=== PATIENT | male | born 1965 | race American Indian/Alaskan Native ===

== ENCOUNTER 2021-06-04 04:22 | Inpatient (IN) | payer SELFPAY ==
[~2021-06-04 04:22] MED LIST: ETOMIDATE 20 MG/10 ML INJ IV ONE; MIDAZOLAM 5 MG/5 ML INJ MDV IV ONE; ROCURONIUM 50 MG/5 ML INJ IV ONE
[2021-06-04] MEDS ORDERED: methylPREDNISolone Sod Succinate 125 MG/2 ML INJ IV ONE (04:47)
[2021-06-04] MEDS ORDERED: FAMOTIDINE 20 MG/2 ML INJ IV ONE (04:47)
[2021-06-04] MEDS ORDERED: EPINEPHrine/PF 1 MG/1 ML INJ SUB-Q ONE (04:47)
[2021-06-04] MEDS ORDERED: diphenhydrAMINE 50 MG/ML VIAL IV ONE (04:47)
--- NOTE | 2021-06-04 04:50 | Emergency Department Report ---
ED General Adult HPI - General Chief complaint: Dental/Oral Stated complaint: SWOLLEN TONGUE Time Seen by Provider: 06/04/21 04:46 Source: patient, EMS Mode of arrival: Ambulatory Limitations: No Limitations - History of Present Illness Initial comments: Patient is 55-year-old male brought to the emergency room via EMS from home for evaluation of swollen tongue. Patient stated that he woke up with swollen tongue. Patient denied any difficulty breathing but he has difficulty talking and swallowing. Patient stated that he is not taking losartan. - Related Data Allergies Allergy/AdvReac Type Severity Reaction Status Date / Time No Known Allergies Allergy Verified 06/04/21 04:24 ED Review of Systems ROS: Stated complaint: SWOLLEN TONGUE Other details as noted in HPI Comment: All other systems reviewed and negative Constitutional: denies: chills, fever Respiratory: denies: cough, SOB at rest Gastrointestinal: denies: abdominal pain, nausea Musculoskeletal: denies: back pain Neurological: denies: headache ED Past Medical Hx - Past Medical History Previous Medical History?: Yes Hx Hypertension: Yes Hx CVA: Yes ED Physical Exam - General Limitations: No Limitations General appearance: alert, in no apparent distress - ENT ENT exam: Present: other (Significantly swollen tongue especially the posterior part of the tongue.) - Respiratory Respiratory exam: Present: normal lung sounds bilaterally - Cardiovascular Cardiovascular Exam: Present: regular rate, normal rhythm, normal heart sounds - GI/Abdominal GI/Abdominal exam: Present: soft, normal bowel sounds. Absent: distended, tenderness, guarding, rebound, rigid, organomegaly, mass, bruit, pulsatile mass, hernia - Extremities Exam Extremities exam: Present: normal inspection, full ROM, normal capillary refill - Back Exam Back exam: Present: normal inspection, full ROM. Absent: CVA tenderness (R), CVA tenderness (L) - Neurological Exam Neurological exam: Present: alert, oriented X3, CN II-XII intact - Psychiatric Psychiatric exam: Present: normal mood - Skin Skin exam: Present: warm, intact, normal color ED Course Vital Signs 06/04/21 06/04/21 06/04/21 04:31 05:09 05:16 Temperature 97.4 F L Pulse Rate 98 H 97 H 86 Respiratory 18 14 14 Rate Blood Pressure Blood Pressure 203/112 [Left] O2 Sat by Pulse 100 100 100 Oximetry 06/04/21 06/04/21 06/04/21 05:30 05:41 05:45 Temperature Pulse Rate 103 H 97 H 112 H Respiratory 14 20 18 Rate Blood Pressure 213/114 Blood Pressure 213/114 200/106 207/109 [Left] O2 Sat by Pulse 100 100 100 Oximetry 06/04/21 06/04/21 06/04/21 05:46 06:00 06:07 Temperature Pulse Rate 147 H 152 H 141 H Respiratory 15 24 Rate Blood Pressure 207/109 214/115 187/110 Blood Pressure 214/115 [Left] O2 Sat by Pulse 100 99 100 Oximetry 06/04/21 06/04/21 06/04/21 06:15 06:16 06:30 Temperature Pulse Rate 143 H 144 H 125 H Respiratory 24 24 24 Rate Blood Pressure 187/110 152/90 Blood Pressure 187/110 [Left] O2 Sat by Pulse 100 100 98 Oximetry 06/04/21 06/04/21 06/04/21 06:46 07:00 07:16 Temperature Pulse Rate 119 H 113 H 119 H Respiratory 24 24 24 Rate Blood Pressure 139/93 211/119 178/95 Blood Pressure [Left] O2 Sat by Pulse 99 99 98 Oximetry 06/04/21 06/04/21 06/04/21 07:30 07:46 08:00 Temperature Pulse Rate 111 H 109 H 103 H Respiratory 24 21 24 Rate Blood Pressure 139/89 164/100 128/86 Blood Pressure [Left] O2 Sat by Pulse 98 99 99 Oximetry 06/04/21 06/04/21 06/04/21 08:16 08:26 08:30 Temperature 99.1 F Pulse Rate 98 H 95 H 96 H Respiratory 24 14 24 Rate Blood Pressure 136/89 130/89 130/89 Blood Pressure [Left] O2 Sat by Pulse 99 99 99 Oximetry 06/04/21 06/04/21 06/04/21 08:41 08:46 09:00 Temperature Pulse Rate 86 86 82 Respiratory 23 24 25 H Rate Blood Pressure 135/90 135/90 157/93 Blood Pressure [Left] O2 Sat by Pulse 100 100 100 Oximetry 06/04/21 06/04/21 06/04/21 09:16 09:30 09:46 Temperature Pulse Rate 79 82 79 Respiratory 18 14 24 Rate Blood Pressure 160/97 154/98 159/98 Blood Pressure [Left] O2 Sat by Pulse 100 100 100 Oximetry 1206/04/21 06/04/21 10:00 10:16 10:30 Temperature Pulse Rate 81 79 83 Respiratory 23 24 20 Rate Blood Pressure 164/98 162/101 167/99 Blood Pressure [Left] O2 Sat by Pulse 100 100 100 Oximetry 06/04/21 06/04/21 06/04/21 10:46 11:00 11:16 Temperature Pulse Rate 79 78 80 Respiratory 24 24 24 Rate Blood Pressure 165/100 170/104 165/99 Blood Pressure [Left] O2 Sat by Pulse 100 100 100 Oximetry 06/04/21 06/04/21 06/04/21 11:30 11:46 12:00 Temperature Pulse Rate 83 87 87 Respiratory 16 16 17 Rate Blood Pressure 176/104 164/100 165/107 Blood Pressure [Left] O2 Sat by Pulse 100 100 100 Oximetry 06/04/21 06/04/21 06/04/21 12:16 12:30 12:40 Temperature Pulse Rate 89 87 86 Respiratory 16 16 Rate Blood Pressure 162/104 170/102 164/100 Blood Pressure [Left] O2 Sat by Pulse 100 100 100 Oximetry 06/04/21 06/04/21 06/04/21 12:46 13:00 13:16 Temperature Pulse Rate 94 H 89 85 Respiratory 15 16 16 Rate Blood Pressure 176/112 179/101 182/104 Blood Pressure [Left] O2 Sat by Pulse 94 Oximetry 06/04/21 06/04/21 06/04/21 13:30 13:46 14:00 Temperature Pulse Rate 83 90 80 Respiratory 16 16 16 Rate Blood Pressure 172/98 181/109 147/87 Blood Pressure [Left] O2 Sat by Pulse Oximetry 06/04/21 06/04/21 06/04/21 14:16 14:30 14:46 Temperature Pulse Rate 75 77 79 Respiratory 16 13 14 Rate Blood Pressure 145/91 167/144 165/99 Blood Pressure [Left] O2 Sat by Pulse Oximetry 06/04/21 06/04/21 06/04/21 15:00 15:16 15:30 Temperature Pulse Rate 69 77 68 Respiratory 16 17 16 Rate Blood Pressure 151/101 166/100 157/110 Blood Pressure [Left] O2 Sat by Pulse 100 98 Oximetry 06/04/21 06/04/21 06/04/21 15:45 16:00 16:15 Temperature Pulse Rate 61 59 L 55 L Respiratory 16 16 16 Rate Blood Pressure 151/112 150/106 152/83 Blood Pressure [Left] O2 Sat by Pulse 98 98 99 Oximetry 06/04/21 06/04/21 06/04/21 16:24 16:30 16:46 Temperature Pulse Rate 52 L 51 L 81 Respiratory 16 17 Rate Blood Pressure 152/83 159/89 195/124 Blood Pressure [Left] O2 Sat by Pulse 99 99 100 Oximetry 06/04/21 06/04/21 06/04/21 17:00 17:15 17:30 Temperature Pulse Rate 95 H 77 70 Respiratory 15 15 18 Rate Blood Pressure 206/102 138/117 172/109 Blood Pressure [Left] O2 Sat by Pulse 100 100 100 Oximetry 06/04/21 06/04/21 06/04/21 17:46 18:00 18:15 Temperature Pulse Rate 69 60 53 L Respiratory 17 16 16 Rate Blood Pressure 167/93 167/97 160/86 Blood Pressure [Left] O2 Sat by Pulse 100 100 100 Oximetry 06/04/21 06/04/21 06/04/21 18:30 18:45 19:00 Temperature Pulse Rate 51 L 50 L 49 L Respiratory 16 16 16 Rate Blood Pressure 157/86 160/87 158/86 Blood Pressure [Left] O2 Sat by Pulse 100 100 100 Oximetry 06/04/21 06/04/21 06/04/21 19:15 19:16 19:30 Temperature 97.6 F Pulse Rate 49 L 47 L 48 L Respiratory 16 16 16 Rate Blood Pressure 169/106 163/122 Blood Pressure 169/106 [Left] O2 Sat by Pulse 100 100 100 Oximetry 06/04/21 06/04/21 06/04/21 19:45 19:58 20:00 Temperature Pulse Rate 47 L 47 L 64 Respiratory 16 15 Rate Blood Pressure 163/118 169/110 Blood Pressure [Left] O2 Sat by Pulse 100 100 99 Oximetry 06/04/21 06/04/21 06/04/21 20:15 20:30 20:45 Temperature Pulse Rate 49 L 47 L 47 L Respiratory 16 16 16 Rate Blood Pressure 164/93 164/89 163/90 Blood Pressure [Left] O2 Sat by Pulse 99 99 99 Oximetry 06/04/21 06/04/21 06/04/21 21:00 21:15 21:30 Temperature Pulse Rate 46 L 45 L 45 L Respiratory 16 16 16 Rate Blood Pressure 161/91 161/91 163/93 Blood Pressure [Left] O2 Sat by Pulse 99 99 99 Oximetry ED Medical Decision Making - Lab Data Result diagrams: 06/04/21 04:53 06/04/21 04:53 - Medical Decision Making Patient is 55-year-old male brought to the emergency room via EMS from home for evaluation of swollen tongue. Patient stated that he woke up with swollen tongue. Patient denied any difficulty breathing but he has difficulty talking and swallowing. Patient stated that he is not taking losartan. Patient immediately received epinephrine, Benadryl, Solu-Medrol and Pepcid with no improvement. I immediately decided to intubate the patient to protect his airway. With the help of anesthesiologist patient intubated using a glide scope. I discussed the patient with Dr. Hart, he agreed to admit the patient to medical service for further management. Critical Care Time: Yes Critical care time in (mins) excluding proc time.: 45 Critical care attestation.: If time is entered above; I have spent that time in minutes in the direct care of this critically ill patient, excluding procedure time. ED Disposition Clinical Impression: Angioedema, Compromised airway Disposition: ADMITTED INPATIENT Is pt being admited?: Yes Condition: Stable
[2021-06-04] MEDS ORDERED: SODIUM CHLORIDE 0.9% 500 ML 500 ML IV ONE (05:11)
[2021-06-04 05:12] LABS: Basophils % (Auto) 0.4 % (0.0-1.8); Eosinophils % (Auto) 0.1 % (0.0-4.3); Hemoglobin 12.4 gm/dl (11.8-15.2); Lymphocytes # (Auto) 1.1 K/mm3 (1.2-5.4); Lymphocytes % (Auto) 15.3 % (13.4-35.0); Mean Corpuscular HGB Conc 32 % (32-34); Mean Corpuscular Volume 82 fl (84-94); Monocytes # (Auto) 0.5 K/mm3 (0.0-0.8); Monocytes % (Auto) 7.6 % (0.0-7.3); Platelet Count 140 K/mm3 (140-440); Red Blood Count 4.78 M/mm3 (3.65-5.03); Red Cell Distribution Width 13.5 % (13.2-15.2)
[2021-06-04] MEDS ORDERED: TRANEXAMIC ACID 1,000 MG in SODIUM CHLORIDE 0.9% 50 ML IV NR (05:15)
[2021-06-04] MEDS ORDERED: SODIUM CHLORIDE 0.9% 50 ML ONE (05:20)
[2021-06-04 05:27] LABS: Blood Urea Nitrogen 6 mg/dL (9-20); Calcium 8.7 mg/dL (8.4-10.2); Hemolysis Index 5
[2021-06-04] MEDS ORDERED: LIDOCAINE PF 100 MG/5 ML (CARDIAC SYRINGE) IV ONE (05:30)
[2021-06-04] MEDS ORDERED: MIDAZOLAM 5 MG/5 ML INJ MDV IV NR (05:30)
[2021-06-04] MEDS ORDERED: ETOMIDATE 20 MG/10 ML INJ IV ONE (05:30)
[2021-06-04] MEDS ORDERED: KETAMINE 500 MG/5 ML VIAL MDV ONE (05:30)
[2021-06-04] MEDS ORDERED: ROCURONIUM 50 MG/5 ML INJ IV ONE (05:30)
[2021-06-04 05:35] LABS: BUN/Creatinine Ratio 12
[2021-06-04] MEDS ORDERED: SUGAMMADEX SODIUM 200 MG/2 ML VIAL IV ONE (05:43)
[2021-06-04 05:49] LABS: INR 1.03 (0.87-1.13)
[2021-06-04 05:50] LABS: Partial Thromboplastin Time 28.1 Sec. (24.2-36.6)
[2021-06-04] MEDS ORDERED: KETAMINE 500 MG/5 ML VIAL MDV IV ONE (05:50)
[2021-06-04] MEDS ORDERED: LIP THERAPY VASELINE TP PRN (05:57)
[2021-06-04] MEDS ORDERED: MINERAL OIL/PETROLATUM, WHITE OPHTH OINT 3.5 GM OU PRN (05:57)
--- NOTE | 2021-06-04 06:40 | XRay Report ---
CHEST 1 VIEW 06/04/2021 6:01 AM INDICATION / CLINICAL INFORMATION: ETT placement. COMPARISON: One view of the chest from 08/23/2011. FINDINGS: SUPPORT DEVICES: An ET tube terminates 7 cm above the yvonne. An NG tube terminates laterally along t he gastric fundus. HEART / MEDIASTINUM: No significant abnormality. LUNGS / PLEURA: No significant pulmonary abnormality. No significant pleural effusion. No pneumothora x. ADDITIONAL FINDINGS: No significant additional findings. IMPRESSION: 1. No acute abnormality of the chest. Signer Name: Dawit Ba MD Signed: 06/04/2021 6:35 AM Workstation Name: [id number]
--- NOTE | 2021-06-04 07:41 | History and Physical Report ---
History of Present Illness Date of examination: 06/04/21 Date of admission: 06/04/21 06:03 Chief complaint: Tongue swelling History of present illness: 55-year-old male with history of hypertension who presented to the emergency department with complaints of tongue swelling. He was emergently intubated to prevent airway compromise. Patient was intubated at time of exam. Unable to provide significant or detailed history. Past History Past Medical History: hypertension Past Surgical History: Other (Unable to obtain) Social history: other (Unable to obtain) Family history: other (Unable to obtain) Medications and Allergies Allergies Allergy/AdvReac Type Severity Reaction Status Date / Time No Known Allergies Allergy Verified 06/04/21 04:24 Active Meds: Active Medications Hydrophilic Ointment (Lip Therapy Vaseline) 1 applic TP Q2HR PRN PRN Reason: Dry Lips Propofol (Diprivan 10 Mg/Ml) 1,000 mg in 100 mls @ 2.477 mls/hr IV TITR AIDAN; Protocol Last Titration: 06/04/21 06:50 Dose: 20 mcg/kg/min, 9.906 mls/hr Documented by: Multi-Ingred Cream/Lotion/Oil/Oint (Mineral Oil/Petrolatum, White Ophth Oint 3.5 Gm) 1 applic OU Q4HR PRN PRN Reason: Dry Eye(s) Senna/Docusate Sodium (Sennosides/Docusate Sodium 8.6/50 Mg Tab) 1 tab FEEDTUBE BID AIDAN Review of Systems ROS unobtainable: due to endotracheal tube Exam - Physical Exam Narrative exam: GENERAL: Well-developed well-nourished. Lying in bed in no acute distress. HEENT: ET tube in place. NECK: Supple. CHEST/LUNGS: CTAB on MV HEART/CARDIOVASCULAR: RRR. No murmur, rubs or gallops appreciated. ABDOMEN: +BS. NT/ND. NEURO: No focal motor deficit appreciated. Follows all commands. EXTREMITIES: No cyanosis, clubbing or edema. PSYCH: Cooperative. - Constitutional Vitals: Temp Pulse Resp BP Pulse Ox 97.4 F L 144 H 24 187/110 100 06/04/21 04:31 06/04/21 06:16 06/04/21 06:16 06/04/21 06:16 06/04/21 06:16 Results - Labs CBC & Chem 7: 06/09/21 04:22 06/09/21 04:22 Labs: Laboratory Last Values WBC 7.0 K/mm3 (4.5-11.0) 06/04/21 04:53 RBC 4.78 M/mm3 (3.65-5.03) 06/04/21 04:53 Hgb 12.4 gm/dl (11.8-15.2) 06/04/21 04:53 Hct 39.0 % (35.5-45.6) 06/04/21 04:53 MCV 82 fl (84-94) L 06/04/21 04:53 MCH 26 pg (28-32) L 06/04/21 04:53 MCHC 32 % (32-34) 06/04/21 04:53 RDW 13.5 % (13.2-15.2) 06/04/21 04:53 Plt Count 140 K/mm3 (140-440) 06/04/21 04:53 Lymph % (Auto) 15.3 % (13.4-35.0) 06/04/21 04:53 Coffee % (Auto) 7.6 % (0.0-7.3) H 06/04/21 04:53 Eos % (Auto) 0.1 % (0.0-4.3) 06/04/21 04:53 Baso % (Auto) 0.4 % (0.0-1.8) 06/04/21 04:53 Lymph # (Auto) 1.1 K/mm3 (1.2-5.4) L 06/04/21 04:53 Coffee # (Auto) 0.5 K/mm3 (0.0-0.8) 06/04/21 04:53 Eos # (Auto) 0.0 K/mm3 (0.0-0.4) 06/04/21 04:53 Baso # (Auto) 0.0 K/mm3 (0.0-0.1) 06/04/21 04:53 Seg Neutrophils % 76.6 % (40.0-70.0) H 06/04/21 04:53 Seg Neutrophils # 5.4 K/mm3 (1.8-7.7) 06/04/21 04:53 PT 14.6 Sec. (12.2-14.9) 06/04/21 05:16 INR 1.03 (0.87-1.13) 06/04/21 05:16 APTT 28.1 Sec. (24.2-36.6) 06/04/21 05:16 Sodium 140 mmol/L (137-145) 06/04/21 04:53 Potassium 3.5 mmol/L (3.6-5.0) L 06/04/21 04:53 Chloride 100.3 mmol/L (98-107) 06/04/21 04:53 Carbon Dioxide 24 mmol/L (22-30) 06/04/21 04:53 Anion Gap 19 mmol/L 06/04/21 04:53 BUN 6 mg/dL (9-20) L 06/04/21 04:53 Creatinine 0.5 mg/dL (0.8-1.3) L 06/04/21 04:53 Estimated GFR > 60 ml/min 06/04/21 04:53 BUN/Creatinine Ratio 12 % 06/04/21 04:53 Glucose 124 mg/dL (75-100) H 06/04/21 04:53 Calcium 8.7 mg/dL (8.4-10.2) 06/04/21 04:53 Blood Type O POSITIVE 06/04/21 05:16 Antibody Screen Negative 06/04/21 05:16 Assessment and Plan Assessment and plan: #Angioedema -Patient intubated for airway protection -Patient has history of hypertension treated with losartan, uncertain of use -s/p FFP, Solu-Medrol, famotidine and epinephrine -will continue with steroids every 8 hours, wean as tolerated -CTA of neck ordered -Critical care consulted, assistance appreciated #Hypertensive urgency #History of hypertension -Likely secondary to above vs medication non-compliance -will start PRN hydralazine & nifedipine 30mg qday -will adjust once med rec done #Hypokalemia -will replete and monitor as needed Advance Directives: No VTE prophylaxis?: Chemical Plan of care discussed with patient/family: Yes
[2021-06-04 07:42] LABS: ABG Base Excess -2.9 mmol/L (-2.0-3.0); ABG HCO3 21.3 mmol/L (20.0-26.0); ABG Methemoglobin 0.6 % (0.0-1.5); ABG Oxygen Saturation 98.3 % (95.0-99.0); ABG PCO2 35.1 mm Hg; ABG PH 7.401 pH Units (7.350-7.450); ABG PO2 118.3 mm Hg (80.0-90.0)
[2021-06-04] MEDS ORDERED: ONDANSETRON 4 MG/2 ML INJ IV PRN (08:00)
[2021-06-04] MEDS ORDERED: ACETAMINOPHEN 325 MG/10.15 ML ORAL LIQD UNIT DOSE FEEDTUBE PRN (08:00)
[2021-06-04] MEDS ORDERED: NALOXONE 0.4 MG/1 ML INJ IV PRN (08:00)
--- NOTE | 2021-06-04 08:59 | Event Note ---
Date: 06/04/21 [id number] Called to ER for STAT intubation of patient d/t angioedema. Advised ER MD to give 2 units FFP. I administered 1g TXA on arrival. Pt appeared hypertensive and tachycardic on arrival. Preoxygenated with NRB, and pt given incremental doses of versed/ketamine to total 3mg/100mg in an attempt to take a look with the glidescope while the patient was awake but sedated. The patient became uncooperative instead, so etomidate 20mg given. Using a S4 and 7.5 ETT the patient was intubated via the glidescope with moderate difficulty, then paralyzed with 50mg of rocuronium. Sats dropped to mid 80s and returned to normal after placement. Otherwise pt vital signs were stable, BBS, +ETCO2, atraumatic placement. Patient left in care of the RN, RT, and MD.
[2021-06-04] MEDS ORDERED: DOCUSATE SODIUM 100 MG CAP FEEDTUBE SCH (10:00)
--- NOTE | 2021-06-04 10:41 | Consultation ---
History of Present Illness Consult date: 06/04/21 Requesting physician: ABRAHAM SWENSON Reason for consult: other (AHRF on MVS; Angioedema) History of present illness: PCCM CONSULT NOTE (Full dictation # [id number]) Please see dictated notes for full details Medications and Allergies Allergies Allergy/AdvReac Type Severity Reaction Status Date / Time No Known Allergies Allergy Verified 06/04/21 04:24 Active Meds: Active Medications Acetaminophen (Acetaminophen 325 Mg/10.15 Ml Oral Liqd Unit Dose) 650 mg FEEDTUBE Q6H PRN PRN Reason: Pain MILD(1-3)/Fever >100.5/MEDRANO Bisacodyl (Bisacodyl 10 Mg Rect Supp) 10 mg RI QDAY PRN PRN Reason: constipation Docusate Sodium (Docusate Sodium 100 Mg Cap) 100 mg FEEDTUBE BID AIDAN Famotidine (Famotidine 20 Mg/2 Ml Inj) 20 mg IV BID AIDAN Heparin Sodium (Porcine) (Heparin 5,000 Unit/1 Ml Vial) 5,000 unit SUB-Q Q12HR AIDAN Hydrophilic Ointment (Lip Therapy Vaseline) 1 applic TP Q2HR PRN PRN Reason: Dry Lips Propofol (Diprivan 10 Mg/Ml) 1,000 mg in 100 mls @ 2.477 mls/hr IV TITR AIDAN; Protocol Last Titration: 06/04/21 07:35 Dose: 30 mcg/kg/min, 14.86 mls/hr Documented by: Methylprednisolone Sodium Succinate (Methylprednisolone Sod Succinate 125 Mg/2 Ml Inj) 60 mg IV Q8HR AIDAN Morphine Sulfate (Morphine 2 Mg/1 Ml Inj) 2 mg IV Q4H PRN PRN Reason: Pain, Moderate (4-6) Morphine Sulfate (Morphine 4 Mg/1 Ml Inj) 4 mg IV Q4H PRN PRN Reason: Pain , Severe (7-10) Multi-Ingred Cream/Lotion/Oil/Oint (Mineral Oil/Petrolatum, White Ophth Oint 3.5 Gm) 1 applic OU Q4HR PRN PRN Reason: Dry Eye(s) Naloxone HCl (Naloxone 0.4 Mg/1 Ml Inj) 0.1 mg IV Q2MIN PRN PRN Reason: Res Rate </= 8 or 02 SAT < 92% Ondansetron HCl (Ondansetron 4 Mg/2 Ml Inj) 4 mg IV Q8H PRN PRN Reason: Nausea And Vomiting Senna/Docusate Sodium (Sennosides/Docusate Sodium 8.6/50 Mg Tab) 1 tab FEEDTUBE BID AIDAN Sodium Chloride (Sodium Chloride 0.9% 10 Ml Flush Syringe) 10 ml IV BID AIDAN Sodium Chloride (Sodium Chloride 0.9% 10 Ml Flush Syringe) 10 ml IV PRN PRN PRN Reason: LINE FLUSH Physical Examination Vital signs: Vital Signs Temp Pulse Resp BP Pulse Ox 97.4 F L 100 H 16 204/110 98 06/04/21 04:31 06/04/21 04:31 06/04/21 04:31 06/04/21 04:31 06/04/21 04:31 Results - Laboratory Findings CBC and BMP: 06/04/21 04:53 06/04/21 04:53 ABG ABG pH 7.401 pH Units (7.350-7.450) 06/04/21 06:30 ABG pCO2 35.1 mm Hg 06/04/21 06:30 ABG pO2 118.3 mm Hg (80.0-90.0) H 06/04/21 06:30 ABG O2 Saturation 98.3 % (95.0-99.0) 06/04/21 06:30 PT/INR, D-dimer PT 14.6 Sec. (12.2-14.9) 06/04/21 05:16 INR 1.03 (0.87-1.13) 06/04/21 05:16 Abnormal lab findings: Abnormal Labs 06/04/21 06/04/21 06/04/21 04:53 04:53 06:30 MCV 82 L MCH 26 L [place] % (Auto) 7.6 H Lymph # (Auto) 1.1 L Seg Neutrophils % 76.6 H ABG pO2 118.3 H ABG Base Excess -2.9 L ABG Hemoglobin 12.7 L Potassium 3.5 L BUN 6 L Creatinine 0.5 L Glucose 124 H
[2021-06-04] MEDS: SENNOSIDES/DOCUSATE SODIUM 8.6/50 MG TAB FEEDTUBE SCH ×2 (11:32→23:04)
[2021-06-04] MEDS ORDERED: fentaNYL 100 MCG/2 ML INJ IV PRN (11:40)
[2021-06-04] MEDS: HEPARIN 5,000 UNIT/1 ML VIAL SUB-Q SCH ×2 (12:24→23:04)
[2021-06-04] MEDS: FAMOTIDINE 20 MG/2 ML INJ IV SCH ×2 (12:24→23:04)
[2021-06-04] MEDS: diphenhydrAMINE 50 MG/ML VIAL IV SCH ×2 (12:36→23:04)
[2021-06-04] MEDS: fentaNYL DRIP Premix 2,000 MCG/100 ML BAG IV SCH (14:45)
[2021-06-04] MEDS: methylPREDNISolone Sod Succinate 125 MG/2 ML INJ IV SCH ×2 (15:57→23:04)
[2021-06-04] MEDS: NIFEdipine XL 30 MG TAB PO SCH (20:08)
--- NOTE | 2021-06-04 22:34 | Consultation ---
DATE OF CONSULTATION: 06/04/2021 PULMONARY CRITICAL CARE CONSULT NOTE CONSULTING PHYSICIAN: Dr. Cintron. REASON FOR CONSULTATION: Acute respiratory failure secondary to angioedema. CHIEF COMPLAINT AND HISTORY OF PRESENT ILLNESS: The patient is a now 55-year-old male, past medical history really is unknown and unobtainable secondary to the patient's condition. He presented to the Emergency [facility] by [facility] after he woke up at home with a swollen tongue. He denies being on any medications. Denied being on any medications at home, has no idea what caused the swelling. He has never had the angioedema before. He was having some dysphonia at presentation and also has some difficulty breathing. He reportedly has a prescription for losartan, but denied being on the medication to the Emergency Room physician. He was evaluated in the Emergency Room after a couple of hours or so to 3 hours in the Emergency Room, the patient decompensated; he was found hypotensive and tachycardic. Anesthesia was consulted emergently, the patient ultimately required intubation, rapid sequence intubation at bedside. It was accomplished with a GlideScope and thankfully there was no major desaturation. Post-intubation, we are asked to assist with management. When I stopped by to see him, he was resting in bed, on a propofol drip running at 45 mcg per kilogram per minute, but he was a very easily arousable and appropriate. He denied chest pain. He denied any prior sore throat. He denied any trauma. Now, with regards to the patient's tobacco use/abuse history, he admits to about a half a pack a day tobacco smoking history. There is really is not as much of the history of presentation as I have. PAST MEDICAL HISTORY: The patient admits to history of hypertension and a history of a prior cerebrovascular accident. PAST SURGICAL HISTORY: Denies. MEDICATIONS: The medications he was on at the time I stopped by to see him, according to the medication administration record included the following: Tylenol 650 mg p.o. q. 6 hours p.r.n. mild pain or fevers, Dulcolax 10 mg per rectum daily p.r.n. constipation, docusate sodium 100 mg p.o. b.i.d., all p.o. meds via the feeding tube, Pepcid 20 mg IV b.i.d., heparin 5000 units subcutaneous q. 12 hours, Solu-Medrol 60 mg IV q. 8 hours, morphine sulfate 2 mg IV q. 4 hours p.r.n. moderate pain and 4 mg IV q. 4 hours p.r.n. severe pain, Zofran 4 mg IV q. 8 hours p.r.n. nausea and vomiting. Propofol drip was going at 45 mcg per kilogram per minute, senna docusate 1 tablet p.o. b.i.d. scheduled. ALLERGIES: No known drug allergies. DIET: Thin gentleman. Denies acute weight loss or gain in the preceding few weeks to months. SOCIAL HISTORY: Lives in the community, has about a [id number] tobacco smoking history. Denies alcohol or illicit drug use or abuse. FAMILY HISTORY: Otherwise unobtainable. REVIEW OF SYSTEMS: Difficult to obtain secondary to the patient's medical and mental condition. Since he has been here, no gross hematochezia or melena, no gross hematuria, no hematemesis, no hemoptysis, no bloody tracheal secretions, no witnessed seizures. He denies polydipsia or polyuria. He denies heat or cold intolerance. Complete 13-system review of system was obtained. Pertinent positives and/or negatives as in body of history above, otherwise noncontributory. PHYSICAL EXAMINATION: VITAL SIGNS: At presentation, he was afebrile, temperature 97.4 degrees Fahrenheit, pulse of 100, respiratory rate of 16, blood pressure 204/110, O2 sats were 98%, inspired oxygen concentration at that time was not recorded. When I stopped by to see him, O2 sats were 98% that was on the mechanical ventilator, assist control mode, tidal volumes 500, rate of 24 and PEEP of 5 and 30% FiO2. GENERAL: He is a middle-aged male. Normocephalic, atraumatic. Resting in bed without significant patient-ventilator dyssynchrony. HEAD, EYES, EARS, NOSE AND THROAT: Anicteric. No conjunctival erythema. Endotracheal tube was taped at the lips around 24 cm. NECK: No gross jugular venous distention, no thyromegaly, but he does have some swelling to the neck without significant tenderness. RESPIRATORY: Grossly, there were no palpable lymph nodes in the supraclavicular or submandibular lymph node chains. LUNGS: Auscultation of both lung tovar are unremarkable. He had good bilateral air movement. No wheezing. HEART: Sounds 1 and 2 are heard at the time of my evaluation, regular rate and rhythm without overt rubs or murmurs. ABDOMEN: Soft, flat, bowel sounds are positive, nontender, no palpable hepatosplenomegaly. EXTREMITIES: Without overt digital clubbing or cyanosis, no pedal edema. Pedal pulses are 2+ bilaterally. NEUROLOGIC: Pupils are equal, round, about 4 mm, reactive to light. Extraocular muscle movements are intact. He moves all 4 extremities spontaneously. SKIN: Normal turgor in the areas examined without overt cellulitis or rash. Please see the wound care nurses' notes for full description of his skin. PSYCHIATRIC: Mood was normal. Affect was appropriate. He seemed to have intact judgment and insight. LABORATORY DATA: From my review are as follows: Admission white cell count 7000 with a hemoglobin of 12.4, hematocrit of 39.0 and platelet count of 140. INR 1.03. Arterial blood gas showed a pH of 7.40, pCO2 of 35, pO2 of 118 on 40% FiO2. Serum sodium 140, potassium 3.5, chloride 100, bicarbonate 24, BUN 6, creatinine 0.5, glucose was 124. CRP was within normal limits. No microbiology studies. Chest x-ray, considering some hyperinflation noted on the x-ray he is a thin, tall gentleman, I would say, with borderline cardiomegaly; however, no acute process otherwise. No gross pneumothorax, no gross bony fracture. I am unable to see the left costophrenic angle well though. ASSESSMENT: 1. Acute respiratory failure secondary to angioedema, etiology unknown. 2. Hypertension, poorly controlled. 3. History of a cerebrovascular accident. 4. Mild hypokalemia. PLAN: I will reduce continue mechanical ventilator. I have reduced the set rate to 16. We will continue Pepcid, and I will add Benadryl. I will also add fentanyl to the sedation regimen and try and see if we can wean off propofol. Oxygen will be weaned to keep sats greater than or equal to about 90%. Aspiration precautions, ventilator-associated pneumonia bundle has been introduced. No acute indication for empiric antibiotic therapy. I will go ahead and order a CT scan of his neck to better evaluate the swelling below of his neck. Otherwise, he is appropriately on GI and DVT prophylaxis. I will be stopping the Colace and continue with the senna docusate for now to prevent acute diarrhea. Flu and pneumonia vaccination will be addressed per protocol. Thank you very much for the consult. We will follow along and make further recommendations as picture progresses/becomes clearer. He is critically ill on life-sustaining interventions including mechanical ventilatory support at very high risk of from pulmonary system decompensation. At this time, I spent about 35-40 minutes of critical care time without overlap excluding any procedural time that may be necessary. I should mention oral antihypertensives will be introduced. TID: [id number] RECEIPT: [id number] THOR/MORIAH
--- NOTE | 2021-06-04 23:22 | Cat Scan Report ---
CT neck w con INDICATION / CLINICAL INFORMATION: 55 years Male; Angioedema; neck swelling. TECHNIQUE: Contiguous thin cut axial images obtained through the neck following IV contrast. Sagittal and chirinos l reconstructions performed by the technologist. All CT scans at this location are performed using CT dose reduction for ALARA by means of automated exposure control. COMPARISON: None available. FINDINGS: There are edematous changes involving superficial soft tissues of the left neck with mild t hickening of the underlying platysma muscle which is nonspecific though may reflect cellulitis; corre lation be needed given the history of "neck swelling". No focal fluid collections are identified to i ndicate abscess at. MUCOSAL SPACE: The motion degrades the image quality in this intubated patient. There is also presenc e of nasogastric tube. There is hyperostosis along the lingual cortex of the mandible, greater on the right which is seen is an incidental finding. LYMPH NODES: There are a few scattered cervical lymph nodes which appear to measure less than 1 cm an d are likely reactive. SALIVARY GLANDS: The visualized parotid glands demonstrate fairly symmetric attenuation without calci fication. There appear to be mild inflammatory changes surrounding the left submandibular gland at. T here is apparent mild dilatation of the ducts within the submandibular glands bilaterally. However, n o calcification is seen within the glands. THYROID GLAND: The thyroid gland appears to demonstrate appropriate size and contour. PARANASAL SINUSES: Mild mucosal thickening is noted along the inferior maxillary sinuses bilaterally. SPINE: There is mild reversal the cervical lordosis with multilevel degenerative changes. VASCULAR STRUCTURES: There appear to be mild edematous changes surrounding the left carotid sheath st ructures. There is no significant narrowing of the visualized carotid vessels. 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 IMPRESSION: 1. The motion and beam hardening significantly degrades the image quality in this patient with presen ce of endotracheal and nasogastric tubes. However, there are edematous changes particularly involving the left neck including the subcutaneous soft tissues and correlation be needed in this patient with history of "neck swelling". No well-defined fluid collection is identified to indicate abscess. Signer Name: Spike Zee MD Signed: 06/04/2021 11:18 PM Workstation Name: [id number]
--- NOTE | 2021-06-05 02:44 | XRay Report ---
CHEST 1 VIEW 06/05/2021 1:31 AM INDICATION / CLINICAL INFORMATION: follow up respiratory failure. COMPARISON: One view of the chest from 06/04/2021. FINDINGS: SUPPORT DEVICES: Unchanged. HEART / MEDIASTINUM: No significant abnormality. LUNGS / PLEURA: No significant pulmonary abnormality. No significant pleural effusion. No pneumothora x. ADDITIONAL FINDINGS: No significant additional findings. IMPRESSION: 1. No acute abnormality of the chest. Signer Name: Dawit Ba MD Signed: 06/05/2021 2:40 AM Workstation Name: [id number]
[2021-06-05 05:14] LABS: Basophils % (Auto) 0.2 % (0.0-1.8); Hematocrit 38.7 % (35.5-45.6); Lymphocytes # (Auto) 0.4 K/mm3 (1.2-5.4); Lymphocytes % (Auto) 8.5 % (13.4-35.0); Mean Corpuscular HGB Conc 31 % (32-34); Mean Corpuscular Volume 81 fl (84-94); Monocytes # (Auto) 0.2 K/mm3 (0.0-0.8); Monocytes % (Auto) 4.3 % (0.0-7.3); Platelet Count 126 K/mm3 (140-440)
[2021-06-05] MEDS: methylPREDNISolone Sod Succinate 125 MG/2 ML INJ IV SCH ×3 (05:14→22:04)
[2021-06-05 05:46] LABS: Blood Urea Nitrogen 12 mg/dL (9-20); Calcium 8.2 mg/dL (8.4-10.2); Hemolysis Index 4
[2021-06-05 05:48] LABS: BUN/Creatinine Ratio 24
[2021-06-05 09:08] LABS: ABG Base Excess 3.6 mmol/L (-2.0-3.0); ABG HCO3 28.2 mmol/L (20.0-26.0); ABG Methemoglobin 0.5 % (0.0-1.5); ABG Oxygen Saturation 97.9 % (95.0-99.0); ABG PCO2 42.6 mm Hg; ABG PH 7.438 pH Units (7.350-7.450); ABG PO2 106.3 mm Hg (80.0-90.0)
[2021-06-05] MEDS: diphenhydrAMINE 50 MG/ML VIAL IV SCH (11:14)
[2021-06-05] MEDS: FAMOTIDINE 20 MG/2 ML INJ IV SCH ×2 (11:14→22:04)
[2021-06-05] MEDS: HEPARIN 5,000 UNIT/1 ML VIAL SUB-Q SCH ×2 (11:14→22:04)
[2021-06-05] MEDS: SENNOSIDES/DOCUSATE SODIUM 8.6/50 MG TAB FEEDTUBE SCH ×2 (11:15→22:04)
[2021-06-05] MEDS: NIFEdipine XL 30 MG TAB PO SCH (11:17)
--- NOTE | 2021-06-05 11:19 | Progress Note ---
Assessment and Plan Acute respiratory failure Angioedema Hypertension Cerebrovascular accident Hypokalemia - continue antihistamine therapy - continue Systemic Steroids - daily SAT and SBT assessment as tolerated (tentative extubation in am) - continue to wean supplemental oxygen for target O2 sat's > 90% acutely - VAP bundle addressed - continue lung protective strategies - continue bronchodilators with pulmonary hygiene per RT - wean per pulmonary driven protocols otherwise - continue to avoid benzodiazepine's, reduce the possibility of delirium - AB's per ID rec's - continue accuchecks resumed with glycemic control per SSI (While critically ill target blood glucose of 140-180 mg/dL; avoid hypoglycemia) - sedation prn for target RASS 0 to -1 - prn analgesia per CPOT score - Maintenance of sleep-wake cycle, avoid delirium - continue enteral nutritional support at goal rate as tolerated - G.I. & VTE prophylaxis - PT/OT/ROM exercises - continue mobility protocols for pressure ulcer prophylaxis - Monitor hemodynamics closely - continue other care per attending / other consultants - discharge planning ongoing concurrently .... Re-evaluate in am & prn CONDITION: CRITICAL PROGNOSIS: GUARDED CODE STATUS: FULL CODE The high probability of a clinically significant, sudden or life-threatening deterioration of the [respiratory] system(s) required my full and direct attention, intervention and personal management. The aggregate critical care time was [33] minutes without overlap. Time includes spent on; [x] Data Review and interpretation [x] Patient assessment and monitoring of vital signs [x] Documentation [x] Medication orders and management Subjective Date of service: 06/05/21 Principal diagnosis: Acute respiratory failure ; HTN; Angioedema; H/O CVA; Hypokalemia Interval history: Patient is seen today for: Acute respiratory failure ; HTN; Angioedema; H/O CVA; Hypokalemia Seen and examined at bedside; 24hour events reviewed; nursing and respiratory care staff consulted; no adverse overnight events reported to me; resting in bed; CT neck without abscess / fluid collection; cuff leak improved; he denies acute chest pains or SOB; no emesis or overt aspiration Objective Vital Signs - 12hr 06/04/21 06/04/21 06/04/21 23:20 23:29 23:30 Temperature Pulse Rate 60 59 L Pulse Rate [ 59 L From Monitor] Respiratory 16 16 16 Rate Blood Pressure 194/106 194/106 O2 Sat by Pulse 99 100 99 Oximetry 06/04/21 06/04/21 06/04/21 23:38 23:40 23:50 Temperature Pulse Rate 59 L 58 L 58 L Pulse Rate [ From Monitor] Respiratory 16 16 Rate Blood Pressure 194/106 194/106 194/106 O2 Sat by Pulse 100 99 99 Oximetry 06/05/21 06/05/21 06/05/21 00:00 00:06 00:10 Temperature 97.4 F L Pulse Rate 58 L 58 L 58 L Pulse Rate [ From Monitor] Respiratory 16 16 16 Rate Blood Pressure 111/80 111/80 111/80 O2 Sat by Pulse 99 99 99 Oximetry 06/05/21 06/05/21 06/05/21 00:20 00:30 00:40 Temperature Pulse Rate 58 L 56 L 56 L Pulse Rate [ From Monitor] Respiratory 16 16 16 Rate Blood Pressure 111/80 111/80 111/80 O2 Sat by Pulse 99 99 99 Oximetry 06/05/21 06/05/21 06/05/21 00:50 01:00 01:10 Temperature Pulse Rate 56 L 55 L 57 L Pulse Rate [ From Monitor] Respiratory 16 16 16 Rate Blood Pressure 111/80 116/80 116/80 O2 Sat by Pulse 99 99 99 Oximetry 06/05/21 06/05/21 06/05/21 01:20 01:30 01:40 Temperature Pulse Rate 56 L 56 L 57 L Pulse Rate [ From Monitor] Respiratory 16 16 16 Rate Blood Pressure 116/80 116/80 116/80 O2 Sat by Pulse 99 99 99 Oximetry 06/05/21 06/05/21 06/05/21 01:50 02:00 02:10 Temperature Pulse Rate 58 L 57 L 61 Pulse Rate [ From Monitor] Respiratory 16 16 16 Rate Blood Pressure 116/80 118/81 118/81 O2 Sat by Pulse 99 99 99 Oximetry 06/05/21 06/05/21 06/05/21 02:20 02:30 02:40 Temperature Pulse Rate 61 62 64 Pulse Rate [ From Monitor] Respiratory 16 16 16 Rate Blood Pressure 118/81 118/81 118/81 O2 Sat by Pulse 99 99 99 Oximetry 06/05/21 06/05/21 06/05/21 02:50 03:00 03:16 Temperature Pulse Rate 66 65 70 Pulse Rate [ From Monitor] Respiratory 16 16 16 Rate Blood Pressure 118/81 155/96 155/96 O2 Sat by Pulse 99 100 100 Oximetry 06/05/21 06/05/21 06/05/21 03:30 03:46 04:00 Temperature 97.9 F Pulse Rate 70 82 70 Pulse Rate [ 59 L From Monitor] Respiratory 16 16 16 Rate Blood Pressure 155/96 155/96 113/79 O2 Sat by Pulse 99 99 98 Oximetry 06/05/21 06/05/21 06/05/21 04:04 04:16 04:30 Temperature Pulse Rate 69 68 71 Pulse Rate [ From Monitor] Respiratory 16 16 Rate Blood Pressure 113/79 113/79 113/79 O2 Sat by Pulse 98 98 98 Oximetry 06/05/21 06/05/21 06/05/21 04:46 05:00 05:16 Temperature Pulse Rate 69 69 72 Pulse Rate [ From Monitor] Respiratory 16 16 16 Rate Blood Pressure 113/79 122/86 122/86 O2 Sat by Pulse 99 99 99 Oximetry 06/05/21 06/05/21 06/05/21 05:30 05:46 06:00 Temperature Pulse Rate 72 73 73 Pulse Rate [ From Monitor] Respiratory 16 16 16 Rate Blood Pressure 122/86 122/86 147/98 O2 Sat by Pulse 99 99 99 Oximetry 06/05/21 06/05/21 07:15 08:39 Temperature 97.8 F Pulse Rate 69 Pulse Rate [ From Monitor] Respiratory Rate Blood Pressure 131/86 O2 Sat by Pulse 99 Oximetry Constitutional: no acute distress Eyes: non-icteric ENT: oropharynx moist, other (ETT 24 cm DELMER) Neck: supple, no lymphadenopathy, no JVD Effort: normal Ascultation: Bilateral: clear Percussion: Bilateral: not dull Cardiovascular: regular rate and rhythm Gastrointestinal: normoactive bowel sounds, soft, non-tender, non-distended Integumentary: normal Extremities: no cyanosis, no edema, pulses normal, no ischemia or petechiae Neurologic: non-focal exam (grossly), pupils equal and round, CN II-XII normal, motor strength normal and Psychiatric: mood appropriate, affect normal CBC and BMP: 06/06/21 07:16 06/06/21 07:16 ABG, PT/INR, D-dimer: ABG ABG pH 7.438 pH Units (7.350-7.450) 06/05/21 08:45 ABG pCO2 42.6 mm Hg 06/05/21 08:45 ABG pO2 106.3 mm Hg (80.0-90.0) H 06/05/21 08:45 ABG O2 Saturation 97.9 % (95.0-99.0) 06/05/21 08:45 PT/INR, D-dimer PT 14.6 Sec. (12.2-14.9) 06/04/21 05:16 INR 1.03 (0.87-1.13) 06/04/21 05:16 Abnormal lab findings: Abnormal Labs 06/04/21 06/04/21 06/04/21 04:53 04:53 06:30 MCV 82 L MCH 26 L MCHC RDW Plt Count Lymph % (Auto) [place] % (Auto) 7.6 H Lymph # (Auto) 1.1 L Seg Neutrophils % 76.6 H ABG pO2 118.3 H ABG HCO3 ABG Base Excess -2.9 L ABG Hemoglobin 12.7 L Potassium 3.5 L BUN 6 L Creatinine 0.5 L Glucose 124 H POC Glucose Calcium 06/04/21 06/05/21 06/05/21 23:31 04:14 04:14 MCV 81 L MCH 25 L MCHC 31 L RDW 13.0 L Plt Count 126 L Lymph % (Auto) 8.5 L [place] % (Auto) Lymph # (Auto) 0.4 L Seg Neutrophils % 87.0 H ABG pO2 ABG HCO3 ABG Base Excess ABG Hemoglobin Potassium BUN Creatinine 0.5 L Glucose 152 H POC Glucose 157 H Calcium 8.2 L 06/05/21 08:45 MCV MCH MCHC RDW Plt Count Lymph % (Auto) [place] % (Auto) Lymph # (Auto) Seg Neutrophils % ABG pO2 106.3 H ABG HCO3 28.2 H ABG Base Excess 3.6 H ABG Hemoglobin 13.3 L Potassium BUN Creatinine Glucose POC Glucose Calcium Chest x-ray: image reviewed (no acute process) Allied health notes reviewed: nursing
--- NOTE | 2021-06-05 11:53 | Progress Note ---
Assessment and Plan Assessment and plan: This is a 55-year-old male with past medical history of HTN who was intubated in the ED due to angioedema. Hospital Course to Date 06/05: Patient remains intubated and sedated. Sedation vacation this am, patient was appropriate following commands. CT Neck noted and revealed edematous and swelling. Plan for SAT and SBT today for potential extubation per [facility]. Per nursing staff family voiced concern for possible alcohol withdrawal, patient is a daily heavy drinker. Consider CIWA protocol once awake and off sedation. Assessment and Plan #Neuro:Sedated #ETOH Abuse - Patient is intubated and sedated on propofol and Fentanyl RASS -3 - Sedation vacation this am, patient was appropriate, following commands - Concern for possible ETOH withdrawal, per family heavy daily drinker - Consider CIWA protocol once awake and off sedation - Plan for SAT and SBT today per [facility] - Avoid benzodiazepine to reduce the possibility of delirium - PRN analgesia for CPOT greater than 3 - Maintenance of sleep-wake cycle #Hypertensive urgency #History of hypertension - Patient presented with elevated BP - Probably due to above vs. medication non-compliance - Patient BP is bordeline this am, probably related to sedation - Continue PRN hydralazine & nifedipine 30mg qday - Will resume home meds once list is available - Continue blood pressure monitor per protocol - Maintain MAP above 65 and or SBP less than 160 #Acute respiratory failure #Angioedema - Patient intubated for airway protection in the ED on 06/04 - Patient has history of hypertension treated with losartan, uncertain of use - s/p FFP, Solu-Medrol, famotidine and epinephrine - Vent Setting: A/C- 30%,6,16,500 - AM ABG noted - CTA Neck noted and revealed edematous and swelling - [facility] consulted, appreciate recommendations - Continue IV Steroids and IV benadryl - VAP bundle addressed - Aspiration precaution HOB above 30 - Daily SBT and SAT trials as tolerated - Daily ABG and CXR - Continue SPO2 monitoring for SPO2 goal above 92% #GI:TF - Enteral nutrition initiated - Nutrition consult - Continue PPI- pepcid - Continue BR #Hypokalemia- improved - presented with low K, repleted - Monitor and replace electrolytes as needed - Trend BMP #Endo:Glycemic Control - BG check and low dose SSI Q6hrs while on TF - Avoid hypoglycemia #DVT Prophylaxis - Continue AC- Hep SubQ - SCDs to bilateral lower extremities while in bed The high probability of a clinically significant, sudden or life threatening deterioration of the [Neuro, Respiratory] system(s) required my full and direct attention, intervention and personal management. The aggregate critical care time was [60] minutes. This time is in addition to time spent performing reported procedures but includes the following: [x] Data Review and interpretation [x] Patient assessment and monitoring of vital signs [x] Documentation [x] Medication orders and management Disposition Plan: ICU Total Time Spent with Patient (Minutes): 60 History Interval history: Patient seen and examined at the bedside. Intubated and sedated, on propofol and fentanyl, RASS -3. Per RN patient tolerated sedation vacation this am, woke up, was appropriate, and following commands. Angioedema improved overnight Hospitalist Physical - Constitutional Vitals: Temp Pulse Resp BP Pulse Ox 98.6 F 69 16 131/86 99 06/05/21 11:34 06/05/21 08:39 06/05/21 06:00 06/05/21 08:39 06/05/21 08:39 Results - Labs CBC & Chem 7: 06/05/21 04:14 06/05/21 04:14 Labs: Laboratory Last Values WBC 5.1 K/mm3 (4.5-11.0) 06/05/21 04:14 RBC 4.80 M/mm3 (3.65-5.03) 06/05/21 04:14 Hgb 12.0 gm/dl (11.8-15.2) 06/05/21 04:14 Hct 38.7 % (35.5-45.6) 06/05/21 04:14 MCV 81 fl (84-94) L 06/05/21 04:14 MCH 25 pg (28-32) L 06/05/21 04:14 MCHC 31 % (32-34) L 06/05/21 04:14 RDW 13.0 % (13.2-15.2) L 06/05/21 04:14 Plt Count 126 K/mm3 (140-440) L 06/05/21 04:14 Lymph % (Auto) 8.5 % (13.4-35.0) L 06/05/21 04:14 [place] % (Auto) 4.3 % (0.0-7.3) 06/05/21 04:14 Eos % (Auto) 0.0 % (0.0-4.3) 06/05/21 04:14 Baso % (Auto) 0.2 % (0.0-1.8) 06/05/21 04:14 Lymph # (Auto) 0.4 K/mm3 (1.2-5.4) L 06/05/21 04:14 [place] # (Auto) 0.2 K/mm3 (0.0-0.8) 06/05/21 04:14 Eos # (Auto) 0.0 K/mm3 (0.0-0.4) 06/05/21 04:14 Baso # (Auto) 0.0 K/mm3 (0.0-0.1) 06/05/21 04:14 Seg Neutrophils % 87.0 % (40.0-70.0) H 06/05/21 04:14 Seg Neutrophils # 4.4 K/mm3 (1.8-7.7) 06/05/21 04:14 ESR 29 mm/Hr (0-20) 06/04/21 04:53 PT 14.6 Sec. (12.2-14.9) 06/04/21 05:16 INR 1.03 (0.87-1.13) 06/04/21 05:16 APTT 28.1 Sec. (24.2-36.6) 06/04/21 05:16 ABG pH 7.438 pH Units (7.350-7.450) 06/05/21 08:45 ABG pCO2 42.6 mm Hg 06/05/21 08:45 ABG pO2 106.3 mm Hg (80.0-90.0) H 06/05/21 08:45 ABG HCO3 28.2 mmol/L (20.0-26.0) H 06/05/21 08:45 ABG O2 Saturation 97.9 % (95.0-99.0) 06/05/21 08:45 ABG O2 Content 18.1 (0.0-44) 06/05/21 08:45 ABG Base Excess 3.6 mmol/L (-2.0-3.0) H 06/05/21 08:45 ABG Hemoglobin 13.3 gm/dl (14.0-18.0) L 06/05/21 08:45 ABG Carboxyhemoglobin 1.2 % (0.0-5.0) 06/05/21 08:45 ABG Methemoglobin 0.5 % (0.0-1.5) 06/05/21 08:45 Oxyhemoglobin 96.2 % (95.0-99.0) 06/05/21 08:45 FiO2 30 % 06/05/21 08:45 Sodium 138 mmol/L (137-145) 06/05/21 04:14 Potassium 3.8 mmol/L (3.6-5.0) 06/05/21 04:14 Chloride 99.4 mmol/L (98-107) 06/05/21 04:14 Carbon Dioxide 24 mmol/L (22-30) 06/05/21 04:14 Anion Gap 18 mmol/L 06/05/21 04:14 BUN 12 mg/dL (9-20) 06/05/21 04:14 Creatinine 0.5 mg/dL (0.8-1.3) L 06/05/21 04:14 Estimated GFR > 60 ml/min 06/05/21 04:14 BUN/Creatinine Ratio 24 % 06/05/21 04:14 Glucose 152 mg/dL (75-100) H 06/05/21 04:14 POC Glucose 133 mg/dL (70-105) H 06/05/21 11:23 Calcium 8.2 mg/dL (8.4-10.2) L 06/05/21 04:14 C-Reactive Protein 0.60 mg/dL (0.00-1.30) 06/04/21 04:53 Coronavirus (PCR) Negative (Negative) 06/04/21 07:00 Blood Type O POSITIVE 06/04/21 05:16 Antibody Screen Negative 06/04/21 05:16 Active Medications - Current Medications Current Medications: Generic Name Dose Route Start Last Admin Trade Name Freq PRN Reason Stop Dose Admin Acetaminophen 650 mg 06/04/21 08:00 Acetaminophen 325 Mg/10.15 Ml Oral Liqd Unit Dose FEEDTUBE Q6H PRN Pain MILD(1-3)/Fever >100.5/MEDRANO Bisacodyl 10 mg 06/04/21 08:00 Bisacodyl 10 Mg Rect Supp CO QDAY PRN constipation Diphenhydramine HCl 25 mg 06/04/21 12:00 06/05/21 11:14 Diphenhydramine 50 Mg/Ml Vial IV 25 mg BID AIDAN Administration Famotidine 20 mg 06/04/21 10:00 06/05/21 11:14 Famotidine 20 Mg/2 Ml Inj IV 20 mg BID AIDAN Administration Fentanyl 50 mcg 06/04/21 11:40 06/04/21 14:34 Fentanyl 100 Mcg/2 Ml Inj IV 50 mcg Q10MIN PRN Administration ANALGESIA Heparin Sodium (Porcine) 5,000 unit 06/04/21 10:00 06/05/21 11:14 Heparin 5,000 Unit/1 Ml Vial SUB-Q 5,000 unit Q12HR AIDAN Administration Hydralazine HCl 10 mg 06/04/21 18:00 Hydralazine 20 Mg/1 Ml Inj IV Q4HR PRN Hypertension Hydrophilic Ointment 1 applic 06/04/21 05:57 Lip Therapy Vaseline TP Q2HR PRN Dry Lips Propofol 1,000 mg in 100 mls @ 2.477 mls/hr 06/04/21 06:00 06/05/21 06:05 Diprivan 10 Mg/Ml IV 45 mcg/kg/min TITR AIDAN 22.29 mls/hr Administration Protocol 5 MCG/KG/MIN Fentanyl Citrate 2,000 mcg in 100 mls @ 4.128 mls/hr 06/04/21 12:00 06/04/21 23:05 Fentanyl Drip Premix IV Infused TITR AIDAN Titration Protocol 1 MCG/KG/HR Methylprednisolone Sodium Succinate 60 mg 06/04/21 14:00 06/05/21 05:14 Methylprednisolone Sod Succinate 125 Mg/2 Ml Inj IV 60 mg Q8HR AIDAN Administration Morphine Sulfate 2 mg 06/04/21 08:00 Morphine 2 Mg/1 Ml Inj IV Q4H PRN Pain, Moderate (4-6) Morphine Sulfate 4 mg 06/04/21 08:00 Morphine 4 Mg/1 Ml Inj IV Q4H PRN Pain , Severe (7-10) Multi-Ingred Cream/Lotion/Oil/Oint 1 applic 06/04/21 05:57 Mineral Oil/Petrolatum, White Ophth Oint 3.5 Gm OU Q4HR PRN Dry Eye(s) Naloxone HCl 0.1 mg 06/04/21 08:00 Naloxone 0.4 Mg/1 Ml Inj IV Q2MIN PRN Res Rate </= 8 or 02 SAT < 92% Nifedipine 30 mg 06/04/21 18:00 06/05/21 11:17 Nifedipine Xl 30 Mg Tab PO Not Given QDAY AIDAN Ondansetron HCl 4 mg 06/04/21 08:00 Ondansetron 4 Mg/2 Ml Inj IV Q8H PRN Nausea And Vomiting Senna/Docusate Sodium 1 tab 06/04/21 10:00 06/05/21 11:15 Sennosides/Docusate Sodium 8.6/50 Mg Tab FEEDTUBE 1 tab BID AIDAN Administration Sodium Chloride 10 ml 06/04/21 10:00 06/05/21 11:15 Sodium Chloride 0.9% 10 Ml Flush Syringe IV 10 ml BID AIDAN Administration Sodium Chloride 10 ml 06/04/21 08:00 Sodium Chloride 0.9% 10 Ml Flush Syringe IV PRN PRN LINE FLUSH Nutrition/Malnutrition Assess - Dietary Evaluation Nutrition/Malnutrition Findings: Nutrition Notes Start: 06/05/21 10:40 Freq: Status: Active Protocol: Document 06/05/21 10:56 ON LICENSE OF [facility] (Rec: 06/05/21 11:03 ON LICENSE OF [facility] [id number]) Nutrition Notes Need for Assessment generated from: MD Order Initial or Follow up Assessment Current Diagnosis Hypertension Other Pertinent Diagnosis Angioedema, Tongue swelling Current Diet NPO Labs/Tests Reviewed Pertinent Medications Solumedrol, Propofol at 22. 29ml/hr (provides 588 kcal), Senokot Height 6 ft 2 in Weight 82.554 kg [place] Body Weight (kg) 86.36 BMI 23.3 Weight Status Appropriate Subjective/Other Information RD consulted to evaluate nutritional intake. Pt on vent support. No TF consult received yet. Burn Absent Trauma Absent Minimum of two criteria No #1 Nutrition Diagnosis Inadequate oral intake Etiology mech ventilation, tongue swelling As Evidenced by Signs and Symptoms pt NPO Is patient on ventilator? Yes Is Patient Ambulatory and/or Out of Bed No REE-([facility]-confined to bed) 3167.018 Calculation Used for Recommendations [facility] Additional Notes Pro needs 1.2-2g/k-165g/ day Fluid needs 1ml/kcal Nutrition Intervention Change Diet Order: Diet advancement when medically feasible Nutrition Support: Initiate EN support if unable to advance diet. Recommend Osmolite 1.5 at 55ml/hr. Goal #1 Either advance diet or start EN support to meet nutrient needs Anticipated Discharge Needs: Unable to identify at this time Follow-Up By: 06/09/21 Additional Comments F/U: Diet advancement vs TF consult, vent status, Propofol
[2021-06-05] MEDS ORDERED: SIMPLE SYRUP 15 ML FEEDTUBE PRN ×2 (13:22)
[2021-06-05] MEDS ORDERED: LIPASE 10,500/PROTEASE 25,000/AMYLASE 43,750 (UNITS) DR CAP FEEDTUBE PRN (13:22)
[2021-06-05] MEDS ORDERED: SODIUM BICARBONATE 325 MG TAB FEEDTUBE PRN (13:22)
[2021-06-05] MEDS: LORazepam 2 MG/ML VIAL IV PRN (14:11)
--- NOTE | 2021-06-05 15:16 | XRay Report ---
XR abdomen 1V ap INDICATION: OGT placement. COMPARISON: None available. FINDINGS: The tip of the esophagogastric tube projects over the body of the stomach. Signer Name: Mateo Crowe MD Signed: 06/05/2021 3:11 PM Workstation Name: [id number]
[2021-06-05] MEDS: fentaNYL DRIP Premix 2,000 MCG/100 ML BAG IV SCH ×2 (17:29→23:28)
[2021-06-05] MEDS ORDERED: DEXTROSE 50% IN WATER (25GM) 50 ML SYRINGE IV PRN (20:28)
[2021-06-06] MEDS: INSULIN LISPRO 100 UNIT/ML SUB-Q SCH ×4 (01:08→18:07)
[2021-06-06] MEDS: diphenhydrAMINE 50 MG/ML VIAL IV SCH ×3 (01:09→21:59)
[2021-06-06] MEDS: LORazepam 2 MG/ML VIAL IV PRN ×5 (01:20→20:58)
--- NOTE | 2021-06-06 04:23 | XRay Report ---
CHEST 1 VIEW 06/06/2021 3:11 AM INDICATION / CLINICAL INFORMATION: follow up respiratory failure. COMPARISON: One view of the chest from 06/05/2021 FINDINGS: SUPPORT DEVICES: Unchanged. HEART / MEDIASTINUM: No significant abnormality. LUNGS / PLEURA: Probable mild left basilar atelectasis has developed in the interval. The lungs are o therwise clear. No significant pleural effusion. No pneumothorax. ADDITIONAL FINDINGS: No significant additional findings. IMPRESSION: Interval development of probable left basilar atelectasis without other significant interval changes. Signer Name: Dawit Ba MD Signed: 06/06/2021 4:18 AM Workstation Name: [id number]
[2021-06-06 08:21] LABS: Hematocrit 38.2 % (35.5-45.6); Hemoglobin 11.9 gm/dl (11.8-15.2); Mean Corpuscular HGB Conc 31 % (32-34); Mean Corpuscular Volume 81 fl (84-94); Platelet Count 157 K/mm3 (140-440); Red Blood Count 4.73 M/mm3 (3.65-5.03); Red Cell Distribution Width 13.4 % (13.2-15.2)
[2021-06-06 08:39] LABS: BUN/Creatinine Ratio 30; Blood Urea Nitrogen 24 mg/dL (9-20); Calcium 8.2 mg/dL (8.4-10.2); Hemolysis Index 5
[2021-06-06] MEDS: HEPARIN 5,000 UNIT/1 ML VIAL SUB-Q SCH ×2 (09:34→21:57)
[2021-06-06] MEDS: FAMOTIDINE 20 MG/2 ML INJ IV SCH ×2 (09:34→21:57)
[2021-06-06] MEDS: SENNOSIDES/DOCUSATE SODIUM 8.6/50 MG TAB FEEDTUBE SCH ×2 (09:34→21:59)
[2021-06-06 09:40] LABS: ABG Base Excess 1.7 mmol/L (-2.0-3.0); ABG HCO3 27.5 mmol/L (20.0-26.0); ABG Methemoglobin 0.6 % (0.0-1.5); ABG Oxygen Saturation 96.9 % (95.0-99.0); ABG PH 7.376 pH Units (7.350-7.450); ABG PO2 91.3 mm Hg (80.0-90.0)
[2021-06-06] MEDS: hydrALAZINE 20 MG/1 ML INJ IV PRN (10:07)
[2021-06-06] MEDS: fentaNYL DRIP Premix 2,000 MCG/100 ML BAG IV SCH (10:12)
--- NOTE | 2021-06-06 11:34 | Progress Note ---
Assessment and Plan Acute respiratory failure Angioedema EtOH withdrawal Hypertension Cerebrovascular accident Hypokalemia - add Seroquel 200 mg p.o. bid - get Mg & PO4 levels and address - follow QT interval - continue care as below otherwise; - continue antihistamine therapy - continue Systemic Steroids - daily SAT and SBT assessment as tolerated (tentative extubation in am) - continue to wean supplemental oxygen for target O2 sat's > 90% acutely - VAP bundle addressed - continue lung protective strategies - continue bronchodilators with pulmonary hygiene per RT - wean per pulmonary driven protocols otherwise - continue to avoid benzodiazepine's, reduce the possibility of delirium - AB's per ID rec's - continue accuchecks resumed with glycemic control per SSI (While critically ill target blood glucose of 140-180 mg/dL; avoid hypoglycemia) - sedation prn for target RASS 0 to -1 - prn analgesia per CPOT score - Maintenance of sleep-wake cycle, avoid delirium - continue enteral nutritional support at goal rate as tolerated - G.I. & VTE prophylaxis - PT/OT/ROM exercises - continue mobility protocols for pressure ulcer prophylaxis - Monitor hemodynamics closely - continue other care per attending / other consultants - discharge planning ongoing concurrently .... Re-evaluate in am & prn CONDITION: CRITICAL PROGNOSIS: GUARDED CODE STATUS: FULL CODE The high probability of a clinically significant, sudden or life-threatening deterioration of the [respiratory] system(s) required my full and direct attention, intervention and personal management. The aggregate critical care time was [35] minutes without overlap. Time includes spent on; [x] Data Review and interpretation [x] Patient assessment and monitoring of vital signs [x] Documentation [x] Medication orders and management Subjective Date of service: 06/06/21 Principal diagnosis: Acute respiratory failure ; HTN; Angioedema; H/O CVA; Hypokalemia Interval history: Patient is seen today for: Acute respiratory failure ; HTN; Angioedema; H/O CVA; Hypokalemia Seen and examined at bedside; 24hour events reviewed; nursing and respiratory care staff consulted; no adverse overnight events reported to me; resting in bed now but very agitated during SAT and now on CIWA protocol; no emesis or overt aspiration; + h/o EtOH abuse Objective Vital Signs - 12hr 06/05/21 06/05/21 06/06/21 23:45 23:46 00:00 Temperature 99.4 F Pulse Rate 61 60 Pulse Rate [ 54 L From Monitor] Respiratory 12 10 L Rate Blood Pressure 110/82 107/77 O2 Sat by Pulse 99 98 Oximetry 06/06/21 06/06/21 06/06/21 00:04 00:16 00:30 Temperature Pulse Rate 61 58 L 54 L Pulse Rate [ From Monitor] Respiratory 12 12 Rate Blood Pressure 107/77 107/77 116/81 O2 Sat by Pulse 99 99 100 Oximetry 06/06/21 06/06/21 06/06/21 00:46 01:00 01:16 Temperature Pulse Rate 57 L 53 L 65 Pulse Rate [ From Monitor] Respiratory 12 12 12 Rate Blood Pressure 116/81 104/73 104/73 O2 Sat by Pulse 99 100 Oximetry 06/06/21 06/06/21 06/06/21 01:30 01:46 02:00 Temperature Pulse Rate 80 67 73 Pulse Rate [ From Monitor] Respiratory 10 L 12 12 Rate Blood Pressure 107/78 107/78 117/81 O2 Sat by Pulse 98 99 98 Oximetry 06/06/21 06/06/21 06/06/21 02:16 02:30 02:46 Temperature Pulse Rate 65 61 59 L Pulse Rate [ From Monitor] Respiratory 12 12 12 Rate Blood Pressure 117/81 107/73 107/73 O2 Sat by Pulse 99 99 99 Oximetry 06/06/21 06/06/21 06/06/21 03:00 03:16 03:22 Temperature 98.9 F Pulse Rate 57 L 56 L Pulse Rate [ From Monitor] Respiratory 12 14 Rate Blood Pressure 101/71 101/71 O2 Sat by Pulse 99 98 Oximetry 06/06/21 06/06/21 06/06/21 03:30 03:46 04:00 Temperature Pulse Rate 55 L 53 L 59 L Pulse Rate [ 59 L From Monitor] Respiratory 12 12 12 Rate Blood Pressure 105/72 105/72 97/71 O2 Sat by Pulse 99 98 99 Oximetry 06/06/21 06/06/21 06/06/21 04:16 04:26 04:30 Temperature Pulse Rate 57 L 58 L 59 L Pulse Rate [ From Monitor] Respiratory 12 12 Rate Blood Pressure 97/71 97/71 103/74 O2 Sat by Pulse 99 99 99 Oximetry 06/06/21 06/06/21 06/06/21 04:46 05:00 05:16 Temperature Pulse Rate 57 L 66 57 L Pulse Rate [ From Monitor] Respiratory 12 11 L 12 Rate Blood Pressure 103/74 115/67 115/67 O2 Sat by Pulse 99 99 100 Oximetry 06/06/21 06/06/21 06/06/21 05:30 05:46 06:00 Temperature Pulse Rate 57 L 53 L 58 L Pulse Rate [ From Monitor] Respiratory 12 12 12 Rate Blood Pressure 124/83 124/83 121/83 O2 Sat by Pulse 100 100 100 Oximetry 06/06/21 06/06/21 06/06/21 06:16 06:30 06:46 Temperature Pulse Rate 61 56 L 57 L Pulse Rate [ From Monitor] Respiratory 12 12 12 Rate Blood Pressure 121/83 126/83 126/83 O2 Sat by Pulse 99 99 100 Oximetry 06/06/21 06/06/21 06/06/21 07:00 07:14 07:16 Temperature 99.1 F Pulse Rate 56 L 58 L Pulse Rate [ From Monitor] Respiratory 15 12 Rate Blood Pressure 125/82 125/82 O2 Sat by Pulse 99 100 Oximetry 06/06/21 06/06/21 06/06/21 07:30 07:46 08:00 Temperature Pulse Rate 57 L 78 78 Pulse Rate [ 94 H From Monitor] Respiratory 13 13 16 Rate Blood Pressure 140/81 140/81 140/81 O2 Sat by Pulse 100 100 98 Oximetry 06/06/21 06/06/21 06/06/21 08:10 08:16 08:25 Temperature Pulse Rate 72 78 96 H Pulse Rate [ From Monitor] Respiratory 13 Rate Blood Pressure 198/93 198/93 O2 Sat by Pulse 100 99 Oximetry 06/06/21 06/06/21 06/06/21 08:30 08:46 09:00 Temperature Pulse Rate 90 90 89 Pulse Rate [ From Monitor] Respiratory 11 L 15 12 Rate Blood Pressure 198/93 165/95 171/93 O2 Sat by Pulse 98 98 97 Oximetry 06/06/21 06/06/21 06/06/21 09:16 09:30 09:46 Temperature Pulse Rate 77 76 83 Pulse Rate [ From Monitor] Respiratory 12 13 12 Rate Blood Pressure 171/93 123/89 123/89 O2 Sat by Pulse 96 97 99 Oximetry 06/06/21 06/06/21 06/06/21 10:00 10:07 10:16 Temperature Pulse Rate 115 H 84 148 H Pulse Rate [ From Monitor] Respiratory 13 20 Rate Blood Pressure 201/131 201/131 201/131 O2 Sat by Pulse 100 98 Oximetry 06/06/21 06/06/21 06/06/21 10:30 10:46 11:00 Temperature Pulse Rate 139 H 125 H 123 H Pulse Rate [ From Monitor] Respiratory 11 L 14 15 Rate Blood Pressure 201/131 128/79 127/87 O2 Sat by Pulse 97 96 96 Oximetry Constitutional: no acute distress, other (middle aged thin male with mildly increased respiratory effort at rest) Eyes: non-icteric ENT: oropharynx moist, other (ETT 24 cm DELMER) Neck: supple, no lymphadenopathy, no JVD Effort: normal Ascultation: Bilateral: clear Percussion: Bilateral: not dull Cardiovascular: regular rate and rhythm Gastrointestinal: normoactive bowel sounds, soft, non-tender, non-distended Integumentary: normal Extremities: no cyanosis, no edema, pulses normal, no ischemia or petechiae Neurologic: non-focal exam (grossly), pupils equal and round, CN II-XII normal, motor strength normal and, other (sedated) Psychiatric: mood appropriate, affect normal CBC and BMP: 06/06/21 07:16 06/06/21 07:16 ABG, PT/INR, D-dimer: ABG ABG pH 7.376 pH Units (7.350-7.450) 06/06/21 09:08 ABG pCO2 48.0 mm Hg 06/06/21 09:08 ABG pO2 91.3 mm Hg (80.0-90.0) H 06/06/21 09:08 ABG O2 Saturation 96.9 % (95.0-99.0) 06/06/21 09:08 PT/INR, D-dimer PT 14.6 Sec. (12.2-14.9) 06/04/21 05:16 INR 1.03 (0.87-1.13) 06/04/21 05:16 Abnormal lab findings: Abnormal Labs 06/04/21 06/04/21 06/04/21 04:53 04:53 06:30 MCV 82 L MCH 26 L MCHC RDW Plt Count Lymph % (Auto) [place] % (Auto) 7.6 H Lymph # (Auto) 1.1 L Seg Neutrophils % 76.6 H ABG pO2 118.3 H ABG HCO3 ABG Base Excess -2.9 L ABG Hemoglobin 12.7 L Potassium 3.5 L BUN 6 L Creatinine 0.5 L Glucose 124 H POC Glucose Calcium 06/04/21 06/05/21 06/05/21 23:31 04:14 04:14 MCV 81 L MCH 25 L MCHC 31 L RDW 13.0 L Plt Count 126 L Lymph % (Auto) 8.5 L [place] % (Auto) Lymph # (Auto) 0.4 L Seg Neutrophils % 87.0 H ABG pO2 ABG HCO3 ABG Base Excess ABG Hemoglobin Potassium BUN Creatinine 0.5 L Glucose 152 H POC Glucose 157 H Calcium 8.2 L 06/05/21 06/05/21 06/05/21 08:45 11:23 16:17 MCV MCH MCHC RDW Plt Count Lymph % (Auto) [place] % (Auto) Lymph # (Auto) Seg Neutrophils % ABG pO2 106.3 H ABG HCO3 28.2 H ABG Base Excess 3.6 H ABG Hemoglobin 13.3 L Potassium BUN Creatinine Glucose POC Glucose 133 H 135 H Calcium 06/05/21 06/06/21 06/06/21 23:31 05:14 07:16 MCV 81 L MCH 25 L MCHC 31 L RDW Plt Count Lymph % (Auto) [place] % (Auto) Lymph # (Auto) Seg Neutrophils % ABG pO2 ABG HCO3 ABG Base Excess ABG Hemoglobin Potassium BUN Creatinine Glucose POC Glucose 126 H 141 H Calcium 06/06/21 06/06/21 06/06/21 07:16 09:08 11:15 MCV MCH MCHC RDW Plt Count Lymph % (Auto) [place] % (Auto) Lymph # (Auto) Seg Neutrophils % ABG pO2 91.3 H ABG HCO3 27.5 H ABG Base Excess ABG Hemoglobin 13.6 L Potassium BUN 24 H Creatinine Glucose 130 H POC Glucose 148 H Calcium 8.2 L Chest x-ray: image reviewed (no new infiltrate) Allied health notes reviewed: nursing
--- NOTE | 2021-06-06 11:39 | Progress Note ---
Assessment and Plan Assessment and plan: This is a 55-year-old male with past medical history of HTN who was intubated in the ED due to angioedema. Hospital Course to Date 06/05: Patient remains intubated and sedated. Sedation vacation this am, patient was appropriate following commands. CT Neck noted and revealed edematous and swelling. Plan for SAT and SBT today for potential extubation per CCM. Per nursing staff family voiced concern for possible alcohol withdrawal, patient is a daily heavy drinker. Consider CIWA protocol once awake and off sedation. 06/06: Patient remains on the vent and sedated. Patient now with s/s of alcohol withdrawal on CIWA protocol, unable to wean off sedation. SAT and SBT trial a ttempted, patient is too agitated for safe extubation. Plan to wean off propofol gtt, continue CIWA protocol and Seroquel added BID. Assessment and Plan #Neuro:Sedated #ETOH Abuse - Patient is intubated and sedated on propofol and Fentanyl RASS 0 to -2 - Concern for possible ETOH withdrawal, per family heavy daily drinker - Patient with s/s of alcohol withdrawal, CIWA protocol added overnight - Plan to wean off propofol gtt - Continue CIWA propofol with PRN IV Ativan - Seroquel added BID - Close monitoring of QTc - Daily SAT and SBT today per CCM - Avoid benzodiazepine to reduce the possibility of delirium - PRN analgesia for CPOT greater than 3 - Maintenance of sleep-wake cycle #Hypertensive urgency #History of hypertension - Patient presented with elevated BP - Probably due to above vs. medication non-compliance - Patient BP is bordeline this am, probably related to sedation - Continue PRN hydralazine - Will resume home meds once list is available - Continue blood pressure monitor per protocol - Maintain MAP above 65 and or SBP less than 160 #Acute respiratory failure #Angioedema - Patient intubated for airway protection in the ED on 06/04 - Patient has history of hypertension treated with losartan, uncertain of use - s/p FFP, Solu-Medrol, famotidine and epinephrine - Vent Setting: A/C- 30%,6,16,500 - AM ABG noted - CTA Neck noted and revealed edematous and swelling - CCM consulted, appreciate recommendations - Continue IV Steroids and IV benadryl - VAP bundle addressed - Aspiration precaution HOB above 30 - Daily SBT and SAT trials as tolerated - Daily ABG and CXR - Continue SPO2 monitoring for SPO2 goal above 92% #GI:TF - Enteral nutrition initiated - Nutrition consult - Continue PPI- pepcid - Continue BR #Hypokalemia- improved - presented with low K, repleted - Monitor and replace electrolytes as needed - Trend BMP #Endo:Glycemic Control - BG check and low dose SSI Q6hrs while on TF - Avoid hypoglycemia #DVT Prophylaxis - Continue AC- Hep SubQ - SCDs to bilateral lower extremities while in bed The high probability of a clinically significant, sudden or life threatening deterioration of the [Neuro, Respiratory] system(s) required my full and direct attention, intervention and personal management. The aggregate critical care time was [60] minutes. This time is in addition to time spent performing reported procedures but includes the following: [x] Data Review and interpretation [x] Patient assessment and monitoring of vital signs [x] Documentation [x] Medication orders and management Disposition Plan: ICU Total Time Spent with Patient (Minutes): 60 History Interval history: Patient seen and examined at the bedside. Intubated and sedated, on propofol and fentanyl, RASS 0 t o-2. Patient with s/s of alcohol withdrawal overnight CIWA protocol was initiated Hospitalist Physical - Constitutional Vitals: Temp Pulse Resp BP Pulse Ox 99.1 F 123 H 15 127/87 96 06/06/21 07:14 06/06/21 11:00 06/06/21 11:00 06/06/21 11:00 06/06/21 11:00 General appearance: Present: no acute distress, other (Intubated and Sedated) - EENT Eyes: Present: PERRL ENT: hearing intact - Neck Neck: Present: normal ROM - Respiratory Respiratory effort: normal Respiratory: bilateral: diminished - Cardiovascular Rhythm: regular Heart Sounds: Present: S1 & S2 - Extremities Extremities: no ischemia, pulses intact, pulses symmetrical Peripheral Pulses: within normal limits - Abdominal General gastrointestinal: soft, non-tender, normal bowel sounds - Integumentary Integumentary: Present: warm, dry - Psychiatric Psychiatric: cooperative, other (Intubated and Sedated RASS 0 to -2, follow simple commands) - Neurologic Neurologic: moves all extremities, other (Intubated and Sedated RASS 0 to -2, follow simple commands) - Allied Health Allied health notes reviewed: nursing Results - Labs CBC & Chem 7: 06/06/21 07:16 06/06/21 07:16 Labs: Laboratory Last Values WBC 6.9 K/mm3 (4.5-11.0) 06/06/21 07:16 RBC 4.73 M/mm3 (3.65-5.03) 06/06/21 07:16 Hgb 11.9 gm/dl (11.8-15.2) 06/06/21 07:16 Hct 38.2 % (35.5-45.6) 06/06/21 07:16 MCV 81 fl (84-94) L 06/06/21 07:16 MCH 25 pg (28-32) L 06/06/21 07:16 MCHC 31 % (32-34) L 06/06/21 07:16 RDW 13.4 % (13.2-15.2) 06/06/21 07:16 Plt Count 157 K/mm3 (140-440) 06/06/21 07:16 Lymph % (Auto) 8.5 % (13.4-35.0) L 06/05/21 04:14 [place] % (Auto) 4.3 % (0.0-7.3) 06/05/21 04:14 Eos % (Auto) 0.0 % (0.0-4.3) 06/05/21 04:14 Baso % (Auto) 0.2 % (0.0-1.8) 06/05/21 04:14 Lymph # (Auto) 0.4 K/mm3 (1.2-5.4) L 06/05/21 04:14 [place] # (Auto) 0.2 K/mm3 (0.0-0.8) 06/05/21 04:14 Eos # (Auto) 0.0 K/mm3 (0.0-0.4) 06/05/21 04:14 Baso # (Auto) 0.0 K/mm3 (0.0-0.1) 06/05/21 04:14 Seg Neutrophils % 87.0 % (40.0-70.0) H 06/05/21 04:14 Seg Neutrophils # 4.4 K/mm3 (1.8-7.7) 06/05/21 04:14 ESR 29 mm/Hr (0-20) 06/04/21 04:53 PT 14.6 Sec. (12.2-14.9) 06/04/21 05:16 INR 1.03 (0.87-1.13) 06/04/21 05:16 APTT 28.1 Sec. (24.2-36.6) 06/04/21 05:16 ABG pH 7.376 pH Units (7.350-7.450) 06/06/21 09:08 ABG pCO2 48.0 mm Hg 06/06/21 09:08 ABG pO2 91.3 mm Hg (80.0-90.0) H 06/06/21 09:08 ABG HCO3 27.5 mmol/L (20.0-26.0) H 06/06/21 09:08 ABG O2 Saturation 96.9 % (95.0-99.0) 06/06/21 09:08 ABG O2 Content 18.2 (0.0-44) 06/06/21 09:08 ABG Base Excess 1.7 mmol/L (-2.0-3.0) 06/06/21 09:08 ABG Hemoglobin 13.6 gm/dl (14.0-18.0) L 06/06/21 09:08 ABG Carboxyhemoglobin 1.2 % (0.0-5.0) 06/06/21 09:08 ABG Methemoglobin 0.6 % (0.0-1.5) 06/06/21 09:08 Oxyhemoglobin 95.2 % (95.0-99.0) 06/06/21 09:08 FiO2 30 % 06/06/21 09:08 Sodium 141 mmol/L (137-145) 06/06/21 07:16 Potassium 4.2 mmol/L (3.6-5.0) 06/06/21 07:16 Chloride 100.2 mmol/L (98-107) 06/06/21 07:16 Carbon Dioxide 27 mmol/L (22-30) 06/06/21 07:16 Anion Gap 18 mmol/L 06/06/21 07:16 BUN 24 mg/dL (9-20) H 06/06/21 07:16 Creatinine 0.8 mg/dL (0.8-1.3) D 06/06/21 07:16 Estimated GFR > 60 ml/min 06/06/21 07:16 BUN/Creatinine Ratio 30 % 06/06/21 07:16 Glucose 130 mg/dL (75-100) H 06/06/21 07:16 POC Glucose 148 mg/dL (70-105) H 06/06/21 11:15 Calcium 8.2 mg/dL (8.4-10.2) L 06/06/21 07:16 C-Reactive Protein 0.60 mg/dL (0.00-1.30) 06/04/21 04:53 Triglycerides 88 mg/dL (2-149) 06/06/21 07:16 Coronavirus (PCR) Negative (Negative) 06/04/21 07:00 Blood Type O POSITIVE 06/04/21 05:16 Antibody Screen Negative 06/04/21 05:16 Microbiology: Microbiology 06/04/21 06:25 Tracheal Aspirate Sputum Culture - Preliminary Active Medications - Current Medications Current Medications: Generic Name Dose Route Start Last Admin Trade Name Freq PRN Reason Stop Dose Admin Acetaminophen 650 mg 06/04/21 08:00 Acetaminophen 325 Mg/10.15 Ml Oral Liqd Unit Dose FEEDTUBE Q6H PRN Pain MILD(1-3)/Fever >100.5/MEDRANO Lipase/Protease/Amylase 1 each 06/05/21 13:22 Lipase 10,500/Protease 25,000/Amylase 43,750 (Units) Dr Moul[place] FEEDTUBE PRN PRN For Clogged Feeding Tube Bisacodyl 10 mg 06/04/21 08:00 Bisacodyl 10 Mg Rect Supp OH QDAY PRN constipation Dextrose 0 ml 06/05/21 20:28 Dextrose 50% In Water (25gm) 50 Ml Syringe IV Q30MIN PRN Hypoglycemia Protocol Diphenhydramine HCl 25 mg 06/04/21 12:00 06/06/21 09:35 Diphenhydramine 50 Mg/Ml Vial IV 25 mg BID AIDAN Administration Famotidine 20 mg 06/04/21 10:00 06/06/21 09:34 Famotidine 20 Mg/2 Ml Inj IV 20 mg BID AIDAN Administration Fentanyl 50 mcg 06/04/21 11:40 06/04/21 14:34 Fentanyl 100 Mcg/2 Ml Inj IV 50 mcg Q10MIN PRN Administration ANALGESIA Heparin Sodium (Porcine) 5,000 unit 06/04/21 10:00 06/06/21 09:34 Heparin 5,000 Unit/1 Ml Vial SUB-Q 5,000 unit Q12HR AIDAN Administration Hydralazine HCl 10 mg 06/04/21 18:00 06/06/21 10:07 Hydralazine 20 Mg/1 Ml Inj IV 10 mg Q4HR PRN Administration Hypertension Hydrophilic Ointment 1 applic 06/04/21 05:57 Lip Therapy Vaseline TP Q2HR PRN Dry Lips Propofol 1,000 mg in 100 mls @ 2.477 mls/hr 06/04/21 06:00 06/06/21 10:15 Diprivan 10 Mg/Ml IV 10 mcg/kg/min TITR AIDAN 4.953 mls/hr Titration Protocol 5 MCG/KG/MIN Fentanyl Citrate 2,000 mcg in 100 mls @ 4.128 mls/hr 06/04/21 12:00 06/06/21 10:12 Fentanyl Drip Premix IV 2 mcg/kg/hr TITR AIDAN 8.255 mls/hr Administration Protocol 1 MCG/KG/HR Insulin Human Lispro 0 unit 06/06/21 00:00 06/06/21 06:37 Insulin Lispro 100 Unit/Ml SUB-Q Not Given Q6HR [facility] Protocol Lorazepam 2 mg 06/05/21 13:23 06/06/21 10:26 Lorazepam 2 Mg/Ml Vial IV 2 mg Q1H PRN Administration LORY-Jacky 8-15 Methylprednisolone Sodium Succinate 60 mg 06/04/21 14:00 06/05/21 22:04 Methylprednisolone Sod Succinate 125 Mg/2 Ml Inj IV 60 mg Q8HR AIDAN Administration Morphine Sulfate 2 mg 06/04/21 08:00 Morphine 2 Mg/1 Ml Inj IV Q4H PRN Pain, Moderate (4-6) Morphine Sulfate 4 mg 06/04/21 08:00 Morphine 4 Mg/1 Ml Inj IV Q4H PRN Pain , Severe (7-10) Multi-Ingred Cream/Lotion/Oil/Oint 1 applic 06/04/21 05:57 Mineral Oil/Petrolatum, White Ophth Oint 3.5 Gm OU Q4HR PRN Dry Eye(s) Naloxone HCl 0.1 mg 06/04/21 08:00 Naloxone 0.4 Mg/1 Ml Inj IV Q2MIN PRN Res Rate </= 8 or 02 SAT < 92% Nifedipine 30 mg 06/04/21 18:00 06/05/21 11:17 Nifedipine Xl 30 Mg Tab PO Not Given QDAY AIDAN Ondansetron HCl 4 mg 06/04/21 08:00 Ondansetron 4 Mg/2 Ml Inj IV Q8H PRN Nausea And Vomiting Senna/Docusate Sodium 1 tab 06/04/21 10:00 06/06/21 09:34 Sennosides/Docusate Sodium 8.6/50 Mg Tab FEEDTUBE 1 tab BID AIDAN Administration Simple Syrup 15 ml 06/05/21 13:22 Simple Syrup 15 Ml FEEDTUBE PRN PRN Hypoglycemia Simple Syrup 30 ml 06/05/21 13:22 Simple Syrup 15 Ml FEEDTUBE PRN PRN Hypoglycemia Sodium Bicarbonate 325 mg 06/05/21 13:22 Sodium Bicarbonate 325 Mg Tab FEEDTUBE PRN PRN For Clogged Feeding Tube Sodium Chloride 10 ml 06/04/21 10:00 06/06/21 10:08 Sodium Chloride 0.9% 10 Ml Flush Syringe IV 10 ml BID AIDAN Administration Sodium Chloride 10 ml 06/04/21 08:00 Sodium Chloride 0.9% 10 Ml Flush Syringe IV PRN PRN LINE FLUSH Nutrition/Malnutrition Assess - Dietary Evaluation Nutrition/Malnutrition Findings: Nutrition Notes Start: 06/05/21 10:40 Freq: Status: Active Protocol: Document 06/05/21 10:56 YOVANNY (Rec: 06/05/21 11:03 YOVANNY [id number]) Nutrition Notes Need for Assessment generated from: MD Order Initial or Follow up Assessment Current Diagnosis Hypertension Other Pertinent Diagnosis Angioedema, Tongue swelling Current Diet NPO Labs/Tests Reviewed Pertinent Medications Solumedrol, Propofol at 22. 29ml/hr (provides 588 kcal), Senokot Height 6 ft 2 in Weight 82.554 kg [place] Body Weight (kg) 86.36 BMI 23.3 Weight Status Appropriate Subjective/Other Information RD consulted to evaluate nutritional intake. Pt on vent support. No TF consult received yet. Burn Absent Trauma Absent Minimum of two criteria No #1 Nutrition Diagnosis Inadequate oral intake Etiology mech ventilation, tongue swelling As Evidenced by Signs and Symptoms pt NPO Is patient on ventilator? Yes Is Patient Ambulatory and/or Out of Bed No REE-([facility]-confined to bed) 7724.041 Calculation Used for Recommendations [facility] Additional Notes Pro needs 1.2-2g/k-165g/ day Fluid needs 1ml/kcal Nutrition Intervention Change Diet Order: Diet advancement when medically feasible Nutrition Support: Initiate EN support if unable to advance diet. Recommend Osmolite 1.5 at 55ml/hr. Goal #1 Either advance diet or start EN support to meet nutrient needs Anticipated Discharge Needs: Unable to identify at this time Follow-Up By: 06/09/21 Additional Comments F/U: Diet advancement vs TF consult, vent status, Propofol
[2021-06-06] MEDS: QUEtiapine 200 MG TAB PO SCH ×2 (12:45→21:59)
[2021-06-06] MEDS ORDERED: SODIUM CHLORIDE 0.9% 500 ML 500 ML IV NR (14:00)
[2021-06-06] MEDS: methylPREDNISolone Sod Succinate 125 MG/2 ML INJ IV SCH ×3 (14:08→21:58)
[2021-06-06] MEDS ORDERED: SODIUM CHLORIDE 0.9% 500 ML 500 ML IV ONE (14:32)
[2021-06-06 14:52] LABS: ABG HCO3 27.9 mmol/L (20.0-26.0); ABG Methemoglobin 0.6 % (0.0-1.5); ABG Oxygen Saturation 97.2 % (95.0-99.0); ABG PCO2 43.9 mm Hg; ABG PH 7.421 pH Units (7.350-7.450); ABG PO2 91.6 mm Hg (80.0-90.0)
[2021-06-06] MEDS ORDERED: SIMPLE SYRUP 15 ML FEEDTUBE PRN ×2 (17:56)
[2021-06-06] MEDS ORDERED: SODIUM BICARBONATE 325 MG TAB FEEDTUBE PRN (17:56)
[2021-06-06] MEDS ORDERED: LIPASE 10,500/PROTEASE 25,000/AMYLASE 43,750 (UNITS) DR CAP FEEDTUBE PRN (17:56)
[2021-06-07] MEDS: hydrALAZINE 20 MG/1 ML INJ IV PRN ×3 (00:19→17:42)
[2021-06-07] MEDS: LORazepam 2 MG/ML VIAL IV PRN ×8 (00:19→23:53)
[2021-06-07] MEDS: INSULIN LISPRO 100 UNIT/ML SUB-Q SCH ×3 (01:56→12:40)
[2021-06-07] MEDS: fentaNYL DRIP Premix 2,000 MCG/100 ML BAG IV SCH ×2 (02:02→15:29)
[2021-06-07 04:55] LABS: Hematocrit 37.9 % (35.5-45.6); Hemoglobin 11.9 gm/dl (11.8-15.2); Mean Corpuscular HGB Conc 32 % (32-34); Mean Corpuscular Volume 80 fl (84-94); Red Blood Count 4.74 M/mm3 (3.65-5.03); Red Cell Distribution Width 13.3 % (13.2-15.2)
[2021-06-07 05:04] LABS: Platelet Count 99 K/mm3 (140-440)
[2021-06-07] MEDS: methylPREDNISolone Sod Succinate 125 MG/2 ML INJ IV SCH ×3 (05:17→22:03)
[2021-06-07 08:16] LABS: Blood Urea Nitrogen 21 mg/dL (9-20); Calcium 8.2 mg/dL (8.4-10.2); Hemolysis Index 17
[2021-06-07 08:25] LABS: BUN/Creatinine Ratio 35
[2021-06-07] MEDS: QUEtiapine 200 MG TAB PO SCH ×2 (10:19→22:04)
[2021-06-07] MEDS: FAMOTIDINE 20 MG/2 ML INJ IV SCH ×2 (10:19→22:04)
[2021-06-07] MEDS: diphenhydrAMINE 50 MG/ML VIAL IV SCH ×2 (10:19→22:04)
[2021-06-07] MEDS: HEPARIN 5,000 UNIT/1 ML VIAL SUB-Q SCH ×2 (10:19→22:03)
[2021-06-07] MEDS: SENNOSIDES/DOCUSATE SODIUM 8.6/50 MG TAB FEEDTUBE SCH ×2 (10:20→22:04)
--- NOTE | 2021-06-07 11:04 | Progress Note ---
Assessment and Plan Assessment and plan: This is a 55-year-old male with past medical history of HTN who was intubated in the ED due to angioedema. Hospital Course to Date 06/05: Patient remains intubated and sedated. Sedation vacation this am, patient was appropriate following commands. CT Neck noted and revealed edematous and swelling. Plan for SAT and SBT today for potential extubation per CCM. Per nursing staff family voiced concern for possible alcohol withdrawal, patient is a daily heavy drinker. Consider CIWA protocol once awake and off sedation. 06/06: Patient remains on the vent and sedated. Patient now with s/s of alcohol withdrawal on CIWA protocol, unable to wean off sedation. SAT and SBT trial a ttempted, patient is too agitated for safe extubation. Plan to wean off propofol gtt, continue CIWA protocol and Seroquel added BID. 06/07: Patient remains on the vent and on low dose Fentanyl gtt. Tachycardia with low BP yesterday, resolved s/p 1L NS bolus. Patient remains on CIWA protocol for alcohol withdrawal. Thrombocytopenia noted from this am lab, not more than 50% from admit level, will continue to monitor for now. Plan for SAT and SBt again today. Assessment and Plan #Neuro:Sedated #ETOH Abuse - Patient is intubated and sedated on Fentanyl RASS 0 to -1 - Propofol gtt now off - Concern for possible ETOH withdrawal, per family heavy daily drinker - Patient with s/s of alcohol withdrawal, CIWA protocol added overnight - Continue CIWA propofol with PRN IV Ativan - Seroquel added BID - Close monitoring of QTc - Daily SAT and SBT today per CCM - Avoid benzodiazepine to reduce the possibility of delirium - PRN analgesia for CPOT greater than 3 - Maintenance of sleep-wake cycle #Hypertensive urgency #History of hypertension - Patient presented with elevated BP - Probably due to above vs. medication non-compliance - Patient BP is bordeline this am, probably related to sedation - Continue PRN hydralazine - Will resume home meds once list is available - Continue blood pressure monitor per protocol - Maintain MAP above 65 and or SBP less than 160 #Acute respiratory failure #Angioedema - Patient intubated for airway protection in the ED on 06/04 - Patient has history of hypertension treated with losartan, uncertain of use - s/p FFP, Solu-Medrol, famotidine and epinephrine - Vent Setting: A/C- 30%,6,16,500 - AM ABG noted - CTA Neck noted and revealed edematous and swelling - CCM consulted, appreciate recommendations - Continue IV Steroids and IV benadryl - VAP bundle addressed - Aspiration precaution HOB above 30 - Daily SBT and SAT trials as tolerated - Daily ABG and CXR - Continue SPO2 monitoring for SPO2 goal above 92% #GI:TF - Enteral nutrition initiated - Nutrition consult - Continue PPI- pepcid - Continue BR #Hypokalemia- improved - presented with low K, repleted - Monitor and replace electrolytes as needed - Trend BMP #Thrombocytopenia - Patient is on heparin subQ for VTE proph - Consider HIT panel if continue to drop - H&H stable - Will continue to monitor for now - Trend CBC #Endo:Glycemic Control - BG check and low dose SSI Q6hrs while on TF - Avoid hypoglycemia #DVT Prophylaxis - Continue AC- Hep SubQ - SCDs to bilateral lower extremities while in bed The high probability of a clinically significant, sudden or life threatening deterioration of the [Neuro, Respiratory] system(s) required my full and direct attention, intervention and personal management. The aggregate critical care time was [60] minutes. This time is in addition to time spent performing reported procedures but includes the following: [x] Data Review and interpretation [x] Patient assessment and monitoring of vital signs [x] Documentation [x] Medication orders and management Disposition Plan: ICU Total Time Spent with Patient (Minutes): 60 History Interval history: Patient seen and examined at the bedside. Intubated and sedated, on fentanyl, RASS 0 to -1. Received IV ativan once this am as per CIWA protocol. Patient was very tachycardic with bordeline BP, resolved s/p 1L NS Bolus. Hospitalist Physical - Constitutional Vitals: Temp Pulse Resp BP Pulse Ox 98 F 99 H 13 175/108 100 06/07/21 08:00 06/07/21 10:45 06/07/21 10:45 06/07/21 10:45 06/07/21 10:45 General appearance: Present: no acute distress, other (Intubated and sedated) - EENT Eyes: Present: PERRL ENT: hearing intact, clear oral mucosa - Neck Neck: Present: normal ROM - Respiratory Respiratory effort: normal Respiratory: bilateral: diminished - Cardiovascular Rhythm: regular Heart Sounds: Present: S1 & S2 - Extremities Extremities: no ischemia, pulses intact, pulses symmetrical Peripheral Pulses: within normal limits - Abdominal General gastrointestinal: soft, non-tender, normal bowel sounds - Integumentary Integumentary: Present: warm, dry - Psychiatric Psychiatric: cooperative, other (Intubated and sedated, awake and following simple commands) - Neurologic Neurologic: moves all extremities, other (Intubated and sedated, awake and following simple commands) - Allied Health Allied health notes reviewed: nursing Results - Labs CBC & Chem 7: 06/08/21 04:25 06/08/21 04:25 Labs: Laboratory Last Values WBC 8.2 K/mm3 (4.5-11.0) 06/07/21 04:14 RBC 4.74 M/mm3 (3.65-5.03) 06/07/21 04:14 Hgb 11.9 gm/dl (11.8-15.2) 06/07/21 04:14 Hct 37.9 % (35.5-45.6) 06/07/21 04:14 MCV 80 fl (84-94) L 06/07/21 04:14 MCH 25 pg (28-32) L 06/07/21 04:14 MCHC 32 % (32-34) 06/07/21 04:14 RDW 13.3 % (13.2-15.2) 06/07/21 04:14 Plt Count 99 K/mm3 (140-440) L 06/07/21 04:14 Lymph % (Auto) 8.5 % (13.4-35.0) L 06/05/21 04:14 [place] % (Auto) 4.3 % (0.0-7.3) 06/05/21 04:14 Eos % (Auto) 0.0 % (0.0-4.3) 06/05/21 04:14 Baso % (Auto) 0.2 % (0.0-1.8) 06/05/21 04:14 Lymph # (Auto) 0.4 K/mm3 (1.2-5.4) L 06/05/21 04:14 [place] # (Auto) 0.2 K/mm3 (0.0-0.8) 06/05/21 04:14 Eos # (Auto) 0.0 K/mm3 (0.0-0.4) 06/05/21 04:14 Baso # (Auto) 0.0 K/mm3 (0.0-0.1) 06/05/21 04:14 Seg Neutrophils % 87.0 % (40.0-70.0) H 06/05/21 04:14 Seg Neutrophils # 4.4 K/mm3 (1.8-7.7) 06/05/21 04:14 ESR 29 mm/Hr (0-20) 06/04/21 04:53 PT 14.6 Sec. (12.2-14.9) 06/04/21 05:16 INR 1.03 (0.87-1.13) 06/04/21 05:16 APTT 28.1 Sec. (24.2-36.6) 06/04/21 05:16 ABG pH 7.421 pH Units (7.350-7.450) 06/06/21 14:15 ABG pCO2 43.9 mm Hg 06/06/21 14:15 ABG pO2 91.6 mm Hg (80.0-90.0) H 06/06/21 14:15 ABG HCO3 27.9 mmol/L (20.0-26.0) H 06/06/21 14:15 ABG O2 Saturation 97.2 % (95.0-99.0) 06/06/21 14:15 ABG O2 Content 17.1 (0.0-44) 06/06/21 14:15 ABG Base Excess 3.0 mmol/L (-2.0-3.0) 06/06/21 14:15 ABG Hemoglobin 12.7 gm/dl (14.0-18.0) L 06/06/21 14:15 ABG Carboxyhemoglobin 1.2 % (0.0-5.0) 06/06/21 14:15 ABG Methemoglobin 0.6 % (0.0-1.5) 06/06/21 14:15 Oxyhemoglobin 95.4 % (95.0-99.0) 06/06/21 14:15 FiO2 30 % 06/06/21 14:15 Sodium 138 mmol/L (137-145) 06/07/21 07:15 Potassium 4.4 mmol/L (3.6-5.0) 06/07/21 07:15 Chloride 101.4 mmol/L (98-107) 06/07/21 07:15 Carbon Dioxide 24 mmol/L (22-30) 06/07/21 07:15 Anion Gap 17 mmol/L 06/07/21 07:15 BUN 21 mg/dL (9-20) H 06/07/21 07:15 Creatinine 0.6 mg/dL (0.8-1.3) L 06/07/21 07:15 Estimated GFR > 60 ml/min 06/07/21 07:15 BUN/Creatinine Ratio 35 % 06/07/21 07:15 Glucose 162 mg/dL (75-100) H 06/07/21 07:15 POC Glucose 135 mg/dL (70-105) H 06/07/21 05:03 Calcium 8.2 mg/dL (8.4-10.2) L 06/07/21 07:15 Phosphorus 3.50 mg/dL (2.5-4.5) 06/07/21 07:15 Magnesium 1.70 mg/dL (1.7-2.3) 06/07/21 07:15 C-Reactive Protein 0.60 mg/dL (0.00-1.30) 06/04/21 04:53 Triglycerides 88 mg/dL (2-149) 06/06/21 07:16 Coronavirus (PCR) Negative (Negative) 06/04/21 07:00 Blood Type O POSITIVE 06/04/21 05:16 Antibody Screen Negative 06/04/21 05:16 Microbiology: Microbiology 06/04/21 06:25 Tracheal Aspirate Sputum Culture - Final Griffith/IV: Voiding Method Condom Catheter Active Medications - Current Medications Current Medications: Generic Name Dose Route Start Last Admin Trade Name Freq PRN Reason Stop Dose Admin Acetaminophen 650 mg 06/04/21 08:00 Acetaminophen 325 Mg/10.15 Ml Oral Liqd Unit Dose FEEDTUBE Q6H PRN Pain MILD(1-3)/Fever >100.5/MEDRANO Lipase/Protease/Amylase 1 each 06/06/21 17:56 Lipase 10,500/Protease 25,000/Amylase 43,750 (Units) Dr Cap FEEDTUBE PRN PRN For Clogged Feeding Tube Bisacodyl 10 mg 06/04/21 08:00 Bisacodyl 10 Mg Rect Supp NV QDAY PRN constipation Dextrose 0 ml 06/05/21 20:28 Dextrose 50% In Water (25gm) 50 Ml Syringe IV Q30MIN PRN Hypoglycemia Protocol Diphenhydramine HCl 25 mg 06/04/21 12:00 06/07/21 10:19 Diphenhydramine 50 Mg/Ml Vial IV 25 mg BID AIDAN Administration Famotidine 20 mg 06/04/21 10:00 06/07/21 10:19 Famotidine 20 Mg/2 Ml Inj IV 20 mg BID AIDAN Administration Fentanyl 50 mcg 06/04/21 11:40 06/04/21 14:34 Fentanyl 100 Mcg/2 Ml Inj IV 50 mcg Q10MIN PRN Administration ANALGESIA Heparin Sodium (Porcine) 5,000 unit 06/04/21 10:00 06/07/21 10:19 Heparin 5,000 Unit/1 Ml Vial SUB-Q 5,000 unit Q12HR AIDAN Administration Hydralazine HCl 10 mg 06/04/21 18:00 06/07/21 00:19 Hydralazine 20 Mg/1 Ml Inj IV 10 mg Q4HR PRN Administration Hypertension Hydrophilic Ointment 1 applic 06/04/21 05:57 Lip Therapy Vaseline TP Q2HR PRN Dry Lips Propofol 1,000 mg in 100 mls @ 2.477 mls/hr 06/04/21 06:00 06/07/21 00:05 Diprivan 10 Mg/Ml IV Infused TITR AIDAN Titration Protocol 5 MCG/KG/MIN Fentanyl Citrate 2,000 mcg in 100 mls @ 4.128 mls/hr 06/04/21 12:00 06/07/21 09:32 Fentanyl Drip Premix IV 1 mcg/kg/hr TITR AIDAN 4.128 mls/hr Titration Protocol 1 MCG/KG/HR Insulin Human Lispro 0 unit 06/06/21 00:00 06/07/21 05:18 Insulin Lispro 100 Unit/Ml SUB-Q Not Given Q6HR AIDAN Protocol Lorazepam 2 mg 06/05/21 13:23 06/07/21 06:48 Lorazepam 2 Mg/Ml Vial IV 2 mg Q1H PRN Administration CIMASON-Ar 8-15 Methylprednisolone Sodium Succinate 60 mg 06/04/21 14:00 06/07/21 05:17 Methylprednisolone Sod Succinate 125 Mg/2 Ml Inj IV 60 mg Q8HR AIDAN Administration Morphine Sulfate 2 mg 06/04/21 08:00 Morphine 2 Mg/1 Ml Inj IV Q4H PRN Pain, Moderate (4-6) Morphine Sulfate 4 mg 06/04/21 08:00 Morphine 4 Mg/1 Ml Inj IV Q4H PRN Pain , Severe (7-10) Multi-Ingred Cream/Lotion/Oil/Oint 1 applic 06/04/21 05:57 Mineral Oil/Petrolatum, White Ophth Oint 3.5 Gm OU Q4HR PRN Dry Eye(s) Naloxone HCl 0.1 mg 06/04/21 08:00 Naloxone 0.4 Mg/1 Ml Inj IV Q2MIN PRN Res Rate </= 8 or 02 SAT < 92% Ondansetron HCl 4 mg 06/04/21 08:00 Ondansetron 4 Mg/2 Ml Inj IV Q8H PRN Nausea And Vomiting Quetiapine Fumarate 200 mg 06/06/21 13:00 06/07/21 10:19 Quetiapine 200 Mg Tab PO 200 mg BID AIDAN Administration Senna/Docusate Sodium 1 tab 06/04/21 10:00 06/07/21 10:20 Sennosides/Docusate Sodium 8.6/50 Mg Tab FEEDTUBE 1 tab BID AIDAN Administration Simple Syrup 15 ml 06/06/21 17:56 Simple Syrup 15 Ml FEEDTUBE PRN PRN Hypoglycemia Simple Syrup 30 ml 06/06/21 17:56 Simple Syrup 15 Ml FEEDTUBE PRN PRN Hypoglycemia Sodium Bicarbonate 325 mg 06/06/21 17:56 Sodium Bicarbonate 325 Mg Tab FEEDTUBE PRN PRN For Clogged Feeding Tube Sodium Chloride 10 ml 06/04/21 10:00 06/07/21 10:20 Sodium Chloride 0.9% 10 Ml Flush Syringe IV 10 ml BID AIDAN Administration Sodium Chloride 10 ml 06/04/21 08:00 Sodium Chloride 0.9% 10 Ml Flush Syringe IV PRN PRN LINE FLUSH Nutrition/Malnutrition Assess - Dietary Evaluation Nutrition/Malnutrition Findings: Nutrition Notes Start: 06/05/21 10:40 Freq: Status: Active Protocol: Document 06/06/21 17:40 JOAO (Rec: 06/06/21 17:59 JOAO [id number]) Nutrition Notes Initial or Follow up Brief Note Current Diet TF-Osmolite 1.5 Faisal @ 58 ml/hr (since B 06/07). Height 6 ft 2 in Weight 82.554 kg [place] Body Weight (kg) 86.36 BMI 23.3 Weight change and time frame no body weight change reported . Weight Status Appropriate Subjective/Other Information RD consult to write/manage TF. TF order placed. F/U to check for tolerance. Percent of energy/protein needs met: Prescribed Osmolite 1.5 Faisal @ 58 ml/hr provides for energy/ protein needs (2,075 Kcal/87 g ) during LOS. Nutrition Intervention Nutrition Support: Start Osmolite 1.5 Faisal @ 58 ml /hr. Flush: 170 ml water Q 4 hr. Kcal 2,075 Protein (gm) 87 Carbohydrates (gm) 282 Fat (gm) 68 Fluid (mL) 1,054 Fiber (gm) 0 % RDI: 100% Kcal; 88% AA. Goal #1 Provide at least 75% of energy /protein needs through Enteral Feeding during LOS. Goal #2 Maintain body weight within +/ -3% of admission body weight during LOS. Goal #3 Reach and maintain acceptable chemistry lab values during LOS. Follow-Up By: 06/09/21 Additional Comments Continue monitoring TF tolerance, Hydration, and BM.
[2021-06-07] MEDS ORDERED: MAGNESIUM SULFATE 4 GM/100 ML BAG IV ONE (13:30)
[2021-06-07] MEDS ORDERED: METOPROLOL TARTRATE 5 MG/5 ML INJ IV PRN (13:30)
[2021-06-07 15:14] LABS: ABG Base Excess 3.6 mmol/L (-2.0-3.0); ABG HCO3 28.4 mmol/L (20.0-26.0); ABG Methemoglobin 0.6 % (0.0-1.5); ABG Oxygen Saturation 98.1 % (95.0-99.0); ABG PCO2 43.6 mm Hg; ABG PH 7.432 pH Units (7.350-7.450); ABG PO2 112.8 mm Hg (80.0-90.0)
--- NOTE | 2021-06-07 16:11 | Progress Note ---
Assessment and Plan Acute respiratory failure Angioedema EtOH withdrawal Hypertension Cerebrovascular accident Hypokalemia - watch platelets re: thrombocytopenia - replace Mg level aggressively (4 gms IV X 1) - get ABG after 2 hour SBT - tentative ext[facility] - continue Seroquel 200 mg p.o. bid - continue care as below otherwise; - continue antihistamine therapy - continue Systemic Steroids - daily SAT and SBT assessment as tolerated (tentative extubation in am) - continue to wean supplemental oxygen for target O2 sat's > 90% acutely - VAP bundle addressed - continue lung protective strategies - continue bronchodilators with pulmonary hygiene per RT - wean per pulmonary driven protocols otherwise - continue to avoid benzodiazepine's, reduce the possibility of delirium - AB's per ID rec's - continue accuchecks resumed with glycemic control per SSI (While critically ill target blood glucose of 140-180 mg/dL; avoid hypoglycemia) - sedation prn for target RASS 0 to -1 - prn analgesia per CPOT score - Maintenance of sleep-wake cycle, avoid delirium - continue enteral nutritional support at goal rate as tolerated - G.I. & VTE prophylaxis - PT/OT/ROM exercises - continue mobility protocols for pressure ulcer prophylaxis - Monitor hemodynamics closely - continue other care per attending / other consultants - discharge planning ongoing concurrently .... Re-evaluate in am & prn CONDITION: CRITICAL PROGNOSIS: GUARDED CODE STATUS: FULL CODE The high probability of a clinically significant, sudden or life-threatening deterioration of the [respiratory] system(s) required my full and direct attention, intervention and personal management. The aggregate critical care time was [36] minutes without overlap. Time includes spent on; [x] Data Review and interpretation [x] Patient assessment and monitoring of vital signs [x] Documentation [x] Medication orders and management Subjective Date of service: 06/07/21 Principal diagnosis: Acute respiratory failure ; HTN; Angioedema; H/O CVA; Hypokalemia Interval history: Patient is seen today for: Acute respiratory failure ; HTN; Angioedema; H/O CVA; Hypokalemia Seen and examined at bedside; 24hour events reviewed; nursing and respiratory care staff consulted; no adverse overnight events reported to me; resting in bed now; placed on SBT and tolerating well with p-supp at 5 cm H2O; remains delirious and with intermittent run's of SVT up to 180's Objective Vital Signs - 12hr 06/07/21 06/07/21 06/07/21 04:14 04:15 04:30 Temperature Pulse Rate 49 L 59 L 58 L Pulse Rate [ From Monitor] Respiratory 13 12 Rate Blood Pressure 132/82 132/82 137/85 O2 Sat by Pulse 100 100 100 Oximetry 06/07/21 06/07/21 06/07/21 04:45 05:00 05:15 Temperature Pulse Rate 61 61 60 Pulse Rate [ From Monitor] Respiratory 14 14 17 Rate Blood Pressure 137/85 140/77 140/77 O2 Sat by Pulse 100 100 100 Oximetry 06/07/21 06/07/21 06/07/21 05:30 05:45 06:00 Temperature Pulse Rate 61 59 L 52 L Pulse Rate [ From Monitor] Respiratory 10 L 12 12 Rate Blood Pressure 129/78 129/78 138/83 O2 Sat by Pulse 100 100 100 Oximetry 06/07/21 06/07/21 06/07/21 06:15 06:30 06:45 Temperature Pulse Rate 55 L 60 124 H Pulse Rate [ From Monitor] Respiratory 12 12 13 Rate Blood Pressure 138/83 121/73 121/73 O2 Sat by Pulse 100 100 87 Oximetry 06/07/21 06/07/21 06/07/21 07:01 07:15 07:30 Temperature Pulse Rate 113 H 102 H 94 H Pulse Rate [ From Monitor] Respiratory 10 L 14 15 Rate Blood Pressure 150/98 150/98 154/91 O2 Sat by Pulse 97 99 100 Oximetry 06/07/21 06/07/21 06/07/21 07:45 08:00 08:07 Temperature 98 F Pulse Rate 88 89 76 Pulse Rate [ 89 From Monitor] Respiratory 11 L 14 Rate Blood Pressure 154/91 139/90 139/90 O2 Sat by Pulse 100 99 100 Oximetry 06/07/21 06/07/21 06/07/21 08:15 08:30 08:45 Temperature Pulse Rate 93 H 84 81 Pulse Rate [ From Monitor] Respiratory 11 L 12 12 Rate Blood Pressure 139/90 138/91 138/91 O2 Sat by Pulse 100 100 99 Oximetry 06/07/21 06/07/21 06/07/21 09:00 09:15 09:31 Temperature Pulse Rate 84 76 66 Pulse Rate [ From Monitor] Respiratory 12 10 L 12 Rate Blood Pressure 140/83 140/83 184/101 O2 Sat by Pulse 100 99 99 Oximetry 06/07/21 06/07/21 06/07/21 09:45 10:00 10:15 Temperature Pulse Rate 73 73 70 Pulse Rate [ From Monitor] Respiratory 13 14 13 Rate Blood Pressure 184/101 140/93 140/93 O2 Sat by Pulse 100 99 99 Oximetry 06/07/21 06/07/21 06/07/21 10:30 10:45 11:00 Temperature Pulse Rate 98 H 99 H 121 H Pulse Rate [ From Monitor] Respiratory 11 L 13 12 Rate Blood Pressure 185/117 175/108 165/105 O2 Sat by Pulse 100 100 100 Oximetry 06/07/21 06/07/21 06/07/21 11:15 11:30 11:41 Temperature Pulse Rate 110 H 118 H 124 H Pulse Rate [ From Monitor] Respiratory 11 L 12 Rate Blood Pressure 165/105 180/99 181/119 O2 Sat by Pulse 100 100 Oximetry 06/07/21 06/07/21 06/07/21 11:45 12:00 12:47 Temperature 98.4 F Pulse Rate 134 H 142 H 111 H Pulse Rate [ 142 H From Monitor] Respiratory 11 L 13 Rate Blood Pressure 181/119 179/97 158/102 O2 Sat by Pulse 100 100 100 Oximetry 06/07/21 13:16 Temperature Pulse Rate 105 H Pulse Rate [ From Monitor] Respiratory Rate Blood Pressure 168/105 O2 Sat by Pulse 100 Oximetry Constitutional: no acute distress, other (middle aged thin male with mildly increased respiratory effort at rest) Eyes: non-icteric ENT: oropharynx moist, other (ETT 24 cm DELMER) Neck: supple, no lymphadenopathy, no JVD Effort: normal Ascultation: Bilateral: clear Percussion: Bilateral: not dull Cardiovascular: regular rate and rhythm Gastrointestinal: normoactive bowel sounds, soft, non-tender, non-distended Integumentary: normal Extremities: no cyanosis, no edema, pulses normal, no ischemia or petechiae Neurologic: non-focal exam (grossly), pupils equal and round, CN II-XII normal, motor strength normal and, other (sedated) Psychiatric: mood appropriate, affect normal CBC and BMP: 06/07/21 04:14 06/07/21 07:15 ABG, PT/INR, D-dimer: ABG ABG pH 7.432 pH Units (7.350-7.450) 06/07/21 15:00 ABG pCO2 43.6 mm Hg 06/07/21 15:00 ABG pO2 112.8 mm Hg (80.0-90.0) H 06/07/21 15:00 ABG O2 Saturation 98.1 % (95.0-99.0) 06/07/21 15:00 PT/INR, D-dimer PT 14.6 Sec. (12.2-14.9) 06/04/21 05:16 INR 1.03 (0.87-1.13) 06/04/21 05:16 Abnormal lab findings: Abnormal Labs 06/04/21 06/04/21 06/04/21 04:53 04:53 06:30 MCV 82 L MCH 26 L MCHC RDW Plt Count Lymph % (Auto) [place] % (Auto) 7.6 H Lymph # (Auto) 1.1 L Seg Neutrophils % 76.6 H ABG pO2 118.3 H ABG HCO3 ABG Base Excess -2.9 L ABG Hemoglobin 12.7 L Potassium 3.5 L BUN 6 L Creatinine 0.5 L Glucose 124 H POC Glucose Calcium 06/04/21 06/05/21 06/05/21 23:31 04:14 04:14 MCV 81 L MCH 25 L MCHC 31 L RDW 13.0 L Plt Count 126 L Lymph % (Auto) 8.5 L [place] % (Auto) Lymph # (Auto) 0.4 L Seg Neutrophils % 87.0 H ABG pO2 ABG HCO3 ABG Base Excess ABG Hemoglobin Potassium BUN Creatinine 0.5 L Glucose 152 H POC Glucose 157 H Calcium 8.2 L 06/05/21 06/05/21 06/05/21 08:45 11:23 16:17 MCV MCH MCHC RDW Plt Count Lymph % (Auto) [place] % (Auto) Lymph # (Auto) Seg Neutrophils % ABG pO2 106.3 H ABG HCO3 28.2 H ABG Base Excess 3.6 H ABG Hemoglobin 13.3 L Potassium BUN Creatinine Glucose POC Glucose 133 H 135 H Calcium 06/05/21 06/06/21 06/06/21 23:31 05:14 07:16 MCV 81 L MCH 25 L MCHC 31 L RDW Plt Count Lymph % (Auto) [place] % (Auto) Lymph # (Auto) Seg Neutrophils % ABG pO2 ABG HCO3 ABG Base Excess ABG Hemoglobin Potassium BUN Creatinine Glucose POC Glucose 126 H 141 H Calcium 06/06/21 06/06/21 06/06/21 07:16 09:08 11:15 MCV MCH MCHC RDW Plt Count Lymph % (Auto) [place] % (Auto) Lymph # (Auto) Seg Neutrophils % ABG pO2 91.3 H ABG HCO3 27.5 H ABG Base Excess ABG Hemoglobin 13.6 L Potassium BUN 24 H Creatinine Glucose 130 H POC Glucose 148 H Calcium 8.2 L 06/06/21 06/06/21 06/07/21 14:15 16:33 00:01 MCV MCH MCHC RDW Plt Count Lymph % (Auto) [place] % (Auto) Lymph # (Auto) Seg Neutrophils % ABG pO2 91.6 H ABG HCO3 27.9 H ABG Base Excess ABG Hemoglobin 12.7 L Potassium BUN Creatinine Glucose POC Glucose 158 H 148 H Calcium 06/07/21 06/07/21 06/07/21 04:14 05:03 07:15 MCV 80 L MCH 25 L MCHC RDW Plt Count 99 L Lymph % (Auto) [place] % (Auto) Lymph # (Auto) Seg Neutrophils % ABG pO2 ABG HCO3 ABG Base Excess ABG Hemoglobin Potassium BUN 21 H Creatinine 0.6 L Glucose 162 H POC Glucose 135 H Calcium 8.2 L 06/07/21 06/07/21 12:12 15:00 MCV MCH MCHC RDW Plt Count Lymph % (Auto) [place] % (Auto) Lymph # (Auto) Seg Neutrophils % ABG pO2 112.8 H ABG HCO3 28.4 H ABG Base Excess 3.6 H ABG Hemoglobin 13.1 L Potassium BUN Creatinine Glucose POC Glucose 162 H Calcium Allied health notes reviewed: nursing
[2021-06-07] MEDS: MORPHINE 4 MG/1 ML INJ IV PRN (17:22)
[2021-06-08] MEDS: MORPHINE 4 MG/1 ML INJ IV PRN (00:21)
[2021-06-08] MEDS: hydrALAZINE 20 MG/1 ML INJ IV PRN ×4 (02:06→22:07)
[2021-06-08] MEDS: LORazepam 2 MG/ML VIAL IV PRN ×2 (02:06→10:15)
[2021-06-08] MEDS: INSULIN LISPRO 100 UNIT/ML SUB-Q SCH ×5 (02:07→17:53)
[2021-06-08 05:23] LABS: Mean Corpuscular HGB Conc 31 % (32-34); Mean Corpuscular Volume 82 fl (84-94); Red Blood Count 5.08 M/mm3 (3.65-5.03); Red Cell Distribution Width 13.2 % (13.2-15.2)
[2021-06-08 05:25] LABS: Hematocrit 41.8 % (35.5-45.6); Hemoglobin 12.8 gm/dl (11.8-15.2); Platelet Count 91 K/mm3 (140-440)
[2021-06-08 05:41] LABS: Blood Urea Nitrogen 18 mg/dL (9-20); Calcium 8.7 mg/dL (8.4-10.2); Hemolysis Index 104
[2021-06-08 05:59] LABS: BUN/Creatinine Ratio 30
[2021-06-08] MEDS: methylPREDNISolone Sod Succinate 125 MG/2 ML INJ IV SCH (06:21)
[2021-06-08] MEDS: QUEtiapine 200 MG TAB PO SCH ×2 (09:19→22:00)
[2021-06-08] MEDS: SENNOSIDES/DOCUSATE SODIUM 8.6/50 MG TAB FEEDTUBE SCH ×2 (09:19→22:00)
[2021-06-08] MEDS: HEPARIN 5,000 UNIT/1 ML VIAL SUB-Q SCH ×2 (09:20→22:01)
[2021-06-08] MEDS: diphenhydrAMINE 50 MG/ML VIAL IV SCH ×2 (09:20→22:01)
[2021-06-08] MEDS: FAMOTIDINE 20 MG TAB FEEDTUBE SCH ×2 (09:20→22:00)
--- NOTE | 2021-06-08 12:30 | Progress Note ---
Assessment and Plan Assessment and plan: This is a 55-year-old male with past medical history of HTN who was intubated in the ED due to angioedema. Hospital Course to Date 06/05: Patient remains intubated and sedated. Sedation vacation this am, patient was appropriate following commands. CT Neck noted and revealed edematous and swelling. Plan for SAT and SBT today for potential extubation per [facility]. Per nursing staff family voiced concern for possible alcohol withdrawal, patient is a daily heavy drinker. Consider CIWA protocol once awake and off sedation. 06/06: Patient remains on the vent and sedated. Patient now with s/s of alcohol withdrawal on CIWA protocol, unable to wean off sedation. SAT and SBT trial a ttempted, patient is too agitated for safe extubation. Plan to wean off propofol gtt, continue CIWA protocol and Seroquel added BID. 06/07: Patient remains on the vent and on low dose Fentanyl gtt. Tachycardia with low BP yesterday, resolved s/p 1L NS bolus. Patient remains on CIWA protocol for alcohol withdrawal. Thrombocytopenia noted from this am lab, not more than 50% from admit level, will continue to monitor for now. Plan for SAT and SBt again today. 06/08: Patient is s/p extubation, fully AAO, now on 2L NC SPO2 at 100%. Patient failed bedside swallow eval, order placed for speech swallow eval. D5w ordered for now. Continue CIWA protocol for alcohol withdrawal Assessment and Plan #Neuro:Anxiety/Agitation #ETOH Abuse - S/p extubation fully AAO - Concern for possible ETOH withdrawal, per family heavy daily drinker - Continue CIWA propofol with PRN IV Ativan - Seroquel added BID - Close monitoring of QTc - PRN analgesia for pain management - Maintenance of sleep-wake cycle, to reduce the possibility of delirium #Hypertension #Hypertensive urgency-improved #History of hypertension - Patient presented with elevated BP - Probably due to above vs. medication non-compliance - Continue PRN hydralazine - Will resume home meds once list is available - Continue blood pressure monitor per protocol - Maintain MAP above 65 and/or SBP less than 160 #Acute respiratory failure 2/2 #Angioedema - Patient intubated for airway protection in the ED on 06/04 - Patient has history of hypertension treated with losartan, uncertain of use - s/p FFP, Solu-Medrol, famotidine and epinephrine in the ED - 06/08 S/p extubation, now on 2L NC SPO2 at 100% - [facility] consulted, appreciate recommendations - Continue IV Steroids and IV benadryl per [facility] - VAP bundle addressed - Aspiration precaution HOB above 30 - Daily ABG and CXR per [facility] - Continue SPO2 monitoring for SPO2 goal above 95% #GI:Dysphagia - Patient failed bedside swallow screen - Speech swallow eval pending - Enteral nutrition on hold for now - Might need NGT placement if patient fails speech eval - Nutrition on consult - Continue PPI- pepcid - Continue BR #Hypokalemia- improved - presented with low K, repleted - Monitor and replace electrolytes as needed - Trend BMP #Thrombocytopenia - Patient is on heparin subQ for VTE proph - Consider HIT panel if continue to drop - H&H stable - Will continue to monitor for now - Trend CBC #Endo:Glycemic Control - Continue BG check and SSI Q6hrs - Avoid hypoglycemia #DVT Prophylaxis - Continue AC- Hep SubQ - SCDs to bilateral lower extremities while in bed The high probability of a clinically significant, sudden or life threatening deterioration of the [Neuro, Respiratory] system(s) required my full and direct attention, intervention and personal management. The aggregate critical care time was [60] minutes. This time is in addition to time spent performing reported procedures but includes the following: [x] Data Review and interpretation [x] Patient assessment and monitoring of vital signs [x] Documentation [x] Medication orders and management Disposition Plan: ICU Total Time Spent with Patient (Minutes): 60 History Interval history: Patient seen and examined at the bedside. Fully AAO, S/p Extubation now on 2L NC SPO2 at 100%. Still required periodic IV Ativan per the CIWA protocol overnight Hospitalist Physical - Constitutional Vitals: Temp Pulse Resp BP Pulse Ox 98.3 F 149 H 20 152/104 96 06/08/21 08:00 06/08/21 10:15 06/08/21 10:15 06/08/21 10:15 06/08/21 10:15 General appearance: Present: no acute distress - EENT Eyes: Present: PERRL, EOM intact ENT: hearing intact, clear oral mucosa - Neck Neck: Present: normal ROM - Respiratory Respiratory effort: normal Respiratory: bilateral: rhonchi - Cardiovascular Rhythm: regular Heart Sounds: Present: S1 & S2 - Extremities Extremities: no ischemia, pulses symmetrical Peripheral Pulses: within normal limits - Abdominal General gastrointestinal: soft, non-tender, normal bowel sounds - Integumentary Integumentary: Present: clear, warm, dry - Psychiatric Psychiatric: appropriate mood/affect, cooperative - Neurologic Neurologic: CNII-XII intact, moves all extremities - Allied Health Allied health notes reviewed: nursing Results - Labs CBC & Chem 7: 06/08/21 04:25 06/08/21 04:25 Labs: Laboratory Last Values WBC 7.6 K/mm3 (4.5-11.0) 06/08/21 04:25 RBC 5.08 M/mm3 (3.65-5.03) H 06/08/21 04:25 Hgb 12.8 gm/dl (11.8-15.2) 06/08/21 04:25 Hct 41.8 % (35.5-45.6) 06/08/21 04:25 MCV 82 fl (84-94) L 06/08/21 04:25 MCH 25 pg (28-32) L 06/08/21 04:25 MCHC 31 % (32-34) L 06/08/21 04:25 RDW 13.2 % (13.2-15.2) 06/08/21 04:25 Plt Count 91 K/mm3 (140-440) L 06/08/21 04:25 Lymph % (Auto) 8.5 % (13.4-35.0) L 06/05/21 04:14 [place] % (Auto) 4.3 % (0.0-7.3) 06/05/21 04:14 Eos % (Auto) 0.0 % (0.0-4.3) 06/05/21 04:14 Baso % (Auto) 0.2 % (0.0-1.8) 06/05/21 04:14 Lymph # (Auto) 0.4 K/mm3 (1.2-5.4) L 06/05/21 04:14 [place] # (Auto) 0.2 K/mm3 (0.0-0.8) 06/05/21 04:14 Eos # (Auto) 0.0 K/mm3 (0.0-0.4) 06/05/21 04:14 Baso # (Auto) 0.0 K/mm3 (0.0-0.1) 06/05/21 04:14 Seg Neutrophils % 87.0 % (40.0-70.0) H 06/05/21 04:14 Seg Neutrophils # 4.4 K/mm3 (1.8-7.7) 06/05/21 04:14 ESR 29 mm/Hr (0-20) 06/04/21 04:53 PT 14.6 Sec. (12.2-14.9) 06/04/21 05:16 INR 1.03 (0.87-1.13) 06/04/21 05:16 APTT 28.1 Sec. (24.2-36.6) 06/04/21 05:16 ABG pH 7.432 pH Units (7.350-7.450) 06/07/21 15:00 ABG pCO2 43.6 mm Hg 06/07/21 15:00 ABG pO2 112.8 mm Hg (80.0-90.0) H 06/07/21 15:00 ABG HCO3 28.4 mmol/L (20.0-26.0) H 06/07/21 15:00 ABG O2 Saturation 98.1 % (95.0-99.0) 06/07/21 15:00 ABG O2 Content 17.9 (0.0-44) 06/07/21 15:00 ABG Base Excess 3.6 mmol/L (-2.0-3.0) H 06/07/21 15:00 ABG Hemoglobin 13.1 gm/dl (14.0-18.0) L 06/07/21 15:00 ABG Carboxyhemoglobin 1.1 % (0.0-5.0) 06/07/21 15:00 ABG Methemoglobin 0.6 % (0.0-1.5) 06/07/21 15:00 Oxyhemoglobin 96.5 % (95.0-99.0) 06/07/21 15:00 FiO2 30 % 06/07/21 15:00 Sodium 141 mmol/L (137-145) 06/08/21 04:25 Potassium 4.8 mmol/L (3.6-5.0) 06/08/21 04:25 Chloride 103.8 mmol/L (98-107) 06/08/21 04:25 Carbon Dioxide 27 mmol/L (22-30) 06/08/21 04:25 Anion Gap 15 mmol/L 06/08/21 04:25 BUN 18 mg/dL (9-20) 06/08/21 04:25 Creatinine 0.6 mg/dL (0.8-1.3) L 06/08/21 04:25 Estimated GFR > 60 ml/min 06/08/21 04:25 BUN/Creatinine Ratio 30 % 06/08/21 04:25 Glucose 166 mg/dL (75-100) H 06/08/21 04:25 POC Glucose 126 mg/dL (70-105) H 06/08/21 11:38 Calcium 8.7 mg/dL (8.4-10.2) 06/08/21 04:25 Phosphorus 2.50 mg/dL (2.5-4.5) D 06/08/21 04:25 Magnesium 2.00 mg/dL (1.7-2.3) 06/08/21 04:25 C-Reactive Protein 0.60 mg/dL (0.00-1.30) 06/04/21 04:53 Triglycerides 88 mg/dL (2-149) 06/06/21 07:16 Coronavirus (PCR) Negative (Negative) 06/04/21 07:00 Blood Type O POSITIVE 06/04/21 05:16 Antibody Screen Negative 06/04/21 05:16 Griffith/IV: Voiding Method Condom Catheter Active Medications - Current Medications Current Medications: Generic Name Dose Route Start Last Admin Trade Name Freq PRN Reason Stop Dose Admin Acetaminophen 650 mg 06/04/21 08:00 Acetaminophen 325 Mg/10.15 Ml Oral Liqd Unit Dose FEEDTUBE Q6H PRN Pain MILD(1-3)/Fever >100.5/MEDRANO Lipase/Protease/Amylase 1 each 06/06/21 17:56 Lipase 10,500/Protease 25,000/Amylase 43,750 (Units) Dr Moulton FEEDTUBE PRN PRN For Clogged Feeding Tube Bisacodyl 10 mg 06/04/21 08:00 Bisacodyl 10 Mg Rect Supp MN QDAY PRN constipation Dextrose 0 ml 06/05/21 20:28 Dextrose 50% In Water (25gm) 50 Ml Syringe IV Q30MIN PRN Hypoglycemia Protocol Diphenhydramine HCl 25 mg 06/04/21 12:00 06/08/21 09:20 Diphenhydramine 50 Mg/Ml Vial IV 25 mg BID AIDAN Administration Famotidine 20 mg 06/08/21 10:00 06/08/21 09:20 Famotidine 20 Mg Tab FEEDTUBE 20 mg BID AIDAN Administration Fentanyl 50 mcg 06/04/21 11:40 06/04/21 14:34 Fentanyl 100 Mcg/2 Ml Inj IV 50 mcg Q10MIN PRN Administration ANALGESIA Heparin Sodium (Porcine) 5,000 unit 06/04/21 10:00 06/08/21 09:20 Heparin 5,000 Unit/1 Ml Vial SUB-Q 5,000 unit Q12HR AIDAN Administration Hydralazine HCl 10 mg 06/04/21 18:00 06/08/21 09:20 Hydralazine 20 Mg/1 Ml Inj IV 10 mg Q4HR PRN Administration Hypertension Hydrophilic Ointment 1 applic 06/04/21 05:57 Lip Therapy Vaseline TP Q2HR PRN Dry Lips Propofol 1,000 mg in 100 mls @ 2.477 mls/hr 06/04/21 06:00 06/07/21 00:05 Diprivan 10 Mg/Ml IV Infused TITR AIDAN Titration Protocol 5 MCG/KG/MIN Fentanyl Citrate 2,000 mcg in 100 mls @ 4.128 mls/hr 06/04/21 12:00 06/08/21 06:00 Fentanyl Drip Premix IV 0 mcg/kg/hr TITR AIDAN 0 mls/hr Titration Protocol 1 MCG/KG/HR Insulin Human Lispro 0 unit 06/08/21 08:00 06/08/21 08:58 Insulin Lispro 100 Unit/Ml SUB-Q Not Given Q6HR [facility] Protocol Lorazepam 2 mg 06/05/21 13:23 06/08/21 10:15 Lorazepam 2 Mg/Ml Vial IV 2 mg Q1H PRN Administration CIWA-Ar 8-15 Methylprednisolone Sodium Succinate 60 mg 06/08/21 18:00 Methylprednisolone Sod Succinate 125 Mg/2 Ml Inj IV Q12H [facility] Metoprolol Tartrate 5 mg 06/07/21 13:30 Metoprolol Tartrate 5 Mg/5 Ml Inj IV Q6HR PRN Tachyarrhythmias Morphine Sulfate 2 mg 06/04/21 08:00 Morphine 2 Mg/1 Ml Inj IV Q4H PRN Pain, Moderate (4-6) Morphine Sulfate 4 mg 06/04/21 08:00 06/08/21 00:21 Morphine 4 Mg/1 Ml Inj IV 4 mg Q4H PRN Administration Pain , Severe (7-10) Multi-Ingred Cream/Lotion/Oil/Oint 1 applic 06/04/21 05:57 Mineral Oil/Petrolatum, White Ophth Oint 3.5 Gm OU Q4HR PRN Dry Eye(s) Naloxone HCl 0.1 mg 06/04/21 08:00 Naloxone 0.4 Mg/1 Ml Inj IV Q2MIN PRN Res Rate </= 8 or 02 SAT < 92% Ondansetron HCl 4 mg 06/04/21 08:00 Ondansetron 4 Mg/2 Ml Inj IV Q8H PRN Nausea And Vomiting Quetiapine Fumarate 200 mg 06/06/21 13:00 06/08/21 09:19 Quetiapine 200 Mg Tab PO 200 mg BID AIDAN Administration Senna/Docusate Sodium 1 tab 06/04/21 10:00 06/08/21 09:19 Sennosides/Docusate Sodium 8.6/50 Mg Tab FEEDTUBE 1 tab BID AIDAN Administration Simple Syrup 15 ml 06/06/21 17:56 Simple Syrup 15 Ml FEEDTUBE PRN PRN Hypoglycemia Simple Syrup 30 ml 06/06/21 17:56 Simple Syrup 15 Ml FEEDTUBE PRN PRN Hypoglycemia Sodium Bicarbonate 325 mg 06/06/21 17:56 Sodium Bicarbonate 325 Mg Tab FEEDTUBE PRN PRN For Clogged Feeding Tube Sodium Chloride 10 ml 06/04/21 10:00 06/08/21 09:21 Sodium Chloride 0.9% 10 Ml Flush Syringe IV 10 ml BID AIDAN Administration Sodium Chloride 10 ml 06/04/21 08:00 Sodium Chloride 0.9% 10 Ml Flush Syringe IV PRN PRN LINE FLUSH Nutrition/Malnutrition Assess - Dietary Evaluation Nutrition/Malnutrition Findings: Nutrition Notes Start: 06/05/21 10:40 Freq: Status: Active Protocol: Document 06/06/21 17:40 JOAO (Rec: 06/06/21 17:59 JOAO [id number]) Nutrition Notes Initial or Follow up Brief Note Current Diet TF-Osmolite 1.5 Faisal @ 58 ml/hr (since B 06/07). Height 6 ft 2 in Weight 82.554 kg [place] Body Weight (kg) 86.36 BMI 23.3 Weight change and time frame no body weight change reported . Weight Status Appropriate Subjective/Other Information RD consult to write/manage TF. TF order placed. F/U to check for tolerance. Percent of energy/protein needs met: Prescribed Osmolite 1.5 Faisal @ 58 ml/hr provides for energy/ protein needs (2,075 Kcal/87 g ) during LOS. Nutrition Intervention Nutrition Support: Start Osmolite 1.5 Faisal @ 58 ml /hr. Flush: 170 ml water Q 4 hr. Kcal 2,075 Protein (gm) 87 Carbohydrates (gm) 282 Fat (gm) 68 Fluid (mL) 1,054 Fiber (gm) 0 % RDI: 100% Kcal; 88% AA. Goal #1 Provide at least 75% of energy /protein needs through Enteral Feeding during LOS. Goal #2 Maintain body weight within +/ -3% of admission body weight during LOS. Goal #3 Reach and maintain acceptable chemistry lab values during LOS. Follow-Up By: 06/09/21 Additional Comments Continue monitoring TF tolerance, Hydration, and BM.
[2021-06-08 12:48] LABS: ABG Base Excess 5.6 mmol/L (-2.0-3.0); ABG HCO3 28.5 mmol/L (20.0-26.0); ABG Methemoglobin 0.6 % (0.0-1.5); ABG Oxygen Saturation 98.8 % (95.0-99.0); ABG PH 7.517 pH Units (7.350-7.450); ABG PO2 135.8 mm Hg (80.0-90.0)
--- NOTE | 2021-06-08 13:18 | Progress Note ---
Assessment and Plan Acute respiratory failure Angioedema EtOH withdrawal Hypertension Cerebrovascular accident Hypokalemia - get 2 hour ABG - extubate if acceptable - prm BIPAP post extubation - aspiration precautions (HOB > 40 degrees) post extubation - watch platelets re: thrombocytopenia - continue CIWA protocol - continue Seroquel 200 mg p.o. bid - taper solumedrol to 40 mg IV daily - continue care as below otherwise; - continue antihistamine therapy - daily SAT and SBT assessment as tolerated (tentative extubation in am) - continue to wean supplemental oxygen for target O2 sat's > 90% acutely - VAP bundle addressed - continue lung protective strategies - continue bronchodilators with pulmonary hygiene per RT - wean per pulmonary driven protocols otherwise - continue to avoid benzodiazepine's, reduce the possibility of delirium - AB's per ID rec's - continue accuchecks resumed with glycemic control per SSI (While critically ill target blood glucose of 140-180 mg/dL; avoid hypoglycemia) - sedation prn for target RASS 0 to -1 - prn analgesia per CPOT score - Maintenance of sleep-wake cycle, avoid delirium - continue enteral nutritional support at goal rate as tolerated - G.I. & VTE prophylaxis - PT/OT/ROM exercises - continue mobility protocols for pressure ulcer prophylaxis - Monitor hemodynamics closely - continue other care per attending / other consultants - discharge planning ongoing concurrently .... Re-evaluate in am & prn CONDITION: CRITICAL PROGNOSIS: GUARDED CODE STATUS: FULL CODE The high probability of a clinically significant, sudden or life-threatening deterioration of the [respiratory] system(s) required my full and direct attention, intervention and personal management. The aggregate critical care time was [32] minutes without overlap. Time includes spent on; [x] Data Review and interpretation [x] Patient assessment and monitoring of vital signs [x] Documentation [x] Medication orders and management Subjective Date of service: 06/08/21 Principal diagnosis: Acute respiratory failure ; HTN; Angioedema; H/O CVA; Hypokalemia Interval history: Patient is seen today for: Acute respiratory failure ; HTN; Angioedema; H/O CVA; Hypokalemia Seen and examined at bedside; 24hour events reviewed; nursing and respiratory care staff consulted; no adverse overnight events reported to me; resting in bed now; on PSV trial and tolerating well so far; denies N/V/F/C; less delirious Objective Vital Signs - 12hr 06/08/21 06/08/21 06/08/21 01:30 02:00 02:06 Temperature Pulse Rate 103 H 111 H 106 H Pulse Rate [ From Monitor] Respiratory 13 33 H Rate Blood Pressure 165/105 193/117 193/117 O2 Sat by Pulse 99 100 Oximetry 06/08/21 06/08/21 06/08/21 02:30 03:00 03:30 Temperature Pulse Rate 122 H 110 H 105 H Pulse Rate [ From Monitor] Respiratory 15 Rate Blood Pressure 164/95 149/89 150/94 O2 Sat by Pulse 100 99 99 Oximetry 06/08/21 06/08/21 06/08/21 04:00 04:21 04:31 Temperature 98.7 F Pulse Rate 104 H 104 H 126 H Pulse Rate [ 109 H From Monitor] Respiratory 16 Rate Blood Pressure 136/87 150/94 157/114 O2 Sat by Pulse 98 98 100 Oximetry 06/08/21 06/08/21 06/08/21 05:00 05:30 06:00 Temperature Pulse Rate 94 H 90 89 Pulse Rate [ From Monitor] Respiratory 11 L 11 L 12 Rate Blood Pressure 145/89 152/94 138/82 O2 Sat by Pulse 98 98 98 Oximetry 06/08/21 06/08/21 06/08/21 06:30 07:00 07:30 Temperature Pulse Rate 90 91 H 105 H Pulse Rate [ From Monitor] Respiratory 12 12 14 Rate Blood Pressure 139/89 146/92 159/109 O2 Sat by Pulse 98 99 100 Oximetry 06/08/21 06/08/21 06/08/21 08:00 08:15 08:30 Temperature 98.3 F Pulse Rate 102 H 153 H 117 H Pulse Rate [ 102 H From Monitor] Respiratory 13 13 Rate Blood Pressure 167/102 176/102 184/108 O2 Sat by Pulse 100 97 100 Oximetry 06/08/21 06/08/21 06/08/21 09:20 10:15 12:00 Temperature 100.4 F H Pulse Rate 112 H 149 H Pulse Rate [ From Monitor] Respiratory 20 Rate Blood Pressure 172/108 152/104 O2 Sat by Pulse 96 Oximetry Constitutional: no acute distress, other (middle aged thin male with mildly increased respiratory effort at rest) Eyes: non-icteric ENT: oropharynx moist, other (ETT 24 cm DELMER) Neck: supple, no lymphadenopathy, no JVD Effort: normal Ascultation: Bilateral: clear Percussion: Bilateral: not dull Cardiovascular: regular rate and rhythm Gastrointestinal: normoactive bowel sounds, soft, non-tender, non-distended Integumentary: normal Extremities: no cyanosis, no edema, pulses normal, no ischemia or petechiae Neurologic: non-focal exam (grossly), pupils equal and round, CN II-XII normal, motor strength normal and, other (sedated) Psychiatric: mood appropriate, affect normal CBC and BMP: 06/08/21 04:25 06/08/21 04:25 ABG, PT/INR, D-dimer: ABG ABG pH 7.517 pH Units (7.350-7.450) H 06/08/21 12:30 ABG pCO2 36.0 mm Hg 06/08/21 12:30 ABG pO2 135.8 mm Hg (80.0-90.0) H 06/08/21 12:30 ABG O2 Saturation 98.8 % (95.0-99.0) 06/08/21 12:30 PT/INR, D-dimer PT 14.6 Sec. (12.2-14.9) 06/04/21 05:16 INR 1.03 (0.87-1.13) 06/04/21 05:16 Abnormal lab findings: Abnormal Labs 06/04/21 06/04/21 06/04/21 04:53 04:53 06:30 RBC MCV 82 L MCH 26 L MCHC RDW Plt Count Lymph % (Auto) Esmeralda % (Auto) 7.6 H Lymph # (Auto) 1.1 L Seg Neutrophils % 76.6 H ABG pH ABG pO2 118.3 H ABG HCO3 ABG Base Excess -2.9 L ABG Hemoglobin 12.7 L Potassium 3.5 L BUN 6 L Creatinine 0.5 L Glucose 124 H POC Glucose Calcium 06/04/21 06/05/21 06/05/21 23:31 04:14 04:14 RBC MCV 81 L MCH 25 L MCHC 31 L RDW 13.0 L Plt Count 126 L Lymph % (Auto) 8.5 L Esmeralda % (Auto) Lymph # (Auto) 0.4 L Seg Neutrophils % 87.0 H ABG pH ABG pO2 ABG HCO3 ABG Base Excess ABG Hemoglobin Potassium BUN Creatinine 0.5 L Glucose 152 H POC Glucose 157 H Calcium 8.2 L 06/05/21 06/05/21 06/05/21 08:45 11:23 16:17 RBC MCV MCH MCHC RDW Plt Count Lymph % (Auto) Esmeralda % (Auto) Lymph # (Auto) Seg Neutrophils % ABG pH ABG pO2 106.3 H ABG HCO3 28.2 H ABG Base Excess 3.6 H ABG Hemoglobin 13.3 L Potassium BUN Creatinine Glucose POC Glucose 133 H 135 H Calcium 06/05/21 06/06/21 06/06/21 23:31 05:14 07:16 RBC MCV 81 L MCH 25 L MCHC 31 L RDW Plt Count Lymph % (Auto) Esmeralda % (Auto) Lymph # (Auto) Seg Neutrophils % ABG pH ABG pO2 ABG HCO3 ABG Base Excess ABG Hemoglobin Potassium BUN Creatinine Glucose POC Glucose 126 H 141 H Calcium 06/06/21 06/06/21 06/06/21 07:16 09:08 11:15 RBC MCV MCH MCHC RDW Plt Count Lymph % (Auto) Esmeralda % (Auto) Lymph # (Auto) Seg Neutrophils % ABG pH ABG pO2 91.3 H ABG HCO3 27.5 H ABG Base Excess ABG Hemoglobin 13.6 L Potassium BUN 24 H Creatinine Glucose 130 H POC Glucose 148 H Calcium 8.2 L 06/06/21 06/06/21 06/07/21 14:15 16:33 00:01 RBC MCV MCH MCHC RDW Plt Count Lymph % (Auto) Esmeralda % (Auto) Lymph # (Auto) Seg Neutrophils % ABG pH ABG pO2 91.6 H ABG HCO3 27.9 H ABG Base Excess ABG Hemoglobin 12.7 L Potassium BUN Creatinine Glucose POC Glucose 158 H 148 H Calcium 06/07/21 06/07/21 06/07/21 04:14 05:03 07:15 RBC MCV 80 L MCH 25 L MCHC RDW Plt Count 99 L Lymph % (Auto) Esmeralda % (Auto) Lymph # (Auto) Seg Neutrophils % ABG pH ABG pO2 ABG HCO3 ABG Base Excess ABG Hemoglobin Potassium BUN 21 H Creatinine 0.6 L Glucose 162 H POC Glucose 135 H Calcium 8.2 L 06/07/21 06/07/21 06/07/21 12:12 15:00 17:33 RBC MCV MCH MCHC RDW Plt Count Lymph % (Auto) Esmeralda % (Auto) Lymph # (Auto) Seg Neutrophils % ABG pH ABG pO2 112.8 H ABG HCO3 28.4 H ABG Base Excess 3.6 H ABG Hemoglobin 13.1 L Potassium BUN Creatinine Glucose POC Glucose 162 H 150 H Calcium 06/07/21 06/08/21 06/08/21 23:55 04:25 04:25 RBC 5.08 H MCV 82 L MCH 25 L MCHC 31 L RDW Plt Count 91 L Lymph % (Auto) Esmeralda % (Auto) Lymph # (Auto) Seg Neutrophils % ABG pH ABG pO2 ABG HCO3 ABG Base Excess ABG Hemoglobin Potassium BUN Creatinine 0.6 L Glucose 166 H POC Glucose 155 H Calcium 06/08/21 06/08/21 06/08/21 06:11 08:54 11:38 RBC MCV MCH MCHC RDW Plt Count Lymph % (Auto) Esmeralda % (Auto) Lymph # (Auto) Seg Neutrophils % ABG pH ABG pO2 ABG HCO3 ABG Base Excess ABG Hemoglobin Potassium BUN Creatinine Glucose POC Glucose 188 H 142 H 126 H Calcium 06/08/21 12:30 RBC MCV MCH MCHC RDW Plt Count Lymph % (Auto) Esmeralda % (Auto) Lymph # (Auto) Seg Neutrophils % ABG pH 7.517 H ABG pO2 135.8 H ABG HCO3 28.5 H ABG Base Excess 5.6 H ABG Hemoglobin 13.6 L Potassium BUN Creatinine Glucose POC Glucose Calcium Allied health notes reviewed: nursing
[2021-06-08] MEDS ORDERED: methylPREDNISolone Sod Succinate 125 MG/2 ML INJ IV SCH (18:00)
[2021-06-08] MEDS: DEXTROSE 5% IN WATER 1,000 ML IV SCH (19:10)
[2021-06-08] MEDS: MORPHINE 2 MG/1 ML INJ IV PRN (19:53)
[2021-06-09] MEDS: INSULIN LISPRO 100 UNIT/ML SUB-Q SCH ×4 (00:52→18:27)
[2021-06-09] MEDS: LORazepam 2 MG/ML VIAL IV PRN ×9 (00:58→22:55)
[2021-06-09 05:33] LABS: Mean Corpuscular HGB Conc 31 % (32-34); Mean Corpuscular Volume 83 fl (84-94); Red Blood Count 4.95 M/mm3 (3.65-5.03); Red Cell Distribution Width 13.4 % (13.2-15.2)
[2021-06-09 05:35] LABS: Hematocrit 40.8 % (35.5-45.6); Hemoglobin 12.5 gm/dl (11.8-15.2); Platelet Count 83 K/mm3 (140-440)
[2021-06-09 05:38] LABS: Blood Urea Nitrogen 14 mg/dL (9-20); Calcium 8.3 mg/dL (8.4-10.2); Hemolysis Index 4
[2021-06-09 05:39] LABS: BUN/Creatinine Ratio 23
[2021-06-09] MEDS ORDERED: methylPREDNISolone Sod Succinate 125 MG/2 ML INJ IV SCH (10:00)
[2021-06-09] MEDS: POTASSIUM CHLORIDE 10 MEQ 10 MEQ/100 ML BAG IV SCH ×4 (10:24→14:24)
[2021-06-09] MEDS: methylPREDNISolone Sod Succinate 40 MG/1 ML INJ IV SCH (10:25)
[2021-06-09] MEDS: HEPARIN 5,000 UNIT/1 ML VIAL SUB-Q SCH (10:25)
[2021-06-09] MEDS: DEXTROSE 5% IN WATER 1,000 ML IV SCH (10:25)
--- NOTE | 2021-06-09 10:40 | Electrocardiograph Report ---
[facility] Test Date: 2021-06-06 Test Time: 13:38:31 Pat Name: JEIMY LEBLANC Department: Room: A255 1 Gender: M Director Of Science: TAQUERIA : 1965 Requested By: BRET ANDINO Order Number: [id number] Reading MD: Sinan Stevens Measurements Intervals Cord Rate: 147 P: 95 [place]: 116 QRS: 88 QRSD: 90 T: 57 QT: 282 QTc: 441 Interpretive Statements Sinus tachycardia No previous ECG available for comparison Electronically Signed On 06-09-2021 10:39:55 EST by Sinan Stevens
[2021-06-09] MEDS: hydrALAZINE 20 MG/1 ML INJ IV PRN ×2 (11:12→16:45)
--- NOTE | 2021-06-09 11:28 | Progress Note ---
Assessment and Plan Acute respiratory failure Angioedema EtOH withdrawal Hypertension Cerebrovascular accident Hypokalemia - prn BIPAP - continue aspiration precautions (HOB > 40 degrees) post extubation - follow platelets re: thrombocytopenia - continue CIWA protocol - continue Seroquel 200 mg p.o. bid - taper off solumedrol - [employer] C[employer]IER evaluation - continue care as below otherwise; - taper antihistamine therapy - continue to wean supplemental oxygen for target O2 sat's > 90% acutely - bronchodilators with pulmonary hygiene per RT - AB's per ID rec's - continue accuchecks resumed with glycemic control for target blood glucose of <180 mg/dL; avoid hypoglycemia - prn analgesia per CPOT score - Maintenance of sleep-wake cycle, avoid delirium - G.I. & VTE prophylaxis - PT/OT/ROM exercises - continue mobility protocols for pressure ulcer prophylaxis - Monitor hemodynamics closely - continue other care per attending / other consultants - discharge planning ongoing concurrently .... Re-evaluate in am & prn Subjective Date of service: 06/09/21 Principal diagnosis: Acute respiratory failure ; HTN; Angioedema; H/O CVA; Hypokalemia Interval history: Patient is seen today for: Acute respiratory failure ; HTN; Angioedema; H/O CVA; Hypokalemia Seen and examined at bedside; 24hour events reviewed; nursing and respiratory care staff consulted; no adverse overnight events reported to me; resting in bed now; doing well post extubation so far; No N/V/F/C; still with delirium Objective Vital Signs - 12hr 06/08/21 06/09/21 06/09/21 23:30 00:00 00:31 Temperature 98.3 F Pulse Rate 104 H 102 H 97 H Pulse Rate [ 92 H From Monitor] Respiratory 19 16 13 Rate Blood Pressure 160/107 167/100 165/102 O2 Sat by Pulse 93 94 95 Oximetry 06/09/21 06/09/21 06/09/21 01:00 01:31 02:01 Temperature Pulse Rate 100 H 105 H 105 H Pulse Rate [ From Monitor] Respiratory 20 21 19 Rate Blood Pressure 164/111 145/90 157/127 O2 Sat by Pulse 97 96 97 Oximetry 06/09/21 06/09/21 06/09/21 02:15 02:30 03:00 Temperature Pulse Rate 96 H 94 H 87 Pulse Rate [ From Monitor] Respiratory 19 20 Rate Blood Pressure 172/110 154/99 152/102 O2 Sat by Pulse 95 96 Oximetry 06/09/21 06/09/21 06/09/21 03:31 04:00 04:01 Temperature 98.3 F Pulse Rate 88 96 H 96 H Pulse Rate [ 92 H From Monitor] Respiratory 18 16 16 Rate Blood Pressure 159/99 153/109 O2 Sat by Pulse 95 97 95 Oximetry 06/09/21 06/09/21 06/09/21 04:30 05:00 05:30 Temperature Pulse Rate 87 84 84 Pulse Rate [ From Monitor] Respiratory 17 23 19 Rate Blood Pressure 171/105 167/107 182/107 O2 Sat by Pulse 97 97 Oximetry 06/09/21 06/09/21 06/09/21 06:05 06:30 07:00 Temperature Pulse Rate 83 85 87 Pulse Rate [ From Monitor] Respiratory 18 19 Rate Blood Pressure 182/107 158/101 146/90 O2 Sat by Pulse 98 97 Oximetry 06/09/21 06/09/21 06/09/21 07:30 08:00 08:30 Temperature 98.8 F Pulse Rate 85 85 88 Pulse Rate [ 85 From Monitor] Respiratory 15 14 23 Rate Blood Pressure 150/93 169/98 159/89 O2 Sat by Pulse 98 97 96 Oximetry 06/09/21 06/09/21 06/09/21 09:00 09:30 10:00 Temperature Pulse Rate 86 90 90 Pulse Rate [ From Monitor] Respiratory 23 16 19 Rate Blood Pressure 154/91 155/91 165/99 O2 Sat by Pulse 97 96 96 Oximetry 06/09/21 06/09/21 06/09/21 10:30 11:00 11:12 Temperature Pulse Rate 93 H 86 85 Pulse Rate [ From Monitor] Respiratory 21 19 Rate Blood Pressure 168/102 170/97 170/97 O2 Sat by Pulse 96 94 Oximetry Constitutional: no acute distress, other (middle aged thin male with mildly increased respiratory effort at rest) Eyes: non-icteric ENT: oropharynx moist, other (extubated) Neck: supple, no lymphadenopathy, no JVD Effort: normal Ascultation: Bilateral: clear Percussion: Bilateral: not dull Cardiovascular: regular rate and rhythm Gastrointestinal: normoactive bowel sounds, soft, non-tender, non-distended Integumentary: normal Extremities: no cyanosis, no edema, pulses normal, no ischemia or petechiae Neurologic: non-focal exam (grossly), pupils equal and round, CN II-XII normal, motor strength normal and, other (delirious) Psychiatric: mood appropriate, affect normal CBC and BMP: 06/11/21 04:02 06/11/21 04:02 ABG, PT/INR, D-dimer: ABG ABG pH 7.517 pH Units (7.350-7.450) H 06/08/21 12:30 ABG pCO2 36.0 mm Hg 06/08/21 12:30 ABG pO2 135.8 mm Hg (80.0-90.0) H 06/08/21 12:30 ABG O2 Saturation 98.8 % (95.0-99.0) 06/08/21 12:30 PT/INR, D-dimer PT 14.6 Sec. (12.2-14.9) 06/04/21 05:16 INR 1.03 (0.87-1.13) 06/04/21 05:16 Abnormal lab findings: Abnormal Labs 06/04/21 06/04/21 06/04/21 04:53 04:53 06:30 RBC MCV 82 L MCH 26 L MCHC RDW Plt Count Lymph % (Auto) Lynn % (Auto) 7.6 H Lymph # (Auto) 1.1 L Seg Neutrophils % 76.6 H ABG pH ABG pO2 118.3 H ABG HCO3 ABG Base Excess -2.9 L ABG Hemoglobin 12.7 L Potassium 3.5 L BUN 6 L Creatinine 0.5 L Glucose 124 H POC Glucose Calcium 06/04/21 06/05/21 06/05/21 23:31 04:14 04:14 RBC MCV 81 L MCH 25 L MCHC 31 L RDW 13.0 L Plt Count 126 L Lymph % (Auto) 8.5 L Lynn % (Auto) Lymph # (Auto) 0.4 L Seg Neutrophils % 87.0 H ABG pH ABG pO2 ABG HCO3 ABG Base Excess ABG Hemoglobin Potassium BUN Creatinine 0.5 L Glucose 152 H POC Glucose 157 H Calcium 8.2 L 06/05/21 06/05/21 06/05/21 08:45 11:23 16:17 RBC MCV MCH MCHC RDW Plt Count Lymph % (Auto) Lynn % (Auto) Lymph # (Auto) Seg Neutrophils % ABG pH ABG pO2 106.3 H ABG HCO3 28.2 H ABG Base Excess 3.6 H ABG Hemoglobin 13.3 L Potassium BUN Creatinine Glucose POC Glucose 133 H 135 H Calcium 06/05/21 06/06/21 06/06/21 23:31 05:14 07:16 RBC MCV 81 L MCH 25 L MCHC 31 L RDW Plt Count Lymph % (Auto) Lynn % (Auto) Lymph # (Auto) Seg Neutrophils % ABG pH ABG pO2 ABG HCO3 ABG Base Excess ABG Hemoglobin Potassium BUN Creatinine Glucose POC Glucose 126 H 141 H Calcium 06/06/21 06/06/21 06/06/21 07:16 09:08 11:15 RBC MCV MCH MCHC RDW Plt Count Lymph % (Auto) Lynn % (Auto) Lymph # (Auto) Seg Neutrophils % ABG pH ABG pO2 91.3 H ABG HCO3 27.5 H ABG Base Excess ABG Hemoglobin 13.6 L Potassium BUN 24 H Creatinine Glucose 130 H POC Glucose 148 H Calcium 8.2 L 06/06/21 06/06/21 06/07/21 14:15 16:33 00:01 RBC MCV MCH MCHC RDW Plt Count Lymph % (Auto) Lynn % (Auto) Lymph # (Auto) Seg Neutrophils % ABG pH ABG pO2 91.6 H ABG HCO3 27.9 H ABG Base Excess ABG Hemoglobin 12.7 L Potassium BUN Creatinine Glucose POC Glucose 158 H 148 H Calcium 06/07/21 06/07/21 06/07/21 04:14 05:03 07:15 RBC MCV 80 L MCH 25 L MCHC RDW Plt Count 99 L Lymph % (Auto) Lynn % (Auto) Lymph # (Auto) Seg Neutrophils % ABG pH ABG pO2 ABG HCO3 ABG Base Excess ABG Hemoglobin Potassium BUN 21 H Creatinine 0.6 L Glucose 162 H POC Glucose 135 H Calcium 8.2 L 06/07/21 06/07/21 06/07/21 12:12 15:00 17:33 RBC MCV MCH MCHC RDW Plt Count Lymph % (Auto) Lynn % (Auto) Lymph # (Auto) Seg Neutrophils % ABG pH ABG pO2 112.8 H ABG HCO3 28.4 H ABG Base Excess 3.6 H ABG Hemoglobin 13.1 L Potassium BUN Creatinine Glucose POC Glucose 162 H 150 H Calcium 06/07/21 06/08/21 06/08/21 23:55 04:25 04:25 RBC 5.08 H MCV 82 L MCH 25 L MCHC 31 L RDW Plt Count 91 L Lymph % (Auto) Lynn % (Auto) Lymph # (Auto) Seg Neutrophils % ABG pH ABG pO2 ABG HCO3 ABG Base Excess ABG Hemoglobin Potassium BUN Creatinine 0.6 L Glucose 166 H POC Glucose 155 H Calcium 06/08/21 06/08/21 06/08/21 06:11 08:54 11:38 RBC MCV MCH MCHC RDW Plt Count Lymph % (Auto) Lynn % (Auto) Lymph # (Auto) Seg Neutrophils % ABG pH ABG pO2 ABG HCO3 ABG Base Excess ABG Hemoglobin Potassium BUN Creatinine Glucose POC Glucose 188 H 142 H 126 H Calcium 06/08/21 06/08/21 06/09/21 12:30 16:41 00:44 RBC MCV MCH MCHC RDW Plt Count Lymph % (Auto) Lynn % (Auto) Lymph # (Auto) Seg Neutrophils % ABG pH 7.517 H ABG pO2 135.8 H ABG HCO3 28.5 H ABG Base Excess 5.6 H ABG Hemoglobin 13.6 L Potassium BUN Creatinine Glucose POC Glucose 119 H 135 H Calcium 06/09/21 06/09/21 06/09/21 04:22 04:22 05:06 RBC MCV 83 L MCH 25 L MCHC 31 L RDW Plt Count 83 L Lymph % (Auto) Lynn % (Auto) Lymph # (Auto) Seg Neutrophils % ABG pH ABG pO2 ABG HCO3 ABG Base Excess ABG Hemoglobin Potassium 3.3 L D BUN Creatinine 0.6 L Glucose 113 H POC Glucose 120 H Calcium 8.3 L Allied health notes reviewed: nursing
[2021-06-09] MEDS: cloNIDine TTS 0.1 MG/24 HR PATCH TD SCH (14:23)
--- NOTE | 2021-06-09 14:35 | XRay Report ---
ABDOMEN 1 VIEW, 06/09/2021 at 2:13 PM INDICATION / CLINICAL INFORMATION: Dobbhoff tube placement COMPARISON: Abdominal radiograph, 06/05/2021 at 1:40 PM FINDINGS: TUBES / LINES: There has been removal of nasogastric tube and placement of a weighted feeding tube wi th distal tip overlying the proximal stomach. BOWEL GAS PATTERN: Visualized bowel gas pattern appears nonobstructive. ADDITIONAL FINDINGS: No significant additional findings. IMPRESSION: 1. Placement of weighted feeding tube with distal tip overlying the expected position of the proximal stomach. Signer Name: Naty Rushing MD Signed: 06/09/2021 2:31 PM Workstation Name: [facility]
[2021-06-09] MEDS ORDERED: amLODIPine 5 MG TAB PO SCH (15:00)
[2021-06-09] MEDS: SENNOSIDES/DOCUSATE SODIUM 8.6/50 MG TAB FEEDTUBE SCH ×2 (15:28→21:43)
[2021-06-09] MEDS: FAMOTIDINE 20 MG TAB FEEDTUBE SCH ×2 (15:29→21:33)
--- NOTE | 2021-06-09 17:18 | Progress Note ---
Assessment and Plan Assessment and plan: This is a 55-year-old male with HTN and EtOH abuse admitted with angioedema and hypertensive urgency Neuro: Anxiety/agitation, h/o EtOH abuse -CIWA protocol -Seroquel twice daily -Weaning per [facility] -As needed analgesia -Maintenance of sleep-wake cycle -Avoid delirium -Reorientation as needed CV: Hypertensive urgency, h/o HTN -Presented with BP 203/112 -As needed hydralazine and labetalol -Started clonidine patch -CCB -Blood pressure monitoring per protocol Respiratory: Angioedema, s/p intubation for airway compromise -CCM consulted, appreciate recommendations -S/p FFP, Solu-Medrol, Pepcid, epinephrine in the ED -Intubated on 06/04 with 7.50 ETT at 24 at the lips and extubated 06/08 -Pulmonary hygiene -Supplemental oxygen as needed -SPO2 monitoring -CT neck shows edematous changes particularly involving the left neck including subcutaneous soft tissue with no well-defined fluid collection GI: Dysphagia -Failed bedside swallow evaluation -ST eval completed -Recommend n.p.o. status for now -We will reevaluate within 24 hours -NG tube replaced -KUB completed -Nutrition consult for tube feeding -Resume tube feeding -PPI Pepcid -BR: Senokot -24-hour -598 mL : Hypokalemia -Replete potassium -Trend BMP -06/08 magnesium 2 -Condom catheter in place Heme: Thrombocytopenia -Stopped anticoagulation today -Trend CBC -Transfuse to hemoglobin less than 7 -Likely due to EtOH abuse -Arixtra daily -SCD to bilateral actions while in bed Endo: NAD -Accucheck q 6 hr -SSI -Avoid hypoglycemia ID: NAD -Monitor WBC and fever curve -f/u tracheal aspirate The high probability of a clinically significant, sudden or life threatening deterioration of the [CV] system(s) required my full and direct attention, intervention and personal management. The aggregate critical care time was [60] minutes. This time is in addition to time spent performing reported procedures but includes the following: [x] Data Review and interpretation [x] Patient assessment and monitoring of vital signs [x] Documentation [x] Medication orders and management Disposition Plan: transfer to floor Total Time Spent with Patient (Minutes): 60 History Interval history: This is a 55-year-old male with HTN, EtOH abuse who presented to the emergency department on 06/04 via EMS with complaints of swollen tongue and was intubated in the emergency department to prevent airway compromise. In the emergency department she was given epinephrine, Benadryl, Solu-Medrol, FFP and Pepcid with no improvement. Work-up in the emergency department revealed hypertensive urgency with systolic blood pressure of 203/112. Patient was admitted to the hospitalist service with angioedema and hypertensive urgency with consults to [facility]. 06/06: Patient remains on the vent and sedated. Patient now with s/s of alcohol withdrawal on CIWA protocol, unable to wean off sedation. SAT and SBT trial attempted, patient is too agitated for safe extubation. Plan to wean off propofol gtt, continue CIWA protocol and Seroquel added BID. 06/07: Patient remains on the vent and on low dose Fentanyl gtt. Tachycardia with low BP yesterday, resolved s/p 1L NS bolus. Patient remains on CIWA protocol for alcohol withdrawal. Thrombocytopenia noted from this am lab, not more than 50% from admit level, will continue to monitor for now. Plan for SAT and SBt again today. 06/08: Patient is s/p extubation, fully AAO, now on 2L NC SPO2 at 100%. Patient failed bedside swallow eval, order placed for speech swallow eval. D5w ordered for now. Continue CIWA protocol for alcohol withdrawal 06/09: NG tube was replaced today, patient failed bedside swallow eval. ST will reevaluate in 24 hours. Patient will be transferred to the floor with remote telemetry. Hospitalist Physical - Constitutional Vitals: Temp Pulse Resp BP Pulse Ox 98.8 F 95 H 20 188/101 94 06/09/21 08:00 06/09/21 16:45 06/09/21 14:00 06/09/21 16:45 06/09/21 14:00 General appearance: Present: no acute distress - EENT Eyes: Present: PERRL, EOM intact ENT: hearing intact, clear oral mucosa, dentition normal - Neck Neck: Present: normal ROM - Respiratory Respiratory effort: normal - Cardiovascular Rhythm: regular Heart Sounds: Present: S1 & S2. Absent: systolic murmur, diastolic murmur - Extremities Extremities: no ischemia, pulses intact, pulses symmetrical, No edema, normal temperature, normal color, Full ROM Peripheral Pulses: within normal limits - Abdominal General gastrointestinal: soft, non-tender, non-distended, normal bowel sounds - Integumentary Integumentary: Present: warm, dry - Psychiatric Psychiatric: cooperative, agitated - Neurologic Neurologic: CNII-XII intact, no focal deficits, moves all extremities - Allied Health Allied health notes reviewed: nursing, ST, RT, social work Results - Labs CBC & Chem 7: 06/09/21 04:22 06/09/21 04:22 Labs: Laboratory Last Values WBC 5.7 K/mm3 (4.5-11.0) 06/09/21 04:22 RBC 4.95 M/mm3 (3.65-5.03) 06/09/21 04:22 Hgb 12.5 gm/dl (11.8-15.2) 06/09/21 04:22 Hct 40.8 % (35.5-45.6) 06/09/21 04:22 MCV 83 fl (84-94) L 06/09/21 04:22 MCH 25 pg (28-32) L 06/09/21 04:22 MCHC 31 % (32-34) L 06/09/21 04:22 RDW 13.4 % (13.2-15.2) 06/09/21 04:22 Plt Count 83 K/mm3 (140-440) L 06/09/21 04:22 Lymph % (Auto) 8.5 % (13.4-35.0) L 06/05/21 04:14 Jewell % (Auto) 4.3 % (0.0-7.3) 06/05/21 04:14 Eos % (Auto) 0.0 % (0.0-4.3) 06/05/21 04:14 Baso % (Auto) 0.2 % (0.0-1.8) 06/05/21 04:14 Lymph # (Auto) 0.4 K/mm3 (1.2-5.4) L 06/05/21 04:14 Jewell # (Auto) 0.2 K/mm3 (0.0-0.8) 06/05/21 04:14 Eos # (Auto) 0.0 K/mm3 (0.0-0.4) 06/05/21 04:14 Baso # (Auto) 0.0 K/mm3 (0.0-0.1) 06/05/21 04:14 Seg Neutrophils % 87.0 % (40.0-70.0) H 06/05/21 04:14 Seg Neutrophils # 4.4 K/mm3 (1.8-7.7) 06/05/21 04:14 ESR 29 mm/Hr (0-20) 06/04/21 04:53 PT 14.6 Sec. (12.2-14.9) 06/04/21 05:16 INR 1.03 (0.87-1.13) 06/04/21 05:16 APTT 28.1 Sec. (24.2-36.6) 06/04/21 05:16 ABG pH 7.517 pH Units (7.350-7.450) H 06/08/21 12:30 ABG pCO2 36.0 mm Hg 06/08/21 12:30 ABG pO2 135.8 mm Hg (80.0-90.0) H 06/08/21 12:30 ABG HCO3 28.5 mmol/L (20.0-26.0) H 06/08/21 12:30 ABG O2 Saturation 98.8 % (95.0-99.0) 06/08/21 12:30 ABG O2 Content 18.8 (0.0-44) 06/08/21 12:30 ABG Base Excess 5.6 mmol/L (-2.0-3.0) H 06/08/21 12:30 ABG Hemoglobin 13.6 gm/dl (14.0-18.0) L 06/08/21 12:30 ABG Carboxyhemoglobin 1.3 % (0.0-5.0) 06/08/21 12:30 ABG Methemoglobin 0.6 % (0.0-1.5) 06/08/21 12:30 Oxyhemoglobin 97.0 % (95.0-99.0) 06/08/21 12:30 FiO2 25 % 06/08/21 12:30 Sodium 139 mmol/L (137-145) 06/09/21 04:22 Potassium 3.3 mmol/L (3.6-5.0) L D 06/09/21 04:22 Chloride 99.1 mmol/L (98-107) 06/09/21 04:22 Carbon Dioxide 26 mmol/L (22-30) 06/09/21 04:22 Anion Gap 17 mmol/L 06/09/21 04:22 BUN 14 mg/dL (9-20) 06/09/21 04:22 Creatinine 0.6 mg/dL (0.8-1.3) L 06/09/21 04:22 Estimated GFR > 60 ml/min 06/09/21 04:22 BUN/Creatinine Ratio 23 % 06/09/21 04:22 Glucose 113 mg/dL (75-100) H 06/09/21 04:22 POC Glucose 141 mg/dL (70-105) H 06/09/21 12:44 Calcium 8.3 mg/dL (8.4-10.2) L 06/09/21 04:22 Phosphorus 2.50 mg/dL (2.5-4.5) D 06/08/21 04:25 Magnesium 2.00 mg/dL (1.7-2.3) 06/08/21 04:25 C-Reactive Protein 0.60 mg/dL (0.00-1.30) 06/04/21 04:53 Triglycerides 88 mg/dL (2-149) 06/06/21 07:16 Coronavirus (PCR) Negative (Negative) 06/04/21 07:00 Blood Type O POSITIVE 06/04/21 05:16 Antibody Screen Negative 06/04/21 05:16 Griffith/IV: Voiding Method Condom Catheter Active Medications - Current Medications Current Medications: Generic Name Dose Route Start Last Admin Trade Name Freq PRN Reason Stop Dose Admin Acetaminophen 650 mg 06/04/21 08:00 06/08/21 17:03 Acetaminophen 325 Mg/10.15 Ml Oral Liqd Unit Dose FEEDTUBE 650 mg Q6H PRN Administration Pain MILD(1-3)/Fever >100.5/MEDRANO Amlodipine Besylate 5 mg 06/09/21 15:00 06/09/21 15:28 Amlodipine 5 Mg Tab PO 5 mg QDAY AIDAN Administration Lipase/Protease/Amylase 1 each 06/06/21 17:56 Lipase 10,500/Protease 25,000/Amylase 43,750 (Units) Dr Moulton FEEDTUBE PRN PRN For Clogged Feeding Tube Bisacodyl 10 mg 06/04/21 08:00 Bisacodyl 10 Mg Rect Supp DE QDAY PRN constipation Clonidine HCl 0.1 mg 06/09/21 14:00 06/09/21 14:23 Clonidine Tts 0.1 Mg/24 Hr Patch TD 0.1 mg Mo AIDAN Administration Dextrose 0 ml 06/05/21 20:28 Dextrose 50% In Water (25gm) 50 Ml Syringe IV Q30MIN PRN Hypoglycemia Protocol Famotidine 20 mg 06/08/21 10:00 06/09/21 15:29 Famotidine 20 Mg Tab FEEDTUBE 20 mg BID AIDAN Administration Fondaparinux 2.5 mg 06/10/21 10:00 Fondaparinux 2.5 Mg/0.5 Ml Inj SUB-Q DAILY AIDAN Hydralazine HCl 10 mg 06/04/21 18:00 06/09/21 16:45 Hydralazine 20 Mg/1 Ml Inj IV 10 mg Q4HR PRN Administration Hypertension Hydrophilic Ointment 1 applic 06/04/21 05:57 Lip Therapy Vaseline TP Q2HR PRN Dry Lips Dextrose 1,000 mls @ 75 mls/hr 06/08/21 18:00 06/09/21 10:25 D5w IV 06/09/21 17:59 75 mls/hr DIRECT AIDAN Administration Insulin Human Lispro 0 unit 06/08/21 08:00 06/09/21 05:13 Insulin Lispro 100 Unit/Ml SUB-Q Not Given Q6HR [facility] Protocol Labetalol HCl 10 mg 06/08/21 15:00 06/09/21 15:27 Labetalol 20 Mg/4 Ml Inj IV 10 mg Q4HR PRN Administration Hypertension Lorazepam 2 mg 06/05/21 13:23 06/09/21 16:50 Lorazepam 2 Mg/Ml Vial IV 2 mg Q1H PRN Administration CIWA-Ar 8-15 Methylprednisolone Sodium Succinate 40 mg 06/09/21 10:00 06/09/21 10:25 Methylprednisolone Sod Succinate 40 Mg/1 Ml Inj IV 40 mg DAILY AIDAN Administration Metoprolol Tartrate 5 mg 06/07/21 13:30 Metoprolol Tartrate 5 Mg/5 Ml Inj IV Q6HR PRN Tachyarrhythmias Morphine Sulfate 2 mg 06/04/21 08:00 06/08/21 19:53 Morphine 2 Mg/1 Ml Inj IV 2 mg Q4H PRN Administration Pain, Moderate (4-6) Morphine Sulfate 4 mg 06/04/21 08:00 06/08/21 00:21 Morphine 4 Mg/1 Ml Inj IV 4 mg Q4H PRN Administration Pain , Severe (7-10) Multi-Ingred Cream/Lotion/Oil/Oint 1 applic 06/04/21 05:57 Mineral Oil/Petrolatum, White Ophth Oint 3.5 Gm OU Q4HR PRN Dry Eye(s) Naloxone HCl 0.1 mg 06/04/21 08:00 Naloxone 0.4 Mg/1 Ml Inj IV Q2MIN PRN Res Rate </= 8 or 02 SAT < 92% Ondansetron HCl 4 mg 06/04/21 08:00 Ondansetron 4 Mg/2 Ml Inj IV Q8H PRN Nausea And Vomiting Quetiapine Fumarate 100 mg 06/09/21 22:00 Quetiapine 100 Mg Tab PO 06/11/21 21:59 BID AIDAN Senna/Docusate Sodium 1 tab 06/04/21 10:00 06/09/21 15:28 Sennosides/Docusate Sodium 8.6/50 Mg Tab FEEDTUBE 1 tab BID AIDAN Administration Simple Syrup 15 ml 06/06/21 17:56 Simple Syrup 15 Ml FEEDTUBE PRN PRN Hypoglycemia Simple Syrup 30 ml 06/06/21 17:56 Simple Syrup 15 Ml FEEDTUBE PRN PRN Hypoglycemia Sodium Bicarbonate 325 mg 06/06/21 17:56 Sodium Bicarbonate 325 Mg Tab FEEDTUBE PRN PRN For Clogged Feeding Tube Sodium Chloride 10 ml 06/04/21 10:00 06/09/21 10:25 Sodium Chloride 0.9% 10 Ml Flush Syringe IV 10 ml BID AIDAN Administration Sodium Chloride 10 ml 06/04/21 08:00 Sodium Chloride 0.9% 10 Ml Flush Syringe IV PRN PRN LINE FLUSH Nutrition/Malnutrition Assess - Dietary Evaluation Nutrition/Malnutrition Findings: Nutrition Notes Start: 06/05/21 10:40 Freq: Status: Active Protocol: Document 06/09/21 15:15 YOVANNY (Rec: 06/09/21 15:22 NHALL [id number]) Nutrition Notes Initial or Follow up Reassessment Current Diagnosis Hypertension Other Pertinent Diagnosis Angioedema, Tongue swelling, Dysphagia, EtOH dependence Current Diet NPO Labs/Tests K 3.3 Pertinent Medications D5W at 75ml/hr (provides 306 kcal), Solumedrol Height 6 ft 2 in Weight 82.554 kg [place] Body Weight (kg) 86.36 BMI 23.3 Weight Status Appropriate Subjective/Other Information Pt extubated yesterday. Per ACCOUNTING SYSTEMS MANAGER evaluation today, pt to remain NPO and will re- evaluate in 24 hrs. No TF infusing at time of visit (14: 02). Burn Absent Trauma Absent #1 Nutrition Diagnosis Inadequate oral intake As Evidenced by Signs and Symptoms pt remains NPO Diagnosis Progress(for reassessment Continues documentation) Is patient on ventilator? No Is Patient Ambulatory and/or Out of Bed No REE-(Preston-St. Jeor-confined to bed) [phone] Calculation Used for Recommendations Preston-St Jeor Additional Notes Pro needs 1.2-2g/k-165g/ day Fluid needs 1ml/kcal Nutrition Intervention Nutrition Support: Resume Osmolite 1.5 at 55ml/hr if unable to advance diet. Provide 150ml water flush q4h Kcal 1,980 Protein (gm) 83 Carbohydrates (gm) 269 Fat (gm) 65 Fluid (mL) 1,006 Goal #1 Either advance diet or resume TF to meet nutrient needs Follow-Up By: 06/11/21 Additional Comments F/U: diet advancement vs restart TF
[2021-06-09] MEDS: QUEtiapine 100 MG TAB PO SCH (21:33)
[2021-06-09] MEDS: MORPHINE 2 MG/1 ML INJ IV PRN (21:33)
[2021-06-10] MEDS: LORazepam 2 MG/ML VIAL IV PRN ×2 (00:46→14:10)
[2021-06-10] MEDS: INSULIN LISPRO 100 UNIT/ML SUB-Q SCH ×5 (00:56→22:11)
[2021-06-10 05:12] LABS: Blood Urea Nitrogen 13 mg/dL (9-20); Calcium 7.9 mg/dL (8.4-10.2); Hemolysis Index 0
[2021-06-10 05:14] LABS: BUN/Creatinine Ratio 26
[2021-06-10] MEDS ORDERED: MAGNESIUM SULFATE 4 GM/100 ML BAG IV ONE (09:00)
[2021-06-10] MEDS: methylPREDNISolone Sod Succinate 40 MG/1 ML INJ IV SCH (09:32)
[2021-06-10] MEDS: POTASSIUM CHLORIDE 20 MEQ PACKET FEEDTUBE SCH ×2 (09:32→13:32)
[2021-06-10] MEDS: FAMOTIDINE 20 MG TAB FEEDTUBE SCH (09:32)
[2021-06-10] MEDS: QUEtiapine 100 MG TAB PO SCH ×2 (09:32→22:10)
[2021-06-10] MEDS: FONDAPARINUX 2.5 MG/0.5 ML INJ SUB-Q SCH (09:33)
[2021-06-10] MEDS: chlordiazePOXIDE 25 MG CAP PO SCH ×3 (09:45→23:43)
[2021-06-10] MEDS: amLODIPine 10 MG TAB PO SCH (09:45)
--- NOTE | 2021-06-10 12:34 | Progress Note ---
Assessment and Plan 55-year-old male with history of hypertension who presented to the emergency department with complaints of tongue swelling. He was emergently intubated to prevent airway compromise. Patient was intubated at time of exam. Unable to provide significant or detailed history. At this time the patient is extubated, on room air. He has been transferred to the medical floor. O2 saturation is 98% on room air. No complaint of chest pain, shortness of breath, or cough. Pulse 100, BP 114/64, respirations 18. Patient is afebrile, no leukocytosis. Chest xray done 06/05/21 reported probable mild left basilar atelectasis has developed in the interval. The lungs are otherwise clear. No significant pleural effusion. No pneumothorax. Patient is currently on Fondaparinux and famotidine. - Patient Problems (1) Angioedema Current Visit: Yes Status: Acute Plan to address problem: Improved. Patient extubated. Presently on room air. No complaint of shortness of breath at this time. (2) Compromised airway Current Visit: Yes Status: Acute Plan to address problem: Patient intubated and subsequently extubated. Presently on room air. Subjective Date of service: 06/10/21 Principal diagnosis: Acute respiratory failure ; HTN; Angioedema; H/O CVA; Hypokalemia Interval history: 55-year-old male with history of hypertension who presented to the emergency department with complaints of tongue swelling. He was emergently intubated to prevent airway compromise. Patient was intubated at time of exam. Unable to provide significant or detailed history. At this time the patient is extubated, on room air. He has been transferred to the medical floor. O2 saturation is 98% on room air. No complaint of chest pain, shortness of breath, or cough. Pulse 100, BP 114/64, respirations 18. Patient is afebrile, no leukocytosis. Chest xray done 06/05/21 reported probable mild left basilar atelectasis has developed in the interval. The lungs are otherwise clear. No significant pleural effusion. No pneumothorax. Patient is currently on Fondaparinux and famotidine. Objective Vital Signs - 12hr 06/10/21 06/10/21 06/10/21 01:00 01:30 02:00 Temperature Pulse Rate 95 H 91 H 89 Pulse Rate [ From Monitor] Respiratory 19 19 18 Rate Blood Pressure 108/70 105/70 117/69 Blood Pressure [Left] O2 Sat by Pulse 94 95 Oximetry 06/10/21 06/10/21 06/10/21 02:30 03:00 03:30 Temperature Pulse Rate 83 84 78 Pulse Rate [ From Monitor] Respiratory 18 18 17 Rate Blood Pressure 102/66 103/63 103/73 Blood Pressure [Left] O2 Sat by Pulse 96 Oximetry 06/10/21 06/10/21 06/10/21 04:00 04:30 05:00 Temperature 98.1 F Pulse Rate 77 78 75 Pulse Rate [ 77 From Monitor] Respiratory 16 17 15 Rate Blood Pressure 101/64 101/63 113/72 Blood Pressure [Left] O2 Sat by Pulse 99 Oximetry 06/10/21 06/10/21 06/10/21 05:10 05:30 06:00 Temperature 98.1 F Pulse Rate 75 76 Pulse Rate [ From Monitor] Respiratory 17 16 Rate Blood Pressure 122/81 100/66 Blood Pressure [Left] O2 Sat by Pulse 98 Oximetry 06/10/21 06/10/21 06/10/21 06:30 07:00 07:30 Temperature Pulse Rate 77 76 76 Pulse Rate [ From Monitor] Respiratory 15 18 15 Rate Blood Pressure 122/90 132/92 103/73 Blood Pressure [Left] O2 Sat by Pulse 99 97 Oximetry 06/10/21 06/10/21 06/10/21 08:00 08:31 09:00 Temperature 99.3 F Pulse Rate 78 76 79 Pulse Rate [ 81 From Monitor] Respiratory 16 13 19 Rate Blood Pressure 118/82 138/94 157/102 Blood Pressure [Left] O2 Sat by Pulse 100 99 98 Oximetry 06/10/21 06/10/21 06/10/21 09:30 09:45 11:41 Temperature 97.6 F Pulse Rate 81 80 86 Pulse Rate [ From Monitor] Respiratory 11 L 19 Rate Blood Pressure 151/94 151/94 Blood Pressure 138/81 [Left] O2 Sat by Pulse 97 99 Oximetry Constitutional: no acute distress, alert, other (middle aged thin male with mildly increased respiratory effort at rest) Eyes: non-icteric ENT: oropharynx moist, other (ETT 24 cm DELMER) Neck: supple, no lymphadenopathy, no JVD Effort: normal Ascultation: Bilateral: diminished breath sounds Percussion: Bilateral: not dull Cardiovascular: regular rate and rhythm Gastrointestinal: normoactive bowel sounds, soft, non-tender, non-distended Integumentary: normal Extremities: no cyanosis, no edema, pulses normal, no ischemia or petechiae Neurologic: non-focal exam (grossly), pupils equal and round, CN II-XII normal, motor strength normal and, other (sedated) Psychiatric: mood appropriate, affect normal CBC and BMP: 06/11/21 04:02 06/11/21 04:02 ABG, PT/INR, D-dimer: ABG ABG pH 7.517 pH Units (7.350-7.450) H 06/08/21 12:30 ABG pCO2 36.0 mm Hg 06/08/21 12:30 ABG pO2 135.8 mm Hg (80.0-90.0) H 06/08/21 12:30 ABG O2 Saturation 98.8 % (95.0-99.0) 06/08/21 12:30 PT/INR, D-dimer PT 14.6 Sec. (12.2-14.9) 06/04/21 05:16 INR 1.03 (0.87-1.13) 06/04/21 05:16 Abnormal lab findings: Abnormal Labs 06/04/21 06/04/21 06/04/21 04:53 04:53 06:30 RBC MCV 82 L MCH 26 L MCHC RDW Plt Count Lymph % (Auto) [place] % (Auto) 7.6 H Lymph # (Auto) 1.1 L Seg Neutrophils % 76.6 H ABG pH ABG pO2 118.3 H ABG HCO3 ABG Base Excess -2.9 L ABG Hemoglobin 12.7 L Sodium Potassium 3.5 L BUN 6 L Creatinine 0.5 L Glucose 124 H POC Glucose Calcium Magnesium 06/04/21 06/05/21 06/05/21 23:31 04:14 04:14 RBC MCV 81 L MCH 25 L MCHC 31 L RDW 13.0 L Plt Count 126 L Lymph % (Auto) 8.5 L [place] % (Auto) Lymph # (Auto) 0.4 L Seg Neutrophils % 87.0 H ABG pH ABG pO2 ABG HCO3 ABG Base Excess ABG Hemoglobin Sodium Potassium BUN Creatinine 0.5 L Glucose 152 H POC Glucose 157 H Calcium 8.2 L Magnesium 06/05/21 06/05/21 06/05/21 08:45 11:23 16:17 RBC MCV MCH MCHC RDW Plt Count Lymph % (Auto) [place] % (Auto) Lymph # (Auto) Seg Neutrophils % ABG pH ABG pO2 106.3 H ABG HCO3 28.2 H ABG Base Excess 3.6 H ABG Hemoglobin 13.3 L Sodium Potassium BUN Creatinine Glucose POC Glucose 133 H 135 H Calcium Magnesium 06/05/21 06/06/21 06/06/21 23:31 05:14 07:16 RBC MCV 81 L MCH 25 L MCHC 31 L RDW Plt Count Lymph % (Auto) [place] % (Auto) Lymph # (Auto) Seg Neutrophils % ABG pH ABG pO2 ABG HCO3 ABG Base Excess ABG Hemoglobin Sodium Potassium BUN Creatinine Glucose POC Glucose 126 H 141 H Calcium Magnesium 06/06/21 06/06/21 06/06/21 07:16 09:08 11:15 RBC MCV MCH MCHC RDW Plt Count Lymph % (Auto) [place] % (Auto) Lymph # (Auto) Seg Neutrophils % ABG pH ABG pO2 91.3 H ABG HCO3 27.5 H ABG Base Excess ABG Hemoglobin 13.6 L Sodium Potassium BUN 24 H Creatinine Glucose 130 H POC Glucose 148 H Calcium 8.2 L Magnesium 06/06/21 06/06/21 06/07/21 14:15 16:33 00:01 RBC MCV MCH MCHC RDW Plt Count Lymph % (Auto) [place] % (Auto) Lymph # (Auto) Seg Neutrophils % ABG pH ABG pO2 91.6 H ABG HCO3 27.9 H ABG Base Excess ABG Hemoglobin 12.7 L Sodium Potassium BUN Creatinine Glucose POC Glucose 158 H 148 H Calcium Magnesium 06/07/21 06/07/21 06/07/21 04:14 05:03 07:15 RBC MCV 80 L MCH 25 L MCHC RDW Plt Count 99 L Lymph % (Auto) [place] % (Auto) Lymph # (Auto) Seg Neutrophils % ABG pH ABG pO2 ABG HCO3 ABG Base Excess ABG Hemoglobin Sodium Potassium BUN 21 H Creatinine 0.6 L Glucose 162 H POC Glucose 135 H Calcium 8.2 L Magnesium 06/07/21 06/07/21 06/07/21 12:12 15:00 17:33 RBC MCV MCH MCHC RDW Plt Count Lymph % (Auto) [place] % (Auto) Lymph # (Auto) Seg Neutrophils % ABG pH ABG pO2 112.8 H ABG HCO3 28.4 H ABG Base Excess 3.6 H ABG Hemoglobin 13.1 L Sodium Potassium BUN Creatinine Glucose POC Glucose 162 H 150 H Calcium Magnesium 06/07/21 06/08/21 06/08/21 23:55 04:25 04:25 RBC 5.08 H MCV 82 L MCH 25 L MCHC 31 L RDW Plt Count 91 L Lymph % (Auto) [place] % (Auto) Lymph # (Auto) Seg Neutrophils % ABG pH ABG pO2 ABG HCO3 ABG Base Excess ABG Hemoglobin Sodium Potassium BUN Creatinine 0.6 L Glucose 166 H POC Glucose 155 H Calcium Magnesium 06/08/21 06/08/21 06/08/21 06:11 08:54 11:38 RBC MCV MCH MCHC RDW Plt Count Lymph % (Auto) [place] % (Auto) Lymph # (Auto) Seg Neutrophils % ABG pH ABG pO2 ABG HCO3 ABG Base Excess ABG Hemoglobin Sodium Potassium BUN Creatinine Glucose POC Glucose 188 H 142 H 126 H Calcium Magnesium 06/08/21 06/08/21 06/09/21 12:30 16:41 00:44 RBC MCV MCH MCHC RDW Plt Count Lymph % (Auto) [place] % (Auto) Lymph # (Auto) Seg Neutrophils % ABG pH 7.517 H ABG pO2 135.8 H ABG HCO3 28.5 H ABG Base Excess 5.6 H ABG Hemoglobin 13.6 L Sodium Potassium BUN Creatinine Glucose POC Glucose 119 H 135 H Calcium Magnesium 06/09/21 06/09/21 06/09/21 04:22 04:22 05:06 RBC MCV 83 L MCH 25 L MCHC 31 L RDW Plt Count 83 L Lymph % (Auto) [place] % (Auto) Lymph # (Auto) Seg Neutrophils % ABG pH ABG pO2 ABG HCO3 ABG Base Excess ABG Hemoglobin Sodium Potassium 3.3 L D BUN Creatinine 0.6 L Glucose 113 H POC Glucose 120 H Calcium 8.3 L Magnesium 06/09/21 06/09/21 06/10/21 12:44 17:42 00:54 RBC MCV MCH MCHC RDW Plt Count Lymph % (Auto) [place] % (Auto) Lymph # (Auto) Seg Neutrophils % ABG pH ABG pO2 ABG HCO3 ABG Base Excess ABG Hemoglobin Sodium Potassium BUN Creatinine Glucose POC Glucose 141 H 108 H 114 H Calcium Magnesium 06/10/21 06/10/21 04:04 04:24 RBC MCV MCH MCHC RDW Plt Count Lymph % (Auto) [place] % (Auto) Lymph # (Auto) Seg Neutrophils % ABG pH ABG pO2 ABG HCO3 ABG Base Excess ABG Hemoglobin Sodium 136 L Potassium 3.2 L BUN Creatinine 0.5 L Glucose 116 H POC Glucose 128 H Calcium 7.9 L Magnesium 1.20 L Chest x-ray: report reviewed, image reviewed Additional Studies: CHEST 1 VIEW 06/06/2021 3:11 AM INDICATION / CLINICAL INFORMATION: follow up respiratory failure. COMPARISON: One view of the chest from 06/05/2021 FINDINGS: SUPPORT DEVICES: Unchanged. HEART / MEDIASTINUM: No significant abnormality. LUNGS / PLEURA: Probable mild left basilar atelectasis has developed in the interval. The lungs are otherwise clear. No significant pleural effusion. No pneumothorax. ADDITIONAL FINDINGS: No significant additional findings. IMPRESSION: Interval development of probable left basilar atelectasis without other significant interval changes. Allied health notes reviewed: nursing
[2021-06-10] MEDS ORDERED: SODIUM BICARBONATE 325 MG TAB FEEDTUBE PRN (14:57)
[2021-06-10] MEDS ORDERED: LIPASE 10,500/PROTEASE 25,000/AMYLASE 43,750 (UNITS) DR CAP FEEDTUBE PRN (14:57)
[2021-06-10] MEDS ORDERED: SIMPLE SYRUP 15 ML FEEDTUBE PRN ×2 (14:57)
--- NOTE | 2021-06-10 16:16 | Progress Note ---
Assessment and Plan Assessment and plan: This is a 55-year-old male with HTN and EtOH abuse admitted with angioedema and hypertensive urgency Neuro: Anxiety/agitation, h/o EtOH abuse -Ativan prn -Seroquel twice daily -Weaning per [facility] -As needed analgesia -Maintenance of sleep-wake cycle -Avoid delirium -Reorientation as needed -Librium taper -ETOH cessation strongly encouraged -s/p precedex gtt CV: Hypertensive urgency, h/o HTN -Presented with BP 203/112 -As needed hydralazine and labetalol -Clonidine patch and CCB -Blood pressure monitoring per protocol Respiratory: Angioedema, s/p intubation for airway compromise -CCM consulted, appreciate recommendations -S/p FFP, Solu-Medrol, Pepcid, epinephrine in the ED -Intubated on 06/04 with 7.50 ETT at 24 at the lips and extubated 06/08 -Pulmonary hygiene -Supplemental oxygen as needed -SPO2 monitoring -CT neck showed edematous changes particularly involving the left neck including subcutaneous soft tissue with no well-defined fluid collection GI: Dysphagia -Failed bedside swallow evaluation -ST suero completed 06/09 -Recommend n.p.o. status for now and stated she will reevaluate within 24 hours -NG tube replaced -Nutrition consult for tube feeding -Resume tube feeding -PPI Pepcid -BR: Senokot -24-hour +221.67 mL : Hypomagnesemia, hypokalemia -Replete potassium and magnesium -Trend BMP -Replete electrolytes when needed -Condom catheter in place Heme: Thrombocytopenia -Likely due to EtOH abuse -Trend CBC -Transfuse to hemoglobin less than 7 -Arixtra daily -SCD to bilateral lower extremities while in bed Endo: NAD -Accucheck q 6 hr while with tube feeding -SSI -Avoid hypoglycemia ID: NAD -Monitor WBC and fever curve -Tracheal aspirate with no growth to date. The high probability of a clinically significant, sudden or life threatening deterioration of the [CV] system(s) required my full and direct attention, intervention and personal management. The aggregate critical care time was [60] minutes. This time is in addition to time spent performing reported procedures but includes the following: [x] Data Review and interpretation [x] Patient assessment and monitoring of vital signs [x] Documentation [x] Medication orders and management Disposition Plan: transfer to floor Total Time Spent with Patient (Minutes): 60 History Interval history: This is a 55-year-old male with HTN, EtOH abuse who presented to the emergency department on 06/04 via EMS with complaints of swollen tongue and was intubated in the emergency department to prevent airway compromise. In the emergency department she was given epinephrine, Benadryl, Solu-Medrol, FFP and Pepcid with no improvement. Work-up in the emergency department revealed hypertensive urgency with systolic blood pressure of 203/112. Patient was admitted to the hospitalist service with angioedema and hypertensive urgency with consults to [facility]. 06/06: Patient remains on the vent and sedated. Patient now with s/s of alcohol withdrawal on CIWA protocol, unable to wean off sedation. SAT and SBT trial attempted, patient is too agitated for safe extubation. Plan to wean off propofol gtt, continue CIWA protocol and Seroquel added BID. 06/07: Patient remains on the vent and on low dose Fentanyl gtt. Tachycardia with low BP yesterday, resolved s/p 1L NS bolus. Patient remains on CIWA protocol for alcohol withdrawal. Thrombocytopenia noted from this am lab, not more than 50% from admit level, will continue to monitor for now. Plan for SAT and SBt again today. 06/08: Patient is s/p extubation, fully AAO, now on 2L NC SPO2 at 100%. Patient failed bedside swallow eval, order placed for speech swallow eval. D5w ordered for now. Continue CIWA protocol for alcohol withdrawal 06/09: NG tube was replaced today, patient failed bedside swallow eval. ST will reevaluate in 24 hours. Patient will be transferred to the floor with remote telemetry. 06/10: Started on precedex gtt overnight for agitation. Precedex weaned off and started on librium taper. Ativan 2mg q4 prn. Transferred to floor Hospitalist Physical - Constitutional Vitals: Temp Pulse Resp BP Pulse Ox 97.5 F L 100 H 19 114/64 98 06/10/21 14:58 06/10/21 14:58 06/10/21 14:58 06/10/21 14:58 06/10/21 14:58 General appearance: Present: no acute distress - EENT Eyes: Present: PERRL, EOM intact ENT: hearing intact, clear oral mucosa, dentition normal - Neck Neck: Present: normal ROM - Respiratory Respiratory effort: normal Respiratory: bilateral: diminished - Cardiovascular Rhythm: regular Heart Sounds: Present: S1 & S2. Absent: systolic murmur, diastolic murmur - Extremities Extremities: no ischemia, pulses intact, pulses symmetrical, No edema, normal temperature, normal color, Full ROM Peripheral Pulses: within normal limits - Abdominal General gastrointestinal: soft, non-tender, non-distended, normal bowel sounds - Integumentary Integumentary: Present: warm, dry - Psychiatric Psychiatric: cooperative - Neurologic Neurologic: CNII-XII intact, no focal deficits, moves all extremities - Allied Health Allied health notes reviewed: nursing, RT, social work Results - Labs CBC & Chem 7: 06/09/21 04:22 06/10/21 04:24 Labs: Laboratory Last Values WBC 5.7 K/mm3 (4.5-11.0) 06/09/21 04:22 RBC 4.95 M/mm3 (3.65-5.03) 06/09/21 04:22 Hgb 12.5 gm/dl (11.8-15.2) 06/09/21 04:22 Hct 40.8 % (35.5-45.6) 06/09/21 04:22 MCV 83 fl (84-94) L 06/09/21 04:22 MCH 25 pg (28-32) L 06/09/21 04:22 MCHC 31 % (32-34) L 06/09/21 04:22 RDW 13.4 % (13.2-15.2) 06/09/21 04:22 Plt Count 83 K/mm3 (140-440) L 06/09/21 04:22 Lymph % (Auto) 8.5 % (13.4-35.0) L 06/05/21 04:14 [place] % (Auto) 4.3 % (0.0-7.3) 06/05/21 04:14 Eos % (Auto) 0.0 % (0.0-4.3) 06/05/21 04:14 Baso % (Auto) 0.2 % (0.0-1.8) 06/05/21 04:14 Lymph # (Auto) 0.4 K/mm3 (1.2-5.4) L 06/05/21 04:14 [place] # (Auto) 0.2 K/mm3 (0.0-0.8) 06/05/21 04:14 Eos # (Auto) 0.0 K/mm3 (0.0-0.4) 06/05/21 04:14 Baso # (Auto) 0.0 K/mm3 (0.0-0.1) 06/05/21 04:14 Seg Neutrophils % 87.0 % (40.0-70.0) H 06/05/21 04:14 Seg Neutrophils # 4.4 K/mm3 (1.8-7.7) 06/05/21 04:14 ESR 29 mm/Hr (0-20) 06/04/21 04:53 PT 14.6 Sec. (12.2-14.9) 06/04/21 05:16 INR 1.03 (0.87-1.13) 06/04/21 05:16 APTT 28.1 Sec. (24.2-36.6) 06/04/21 05:16 ABG pH 7.517 pH Units (7.350-7.450) H 06/08/21 12:30 ABG pCO2 36.0 mm Hg 06/08/21 12:30 ABG pO2 135.8 mm Hg (80.0-90.0) H 06/08/21 12:30 ABG HCO3 28.5 mmol/L (20.0-26.0) H 06/08/21 12:30 ABG O2 Saturation 98.8 % (95.0-99.0) 06/08/21 12:30 ABG O2 Content 18.8 (0.0-44) 06/08/21 12:30 ABG Base Excess 5.6 mmol/L (-2.0-3.0) H 06/08/21 12:30 ABG Hemoglobin 13.6 gm/dl (14.0-18.0) L 06/08/21 12:30 ABG Carboxyhemoglobin 1.3 % (0.0-5.0) 06/08/21 12:30 ABG Methemoglobin 0.6 % (0.0-1.5) 06/08/21 12:30 Oxyhemoglobin 97.0 % (95.0-99.0) 06/08/21 12:30 FiO2 25 % 06/08/21 12:30 Sodium 136 mmol/L (137-145) L 06/10/21 04:24 Potassium 3.2 mmol/L (3.6-5.0) L 06/10/21 04:24 Chloride 99.3 mmol/L (98-107) 06/10/21 04:24 Carbon Dioxide 23 mmol/L (22-30) 06/10/21 04:24 Anion Gap 17 mmol/L 06/10/21 04:24 BUN 13 mg/dL (9-20) 06/10/21 04:24 Creatinine 0.5 mg/dL (0.8-1.3) L 06/10/21 04:24 Estimated GFR > 60 ml/min 06/10/21 04:24 BUN/Creatinine Ratio 26 % 06/10/21 04:24 Glucose 116 mg/dL (75-100) H 06/10/21 04:24 POC Glucose 152 mg/dL (70-105) H 06/10/21 13:29 Calcium 7.9 mg/dL (8.4-10.2) L 06/10/21 04:24 Phosphorus 3.80 mg/dL (2.5-4.5) 06/10/21 04:24 Magnesium 1.20 mg/dL (1.7-2.3) L 06/10/21 04:24 C-Reactive Protein 0.60 mg/dL (0.00-1.30) 06/04/21 04:53 Triglycerides 88 mg/dL (2-149) 06/06/21 07:16 Coronavirus (PCR) Negative (Negative) 06/04/21 07:00 Blood Type O POSITIVE 06/04/21 05:16 Antibody Screen Negative 06/04/21 05:16 Griffith/IV: Voiding Method Condom Catheter Active Medications - Current Medications Current Medications: Generic Name Dose Route Start Last Admin Trade Name Freq PRN Reason Stop Dose Admin Acetaminophen 650 mg 06/04/21 08:00 06/08/21 17:03 Acetaminophen 325 Mg/10.15 Ml Oral Liqd Unit Dose FEEDTUBE 650 mg Q6H PRN Administration Pain MILD(1-3)/Fever >100.5/MEDRANO Amlodipine Besylate 10 mg 06/10/21 10:00 06/10/21 09:45 Amlodipine 10 Mg Tab PO 10 mg QDAY AIDAN Administration Lipase/Protease/Amylase 1 each 06/06/21 17:56 Lipase 10,500/Protease 25,000/Amylase 43,750 (Units) Dr Moulton FEEDTUBE PRN PRN For Clogged Feeding Tube Lipase/Protease/Amylase 1 each 06/10/21 14:57 Lipase 10,500/Protease 25,000/Amylase 43,750 (Units) Dr Moulton FEEDTUBE PRN PRN For Clogged Feeding Tube Bisacodyl 10 mg 06/04/21 08:00 Bisacodyl 10 Mg Rect Supp NE QDAY PRN constipation Chlordiazepoxide HCl 25 mg 06/10/21 10:00 06/10/21 09:45 Chlordiazepoxide 25 Mg Cap PO 06/11/21 06:01 25 mg Q6HR AIDAN Administration Chlordiazepoxide HCl 25 mg 06/11/21 14:00 Chlordiazepoxide 25 Mg Cap PO 06/12/21 06:01 Q8HR AIDAN Chlordiazepoxide HCl 25 mg 06/12/21 18:00 Chlordiazepoxide 25 Mg Cap PO 06/13/21 06:01 Q12H AIDAN Chlordiazepoxide HCl 25 mg 06/14/21 10:00 Chlordiazepoxide 25 Mg Cap PO 06/14/21 10:01 DAILY AIDAN Clonidine HCl 0.1 mg 06/09/21 14:00 06/09/21 14:23 Clonidine Tts 0.1 Mg/24 Hr Patch TD 0.1 mg Mo AIDAN Administration Dextrose 0 ml 06/05/21 20:28 Dextrose 50% In Water (25gm) 50 Ml Syringe IV Q30MIN PRN Hypoglycemia Protocol Famotidine 20 mg 06/08/21 10:00 06/10/21 09:32 Famotidine 20 Mg Tab FEEDTUBE 20 mg BID AIDAN Administration Fondaparinux 2.5 mg 06/10/21 10:00 06/10/21 09:33 Fondaparinux 2.5 Mg/0.5 Ml Inj SUB-Q 2.5 mg DAILY AIDAN Administration Hydralazine HCl 10 mg 06/04/21 18:00 06/09/21 16:45 Hydralazine 20 Mg/1 Ml Inj IV 10 mg Q4HR PRN Administration Hypertension Hydrophilic Ointment 1 applic 06/04/21 05:57 Lip Therapy Vaseline TP Q2HR PRN Dry Lips Insulin Human Lispro 0 unit 06/10/21 16:30 Insulin Lispro 100 Unit/Ml SUB-Q ACHS [facility] Protocol Labetalol HCl 10 mg 06/08/21 15:00 06/09/21 15:27 Labetalol 20 Mg/4 Ml Inj IV 10 mg Q4HR PRN Administration Hypertension Lorazepam 1 mg 06/10/21 11:05 06/10/21 14:10 Lorazepam 2 Mg/Ml Vial IV 1 mg Q4H PRN Administration Agitation Methylprednisolone Sodium Succinate 40 mg 06/09/21 10:00 06/10/21 09:32 Methylprednisolone Sod Succinate 40 Mg/1 Ml Inj IV 06/11/21 10:00 40 mg DAILY AIDAN Administration Metoprolol Tartrate 5 mg 06/07/21 13:30 Metoprolol Tartrate 5 Mg/5 Ml Inj IV Q6HR PRN Tachyarrhythmias Multi-Ingred Cream/Lotion/Oil/Oint 1 applic 06/04/21 05:57 Mineral Oil/Petrolatum, White Ophth Oint 3.5 Gm OU Q4HR PRN Dry Eye(s) Naloxone HCl 0.1 mg 06/04/21 08:00 Naloxone 0.4 Mg/1 Ml Inj IV Q2MIN PRN Res Rate </= 8 or 02 SAT < 92% Ondansetron HCl 4 mg 06/04/21 08:00 Ondansetron 4 Mg/2 Ml Inj IV Q8H PRN Nausea And Vomiting Quetiapine Fumarate 100 mg 06/09/21 22:00 06/10/21 09:32 Quetiapine 100 Mg Tab PO 06/11/21 21:59 100 mg BID AIDAN Administration Senna/Docusate Sodium 1 tab 06/04/21 10:00 06/09/21 21:43 Sennosides/Docusate Sodium 8.6/50 Mg Tab FEEDTUBE Not Given BID AIDAN Simple Syrup 15 ml 06/06/21 17:56 Simple Syrup 15 Ml FEEDTUBE PRN PRN Hypoglycemia Simple Syrup 30 ml 06/06/21 17:56 Simple Syrup 15 Ml FEEDTUBE PRN PRN Hypoglycemia Simple Syrup 15 ml 06/10/21 14:57 Simple Syrup 15 Ml FEEDTUBE PRN PRN Hypoglycemia Simple Syrup 30 ml 06/10/21 14:57 Simple Syrup 15 Ml FEEDTUBE PRN PRN Hypoglycemia Sodium Bicarbonate 325 mg 06/06/21 17:56 Sodium Bicarbonate 325 Mg Tab FEEDTUBE PRN PRN For Clogged Feeding Tube Sodium Bicarbonate 325 mg 06/10/21 14:57 Sodium Bicarbonate 325 Mg Tab FEEDTUBE PRN PRN For Clogged Feeding Tube Sodium Chloride 10 ml 06/04/21 10:00 06/09/21 21:33 Sodium Chloride 0.9% 10 Ml Flush Syringe IV 10 ml BID AIDAN Administration Sodium Chloride 10 ml 06/04/21 08:00 Sodium Chloride 0.9% 10 Ml Flush Syringe IV PRN PRN LINE FLUSH Nutrition/Malnutrition Assess - Dietary Evaluation Nutrition/Malnutrition Findings: Nutrition Notes Start: 06/05/21 10:4 0 Freq: Status: Active Protocol: Document 06/10/21 14:34 JOAO (Rec: 06/10/21 15:03 JOAO [id number]) Nutrition Notes Initial or Follow up Brief Note Current Diagnosis Hypertension,Respiratory Failure Other Pertinent Diagnosis Angioedema, CVA, Hypokalemia, Dysphagia. Current Diet NPO Height 6 ft 2 in Weight 82.554 kg [place] Body Weight (kg) 86.36 BMI 23.3 Weight change and time frame No body weight change reported . Weight Status Appropriate Subjective/Other Information RD consult for MD request to write/manage TF. Will resume Osmolite as prescribed. Bedside swallow wvaluation failed. NGT replaced 06/09. Percent of energy/protein needs met: Pt currently on NPO. Nutrition Intervention Nutrition Support: Resume Osmolite 1.5 at 55 ml/ hr. Flush: 150 ml water Q 4 hr Kcal 1,980 Protein (gm) 83 Carbohydrates (gm) 269 Fat (gm) 65 Fluid (mL) 1,006 Fiber (gm) 0 % RDI: 95% Kcal; 84% AA. Goal #1 Provide at least 75% of energy /protein needs through Enteral Feeding during LOS. Follow-Up By: 06/12/21 Additional Comments Continue monitoring TF tolerance, Hydration, and BM.
[2021-06-10] MEDS: SENNOSIDES/DOCUSATE SODIUM 8.6/50 MG TAB FEEDTUBE SCH (22:10)
[2021-06-11] MEDS: LORazepam 2 MG/ML VIAL IV PRN ×5 (03:02→21:56)
[2021-06-11 05:00] LABS: Hemoglobin 12.8 gm/dl (11.8-15.2); Mean Corpuscular HGB Conc 31 % (32-34); Mean Corpuscular Volume 81 fl (84-94); Platelet Count 111 K/mm3 (140-440)
[2021-06-11 05:19] LABS: Blood Urea Nitrogen 17 mg/dL (9-20); Calcium 8.6 mg/dL (8.4-10.2); Hemolysis Index 3
[2021-06-11 05:20] LABS: BUN/Creatinine Ratio 28
[2021-06-11] MEDS: chlordiazePOXIDE 25 MG CAP PO SCH ×3 (05:33→21:53)
--- NOTE | 2021-06-11 08:49 | Progress Note ---
Assessment and Plan Assessment and plan: This is a 55-year-old male with HTN and EtOH abuse admitted with angioedema and hypertensive urgency Patient is encephalopathic, alcohol withdrawals, and sinus tachycardia Continue CIWA protocol, supportive care Neuro: Anxiety/agitation, h/o EtOH abuse -Ativan prn -Seroquel twice daily -Weaning per [facility] -As needed analgesia -Maintenance of sleep-wake cycle -Avoid delirium -Reorientation as needed -Librium taper -ETOH cessation strongly encouraged -s/p precedex gtt CV: Hypertensive urgency, h/o HTN -Presented with BP 203/112 -As needed hydralazine and labetalol -Clonidine patch and CCB -Blood pressure monitoring per protocol Respiratory: Angioedema, s/p intubation for airway compromise -[facility] consulted, appreciate recommendations -S/p FFP, Solu-Medrol, Pepcid, epinephrine in the ED -Intubated on 06/04 with 7.50 ETT at 24 at the lips and extubated 06/08 -Pulmonary hygiene -Supplemental oxygen as needed -SPO2 monitoring -CT neck showed edematous changes particularly involving the left neck including subcutaneous soft tissue with no well-defined fluid collection GI: Dysphagia -Failed bedside swallow evaluation -ST asaal completed 06/09 -Recommend n.p.o. status for now and stated she will reevaluate within 24 hours -NG tube replaced -Nutrition consult for tube feeding -Resume tube feeding -PPI Pepcid -BR: Senokot -24-hour +221.67 mL : Hypomagnesemia, hypokalemia -Replete potassium and magnesium -Trend BMP -Replete electrolytes when needed -Condom catheter in place Heme: Thrombocytopenia -Likely due to EtOH abuse -Trend CBC -Transfuse to hemoglobin less than 7 -Arixtra daily -SCD to bilateral lower extremities while in bed Endo: NAD -Accucheck q 6 hr while with tube feeding -SSI -Avoid hypoglycemia ID: [id number] -Monitor WBC and fever curve -Tracheal aspirate with no growth to date. History Interval history: This is a 55-year-old male with HTN, EtOH abuse who presented to the emergency department on 06/04 via EMS with complaints of swollen tongue and was intubated in the emergency department to prevent airway compromise. In the emergency department she was given epinephrine, Benadryl, Solu-Medrol, FFP and Pepcid with no improvement. Work-up in the emergency department revealed hypertensive urgency with systolic blood pressure of 203/112. Patient was admitted to the hospitalist service with angioedema and hypertensive urgency with consults to [facility]. 06/06: Patient remains on the vent and sedated. Patient now with s/s of alcohol withdrawal on CIWA protocol, unable to wean off sedation. SAT and SBT trial attempted, patient is too agitated for safe extubation. Plan to wean off propofol gtt, continue CIWA protocol and Seroquel added BID. 06/07: Patient remains on the vent and on low dose Fentanyl gtt. Tachycardia w ith low BP yesterday, resolved s/p 1L NS bolus. Patient remains on CIWA protocol for alcohol withdrawal. Thrombocytopenia noted from this am lab, not more than 50% from admit level, will continue to monitor for now. Plan for SAT and SBt again today. 06/08: Patient is s/p extubation, fully AAO, now on 2L NC SPO2 at 100%. Patient failed bedside swallow eval, order placed for speech swallow eval. D5w ordered for now. Continue CIWA protocol for alcohol withdrawal 06/09: NG tube was replaced today, patient failed bedside swallow eval. ST will reevaluate in 24 hours. Patient will be transferred to the floor with remote telemetry. 06/10: Started on precedex gtt overnight for agitation. Precedex weaned off and started on librium taper. Ativan 2mg q4 prn. Transferred to floor 06/11; patient is slightly agitated, on CIWA protocol, sinus tachycardia, continue current management History Interval history: I seen and examined the patient at the bedside Patient's chart and medications reviewed Patient is tremulous and confused on CIWA protocol Hospitalist Physical - Constitutional Vitals: Temp Pulse Resp BP Pulse Ox 97.8 F 90 18 160/101 98 06/10/21 21:18 06/11/21 06:02 06/11/21 06:02 06/11/21 06:02 06/11/21 06:02 General appearance: Present: no acute distress, well-nourished, other (Confused and tremulous) - EENT Eyes: Present: PERRL, EOM intact - Neck Neck: Present: supple, normal ROM - Respiratory Respiratory effort: normal Respiratory: bilateral: diminished, negative: rales, rhonchi, wheezing - Cardiovascular Rhythm: regular Heart Sounds: Present: S1 & S2 - Extremities Extremities: no ischemia, No edema - Abdominal General gastrointestinal: soft, non-tender, non-distended, normal bowel sounds - Integumentary Integumentary: Present: clear, warm - Psychiatric Psychiatric: agitated, other (Confused) - Neurologic Neurologic: moves all extremities Results - Labs CBC & Chem 7: 06/11/21 04:02 06/11/21 04:02 Labs: Laboratory Last Values WBC 6.0 K/mm3 (4.5-11.0) 06/11/21 04:02 RBC 5.20 M/mm3 (3.65-5.03) H 06/11/21 04:02 Hgb 12.8 gm/dl (11.8-15.2) 06/11/21 04:02 Hct 42.0 % (35.5-45.6) 06/11/21 04:02 MCV 81 fl (84-94) L 06/11/21 04:02 MCH 25 pg (28-32) L 06/11/21 04:02 MCHC 31 % (32-34) L 06/11/21 04:02 RDW 13.0 % (13.2-15.2) L 06/11/21 04:02 Plt Count 111 K/mm3 (140-440) L 06/11/21 04:02 Lymph % (Auto) 8.5 % (13.4-35.0) L 06/05/21 04:14 [place] % (Auto) 4.3 % (0.0-7.3) 06/05/21 04:14 Eos % (Auto) 0.0 % (0.0-4.3) 06/05/21 04:14 Baso % (Auto) 0.2 % (0.0-1.8) 06/05/21 04:14 Lymph # (Auto) 0.4 K/mm3 (1.2-5.4) L 06/05/21 04:14 [place] # (Auto) 0.2 K/mm3 (0.0-0.8) 06/05/21 04:14 Eos # (Auto) 0.0 K/mm3 (0.0-0.4) 06/05/21 04:14 Baso # (Auto) 0.0 K/mm3 (0.0-0.1) 06/05/21 04:14 Seg Neutrophils % 87.0 % (40.0-70.0) H 06/05/21 04:14 Seg Neutrophils # 4.4 K/mm3 (1.8-7.7) 06/05/21 04:14 ESR 29 mm/Hr (0-20) 06/04/21 04:53 PT 14.6 Sec. (12.2-14.9) 06/04/21 05:16 INR 1.03 (0.87-1.13) 06/04/21 05:16 APTT 28.1 Sec. (24.2-36.6) 06/04/21 05:16 ABG pH 7.517 pH Units (7.350-7.450) H 06/08/21 12:30 ABG pCO2 36.0 mm Hg 06/08/21 12:30 ABG pO2 135.8 mm Hg (80.0-90.0) H 06/08/21 12:30 ABG HCO3 28.5 mmol/L (20.0-26.0) H 06/08/21 12:30 ABG O2 Saturation 98.8 % (95.0-99.0) 06/08/21 12:30 ABG O2 Content 18.8 (0.0-44) 06/08/21 12:30 ABG Base Excess 5.6 mmol/L (-2.0-3.0) H 06/08/21 12:30 ABG Hemoglobin 13.6 gm/dl (14.0-18.0) L 06/08/21 12:30 ABG Carboxyhemoglobin 1.3 % (0.0-5.0) 06/08/21 12:30 ABG Methemoglobin 0.6 % (0.0-1.5) 06/08/21 12:30 Oxyhemoglobin 97.0 % (95.0-99.0) 06/08/21 12:30 FiO2 25 % 06/08/21 12:30 Sodium 136 mmol/L (137-145) L 06/11/21 04:02 Potassium 3.9 mmol/L (3.6-5.0) D 06/11/21 04:02 Chloride 99.2 mmol/L (98-107) 06/11/21 04:02 Carbon Dioxide 22 mmol/L (22-30) 06/11/21 04:02 Anion Gap 19 mmol/L 06/11/21 04:02 BUN 17 mg/dL (9-20) 06/11/21 04:02 Creatinine 0.6 mg/dL (0.8-1.3) L 06/11/21 04:02 Estimated GFR > 60 ml/min 06/11/21 04:02 BUN/Creatinine Ratio 28 % 06/11/21 04:02 Glucose 94 mg/dL (75-100) 06/11/21 04:02 POC Glucose 103 mg/dL (70-105) 06/11/21 07:24 Calcium 8.6 mg/dL (8.4-10.2) 06/11/21 04:02 Phosphorus 3.30 mg/dL (2.5-4.5) 06/11/21 04:02 Magnesium 1.50 mg/dL (1.7-2.3) L 06/11/21 04:02 C-Reactive Protein 0.60 mg/dL (0.00-1.30) 06/04/21 04:53 Triglycerides 88 mg/dL (2-149) 06/06/21 07:16 Coronavirus (PCR) Negative (Negative) 06/04/21 07:00 Blood Type O POSITIVE 06/04/21 05:16 Antibody Screen Negative 06/04/21 05:16 Griffith/IV: Voiding Method Condom Catheter Active Medications - Current Medications Current Medications: Generic Name Dose Route Start Last Admin Trade Name Freq PRN Reason Stop Dose Admin Acetaminophen 650 mg 06/04/21 08:00 06/08/21 17:03 Acetaminophen 325 Mg/10.15 Ml Oral Liqd Unit Dose FEEDTUBE 650 mg Q6H PRN Administration Pain MILD(1-3)/Fever >100.5/MEDRANO Amlodipine Besylate 10 mg 06/10/21 10:00 06/10/21 09:45 Amlodipine 10 Mg Tab PO 10 mg QDAY AIDAN Administration Bisacodyl 10 mg 06/04/21 08:00 Bisacodyl 10 Mg Rect Supp MI QDAY PRN constipation Chlordiazepoxide HCl 25 mg 06/11/21 14:00 Chlordiazepoxide 25 Mg Cap PO 06/12/21 06:01 Q8HR AIDAN Chlordiazepoxide HCl 25 mg 06/12/21 18:00 Chlordiazepoxide 25 Mg Cap PO 06/13/21 06:01 Q12H AIDAN Chlordiazepoxide HCl 25 mg 06/14/21 10:00 Chlordiazepoxide 25 Mg Cap PO 06/14/21 10:01 DAILY AIDAN Clonidine HCl 0.1 mg 06/09/21 14:00 06/09/21 14:23 Clonidine Tts 0.1 Mg/24 Hr Patch TD 0.1 mg Mo AIDAN Administration Dextrose 0 ml 06/05/21 20:28 Dextrose 50% In Water (25gm) 50 Ml Syringe IV Q30MIN PRN Hypoglycemia Protocol Famotidine 20 mg 06/11/21 10:00 Famotidine 20 Mg Tab PO QDAY AIDAN Fondaparinux 2.5 mg 06/10/21 10:00 06/10/21 09:33 Fondaparinux 2.5 Mg/0.5 Ml Inj SUB-Q 2.5 mg DAILY AIDAN Administration Hydralazine HCl 10 mg 06/04/21 18:00 06/09/21 16:45 Hydralazine 20 Mg/1 Ml Inj IV 10 mg Q4HR PRN Administration Hypertension Hydrophilic Ointment 1 applic 06/04/21 05:57 Lip Therapy Vaseline TP Q2HR PRN Dry Lips Magnesium Sulfate 2 gm in 50 mls @ 25 mls/hr 06/11/21 08:47 Magnesium Sulfate 2gm/50ml IV 06/11/21 10:46 ONCE ONE Insulin Human Lispro 0 unit 06/10/21 16:30 06/10/21 22:11 Insulin Lispro 100 Unit/Ml SUB-Q Not Given ACHS [facility] Protocol Labetalol HCl 10 mg 06/08/21 15:00 06/09/21 15:27 Labetalol 20 Mg/4 Ml Inj IV 10 mg Q4HR PRN Administration Hypertension Lorazepam 1 mg 06/10/21 11:05 06/11/21 03:02 Lorazepam 2 Mg/Ml Vial IV 1 mg Q4H PRN Administration Agitation Methylprednisolone Sodium Succinate 40 mg 06/09/21 10:00 06/10/21 09:32 Methylprednisolone Sod Succinate 40 Mg/1 Ml Inj IV 06/11/21 10:00 40 mg DAILY AIDAN Administration Metoprolol Tartrate 5 mg 06/07/21 13:30 Metoprolol Tartrate 5 Mg/5 Ml Inj IV Q6HR PRN Tachyarrhythmias Multi-Ingred Cream/Lotion/Oil/Oint 1 applic 06/04/21 05:57 Mineral Oil/Petrolatum, White Ophth Oint 3.5 Gm OU Q4HR PRN Dry Eye(s) Naloxone HCl 0.1 mg 06/04/21 08:00 Naloxone 0.4 Mg/1 Ml Inj IV Q2MIN PRN Res Rate </= 8 or 02 SAT < 92% Ondansetron HCl 4 mg 06/04/21 08:00 Ondansetron 4 Mg/2 Ml Inj IV Q8H PRN Nausea And Vomiting Quetiapine Fumarate 100 mg 06/09/21 22:00 06/10/21 22:10 Quetiapine 100 Mg Tab PO 06/11/21 21:59 100 mg BID AIDAN Administration Senna/Docusate Sodium 1 tab 06/04/21 10:00 06/10/21 22:10 Sennosides/Docusate Sodium 8.6/50 Mg Tab FEEDTUBE 1 tab BID AIDAN Administration Sodium Chloride 10 ml 06/04/21 10:00 06/10/21 22:10 Sodium Chloride 0.9% 10 Ml Flush Syringe IV 10 ml BID AIDAN Administration Sodium Chloride 10 ml 06/04/21 08:00 Sodium Chloride 0.9% 10 Ml Flush Syringe IV PRN PRN LINE FLUSH Nutrition/Malnutrition Assess - Dietary Evaluation Nutrition/Malnutrition Findings: Nutrition Notes Start: 06/05/21 10:40 Freq: Status: Active Protocol: Document 06/10/21 14:34 JOAO (Rec: 06/10/21 15:03 JOAO [email or web address]) Nutrition Notes Initial or Follow up Brief Note Current Diagnosis Hypertension,Respiratory Failure Other Pertinent Diagnosis Angioedema, CVA, Hypokalemia, Dysphagia. Current Diet NPO Height 6 ft 2 in Weight 82.554 kg [place] Body Weight (kg) 86.36 BMI 23.3 Weight change and time frame No body weight change reported . Weight Status Appropriate Subjective/Other Information RD consult for MD request to write/manage TF. Will resume Osmolite as prescribed. Bedside swallow wvaluation failed. NGT replaced 06/09. Percent of energy/protein needs met: Pt currently on NPO. Nutrition Intervention Nutrition Support: Resume Osmolite 1.5 at 55 ml/ hr. Flush: 150 ml water Q 4 hr Kcal 1,980 Protein (gm) 83 Carbohydrates (gm) 269 Fat (gm) 65 Fluid (mL) 1,006 Fiber (gm) 0 % RDI: 95% Kcal; 84% AA. Goal #1 Provide at least 75% of energy /protein needs through Enteral Feeding during LOS. Follow-Up By: 06/12/21 Additional Comments Continue monitoring TF tolerance, Hydration, and BM.
[2021-06-11] MEDS: amLODIPine 10 MG TAB PO SCH (09:42)
[2021-06-11] MEDS: methylPREDNISolone Sod Succinate 40 MG/1 ML INJ IV SCH (09:42)
[2021-06-11] MEDS: SENNOSIDES/DOCUSATE SODIUM 8.6/50 MG TAB FEEDTUBE SCH ×3 (09:42→22:02)
[2021-06-11] MEDS: FAMOTIDINE 20 MG TAB PO SCH (09:45)
[2021-06-11] MEDS: QUEtiapine 100 MG TAB PO SCH (09:47)
[2021-06-11] MEDS: FONDAPARINUX 2.5 MG/0.5 ML INJ SUB-Q SCH (09:52)
[2021-06-11] MEDS ORDERED: MAGNESIUM SULFATE 2 GM/50 ML BAG IV ONE (10:00)
[2021-06-11] MEDS: INSULIN LISPRO 100 UNIT/ML SUB-Q SCH ×4 (10:01→23:24)
--- NOTE | 2021-06-11 19:00 | Progress Note ---
Assessment and Plan 55-year-old male with history of hypertension who presented to the emergency department with complaints of tongue swelling. He was emergently intubated to prevent airway compromise. Patient was intubated at time of exam. Unable to provide significant or detailed history. Patient is extubated, on room air. He has been transferred to the medical floor. O2 saturation is 96% on room air. Patient sleeping. No acute respiratory distress. Pulse 100, BP 148/89, Pulse 89, respirations 20. Patient is running low grade temp at times., no leukocytosis. Chest xray done 06/05/21 reported probable mild left basilar atelectasis has developed in the interval. The lungs are otherwise clear. No significant pleural effusion. No pneumothorax. Chest xray done 06/06/21 reported interval development of probable atelectasis left lower lobe. Patient is currently on Fondaparinux and famotidine. Recommend albuteral aerosol treatments and incentive spirometry. - Patient Problems (1) Angioedema Current Visit: Yes Status: Acute Plan to address problem: Improved. Patient extubated. Presently on room air. No complaint of shortness of breath at this time. (2) Compromised airway Current Visit: Yes Status: Acute Plan to address problem: Patient intubated and subsequently extubated. Presently on room air. Subjective Date of service: 06/11/21 Principal diagnosis: Acute respiratory failure ; HTN; Angioedema; H/O CVA; Hypokalemia Interval history: 55-year-old male with history of hypertension who presented to the emergency department with complaints of tongue swelling. He was emergently intubated to prevent airway compromise. Patient was intubated at time of exam. Unable to provide significant or detailed history. Patient is extubated, on room air. He has been transferred to the medical floor. O2 saturation is 96% on room air. Patient sleeping. No acute respiratory distress. Pulse 100, BP 148/89, Pulse 89, respirations 20. Patient is running low grade temp at times., no leukocytosis. Chest xray done 06/05/21 reported probable mild left basilar atelectasis has developed in the interval. The lungs are otherwise clear. No significant pleural effusion. No pneumothorax. Chest xray done 06/06/21 reported interval development of probable atelectasis left lower lobe. Patient is currently on Fondaparinux and famotidine. Recommend albuteral aerosol treatments and incentive spirometry. Objective Vital Signs - 12hr 06/11/21 06/11/21 06/11/21 09:42 09:56 11:06 Temperature 97.2 F L Pulse Rate 95 H 113 H Respiratory 20 18 Rate Blood Pressure 143/87 143/87 137/88 O2 Sat by Pulse 98 94 Oximetry 06/11/21 06/11/21 13:33 16:43 Temperature 98.0 F Pulse Rate Respiratory 16 Rate Blood Pressure 158/94 O2 Sat by Pulse 94 Oximetry Constitutional: no acute distress, alert, other (middle aged thin male with mildly increased respiratory effort at rest) Eyes: non-icteric ENT: oropharynx moist, other (ETT 24 cm DELMER) Neck: supple, no lymphadenopathy, no JVD Effort: normal Ascultation: Bilateral: diminished breath sounds Percussion: Bilateral: not dull Cardiovascular: regular rate and rhythm Gastrointestinal: normoactive bowel sounds, soft, non-tender, non-distended Integumentary: normal Extremities: no cyanosis, no edema, pulses normal, no ischemia or petechiae Neurologic: non-focal exam (grossly), pupils equal and round, CN II-XII normal, motor strength normal and, other (sedated) Psychiatric: mood appropriate, affect normal CBC and BMP: 06/11/21 04:02 06/11/21 04:02 ABG, PT/INR, D-dimer: ABG ABG pH 7.517 pH Units (7.350-7.450) H 06/08/21 12:30 ABG pCO2 36.0 mm Hg 06/08/21 12:30 ABG pO2 135.8 mm Hg (80.0-90.0) H 06/08/21 12:30 ABG O2 Saturation 98.8 % (95.0-99.0) 06/08/21 12:30 PT/INR, D-dimer PT 14.6 Sec. (12.2-14.9) 06/04/21 05:16 INR 1.03 (0.87-1.13) 06/04/21 05:16 Abnormal lab findings: Abnormal Labs 06/04/21 06/04/21 06/04/21 04:53 04:53 06:30 RBC MCV 82 L MCH 26 L MCHC RDW Plt Count Lymph % (Auto) [place] % (Auto) 7.6 H Lymph # (Auto) 1.1 L Seg Neutrophils % 76.6 H ABG pH ABG pO2 118.3 H ABG HCO3 ABG Base Excess -2.9 L ABG Hemoglobin 12.7 L Sodium Potassium 3.5 L BUN 6 L Creatinine 0.5 L Glucose 124 H POC Glucose Calcium Magnesium 06/04/21 06/05/21 06/05/21 23:31 04:14 04:14 RBC MCV 81 L MCH 25 L MCHC 31 L RDW 13.0 L Plt Count 126 L Lymph % (Auto) 8.5 L [place] % (Auto) Lymph # (Auto) 0.4 L Seg Neutrophils % 87.0 H ABG pH ABG pO2 ABG HCO3 ABG Base Excess ABG Hemoglobin Sodium Potassium BUN Creatinine 0.5 L Glucose 152 H POC Glucose 157 H Calcium 8.2 L Magnesium 06/05/21 06/05/21 06/05/21 08:45 11:23 16:17 RBC MCV MCH MCHC RDW Plt Count Lymph % (Auto) [place] % (Auto) Lymph # (Auto) Seg Neutrophils % ABG pH ABG pO2 106.3 H ABG HCO3 28.2 H ABG Base Excess 3.6 H ABG Hemoglobin 13.3 L Sodium Potassium BUN Creatinine Glucose POC Glucose 133 H 135 H Calcium Magnesium 06/05/21 06/06/21 06/06/21 23:31 05:14 07:16 RBC MCV 81 L MCH 25 L MCHC 31 L RDW Plt Count Lymph % (Auto) [place] % (Auto) Lymph # (Auto) Seg Neutrophils % ABG pH ABG pO2 ABG HCO3 ABG Base Excess ABG Hemoglobin Sodium Potassium BUN Creatinine Glucose POC Glucose 126 H 141 H Calcium Magnesium 06/06/21 06/06/21 06/06/21 07:16 09:08 11:15 RBC MCV MCH MCHC RDW Plt Count Lymph % (Auto) [place] % (Auto) Lymph # (Auto) Seg Neutrophils % ABG pH ABG pO2 91.3 H ABG HCO3 27.5 H ABG Base Excess ABG Hemoglobin 13.6 L Sodium Potassium BUN 24 H Creatinine Glucose 130 H POC Glucose 148 H Calcium 8.2 L Magnesium 06/06/21 06/06/21 06/07/21 14:15 16:33 00:01 RBC MCV MCH MCHC RDW Plt Count Lymph % (Auto) [place] % (Auto) Lymph # (Auto) Seg Neutrophils % ABG pH ABG pO2 91.6 H ABG HCO3 27.9 H ABG Base Excess ABG Hemoglobin 12.7 L Sodium Potassium BUN Creatinine Glucose POC Glucose 158 H 148 H Calcium Magnesium 06/07/21 06/07/21 06/07/21 04:14 05:03 07:15 RBC MCV 80 L MCH 25 L MCHC RDW Plt Count 99 L Lymph % (Auto) [place] % (Auto) Lymph # (Auto) Seg Neutrophils % ABG pH ABG pO2 ABG HCO3 ABG Base Excess ABG Hemoglobin Sodium Potassium BUN 21 H Creatinine 0.6 L Glucose 162 H POC Glucose 135 H Calcium 8.2 L Magnesium 06/07/21 06/07/21 06/07/21 12:12 15:00 17:33 RBC MCV MCH MCHC RDW Plt Count Lymph % (Auto) [place] % (Auto) Lymph # (Auto) Seg Neutrophils % ABG pH ABG pO2 112.8 H ABG HCO3 28.4 H ABG Base Excess 3.6 H ABG Hemoglobin 13.1 L Sodium Potassium BUN Creatinine Glucose POC Glucose 162 H 150 H Calcium Magnesium 06/07/21 06/08/21 06/08/21 23:55 04:25 04:25 RBC 5.08 H MCV 82 L MCH 25 L MCHC 31 L RDW Plt Count 91 L Lymph % (Auto) [place] % (Auto) Lymph # (Auto) Seg Neutrophils % ABG pH ABG pO2 ABG HCO3 ABG Base Excess ABG Hemoglobin Sodium Potassium BUN Creatinine 0.6 L Glucose 166 H POC Glucose 155 H Calcium Magnesium 06/08/21 06/08/21 06/08/21 06:11 08:54 11:38 RBC MCV MCH MCHC RDW Plt Count Lymph % (Auto) [place] % (Auto) Lymph # (Auto) Seg Neutrophils % ABG pH ABG pO2 ABG HCO3 ABG Base Excess ABG Hemoglobin Sodium Potassium BUN Creatinine Glucose POC Glucose 188 H 142 H 126 H Calcium Magnesium 06/08/21 06/08/21 06/09/21 12:30 16:41 00:44 RBC MCV MCH MCHC RDW Plt Count Lymph % (Auto) [place] % (Auto) Lymph # (Auto) Seg Neutrophils % ABG pH 7.517 H ABG pO2 135.8 H ABG HCO3 28.5 H ABG Base Excess 5.6 H ABG Hemoglobin 13.6 L Sodium Potassium BUN Creatinine Glucose POC Glucose 119 H 135 H Calcium Magnesium 06/09/21 06/09/21 06/09/21 04:22 04:22 05:06 RBC MCV 83 L MCH 25 L MCHC 31 L RDW Plt Count 83 L Lymph % (Auto) [place] % (Auto) Lymph # (Auto) Seg Neutrophils % ABG pH ABG pO2 ABG HCO3 ABG Base Excess ABG Hemoglobin Sodium Potassium 3.3 L D BUN Creatinine 0.6 L Glucose 113 H POC Glucose 120 H Calcium 8.3 L Magnesium 06/09/21 06/09/21 06/10/21 12:44 17:42 00:54 RBC MCV MCH MCHC RDW Plt Count Lymph % (Auto) [place] % (Auto) Lymph # (Auto) Seg Neutrophils % ABG pH ABG pO2 ABG HCO3 ABG Base Excess ABG Hemoglobin Sodium Potassium BUN Creatinine Glucose POC Glucose 141 H 108 H 114 H Calcium Magnesium 06/10/21 06/10/21 06/10/21 04:04 04:24 13:29 RBC MCV MCH MCHC RDW Plt Count Lymph % (Auto) [place] % (Auto) Lymph # (Auto) Seg Neutrophils % ABG pH ABG pO2 ABG HCO3 ABG Base Excess ABG Hemoglobin Sodium 136 L Potassium 3.2 L BUN Creatinine 0.5 L Glucose 116 H POC Glucose 128 H 152 H Calcium 7.9 L Magnesium 1.20 L 06/11/21 06/11/21 06/11/21 04:02 04:02 10:37 RBC 5.20 H MCV 81 L MCH 25 L MCHC 31 L RDW 13.0 L Plt Count 111 L Lymph % (Auto) [place] % (Auto) Lymph # (Auto) Seg Neutrophils % ABG pH ABG pO2 ABG HCO3 ABG Base Excess ABG Hemoglobin Sodium 136 L Potassium BUN Creatinine 0.6 L Glucose POC Glucose 119 H Calcium Magnesium 1.50 L Allied health notes reviewed: nursing
[2021-06-12] MEDS: chlordiazePOXIDE 25 MG CAP PO SCH ×2 (05:33→17:16)
[2021-06-12] MEDS: FAMOTIDINE 20 MG TAB PO SCH ×2 (08:47→13:18)
[2021-06-12] MEDS: amLODIPine 10 MG TAB PO SCH ×2 (08:47→13:17)
[2021-06-12] MEDS: FONDAPARINUX 2.5 MG/0.5 ML INJ SUB-Q SCH ×2 (08:47→13:18)
[2021-06-12] MEDS: LORazepam 2 MG/ML VIAL IV PRN (08:48)
--- NOTE | 2021-06-12 10:56 | Progress Note ---
Assessment and Plan Acute respiratory failure Angioedema EtOH withdrawal Hypertension Cerebrovascular accident Hypokalemia - MBS recommended by ROTOPRINTER - continue aspiration precautions (HOB > 40 degrees) post extubation - continue CIWA protocol - continue care as below otherwise; - taper antihistamine therapy - continue to wean supplemental oxygen for target O2 sat's > 90% acutely - bronchodilators with pulmonary hygiene per RT - AB's per ID rec's - continue accuchecks resumed with glycemic control for target blood glucose of <180 mg/dL; avoid hypoglycemia - prn analgesia per CPOT score - Maintenance of sleep-wake cycle, avoid delirium - G.I. & VTE prophylaxis - PT/OT/ROM exercises - continue mobility protocols for pressure ulcer prophylaxis - Monitor hemodynamics closely - continue other care per attending / other consultants - discharge planning ongoing concurrently .... Re-evaluate in am & prn Subjective Date of service: 06/12/21 Principal diagnosis: Acute respiratory failure ; HTN; Angioedema; H/O CVA; Hypokalemia Interval history: Patient is seen today for: Acute respiratory failure ; HTN; Angioedema; H/O CVA; Hypokalemia Seen and examined at bedside; 24hour events reviewed; nursing and respiratory care staff consulted; no adverse overnight events reported to me; resting in bed now; Objective Vital Signs - 12hr 06/11/21 06/12/21 06/12/21 23:05 03:10 06:06 Temperature 99.1 F 98.8 F Pulse Rate 89 94 H Respiratory 20 20 Rate Blood Pressure 148/89 169/106 O2 Sat by Pulse 96 96 98 Oximetry 06/12/21 07:47 Temperature 98.6 F Pulse Rate 96 H Respiratory 19 Rate Blood Pressure 152/94 O2 Sat by Pulse 96 Oximetry Constitutional: no acute distress, other (middle aged thin male with mildly inc reased respiratory effort at rest) Eyes: non-icteric ENT: oropharynx moist, other (extubated) Neck: supple, no lymphadenopathy, no JVD Effort: normal Ascultation: Bilateral: clear, diminished breath sounds Percussion: Bilateral: not dull Cardiovascular: regular rate and rhythm Gastrointestinal: normoactive bowel sounds, soft, non-tender, non-distended Integumentary: normal Extremities: no cyanosis, no edema, pulses normal, no ischemia or petechiae Neurologic: non-focal exam (grossly), pupils equal and round, CN II-XII normal, motor strength normal and, other (delirious) Psychiatric: mood appropriate, affect normal CBC and BMP: 06/11/21 04:02 06/11/21 04:02 ABG, PT/INR, D-dimer: ABG ABG pH 7.517 pH Units (7.350-7.450) H 06/08/21 12:30 ABG pCO2 36.0 mm Hg 06/08/21 12:30 ABG pO2 135.8 mm Hg (80.0-90.0) H 06/08/21 12:30 ABG O2 Saturation 98.8 % (95.0-99.0) 06/08/21 12:30 PT/INR, D-dimer PT 14.6 Sec. (12.2-14.9) 06/04/21 05:16 INR 1.03 (0.87-1.13) 06/04/21 05:16 Abnormal lab findings: Abnormal Labs 06/04/21 06/04/21 06/04/21 04:53 04:53 06:30 RBC MCV 82 L MCH 26 L MCHC RDW Plt Count Lymph % (Auto) [place] % (Auto) 7.6 H Lymph # (Auto) 1.1 L Seg Neutrophils % 76.6 H ABG pH ABG pO2 118.3 H ABG HCO3 ABG Base Excess -2.9 L ABG Hemoglobin 12.7 L Sodium Potassium 3.5 L BUN 6 L Creatinine 0.5 L Glucose 124 H POC Glucose Calcium Magnesium 06/04/21 06/05/21 06/05/21 23:31 04:14 04:14 RBC MCV 81 L MCH 25 L MCHC 31 L RDW 13.0 L Plt Count 126 L Lymph % (Auto) 8.5 L [place] % (Auto) Lymph # (Auto) 0.4 L Seg Neutrophils % 87.0 H ABG pH ABG pO2 ABG HCO3 ABG Base Excess ABG Hemoglobin Sodium Potassium BUN Creatinine 0.5 L Glucose 152 H POC Glucose 157 H Calcium 8.2 L Magnesium 06/05/21 06/05/21 06/05/21 08:45 11:23 16:17 RBC MCV MCH MCHC RDW Plt Count Lymph % (Auto) [place] % (Auto) Lymph # (Auto) Seg Neutrophils % ABG pH ABG pO2 106.3 H ABG HCO3 28.2 H ABG Base Excess 3.6 H ABG Hemoglobin 13.3 L Sodium Potassium BUN Creatinine Glucose POC Glucose 133 H 135 H Calcium Magnesium 06/05/21 06/06/21 06/06/21 23:31 05:14 07:16 RBC MCV 81 L MCH 25 L MCHC 31 L RDW Plt Count Lymph % (Auto) [place] % (Auto) Lymph # (Auto) Seg Neutrophils % ABG pH ABG pO2 ABG HCO3 ABG Base Excess ABG Hemoglobin Sodium Potassium BUN Creatinine Glucose POC Glucose 126 H 141 H Calcium Magnesium 06/06/21 06/06/21 06/06/21 07:16 09:08 11:15 RBC MCV MCH MCHC RDW Plt Count Lymph % (Auto) [place] % (Auto) Lymph # (Auto) Seg Neutrophils % ABG pH ABG pO2 91.3 H ABG HCO3 27.5 H ABG Base Excess ABG Hemoglobin 13.6 L Sodium Potassium BUN 24 H Creatinine Glucose 130 H POC Glucose 148 H Calcium 8.2 L Magnesium 06/06/21 06/06/21 06/07/21 14:15 16:33 00:01 RBC MCV MCH MCHC RDW Plt Count Lymph % (Auto) [place] % (Auto) Lymph # (Auto) Seg Neutrophils % ABG pH ABG pO2 91.6 H ABG HCO3 27.9 H ABG Base Excess ABG Hemoglobin 12.7 L Sodium Potassium BUN Creatinine Glucose POC Glucose 158 H 148 H Calcium Magnesium 06/07/21 06/07/21 06/07/21 04:14 05:03 07:15 RBC MCV 80 L MCH 25 L MCHC RDW Plt Count 99 L Lymph % (Auto) [place] % (Auto) Lymph # (Auto) Seg Neutrophils % ABG pH ABG pO2 ABG HCO3 ABG Base Excess ABG Hemoglobin Sodium Potassium BUN 21 H Creatinine 0.6 L Glucose 162 H POC Glucose 135 H Calcium 8.2 L Magnesium 06/07/21 06/07/21 06/07/21 12:12 15:00 17:33 RBC MCV MCH MCHC RDW Plt Count Lymph % (Auto) [place] % (Auto) Lymph # (Auto) Seg Neutrophils % ABG pH ABG pO2 112.8 H ABG HCO3 28.4 H ABG Base Excess 3.6 H ABG Hemoglobin 13.1 L Sodium Potassium BUN Creatinine Glucose POC Glucose 162 H 150 H Calcium Magnesium 06/07/21 06/08/21 06/08/21 23:55 04:25 04:25 RBC 5.08 H MCV 82 L MCH 25 L MCHC 31 L RDW Plt Count 91 L Lymph % (Auto) [place] % (Auto) Lymph # (Auto) Seg Neutrophils % ABG pH ABG pO2 ABG HCO3 ABG Base Excess ABG Hemoglobin Sodium Potassium BUN Creatinine 0.6 L Glucose 166 H POC Glucose 155 H Calcium Magnesium 06/08/21 06/08/21 06/08/21 06:11 08:54 11:38 RBC MCV MCH MCHC RDW Plt Count Lymph % (Auto) [place] % (Auto) Lymph # (Auto) Seg Neutrophils % ABG pH ABG pO2 ABG HCO3 ABG Base Excess ABG Hemoglobin Sodium Potassium BUN Creatinine Glucose POC Glucose 188 H 142 H 126 H Calcium Magnesium 06/08/21 06/08/21 06/09/21 12:30 16:41 00:44 RBC MCV MCH MCHC RDW Plt Count Lymph % (Auto) [place] % (Auto) Lymph # (Auto) Seg Neutrophils % ABG pH 7.517 H ABG pO2 135.8 H ABG HCO3 28.5 H ABG Base Excess 5.6 H ABG Hemoglobin 13.6 L Sodium Potassium BUN Creatinine Glucose POC Glucose 119 H 135 H Calcium Magnesium 06/09/21 06/09/21 06/09/21 04:22 04:22 05:06 RBC MCV 83 L MCH 25 L MCHC 31 L RDW Plt Count 83 L Lymph % (Auto) [place] % (Auto) Lymph # (Auto) Seg Neutrophils % ABG pH ABG pO2 ABG HCO3 ABG Base Excess ABG Hemoglobin Sodium Potassium 3.3 L D BUN Creatinine 0.6 L Glucose 113 H POC Glucose 120 H Calcium 8.3 L Magnesium 06/09/21 06/09/21 06/10/21 12:44 17:42 00:54 RBC MCV MCH MCHC RDW Plt Count Lymph % (Auto) [place] % (Auto) Lymph # (Auto) Seg Neutrophils % ABG pH ABG pO2 ABG HCO3 ABG Base Excess ABG Hemoglobin Sodium Potassium BUN Creatinine Glucose POC Glucose 141 H 108 H 114 H Calcium Magnesium 06/10/21 06/10/21 06/10/21 04:04 04:24 13:29 RBC MCV MCH MCHC RDW Plt Count Lymph % (Auto) [place] % (Auto) Lymph # (Auto) Seg Neutrophils % ABG pH ABG pO2 ABG HCO3 ABG Base Excess ABG Hemoglobin Sodium 136 L Potassium 3.2 L BUN Creatinine 0.5 L Glucose 116 H POC Glucose 128 H 152 H Calcium 7.9 L Magnesium 1.20 L 06/11/21 06/11/21 06/11/21 04:02 04:02 10:37 RBC 5.20 H MCV 81 L MCH 25 L MCHC 31 L RDW 13.0 L Plt Count 111 L Lymph % (Auto) [place] % (Auto) Lymph # (Auto) Seg Neutrophils % ABG pH ABG pO2 ABG HCO3 ABG Base Excess ABG Hemoglobin Sodium 136 L Potassium BUN Creatinine 0.6 L Glucose POC Glucose 119 H Calcium Magnesium 1.50 L Allied health notes reviewed: nursing
[2021-06-12] MEDS ORDERED: FUROSEMIDE 40 MG/4 ML INJ IV NR (11:20)
[2021-06-12] MEDS: guaiFENesin 100 MG/5 ML ORAL LIQD PO PRN (12:52)
[2021-06-12] MEDS: INSULIN LISPRO 100 UNIT/ML SUB-Q SCH ×3 (13:17→22:18)
[2021-06-12] MEDS: SENNOSIDES/DOCUSATE SODIUM 8.6/50 MG TAB FEEDTUBE SCH ×2 (13:18→22:11)
--- NOTE | 2021-06-12 13:21 | Progress Note ---
Assessment and Plan Assessment and plan: This is a 55-year-old male with HTN and EtOH abuse admitted with angioedema and hypertensive urgency Patient is encephalopathic, alcohol withdrawals, and sinus tachycardia Continue CIVA protocol, supportive care Patient has chest some chest congestion, chest x-ray no acute abnormalities 40 mg IV Lasix 1 dose, closely monitor --Toxic metabolic encephalopathy Multifactorial , general anxiety, alcohol withdrawal Continue CIWA protocol Thiamine folic acid Physical therapy occupational therapy Supportive care Strongly advised to quit tobacco use --Alcohol withdrawal symptoms : Thiamine folic acid, IV fluids, multivitamin Continue CIWA protocol, restraints for safety Recommend alcohol rehabilitation upon discharge --Hypertensive urgency, well controlled -Presented with BP 203/112 Continue current antihypertensives, as needed hydralazine --Acute hypoxic respiratory failure /angioedema /requiring intubation Status post extubation 06/08, currently on nasal cannula oxygen Continue tapering dose of Solu-Medrol pulmonary following Home O2 evaluation, treat the underlying cause -CT neck showed edematous changes particularly involving the left neck including subcutaneous soft tissue with no well-defined fluid collection -- Dysphagia -Failed bedside swallow evaluation -Speech therapy eval completed 06/09 Reevaluated today, patient had modified barium swallow Follow speech therapy recommendations --Hypomagnesemia, hypokalemia -Replenish per protocol, monitor electrolytes -Thrombocytopenia -Likely due to EtOH abuse Closely monitor, on Arixtra --DVT prophylaxis Subcu Arixtra Monitor closely and adjust management as needed Brief history and daily hospital course Interval history: This is a 55-year-old male with HTN, EtOH abuse who presented to the emergency department on 06/04 via EMS with complaints of swollen tongue and was intubated in the emergency department to prevent airway compromise. In the emergency department she was given epinephrine, Benadryl, Solu-Medrol, FFP and Pepcid with no improvement. Work-up in the emergency department revealed hypertensive urgency with systolic blood pressure of 203/112. Patient was admitted to the hospitalist service with angioedema and hypertensive urgency with consults to [facility]. 06/06: Patient remains on the vent and sedated. Patient now with s/s of alcohol withdrawal on CIWA protocol, unable to wean off sedation. SAT and SBT trial attempted, patient is too agitated for safe extubation. Plan to wean off propofol gtt, continue CIWA protocol and Seroquel added BID. 06/07: Patient remains on the vent and on low dose Fentanyl gtt. Tachycardia with low BP yesterday, resolved s/p 1L NS bolus. Patient remains on CIWA protocol for alcohol withdrawal. Thrombocytopenia noted from this am lab, not more than 50% from admit level, will continue to monitor for now. Plan for SAT and SBt again today. 06/08: Patient is s/p extubation, fully AAO, now on 2L NC SPO2 at 100%. Patient failed bedside swallow eval, order placed for speech swallow eval. D5w ordered for now. Continue CIWA protocol for alcohol withdrawal 06/09: NG tube was replaced today, patient failed bedside swallow eval. ST will reevaluate in 24 hours. Patient will be transferred to the floor with remote telemetry. 06/10: Started on precedex gtt overnight for agitation. Precedex weaned off and started on librium taper. Ativan 2mg q4 prn. Transferred to floor 06/11; patient is slightly agitated, on CIWA protocol, sinus tachycardia, continue current management 06/12; patient has some chest congestion and shortness of breath, give 1 dose of IV Lasix , elevate the head end of the bed Speech therapy evaluation, chest x-ray to rule out any aspiration History Interval history: Seen and examined the patient at the bedside Patient's chart and medications reviewed Patient is lethargic on CIWA protocol Sedated, not in acute distress Agitated and pulling of things restraint for safety Hospitalist Physical - Constitutional Vitals: Temp Pulse Resp BP Pulse Ox 97.9 F 96 H 18 163/101 97 06/12/21 11:41 06/12/21 11:41 06/12/21 11:41 06/12/21 11:41 06/12/21 11:41 General appearance: Present: no acute distress, well-nourished, other (Confused and tremulous) - EENT Eyes: Present: PERRL, EOM intact - Neck Neck: Present: supple, normal ROM - Respiratory Respiratory effort: normal Respiratory: bilateral: diminished, negative: rales, rhonchi, wheezing - Cardiovascular Rhythm: regular Heart Sounds: Present: S1 & S2 - Extremities Extremities: no ischemia, No edema - Abdominal General gastrointestinal: soft, non-tender, non-distended, normal bowel sounds - Integumentary Integumentary: Present: clear, warm - Psychiatric Psychiatric: appropriate mood/affect, cooperative - Neurologic Neurologic: moves all extremities Results - Labs CBC & Chem 7: 06/11/21 04:02 06/11/21 04:02 Labs: Laboratory Last Values WBC 6.0 K/mm3 (4.5-11.0) 06/11/21 04:02 RBC 5.20 M/mm3 (3.65-5.03) H 06/11/21 04:02 Hgb 12.8 gm/dl (11.8-15.2) 06/11/21 04:02 Hct 42.0 % (35.5-45.6) 06/11/21 04:02 MCV 81 fl (84-94) L 06/11/21 04:02 MCH 25 pg (28-32) L 06/11/21 04:02 MCHC 31 % (32-34) L 06/11/21 04:02 RDW 13.0 % (13.2-15.2) L 06/11/21 04:02 Plt Count 111 K/mm3 (140-440) L 06/11/21 04:02 Lymph % (Auto) 8.5 % (13.4-35.0) L 06/05/21 04:14 [place] % (Auto) 4.3 % (0.0-7.3) 06/05/21 04:14 Eos % (Auto) 0.0 % (0.0-4.3) 06/05/21 04:14 Baso % (Auto) 0.2 % (0.0-1.8) 06/05/21 04:14 Lymph # (Auto) 0.4 K/mm3 (1.2-5.4) L 06/05/21 04:14 [place] # (Auto) 0.2 K/mm3 (0.0-0.8) 06/05/21 04:14 Eos # (Auto) 0.0 K/mm3 (0.0-0.4) 06/05/21 04:14 Baso # (Auto) 0.0 K/mm3 (0.0-0.1) 06/05/21 04:14 Seg Neutrophils % 87.0 % (40.0-70.0) H 06/05/21 04:14 Seg Neutrophils # 4.4 K/mm3 (1.8-7.7) 06/05/21 04:14 ESR 29 mm/Hr (0-20) 06/04/21 04:53 PT 14.6 Sec. (12.2-14.9) 06/04/21 05:16 INR 1.03 (0.87-1.13) 06/04/21 05:16 APTT 28.1 Sec. (24.2-36.6) 06/04/21 05:16 ABG pH 7.517 pH Units (7.350-7.450) H 06/08/21 12:30 ABG pCO2 36.0 mm Hg 06/08/21 12:30 ABG pO2 135.8 mm Hg (80.0-90.0) H 06/08/21 12:30 ABG HCO3 28.5 mmol/L (20.0-26.0) H 06/08/21 12:30 ABG O2 Saturation 98.8 % (95.0-99.0) 06/08/21 12:30 ABG O2 Content 18.8 (0.0-44) 06/08/21 12:30 ABG Base Excess 5.6 mmol/L (-2.0-3.0) H 06/08/21 12:30 ABG Hemoglobin 13.6 gm/dl (14.0-18.0) L 06/08/21 12:30 ABG Carboxyhemoglobin 1.3 % (0.0-5.0) 06/08/21 12:30 ABG Methemoglobin 0.6 % (0.0-1.5) 06/08/21 12:30 Oxyhemoglobin 97.0 % (95.0-99.0) 06/08/21 12:30 FiO2 25 % 06/08/21 12:30 Sodium 136 mmol/L (137-145) L 06/11/21 04:02 Potassium 3.9 mmol/L (3.6-5.0) D 06/11/21 04:02 Chloride 99.2 mmol/L (98-107) 06/11/21 04:02 Carbon Dioxide 22 mmol/L (22-30) 06/11/21 04:02 Anion Gap 19 mmol/L 06/11/21 04:02 BUN 17 mg/dL (9-20) 06/11/21 04:02 Creatinine 0.6 mg/dL (0.8-1.3) L 06/11/21 04:02 Estimated GFR > 60 ml/min 06/11/21 04:02 BUN/Creatinine Ratio 28 % 06/11/21 04:02 Glucose 94 mg/dL (75-100) 06/11/21 04:02 POC Glucose 94 mg/dL (70-105) 06/12/21 11:42 Calcium 8.6 mg/dL (8.4-10.2) 06/11/21 04:02 Phosphorus 3.30 mg/dL (2.5-4.5) 06/11/21 04:02 Magnesium 1.50 mg/dL (1.7-2.3) L 06/11/21 04:02 C-Reactive Protein 0.60 mg/dL (0.00-1.30) 06/04/21 04:53 Triglycerides 88 mg/dL (2-149) 06/06/21 07:16 Coronavirus (PCR) Negative (Negative) 06/04/21 07:00 Blood Type O POSITIVE 06/04/21 05:16 Antibody Screen Negative 06/04/21 05:16 Griffith/IV: Voiding Method Condom Catheter Active Medications - Current Medications Current Medications: Generic Name Dose Route Start Last Admin Trade Name Freq PRN Reason Stop Dose Admin Acetaminophen 650 mg 06/04/21 08:00 06/08/21 17:03 Acetaminophen 325 Mg/10.15 Ml Oral Liqd Unit Dose FEEDTUBE 650 mg Q6H PRN Administration Pain MILD(1-3)/Fever >100.5/MEDRANO Amlodipine Besylate 10 mg 06/10/21 10:00 06/12/21 13:17 Amlodipine 10 Mg Tab PO Not Given QDAY AIDAN Bisacodyl 10 mg 06/04/21 08:00 Bisacodyl 10 Mg Rect Supp [place] QDAY PRN constipation Chlordiazepoxide HCl 25 mg 06/12/21 18:00 Chlordiazepoxide 25 Mg Cap PO 06/13/21 06:01 Q12H AIDAN Chlordiazepoxide HCl 25 mg 06/14/21 10:00 Chlordiazepoxide 25 Mg Cap PO 06/14/21 10:01 DAILY AIDAN Clonidine HCl 0.1 mg 06/09/21 14:00 06/09/21 14:23 Clonidine Tts 0.1 Mg/24 Hr Patch TD 0.1 mg Mo AIDAN Administration Dextrose 0 ml 06/05/21 20:28 Dextrose 50% In Water (25gm) 50 Ml Syringe IV Q30MIN PRN Hypoglycemia Protocol Famotidine 20 mg 06/11/21 10:00 06/12/21 13:18 Famotidine 20 Mg Tab PO Not Given QDAY AIDAN Fondaparinux 2.5 mg 06/10/21 10:00 06/12/21 13:18 Fondaparinux 2.5 Mg/0.5 Ml Inj SUB-Q Not Given DAILY AIDAN Furosemide 40 mg 06/12/21 11:20 06/12/21 12:53 Furosemide 40 Mg/4 Ml Inj IV 06/12/21 14:00 40 mg ONCE NR Administration Guaifenesin 200 mg 06/12/21 14:00 06/12/21 12:52 Guaifenesin 100 Mg/5 Ml Oral Liqd PO 200 mg Q4HR PRN Administration Cough Hydralazine HCl 10 mg 06/04/21 18:00 06/09/21 16:45 Hydralazine 20 Mg/1 Ml Inj IV 10 mg Q4HR PRN Administration Hypertension Hydrophilic Ointment 1 applic 06/04/21 05:57 Lip Therapy Vaseline TP Q2HR PRN Dry Lips Insulin Human Lispro 0 unit 06/10/21 16:30 06/12/21 13:17 Insulin Lispro 100 Unit/Ml SUB-Q Not Given ACHS [facility] Protocol Labetalol HCl 10 mg 06/08/21 15:00 06/09/21 15:27 Labetalol 20 Mg/4 Ml Inj IV 10 mg Q4HR PRN Administration Hypertension Lorazepam 2 mg 06/11/21 12:25 06/12/21 08:48 Lorazepam 2 Mg/Ml Vial IV 2 mg Q4H PRN Administration Agitation Metoprolol Tartrate 5 mg 06/07/21 13:30 Metoprolol Tartrate 5 Mg/5 Ml Inj IV Q6HR PRN Tachyarrhythmias Multi-Ingred Cream/Lotion/Oil/Oint 1 applic 06/04/21 05:57 Mineral Oil/Petrolatum, White Ophth Oint 3.5 Gm OU Q4HR PRN Dry Eye(s) Naloxone HCl 0.1 mg 06/04/21 08:00 Naloxone 0.4 Mg/1 Ml Inj IV Q2MIN PRN Res Rate </= 8 or 02 SAT < 92% Ondansetron HCl 4 mg 06/04/21 08:00 Ondansetron 4 Mg/2 Ml Inj IV Q8H PRN Nausea And Vomiting Senna/Docusate Sodium 1 tab 06/04/21 10:00 06/12/21 13:18 Sennosides/Docusate Sodium 8.6/50 Mg Tab FEEDTUBE Not Given BID AIDAN Sodium Chloride 10 ml 06/04/21 10:00 06/11/21 22:02 Sodium Chloride 0.9% 10 Ml Flush Syringe IV 10 ml BID AIDAN Administration Sodium Chloride 10 ml 06/04/21 08:00 Sodium Chloride 0.9% 10 Ml Flush Syringe IV PRN PRN LINE FLUSH Nutrition/Malnutrition Assess - Dietary Evaluation Nutrition/Malnutrition Findings: Nutrition Notes Start: 06/05/21 10:40 Freq: Status: Active Protocol: Document 06/10/21 14:34 JOAO (Rec: 06/10/21 15:03 JOAO [id number]) Nutrition Notes Initial or Follow up Brief Note Current Diagnosis Hypertension,Respiratory Failure Other Pertinent Diagnosis Angioedema, CVA, Hypokalemia, Dysphagia. Current Diet NPO Height 6 ft 2 in Weight 82.554 kg [place] Body Weight (kg) 86.36 BMI 23.3 Weight change and time frame No body weight change reported . Weight Status Appropriate Subjective/Other Information RD consult for MD request to write/manage TF. Will resume Osmolite as prescribed. Bedside swallow wvaluation failed. NGT replaced 06/09. Percent of energy/protein needs met: Pt currently on NPO. Nutrition Intervention Nutrition Support: Resume Osmolite 1.5 at 55 ml/ hr. Flush: 150 ml water Q 4 hr Kcal 1,980 Protein (gm) 83 Carbohydrates (gm) 269 Fat (gm) 65 Fluid (mL) 1,006 Fiber (gm) 0 % RDI: 95% Kcal; 84% AA. Goal #1 Provide at least 75% of energy /protein needs through Enteral Feeding during LOS. Follow-Up By: 06/12/21 Additional Comments Continue monitoring TF tolerance, Hydration, and BM.
--- NOTE | 2021-06-12 15:29 | XRay Report ---
CHEST 1 VIEW INDICATION: Chest congestion/shortness of breath. COMPARISON: 05/17/2021 FINDINGS: Support devices: None. Heart: Within normal limits. Lungs/Pleura: No acute air space or interstitial disease. Additional findings: None. IMPRESSION: No acute findings. Signer Name: Saji Tejada Jr, MD Signed: 06/12/2021 3:25 PM Workstation Name: [id number]
--- NOTE | 2021-06-12 15:30 | Fluoroscopy Report ---
MODIFIED BARIUM SWALLOW INDICATION: Dysphagia TECHNIQUE: Swallowing was evaluated in the lateral position under direct fluoroscopy. FINDINGS: The patient was evaluated with thin liquids, puree and semisolid consistencies. Premature spillage was witnessed with thin liquids. No evidence for aspiration or penetration. Please correlate with the formal report by speech therapy. IMPRESSION: No aspiration or penetration was identified. Fluoroscopic time: 1.0 minutes Number of fluoroscopic images: 1 Signer Name: Saji Tejada Jr, MD Signed: 06/12/2021 3:25 PM Workstation Name: [id number]
--- NOTE | 2021-06-12 18:40 | Progress Note ---
Assessment and Plan Assessment and plan: This is a 55-year-old male with HTN and EtOH abuse admitted with angioedema and hypertensive urgency Patient is encephalopathic, alcohol withdrawals, and sinus tachycardia Continue CINJ protocol, supportive care Patient has chest some chest congestion, chest x-ray no acute abnormalities 40 mg IV Lasix 1 dose, closely monitor --Toxic metabolic encephalopathy Multifactorial , general anxiety, alcohol withdrawal Continue CIWA protocol Thiamine folic acid Physical therapy occupational therapy Supportive care Strongly advised to quit tobacco use --Alcohol withdrawal symptoms : Thiamine folic acid, IV fluids, multivitamin Continue CIWA protocol, restraints for safety Recommend alcohol rehabilitation upon discharge --Hypertensive urgency, well controlled -Presented with BP 203/112 Continue current antihypertensives, as needed hydralazine --Acute hypoxic respiratory failure /angioedema /requiring intubation Status post extubation 06/08, currently on nasal cannula oxygen Continue tapering dose of Solu-Medrol pulmonary following Home O2 evaluation, treat the underlying cause -CT neck showed edematous changes particularly involving the left neck including subcutaneous soft tissue with no well-defined fluid collection -- Dysphagia -Failed bedside swallow evaluation -Speech therapy eval completed 06/09 Reevaluated today, patient had modified barium swallow Follow speech therapy recommendations --Hypomagnesemia, hypokalemia -Replenish per protocol, monitor electrolytes -Thrombocytopenia -Likely due to EtOH abuse Closely monitor, on Arixtra --DVT prophylaxis Subcu Arixtra Monitor closely and adjust management as needed Brief history and daily hospital course Interval history: This is a 55-year-old male with HTN, EtOH abuse who presented to the emergency department on 06/04 via EMS with complaints of swollen tongue and was intubated in the emergency department to prevent airway compromise. In the emergency department she was given epinephrine, Benadryl, Solu-Medrol, FFP and Pepcid with no improvement. Work-up in the emergency department revealed hypertensive urgency with systolic blood pressure of 203/112. Patient was admitted to the hospitalist service with angioedema and hypertensive urgency with consults to [facility]. 06/06: Patient remains on the vent and sedated. Patient now with s/s of alcohol withdrawal on CIWA protocol, unable to wean off sedation. SAT and SBT trial attempted, patient is too agitated for safe extubation. Plan to wean off propofol gtt, continue CIWA protocol and Seroquel added BID. 06/07: Patient remains on the vent and on low dose Fentanyl gtt. Tachycardia with low BP yesterday, resolved s/p 1L NS bolus. Patient remains on CIWA protocol for alcohol withdrawal. Thrombocytopenia noted from this am lab, not more than 50% from admit level, will continue to monitor for now. Plan for SAT and SBt again today. 06/08: Patient is s/p extubation, fully AAO, now on 2L NC SPO2 at 100%. Patient failed bedside swallow eval, order placed for speech swallow eval. D5w ordered for now. Continue CIWA protocol for alcohol withdrawal 06/09: NG tube was replaced today, patient failed bedside swallow eval. ST will reevaluate in 24 hours. Patient will be transferred to the floor with remote telemetry. 06/10: Started on precedex gtt overnight for agitation. Precedex weaned off and started on librium taper. Ativan 2mg q4 prn. Transferred to floor 06/11; patient is slightly agitated, on CIWA protocol, sinus tachycardia, continue current management 06/12; patient has some chest congestion and shortness of breath, give 1 dose of IV Lasix , elevate the head end of the bed Speech therapy evaluation, chest x-ray to rule out any aspiration History Interval history: Have seen and examined the patient at the bedside Patient's chart and medications reviewed Patient is slightly tremulous Has some chest congestion on CIWA protocol Restraint for safety Hospitalist Physical - Constitutional Vitals: Temp Pulse Resp BP Pulse Ox 99.0 F 104 H 19 158/98 96 06/12/21 17:22 06/12/21 17:23 06/12/21 17:22 06/12/21 17:22 06/12/21 17:23 General appearance: Present: no acute distress, well-nourished, other (Confused and tremulous) - EENT Eyes: Present: PERRL, EOM intact - Neck Neck: Present: supple, normal ROM - Respiratory Respiratory effort: normal Respiratory: bilateral: diminished, rhonchi, negative: rales, wheezing - Cardiovascular Rhythm: regular Heart Sounds: Present: S1 & S2 - Extremities Extremities: no ischemia, No edema - Abdominal General gastrointestinal: soft, non-tender, non-distended, normal bowel sounds - Integumentary Integumentary: Present: clear, warm - Psychiatric Psychiatric: appropriate mood/affect, other (Confused lethargic on CIWA) - Neurologic Neurologic: moves all extremities Results - Labs CBC & Chem 7: 06/11/21 04:02 06/11/21 04:02 Labs: Laboratory Last Values WBC 6.0 K/mm3 (4.5-11.0) 06/11/21 04:02 RBC 5.20 M/mm3 (3.65-5.03) H 06/11/21 04:02 Hgb 12.8 gm/dl (11.8-15.2) 06/11/21 04:02 Hct 42.0 % (35.5-45.6) 06/11/21 04:02 MCV 81 fl (84-94) L 06/11/21 04:02 MCH 25 pg (28-32) L 06/11/21 04:02 MCHC 31 % (32-34) L 06/11/21 04:02 RDW 13.0 % (13.2-15.2) L 06/11/21 04:02 Plt Count 111 K/mm3 (140-440) L 06/11/21 04:02 Lymph % (Auto) 8.5 % (13.4-35.0) L 06/05/21 04:14 [place] % (Auto) 4.3 % (0.0-7.3) 06/05/21 04:14 Eos % (Auto) 0.0 % (0.0-4.3) 06/05/21 04:14 Baso % (Auto) 0.2 % (0.0-1.8) 06/05/21 04:14 Lymph # (Auto) 0.4 K/mm3 (1.2-5.4) L 06/05/21 04:14 [place] # (Auto) 0.2 K/mm3 (0.0-0.8) 06/05/21 04:14 Eos # (Auto) 0.0 K/mm3 (0.0-0.4) 06/05/21 04:14 Baso # (Auto) 0.0 K/mm3 (0.0-0.1) 06/05/21 04:14 Seg Neutrophils % 87.0 % (40.0-70.0) H 06/05/21 04:14 Seg Neutrophils # 4.4 K/mm3 (1.8-7.7) 06/05/21 04:14 ESR 29 mm/Hr (0-20) 06/04/21 04:53 PT 14.6 Sec. (12.2-14.9) 06/04/21 05:16 INR 1.03 (0.87-1.13) 06/04/21 05:16 APTT 28.1 Sec. (24.2-36.6) 06/04/21 05:16 ABG pH 7.517 pH Units (7.350-7.450) H 06/08/21 12:30 ABG pCO2 36.0 mm Hg 06/08/21 12:30 ABG pO2 135.8 mm Hg (80.0-90.0) H 06/08/21 12:30 ABG HCO3 28.5 mmol/L (20.0-26.0) H 06/08/21 12:30 ABG O2 Saturation 98.8 % (95.0-99.0) 06/08/21 12:30 ABG O2 Content 18.8 (0.0-44) 06/08/21 12:30 ABG Base Excess 5.6 mmol/L (-2.0-3.0) H 06/08/21 12:30 ABG Hemoglobin 13.6 gm/dl (14.0-18.0) L 06/08/21 12:30 ABG Carboxyhemoglobin 1.3 % (0.0-5.0) 06/08/21 12:30 ABG Methemoglobin 0.6 % (0.0-1.5) 06/08/21 12:30 Oxyhemoglobin 97.0 % (95.0-99.0) 06/08/21 12:30 FiO2 25 % 06/08/21 12:30 Sodium 136 mmol/L (137-145) L 06/11/21 04:02 Potassium 3.9 mmol/L (3.6-5.0) D 06/11/21 04:02 Chloride 99.2 mmol/L (98-107) 06/11/21 04:02 Carbon Dioxide 22 mmol/L (22-30) 06/11/21 04:02 Anion Gap 19 mmol/L 06/11/21 04:02 BUN 17 mg/dL (9-20) 06/11/21 04:02 Creatinine 0.6 mg/dL (0.8-1.3) L 06/11/21 04:02 Estimated GFR > 60 ml/min 06/11/21 04:02 BUN/Creatinine Ratio 28 % 06/11/21 04:02 Glucose 94 mg/dL (75-100) 06/11/21 04:02 POC Glucose 88 mg/dL (70-105) 06/12/21 16:37 Calcium 8.6 mg/dL (8.4-10.2) 06/11/21 04:02 Phosphorus 3.30 mg/dL (2.5-4.5) 06/11/21 04:02 Magnesium 1.50 mg/dL (1.7-2.3) L 06/11/21 04:02 C-Reactive Protein 0.60 mg/dL (0.00-1.30) 06/04/21 04:53 Triglycerides 88 mg/dL (2-149) 06/06/21 07:16 Coronavirus (PCR) Negative (Negative) 06/04/21 07:00 Blood Type O POSITIVE 06/04/21 05:16 Antibody Screen Negative 06/04/21 05:16 Griffith/IV: Voiding Method Condom Catheter Active Medications - Current Medications Current Medications: Generic Name Dose Route Start Last Admin Trade Name Freq PRN Reason Stop Dose Admin Acetaminophen 650 mg 06/04/21 08:00 06/08/21 17:03 Acetaminophen 325 Mg/10.15 Ml Oral Liqd Unit Dose FEEDTUBE 650 mg Q6H PRN Administration Pain MILD(1-3)/Fever >100.5/MEDRANO Amlodipine Besylate 10 mg 06/10/21 10:00 06/12/21 13:17 Amlodipine 10 Mg Tab PO Not Given QDAY AIDAN Bisacodyl 10 mg 06/04/21 08:00 Bisacodyl 10 Mg Rect Supp PA QDAY PRN constipation Chlordiazepoxide HCl 25 mg 06/12/21 18:00 06/12/21 17:16 Chlordiazepoxide 25 Mg Cap PO 06/13/21 06:01 25 mg Q12H AIDAN Administration Chlordiazepoxide HCl 25 mg 06/14/21 10:00 Chlordiazepoxide 25 Mg Cap PO 06/14/21 10:01 DAILY AIDAN Clonidine HCl 0.1 mg 06/09/21 14:00 06/09/21 14:23 Clonidine Tts 0.1 Mg/24 Hr Patch TD 0.1 mg Mo AIDAN Administration Dextrose 0 ml 06/05/21 20:28 Dextrose 50% In Water (25gm) 50 Ml Syringe IV Q30MIN PRN Hypoglycemia Protocol Famotidine 20 mg 06/11/21 10:00 06/12/21 13:18 Famotidine 20 Mg Tab PO Not Given QDAY AIDAN Fondaparinux 2.5 mg 06/10/21 10:00 06/12/21 13:18 Fondaparinux 2.5 Mg/0.5 Ml Inj SUB-Q Not Given DAILY AIDAN Guaifenesin 200 mg 06/12/21 14:00 06/12/21 12:52 Guaifenesin 100 Mg/5 Ml Oral Liqd PO 200 mg Q4HR PRN Administration Cough Hydralazine HCl 10 mg 06/04/21 18:00 06/09/21 16:45 Hydralazine 20 Mg/1 Ml Inj IV 10 mg Q4HR PRN Administration Hypertension Hydrophilic Ointment 1 applic 06/04/21 05:57 Lip Therapy Vaseline TP Q2HR PRN Dry Lips Insulin Human Lispro 0 unit 06/10/21 16:30 06/12/21 13:17 Insulin Lispro 100 Unit/Ml SUB-Q Not Given ACHS [facility] Protocol Labetalol HCl 10 mg 06/08/21 15:00 06/09/21 15:27 Labetalol 20 Mg/4 Ml Inj IV 10 mg Q4HR PRN Administration Hypertension Lorazepam 2 mg 06/11/21 12:25 06/12/21 08:48 Lorazepam 2 Mg/Ml Vial IV 2 mg Q4H PRN Administration Agitation Metoprolol Tartrate 5 mg 06/07/21 13:30 Metoprolol Tartrate 5 Mg/5 Ml Inj IV Q6HR PRN Tachyarrhythmias Multi-Ingred Cream/Lotion/Oil/Oint 1 applic 06/04/21 05:57 Mineral Oil/Petrolatum, White Ophth Oint 3.5 Gm OU Q4HR PRN Dry Eye(s) Naloxone HCl 0.1 mg 06/04/21 08:00 Naloxone 0.4 Mg/1 Ml Inj IV Q2MIN PRN Res Rate </= 8 or 02 SAT < 92% Ondansetron HCl 4 mg 06/04/21 08:00 Ondansetron 4 Mg/2 Ml Inj IV Q8H PRN Nausea And Vomiting Senna/Docusate Sodium 1 tab 06/04/21 10:00 06/12/21 13:18 Sennosides/Docusate Sodium 8.6/50 Mg Tab FEEDTUBE Not Given BID AIDAN Sodium Chloride 10 ml 06/04/21 10:00 06/12/21 10:00 Sodium Chloride 0.9% 10 Ml Flush Syringe IV 10 ml BID AIDAN Administration Sodium Chloride 10 ml 06/04/21 08:00 Sodium Chloride 0.9% 10 Ml Flush Syringe IV PRN PRN LINE FLUSH Nutrition/Malnutrition Assess - Dietary Evaluation Nutrition/Malnutrition Findings: Nutrition Notes Start: 06/05/21 10:40 Freq: Status: Active Protocol: Document 06/12/21 16:39 JOAO (Rec: 06/12/21 16:52 JOAO [id number]) Nutrition Notes Initial or Follow up Brief Note Current Diet Mechanical Soft Diet (sinceD 06/10). Height 6 ft 2 in Weight 82.554 kg [place] Body Weight (kg) 86.36 BMI 23.3 Weight change and time frame No body weight change reported . Subjective/Other Information RD consult for routine F/U on TF tolerance. TF dicontinued, instead PO Mechanical Soft diet ordered. No report available on %PO intake of meals at the time, and unable co contact RN by phone. Percent of energy/protein needs met: Prescribed Mechanical Soft Diet provides for energy/ protein needs (2,048 Kcal/97 g ) during LOS. Nutrition Intervention Change Diet Order: Continue Mechanical Soft Diet as per MD. Follow-Up By: 06/19/21 Additional Comments Continue monitoring food tolerance, %PO intake of meals , and BM.
[2021-06-12 20:20] LABS: Alanine Aminotransferase 24 units/L (7-56); Albumin 3.5 g/dL (3.9-5); Blood Urea Nitrogen 17 mg/dL (9-20); Calcium 8.8 mg/dL (8.4-10.2); Hemolysis Index 32
[2021-06-12 20:21] LABS: BUN/Creatinine Ratio 34
[2021-06-13] MEDS: chlordiazePOXIDE 25 MG CAP PO SCH (06:03)
[2021-06-13] MEDS: INSULIN LISPRO 100 UNIT/ML SUB-Q SCH ×4 (08:54→22:00)
[2021-06-13] MEDS: FONDAPARINUX 2.5 MG/0.5 ML INJ SUB-Q SCH (10:00)
[2021-06-13] MEDS: amLODIPine 10 MG TAB PO SCH (12:38)
[2021-06-13] MEDS: FAMOTIDINE 20 MG TAB PO SCH (12:38)
[2021-06-13] MEDS: SENNOSIDES/DOCUSATE SODIUM 8.6/50 MG TAB FEEDTUBE SCH ×2 (12:40→21:34)
--- NOTE | 2021-06-13 12:58 | Progress Note ---
Assessment and Plan Acute respiratory failure Angioedema EtOH withdrawal Hypertension Cerebrovascular accident Hypokalemia - advance diet per [employer] TECH[employer]IST - continue aspiration precautions (HOB > 40 degrees) - continue CIWA protocol - continue care as below otherwise; - taper antihistamine therapy - continue to wean supplemental oxygen for target O2 sat's > 90% acutely - bronchodilators with pulmonary hygiene per RT - AB's per ID rec's - continue accuchecks resumed with glycemic control for target blood glucose of <180 mg/dL; avoid hypoglycemia - prn analgesia per CPOT score - Maintenance of sleep-wake cycle, avoid delirium - G.I. & VTE prophylaxis - PT/OT/ROM exercises - continue mobility protocols for pressure ulcer prophylaxis - Monitor hemodynamics closely - continue other care per attending / other consultants - discharge planning ongoing concurrently .... Re-evaluate in am & prn Subjective Date of service: 06/13/21 Principal diagnosis: Acute respiratory failure ; HTN; Angioedema; H/O CVA; Hypokalemia Interval history: Patient is seen today for: Acute respiratory failure ; HTN; Angioedema; H/O CVA; Hypokalemia Seen and examined at bedside; 24hour events reviewed; nursing and respiratory care staff consulted; no adverse overnight events reported to me; resting in bed now; asleep; no N/V/F/C Objective Vital Signs - 12hr 06/13/21 06/13/21 05:31 11:31 Temperature 98.2 F 98.4 F Pulse Rate 93 H 106 H Respiratory 18 18 Rate Blood Pressure 153/90 123/79 O2 Sat by Pulse 93 97 Oximetry Constitutional: no acute distress, other (middle aged thin male without increased respiratory effort at rest) Eyes: non-icteric ENT: oropharynx moist, other (extubated) Neck: supple, no lymphadenopathy, no JVD Effort: normal Ascultation: Bilateral: clear, diminished breath sounds Percussion: Bilateral: not dull Cardiovascular: regular rate and rhythm Gastrointestinal: normoactive bowel sounds, soft, non-tender, non-distended Integumentary: normal Extremities: no cyanosis, no edema, pulses normal, no ischemia or petechiae Neurologic: non-focal exam (grossly), pupils equal and round, CN II-XII normal, motor strength normal and, other (delirious) Psychiatric: mood appropriate, affect normal CBC and BMP: 06/11/21 04:02 06/15/21 04:14 ABG, PT/INR, D-dimer: ABG ABG pH 7.517 pH Units (7.350-7.450) H 06/08/21 12:30 ABG pCO2 36.0 mm Hg 06/08/21 12:30 ABG pO2 135.8 mm Hg (80.0-90.0) H 06/08/21 12:30 ABG O2 Saturation 98.8 % (95.0-99.0) 06/08/21 12:30 PT/INR, D-dimer PT 14.6 Sec. (12.2-14.9) 06/04/21 05:16 INR 1.03 (0.87-1.13) 06/04/21 05:16 Abnormal lab findings: Abnormal Labs 06/04/21 06/04/21 06/04/21 04:53 04:53 06:30 RBC MCV 82 L MCH 26 L MCHC RDW Plt Count Lymph % (Auto) [place] % (Auto) 7.6 H Lymph # (Auto) 1.1 L Seg Neutrophils % 76.6 H ABG pH ABG pO2 118.3 H ABG HCO3 ABG Base Excess -2.9 L ABG Hemoglobin 12.7 L Sodium Potassium 3.5 L Chloride Carbon Dioxide BUN 6 L Creatinine 0.5 L Glucose 124 H POC Glucose Calcium Magnesium Alkaline Phosphatase Albumin 06/04/21 06/05/21 06/05/21 23:31 04:14 04:14 RBC MCV 81 L MCH 25 L MCHC 31 L RDW 13.0 L Plt Count 126 L Lymph % (Auto) 8.5 L [place] % (Auto) Lymph # (Auto) 0.4 L Seg Neutrophils % 87.0 H ABG pH ABG pO2 ABG HCO3 ABG Base Excess ABG Hemoglobin Sodium Potassium Chloride Carbon Dioxide BUN Creatinine 0.5 L Glucose 152 H POC Glucose 157 H Calcium 8.2 L Magnesium Alkaline Phosphatase Albumin 06/05/21 06/05/21 06/05/21 08:45 11:23 16:17 RBC MCV MCH MCHC RDW Plt Count Lymph % (Auto) [place] % (Auto) Lymph # (Auto) Seg Neutrophils % ABG pH ABG pO2 106.3 H ABG HCO3 28.2 H ABG Base Excess 3.6 H ABG Hemoglobin 13.3 L Sodium Potassium Chloride Carbon Dioxide BUN Creatinine Glucose POC Glucose 133 H 135 H Calcium Magnesium Alkaline Phosphatase Albumin 06/05/21 06/06/21 06/06/21 23:31 05:14 07:16 RBC MCV 81 L MCH 25 L MCHC 31 L RDW Plt Count Lymph % (Auto) [place] % (Auto) Lymph # (Auto) Seg Neutrophils % ABG pH ABG pO2 ABG HCO3 ABG Base Excess ABG Hemoglobin Sodium Potassium Chloride Carbon Dioxide BUN Creatinine Glucose POC Glucose 126 H 141 H Calcium Magnesium Alkaline Phosphatase Albumin 06/06/21 06/06/21 06/06/21 07:16 09:08 11:15 RBC MCV MCH MCHC RDW Plt Count Lymph % (Auto) [place] % (Auto) Lymph # (Auto) Seg Neutrophils % ABG pH ABG pO2 91.3 H ABG HCO3 27.5 H ABG Base Excess ABG Hemoglobin 13.6 L Sodium Potassium Chloride Carbon Dioxide BUN 24 H Creatinine Glucose 130 H POC Glucose 148 H Calcium 8.2 L Magnesium Alkaline Phosphatase Albumin 06/06/21 06/06/21 06/07/21 14:15 16:33 00:01 RBC MCV MCH MCHC RDW Plt Count Lymph % (Auto) [place] % (Auto) Lymph # (Auto) Seg Neutrophils % ABG pH ABG pO2 91.6 H ABG HCO3 27.9 H ABG Base Excess ABG Hemoglobin 12.7 L Sodium Potassium Chloride Carbon Dioxide BUN Creatinine Glucose POC Glucose 158 H 148 H Calcium Magnesium Alkaline Phosphatase Albumin 06/07/21 06/07/21 06/07/21 04:14 05:03 07:15 RBC MCV 80 L MCH 25 L MCHC RDW Plt Count 99 L Lymph % (Auto) [place] % (Auto) Lymph # (Auto) Seg Neutrophils % ABG pH ABG pO2 ABG HCO3 ABG Base Excess ABG Hemoglobin Sodium Potassium Chloride Carbon Dioxide BUN 21 H Creatinine 0.6 L Glucose 162 H POC Glucose 135 H Calcium 8.2 L Magnesium Alkaline Phosphatase Albumin 06/07/21 06/07/21 06/07/21 12:12 15:00 17:33 RBC MCV MCH MCHC RDW Plt Count Lymph % (Auto) [place] % (Auto) Lymph # (Auto) Seg Neutrophils % ABG pH ABG pO2 112.8 H ABG HCO3 28.4 H ABG Base Excess 3.6 H ABG Hemoglobin 13.1 L Sodium Potassium Chloride Carbon Dioxide BUN Creatinine Glucose POC Glucose 162 H 150 H Calcium Magnesium Alkaline Phosphatase Albumin 06/07/21 06/08/21 06/08/21 23:55 04:25 04:25 RBC 5.08 H MCV 82 L MCH 25 L MCHC 31 L RDW Plt Count 91 L Lymph % (Auto) [place] % (Auto) Lymph # (Auto) Seg Neutrophils % ABG pH ABG pO2 ABG HCO3 ABG Base Excess ABG Hemoglobin Sodium Potassium Chloride Carbon Dioxide BUN Creatinine 0.6 L Glucose 166 H POC Glucose 155 H Calcium Magnesium Alkaline Phosphatase Albumin 06/08/21 06/08/21 06/08/21 06:11 08:54 11:38 RBC MCV MCH MCHC RDW Plt Count Lymph % (Auto) [place] % (Auto) Lymph # (Auto) Seg Neutrophils % ABG pH ABG pO2 ABG HCO3 ABG Base Excess ABG Hemoglobin Sodium Potassium Chloride Carbon Dioxide BUN Creatinine Glucose POC Glucose 188 H 142 H 126 H Calcium Magnesium Alkaline Phosphatase Albumin 06/08/21 06/08/21 06/09/21 12:30 16:41 00:44 RBC MCV MCH MCHC RDW Plt Count Lymph % (Auto) [place] % (Auto) Lymph # (Auto) Seg Neutrophils % ABG pH 7.517 H ABG pO2 135.8 H ABG HCO3 28.5 H ABG Base Excess 5.6 H ABG Hemoglobin 13.6 L Sodium Potassium Chloride Carbon Dioxide BUN Creatinine Glucose POC Glucose 119 H 135 H Calcium Magnesium Alkaline Phosphatase Albumin 06/09/21 06/09/21 06/09/21 04:22 04:22 05:06 RBC MCV 83 L MCH 25 L MCHC 31 L RDW Plt Count 83 L Lymph % (Auto) [place] % (Auto) Lymph # (Auto) Seg Neutrophils % ABG pH ABG pO2 ABG HCO3 ABG Base Excess ABG Hemoglobin Sodium Potassium 3.3 L D Chloride Carbon Dioxide BUN Creatinine 0.6 L Glucose 113 H POC Glucose 120 H Calcium 8.3 L Magnesium Alkaline Phosphatase Albumin 06/09/21 06/09/21 06/10/21 12:44 17:42 00:54 RBC MCV MCH MCHC RDW Plt Count Lymph % (Auto) [place] % (Auto) Lymph # (Auto) Seg Neutrophils % ABG pH ABG pO2 ABG HCO3 ABG Base Excess ABG Hemoglobin Sodium Potassium Chloride Carbon Dioxide BUN Creatinine Glucose POC Glucose 141 H 108 H 114 H Calcium Magnesium Alkaline Phosphatase Albumin 06/10/21 06/10/21 06/10/21 04:04 04:24 13:29 RBC MCV MCH MCHC RDW Plt Count Lymph % (Auto) [place] % (Auto) Lymph # (Auto) Seg Neutrophils % ABG pH ABG pO2 ABG HCO3 ABG Base Excess ABG Hemoglobin Sodium 136 L Potassium 3.2 L Chloride Carbon Dioxide BUN Creatinine 0.5 L Glucose 116 H POC Glucose 128 H 152 H Calcium 7.9 L Magnesium 1.20 L Alkaline Phosphatase Albumin 06/11/21 06/11/21 06/11/21 04:02 04:02 10:37 RBC 5.20 H MCV 81 L MCH 25 L MCHC 31 L RDW 13.0 L Plt Count 111 L Lymph % (Auto) [place] % (Auto) Lymph # (Auto) Seg Neutrophils % ABG pH ABG pO2 ABG HCO3 ABG Base Excess ABG Hemoglobin Sodium 136 L Potassium Chloride Carbon Dioxide BUN Creatinine 0.6 L Glucose POC Glucose 119 H Calcium Magnesium 1.50 L Alkaline Phosphatase Albumin 06/12/21 19:37 RBC MCV MCH MCHC RDW Plt Count Lymph % (Auto) [place] % (Auto) Lymph # (Auto) Seg Neutrophils % ABG pH ABG pO2 ABG HCO3 ABG Base Excess ABG Hemoglobin Sodium 132 L Potassium Chloride 93.4 L Carbon Dioxide 18 L BUN Creatinine 0.5 L Glucose POC Glucose Calcium Magnesium 1.30 L Alkaline Phosphatase 33 L Albumin 3.5 L Allied health notes reviewed: nursing
[2021-06-13] MEDS: guaiFENesin 100 MG/5 ML ORAL LIQD PO PRN (16:33)
--- NOTE | 2021-06-13 17:37 | Progress Note ---
Assessment and Plan Assessment and plan: This is a 55-year-old male with HTN and EtOH abuse admitted with angioedema and hypertensive urgency Patient is encephalopathic, alcohol withdrawals, and sinus tachycardia Continue CIDC protocol, supportive care Patient has chest some chest congestion, chest x-ray no acute abnormalities 40 mg IV Lasix 1 dose, closely monitor --Toxic metabolic encephalopathy Multifactorial , general anxiety, alcohol withdrawal Continue CIWA protocol Thiamine folic acid Physical therapy occupational therapy Supportive care Strongly advised to quit tobacco use --Alcohol withdrawal symptoms : Thiamine folic acid, IV fluids, multivitamin Continue CIWA protocol, restraints for safety Recommend alcohol rehabilitation upon discharge --Hypertensive urgency, well controlled -Presented with BP 203/112 Continue current antihypertensives, as needed hydralazine --Acute hypoxic respiratory failure /angioedema /requiring intubation Status post extubation 06/08, currently on nasal cannula oxygen Continue tapering dose of Solu-Medrol pulmonary following Home O2 evaluation, treat the underlying cause -CT neck showed edematous changes particularly involving the left neck including subcutaneous soft tissue with no well-defined fluid collection -- Dysphagia -Failed bedside swallow evaluation -Speech therapy eval completed 06/09 Reevaluated today, patient had modified barium swallow Follow speech therapy recommendations --Hypomagnesemia, hypokalemia -Replenish per protocol, monitor electrolytes -Thrombocytopenia -Likely due to EtOH abuse Closely monitor, on Arixtra --DVT prophylaxis Subcu Arixtra Monitor closely and adjust management as needed Brief history and daily hospital course Interval history: This is a 55-year-old male with HTN, EtOH abuse who presented to the emergency department on 06/04 via EMS with complaints of swollen tongue and was intubated in the emergency department to prevent airway compromise. In the emergency department she was given epinephrine, Benadryl, Solu-Medrol, FFP and Pepcid with no improvement. Work-up in the emergency department revealed hypertensive urgency with systolic blood pressure of 203/112. Patient was admitted to the hospitalist service with angioedema and hypertensive urgency with consults to [facility]. 06/06: Patient remains on the vent and sedated. Patient now with s/s of alcohol withdrawal on CIWA protocol, unable to wean off sedation. SAT and SBT trial attempted, patient is too agitated for safe extubation. Plan to wean off propofol gtt, continue CIWA protocol and Seroquel added BID. 06/07: Patient remains on the vent and on low dose Fentanyl gtt. Tachycardia with low BP yesterday, resolved s/p 1L NS bolus. Patient remains on CIWA protocol for alcohol withdrawal. Thrombocytopenia noted from this am lab, not more than 50% from admit level, will continue to monitor for now. Plan for SAT and SBt again today. 06/08: Patient is s/p extubation, fully AAO, now on 2L NC SPO2 at 100%. Patient failed bedside swallow eval, order placed for speech swallow eval. D5w ordered for now. Continue CIWA protocol for alcohol withdrawal 06/09: NG tube was replaced today, patient failed bedside swallow eval. ST will reevaluate in 24 hours. Patient will be transferred to the floor with remote telemetry. 06/10: Started on precedex gtt overnight for agitation. Precedex weaned off and started on librium taper. Ativan 2mg q4 prn. Transferred to floor 06/11; patient is slightly agitated, on CIWA protocol, sinus tachycardia, continue current management 06/12; patient has some chest congestion and shortness of breath, give 1 dose of IV Lasix , elevate the head end of the bed Speech therapy evaluation, chest x-ray to rule out any aspiration 06/15/21; patient is alert and awake oriented, no tremulousness, did not need any Ativan Ambulate as tolerated possible discharge home tomorrow if stable, History Interval history: I seen and examined the patient at the bedside patient's chart and medications reviewed No new events reported by the nursing, patient is alert awake oriented No tremulousness or agitation Did not need any Ativan Hospitalist Physical - Constitutional Vitals: Temp Pulse Resp BP Pulse Ox 98.4 F 106 H 18 123/79 97 06/13/21 11:31 06/13/21 11:31 06/13/21 11:31 06/13/21 11:31 06/13/21 11:31 General appearance: Present: no acute distress, well-nourished - EENT Eyes: Present: PERRL, EOM intact - Neck Neck: Present: supple, normal ROM - Respiratory Respiratory effort: normal Respiratory: bilateral: diminished, negative: rales, rhonchi, wheezing - Cardiovascular Rhythm: regular Heart Sounds: Present: S1 & S2 - Extremities Extremities: no ischemia, No edema - Abdominal General gastrointestinal: soft, non-tender, non-distended, normal bowel sounds - Integumentary Integumentary: Present: clear, warm - Psychiatric Psychiatric: appropriate mood/affect - Neurologic Neurologic: moves all extremities Results - Labs CBC & Chem 7: 06/11/21 04:02 06/15/21 04:14 Labs: Laboratory Last Values WBC 6.0 K/mm3 (4.5-11.0) 06/11/21 04:02 RBC 5.20 M/mm3 (3.65-5.03) H 06/11/21 04:02 Hgb 12.8 gm/dl (11.8-15.2) 06/11/21 04:02 Hct 42.0 % (35.5-45.6) 06/11/21 04:02 MCV 81 fl (84-94) L 06/11/21 04:02 MCH 25 pg (28-32) L 06/11/21 04:02 MCHC 31 % (32-34) L 06/11/21 04:02 RDW 13.0 % (13.2-15.2) L 06/11/21 04:02 Plt Count 111 K/mm3 (140-440) L 06/11/21 04:02 Lymph % (Auto) 8.5 % (13.4-35.0) L 06/05/21 04:14 [place] % (Auto) 4.3 % (0.0-7.3) 06/05/21 04:14 Eos % (Auto) 0.0 % (0.0-4.3) 06/05/21 04:14 Baso % (Auto) 0.2 % (0.0-1.8) 06/05/21 04:14 Lymph # (Auto) 0.4 K/mm3 (1.2-5.4) L 06/05/21 04:14 [place] # (Auto) 0.2 K/mm3 (0.0-0.8) 06/05/21 04:14 Eos # (Auto) 0.0 K/mm3 (0.0-0.4) 06/05/21 04:14 Baso # (Auto) 0.0 K/mm3 (0.0-0.1) 06/05/21 04:14 Seg Neutrophils % 87.0 % (40.0-70.0) H 06/05/21 04:14 Seg Neutrophils # 4.4 K/mm3 (1.8-7.7) 06/05/21 04:14 ESR 29 mm/Hr (0-20) 06/04/21 04:53 PT 14.6 Sec. (12.2-14.9) 06/04/21 05:16 INR 1.03 (0.87-1.13) 06/04/21 05:16 APTT 28.1 Sec. (24.2-36.6) 06/04/21 05:16 ABG pH 7.517 pH Units (7.350-7.450) H 06/08/21 12:30 ABG pCO2 36.0 mm Hg 06/08/21 12:30 ABG pO2 135.8 mm Hg (80.0-90.0) H 06/08/21 12:30 ABG HCO3 28.5 mmol/L (20.0-26.0) H 06/08/21 12:30 ABG O2 Saturation 98.8 % (95.0-99.0) 06/08/21 12:30 ABG O2 Content 18.8 (0.0-44) 06/08/21 12:30 ABG Base Excess 5.6 mmol/L (-2.0-3.0) H 06/08/21 12:30 ABG Hemoglobin 13.6 gm/dl (14.0-18.0) L 06/08/21 12:30 ABG Carboxyhemoglobin 1.3 % (0.0-5.0) 06/08/21 12:30 ABG Methemoglobin 0.6 % (0.0-1.5) 06/08/21 12:30 Oxyhemoglobin 97.0 % (95.0-99.0) 06/08/21 12:30 FiO2 25 % 06/08/21 12:30 Sodium 132 mmol/L (137-145) L 06/12/21 19:37 Potassium 3.9 mmol/L (3.6-5.0) 06/12/21 19:37 Chloride 93.4 mmol/L (98-107) L 06/12/21 19:37 Carbon Dioxide 18 mmol/L (22-30) L 06/12/21 19:37 Anion Gap 25 mmol/L 06/12/21 19:37 BUN 17 mg/dL (9-20) 06/12/21 19:37 Creatinine 0.5 mg/dL (0.8-1.3) L 06/12/21 19:37 Estimated GFR > 60 ml/min 06/12/21 19:37 BUN/Creatinine Ratio 34 % 06/12/21 19:37 Glucose 100 mg/dL (75-100) 06/12/21 19:37 POC Glucose 145 mg/dL (70-105) H 06/13/21 16:10 Calcium 8.8 mg/dL (8.4-10.2) 06/12/21 19:37 Phosphorus 3.30 mg/dL (2.5-4.5) 06/11/21 04:02 Magnesium 1.30 mg/dL (1.7-2.3) L 06/12/21 19:37 Total Bilirubin 0.80 mg/dL (0.1-1.2) 06/12/21 19:37 AST 23 units/L (5-40) 06/12/21 19:37 ALT 24 units/L (7-56) 06/12/21 19:37 Alkaline Phosphatase 33 units/L (35-129) L 06/12/21 19:37 C-Reactive Protein 0.60 mg/dL (0.00-1.30) 06/04/21 04:53 Total Protein 7.8 g/dL (6.3-8.2) 06/12/21 19:37 Albumin 3.5 g/dL (3.9-5) L 06/12/21 19:37 Albumin/Globulin Ratio 0.8 % 06/12/21 19:37 Triglycerides 88 mg/dL (2-149) 06/06/21 07:16 Coronavirus (PCR) Negative (Negative) 06/04/21 07:00 Blood Type O POSITIVE 06/04/21 05:16 Antibody Screen Negative 06/04/21 05:16 Griffith/IV: Voiding Method Diaper Active Medications - Current Medications Current Medications: Generic Name Dose Route Start Last Admin Trade Name Freq PRN Reason Stop Dose Admin Acetaminophen 650 mg 06/04/21 08:00 06/08/21 17:03 Acetaminophen 325 Mg/10.15 Ml Oral Liqd Unit Dose FEEDTUBE 650 mg Q6H PRN Administration Pain MILD(1-3)/Fever >100.5/MEDRANO Amlodipine Besylate 10 mg 06/10/21 10:00 06/13/21 12:38 Amlodipine 10 Mg Tab PO 10 mg QDAY AIDAN Administration Bisacodyl 10 mg 06/04/21 08:00 Bisacodyl 10 Mg Rect Supp [place] QDAY PRN constipation Chlordiazepoxide HCl 25 mg 06/14/21 10:00 Chlordiazepoxide 25 Mg Cap PO 06/14/21 10:01 DAILY AIDAN Clonidine HCl 0.1 mg 06/09/21 14:00 06/09/21 14:23 Clonidine Tts 0.1 Mg/24 Hr Patch TD 0.1 mg Mo AIDAN Administration Dextrose 0 ml 06/05/21 20:28 Dextrose 50% In Water (25gm) 50 Ml Syringe IV Q30MIN PRN Hypoglycemia Protocol Famotidine 20 mg 06/11/21 10:00 06/13/21 12:38 Famotidine 20 Mg Tab PO 20 mg QDAY AIDAN Administration Fondaparinux 2.5 mg 06/10/21 10:00 06/12/21 13:18 Fondaparinux 2.5 Mg/0.5 Ml Inj SUB-Q Not Given DAILY AIDAN Guaifenesin 200 mg 06/12/21 14:00 06/13/21 16:33 Guaifenesin 100 Mg/5 Ml Oral Liqd PO 200 mg Q4HR PRN Administration Cough Hydralazine HCl 10 mg 06/04/21 18:00 06/09/21 16:45 Hydralazine 20 Mg/1 Ml Inj IV 10 mg Q4HR PRN Administration Hypertension Hydrophilic Ointment 1 applic 06/04/21 05:57 Lip Therapy Vaseline TP Q2HR PRN Dry Lips Insulin Human Lispro 0 unit 06/10/21 16:30 06/13/21 16:58 Insulin Lispro 100 Unit/Ml SUB-Q Not Given ACHS AIDAN Protocol Labetalol HCl 10 mg 06/08/21 15:00 06/09/21 15:27 Labetalol 20 Mg/4 Ml Inj IV 10 mg Q4HR PRN Administration Hypertension Lorazepam 2 mg 06/11/21 12:25 06/12/21 08:48 Lorazepam 2 Mg/Ml Vial IV 2 mg Q4H PRN Administration Agitation Metoprolol Tartrate 5 mg 06/07/21 13:30 Metoprolol Tartrate 5 Mg/5 Ml Inj IV Q6HR PRN Tachyarrhythmias Multi-Ingred Cream/Lotion/Oil/Oint 1 applic 06/04/21 05:57 Mineral Oil/Petrolatum, White Ophth Oint 3.5 Gm OU Q4HR PRN Dry Eye(s) Naloxone HCl 0.1 mg 06/04/21 08:00 Naloxone 0.4 Mg/1 Ml Inj IV Q2MIN PRN Res Rate </= 8 or 02 SAT < 92% Ondansetron HCl 4 mg 06/04/21 08:00 Ondansetron 4 Mg/2 Ml Inj IV Q8H PRN Nausea And Vomiting Senna/Docusate Sodium 1 tab 06/04/21 10:00 06/13/21 12:40 Sennosides/Docusate Sodium 8.6/50 Mg Tab FEEDTUBE 1 tab BID AIDAN Administration Sodium Chloride 10 ml 06/04/21 10:00 06/13/21 16:40 Sodium Chloride 0.9% 10 Ml Flush Syringe IV 10 ml BID AIDAN Administration Sodium Chloride 10 ml 06/04/21 08:00 Sodium Chloride 0.9% 10 Ml Flush Syringe IV PRN PRN LINE FLUSH Nutrition/Malnutrition Assess - Dietary Evaluation Nutrition/Malnutrition Findings: Nutrition Notes Start: 06/05/21 10:40 Freq: Status: Active Protocol: Document 06/12/21 16:39 JOAO (Rec: 06/12/21 16:52 JOAO [id number]) Nutrition Notes Initial or Follow up Brief Note Current Diet Mechanical Soft Diet (sinceD 06/10). Height 6 ft 2 in Weight 82.554 kg [place] Body Weight (kg) 86.36 BMI 23.3 Weight change and time frame No body weight change reported . Subjective/Other Information RD consult for routine F/U on TF tolerance. TF dicontinued, instead PO Mechanical Soft diet ordered. No report available on %PO intake of meals at the time, and unable co contact RN by phone. Percent of energy/protein needs met: Prescribed Mechanical Soft Diet provides for energy/ protein needs (2,048 Kcal/97 g ) during LOS. Nutrition Intervention Change Diet Order: Continue Mechanical Soft Diet as per MD. Follow-Up By: 06/19/21 Additional Comments Continue monitoring food tolerance, %PO intake of meals , and BM.
[2021-06-13] MEDS: LORazepam 2 MG/ML VIAL IV PRN (23:52)
[2021-06-14] MEDS: INSULIN LISPRO 100 UNIT/ML SUB-Q SCH ×3 (07:30→16:46)
[2021-06-14] MEDS: FAMOTIDINE 20 MG TAB PO SCH (09:04)
[2021-06-14] MEDS: SENNOSIDES/DOCUSATE SODIUM 8.6/50 MG TAB FEEDTUBE SCH ×2 (09:04→22:29)
[2021-06-14] MEDS: amLODIPine 10 MG TAB PO SCH (09:04)
[2021-06-14] MEDS ORDERED: chlordiazePOXIDE 25 MG CAP PO SCH (10:00)
[2021-06-14] MEDS: FONDAPARINUX 2.5 MG/0.5 ML INJ SUB-Q SCH (10:00)
--- NOTE | 2021-06-14 19:18 | Progress Note ---
Assessment and Plan Assessment and plan: This is a 55-year-old male with HTN and EtOH abuse admitted with angioedema and hypertensive urgency Patient is encephalopathic, alcohol withdrawals, and sinus tachycardia Continue CIIN protocol, supportive care Patient has chest some chest congestion, chest x-ray no acute abnormalities 40 mg IV Lasix 1 dose, closely monitor --Toxic metabolic encephalopathy Multifactorial , general anxiety, alcohol withdrawal Continue CIWA protocol Thiamine folic acid Physical therapy occupational therapy Supportive care Strongly advised to quit tobacco use --Alcohol withdrawal symptoms : Thiamine folic acid, IV fluids, multivitamin Continue CIWA protocol, restraints for safety Recommend alcohol rehabilitation upon discharge --Hypertensive urgency, well controlled -Presented with BP 203/112 Continue current antihypertensives, as needed hydralazine --Acute hypoxic respiratory failure /angioedema /requiring intubation Status post extubation 06/08, currently on nasal cannula oxygen Continue tapering dose of Solu-Medrol pulmonary following Home O2 evaluation, treat the underlying cause -CT neck showed edematous changes particularly involving the left neck including subcutaneous soft tissue with no well-defined fluid collection -- Dysphagia -Failed bedside swallow evaluation -Speech therapy eval completed 06/09 Reevaluated today, patient had modified barium swallow Follow speech therapy recommendations --Hypomagnesemia, hypokalemia -Replenish per protocol, monitor electrolytes -Thrombocytopenia -Likely due to EtOH abuse Closely monitor, on Arixtra --DVT prophylaxis Subcu Arixtra Monitor closely and adjust management as needed Brief history and daily hospital course Interval history: This is a 55-year-old male with HTN, EtOH abuse who presented to the emergency department on 06/04 via EMS with complaints of swollen tongue and was intubated in the emergency department to prevent airway compromise. In the emergency department she was given epinephrine, Benadryl, Solu-Medrol, FFP and Pepcid with no improvement. Work-up in the emergency department revealed hypertensive urgency with systolic blood pressure of 203/112. Patient was admitted to the hospitalist service with angioedema and hypertensive urgency with consults to [facility]. 06/06: Patient remains on the vent and sedated. Patient now with s/s of alcohol withdrawal on CIWA protocol, unable to wean off sedation. SAT and SBT trial attempted, patient is too agitated for safe extubation. Plan to wean off propofol gtt, continue CIWA protocol and Seroquel added BID. 06/07: Patient remains on the vent and on low dose Fentanyl gtt. Tachycardia with low BP yesterday, resolved s/p 1L NS bolus. Patient remains on CIWA protocol for alcohol withdrawal. Thrombocytopenia noted from this am lab, not more than 50% from admit level, will continue to monitor for now. Plan for SAT and SBt again today. 06/08: Patient is s/p extubation, fully AAO, now on 2L NC SPO2 at 100%. Patient failed bedside swallow eval, order placed for speech swallow eval. D5w ordered for now. Continue CIWA protocol for alcohol withdrawal 06/09: NG tube was replaced today, patient failed bedside swallow eval. ST will reevaluate in 24 hours. Patient will be transferred to the floor with remote telemetry. 06/10: Started on precedex gtt overnight for agitation. Precedex weaned off and started on librium taper. Ativan 2mg q4 prn. Transferred to floor 06/11; patient is slightly agitated, on CIWA protocol, sinus tachycardia, continue current management 06/12; patient has some chest congestion and shortness of breath, give 1 dose of IV Lasix , elevate the head end of the bed Speech therapy evaluation, chest x-ray to rule out any aspiration 06/14/21; patient is more alert and awake, remains confused intermittently, PT evaluation noted and appreciated Continue PT and OT, DC planning per case management, DC in 1 to 2 days stable History Interval history: I have seen and examined the patient at the bedside Patient is more alert and awake but confused Vital signs reviewed Hospitalist Physical - Constitutional Vitals: Temp Pulse Resp BP Pulse Ox 98.6 F 97 H 18 111/72 96 06/14/21 16:39 06/14/21 16:39 06/14/21 16:39 06/14/21 16:39 06/14/21 16:39 General appearance: Present: no acute distress, well-nourished, other (Confused and tremulous) - EENT Eyes: Present: PERRL, EOM intact - Neck Neck: Present: supple, normal ROM - Respiratory Respiratory effort: normal Respiratory: bilateral: diminished, negative: rales, rhonchi, wheezing - Cardiovascular Rhythm: regular Heart Sounds: Present: S1 & S2 - Extremities Extremities: no ischemia, No edema - Abdominal General gastrointestinal: soft, non-tender, non-distended, normal bowel sounds - Integumentary Integumentary: Present: clear, warm - Psychiatric Psychiatric: appropriate mood/affect, cooperative - Neurologic Neurologic: CNII-XII intact, moves all extremities Results - Labs CBC & Chem 7: 06/11/21 04:02 06/12/21 19:37 Labs: Laboratory Last Values WBC 6.0 K/mm3 (4.5-11.0) 06/11/21 04:02 RBC 5.20 M/mm3 (3.65-5.03) H 06/11/21 04:02 Hgb 12.8 gm/dl (11.8-15.2) 06/11/21 04:02 Hct 42.0 % (35.5-45.6) 06/11/21 04:02 MCV 81 fl (84-94) L 06/11/21 04:02 MCH 25 pg (28-32) L 06/11/21 04:02 MCHC 31 % (32-34) L 06/11/21 04:02 RDW 13.0 % (13.2-15.2) L 06/11/21 04:02 Plt Count 111 K/mm3 (140-440) L 06/11/21 04:02 Lymph % (Auto) 8.5 % (13.4-35.0) L 06/05/21 04:14 [place] % (Auto) 4.3 % (0.0-7.3) 06/05/21 04:14 Eos % (Auto) 0.0 % (0.0-4.3) 06/05/21 04:14 Baso % (Auto) 0.2 % (0.0-1.8) 06/05/21 04:14 Lymph # (Auto) 0.4 K/mm3 (1.2-5.4) L 06/05/21 04:14 [place] # (Auto) 0.2 K/mm3 (0.0-0.8) 06/05/21 04:14 Eos # (Auto) 0.0 K/mm3 (0.0-0.4) 06/05/21 04:14 Baso # (Auto) 0.0 K/mm3 (0.0-0.1) 06/05/21 04:14 Seg Neutrophils % 87.0 % (40.0-70.0) H 06/05/21 04:14 Seg Neutrophils # 4.4 K/mm3 (1.8-7.7) 06/05/21 04:14 ESR 29 mm/Hr (0-20) 06/04/21 04:53 PT 14.6 Sec. (12.2-14.9) 06/04/21 05:16 INR 1.03 (0.87-1.13) 06/04/21 05:16 APTT 28.1 Sec. (24.2-36.6) 06/04/21 05:16 ABG pH 7.517 pH Units (7.350-7.450) H 06/08/21 12:30 ABG pCO2 36.0 mm Hg 06/08/21 12:30 ABG pO2 135.8 mm Hg (80.0-90.0) H 06/08/21 12:30 ABG HCO3 28.5 mmol/L (20.0-26.0) H 06/08/21 12:30 ABG O2 Saturation 98.8 % (95.0-99.0) 06/08/21 12:30 ABG O2 Content 18.8 (0.0-44) 06/08/21 12:30 ABG Base Excess 5.6 mmol/L (-2.0-3.0) H 06/08/21 12:30 ABG Hemoglobin 13.6 gm/dl (14.0-18.0) L 06/08/21 12:30 ABG Carboxyhemoglobin 1.3 % (0.0-5.0) 06/08/21 12:30 ABG Methemoglobin 0.6 % (0.0-1.5) 06/08/21 12:30 Oxyhemoglobin 97.0 % (95.0-99.0) 06/08/21 12:30 FiO2 25 % 06/08/21 12:30 Sodium 132 mmol/L (137-145) L 06/12/21 19:37 Potassium 3.9 mmol/L (3.6-5.0) 06/12/21 19:37 Chloride 93.4 mmol/L (98-107) L 06/12/21 19:37 Carbon Dioxide 18 mmol/L (22-30) L 06/12/21 19:37 Anion Gap 25 mmol/L 06/12/21 19:37 BUN 17 mg/dL (9-20) 06/12/21 19:37 Creatinine 0.5 mg/dL (0.8-1.3) L 06/12/21 19:37 Estimated GFR > 60 ml/min 06/12/21 19:37 BUN/Creatinine Ratio 34 % 06/12/21 19:37 Glucose 100 mg/dL (75-100) 06/12/21 19:37 POC Glucose 130 mg/dL (70-105) H 06/14/21 15:45 Calcium 8.8 mg/dL (8.4-10.2) 06/12/21 19:37 Phosphorus 3.30 mg/dL (2.5-4.5) 06/11/21 04:02 Magnesium 1.30 mg/dL (1.7-2.3) L 06/12/21 19:37 Total Bilirubin 0.80 mg/dL (0.1-1.2) 06/12/21 19:37 AST 23 units/L (5-40) 06/12/21 19:37 ALT 24 units/L (7-56) 06/12/21 19:37 Alkaline Phosphatase 33 units/L (35-129) L 06/12/21 19:37 C-Reactive Protein 0.60 mg/dL (0.00-1.30) 06/04/21 04:53 Total Protein 7.8 g/dL (6.3-8.2) 06/12/21 19:37 Albumin 3.5 g/dL (3.9-5) L 06/12/21 19:37 Albumin/Globulin Ratio 0.8 % 06/12/21 19:37 Triglycerides 88 mg/dL (2-149) 06/06/21 07:16 Coronavirus (PCR) Negative (Negative) 06/04/21 07:00 Blood Type O POSITIVE 06/04/21 05:16 Antibody Screen Negative 06/04/21 05:16 Griffith/IV: Voiding Method Diaper Active Medications - Current Medications Current Medications: Generic Name Dose Route Start Last Admin Trade Name Freq PRN Reason Stop Dose Admin Acetaminophen 650 mg 06/04/21 08:00 06/08/21 17:03 Acetaminophen 325 Mg/10.15 Ml Oral Liqd Unit Dose FEEDTUBE 650 mg Q6H PRN Administration Pain MILD(1-3)/Fever >100.5/MEDRANO Amlodipine Besylate 10 mg 06/10/21 10:00 06/14/21 09:04 Amlodipine 10 Mg Tab PO 10 mg QDAY AIDAN Administration Bisacodyl 10 mg 06/04/21 08:00 Bisacodyl 10 Mg Rect Supp [place] QDAY PRN constipation Clonidine HCl 0.1 mg 06/09/21 14:00 06/09/21 14:23 Clonidine Tts 0.1 Mg/24 Hr Patch TD 0.1 mg Mo AIDAN Administration Dextrose 0 ml 06/05/21 20:28 Dextrose 50% In Water (25gm) 50 Ml Syringe IV Q30MIN PRN Hypoglycemia Protocol Famotidine 20 mg 06/11/21 10:00 06/14/21 09:04 Famotidine 20 Mg Tab PO 20 mg QDAY AIDAN Administration Fondaparinux 2.5 mg 06/10/21 10:00 06/14/21 10:00 Fondaparinux 2.5 Mg/0.5 Ml Inj SUB-Q 2.5 mg DAILY AIDAN Administration Guaifenesin 200 mg 06/12/21 14:00 06/13/21 16:33 Guaifenesin 100 Mg/5 Ml Oral Liqd PO 200 mg Q4HR PRN Administration Cough Hydralazine HCl 10 mg 06/04/21 18:00 06/09/21 16:45 Hydralazine 20 Mg/1 Ml Inj IV 10 mg Q4HR PRN Administration Hypertension Hydrophilic Ointment 1 applic 06/04/21 05:57 Lip Therapy Vaseline TP Q2HR PRN Dry Lips Insulin Human Lispro 0 unit 06/10/21 16:30 06/14/21 16:46 Insulin Lispro 100 Unit/Ml SUB-Q Not Given ACHS [facility] Protocol Labetalol HCl 10 mg 06/08/21 15:00 06/09/21 15:27 Labetalol 20 Mg/4 Ml Inj IV 10 mg Q4HR PRN Administration Hypertension Lorazepam 2 mg 06/11/21 12:25 06/13/21 23:52 Lorazepam 2 Mg/Ml Vial IV 2 mg Q4H PRN Administration Agitation Metoprolol Tartrate 5 mg 06/07/21 13:30 Metoprolol Tartrate 5 Mg/5 Ml Inj IV Q6HR PRN Tachyarrhythmias Multi-Ingred Cream/Lotion/Oil/Oint 1 applic 06/04/21 05:57 Mineral Oil/Petrolatum, White Ophth Oint 3.5 Gm OU Q4HR PRN Dry Eye(s) Naloxone HCl 0.1 mg 06/04/21 08:00 Naloxone 0.4 Mg/1 Ml Inj IV Q2MIN PRN Res Rate </= 8 or 02 SAT < 92% Ondansetron HCl 4 mg 06/04/21 08:00 Ondansetron 4 Mg/2 Ml Inj IV Q8H PRN Nausea And Vomiting Senna/Docusate Sodium 1 tab 06/04/21 10:00 06/14/21 09:04 Sennosides/Docusate Sodium 8.6/50 Mg Tab FEEDTUBE 1 tab BID AIDAN Administration Sodium Chloride 10 ml 06/04/21 10:00 06/14/21 09:05 Sodium Chloride 0.9% 10 Ml Flush Syringe IV 10 ml BID AIDAN Administration Sodium Chloride 10 ml 06/04/21 08:00 Sodium Chloride 0.9% 10 Ml Flush Syringe IV PRN PRN LINE FLUSH Nutrition/Malnutrition Assess - Dietary Evaluation Nutrition/Malnutrition Findings: Nutrition Notes Start: 06/05/21 10:40 Freq: Status: Active Protocol: Document 06/12/21 16:39 JOAO (Rec: 06/12/21 16:52 JOAO [id number]) Nutrition Notes Initial or Follow up Brief Note Current Diet Mechanical Soft Diet (sinceD 06/10). Height 6 ft 2 in Weight 82.554 kg [place] Body Weight (kg) 86.36 BMI 23.3 Weight change and time frame No body weight change reported . Subjective/Other Information RD consult for routine F/U on TF tolerance. TF dicontinued, instead PO Mechanical Soft diet ordered. No report available on %PO intake of meals at the time, and unable co contact RN by phone. Percent of energy/protein needs met: Prescribed Mechanical Soft Diet provides for energy/ protein needs (2,048 Kcal/97 g ) during LOS. Nutrition Intervention Change Diet Order: Continue Mechanical Soft Diet as per MD. Follow-Up By: 06/19/21 Additional Comments Continue monitoring food tolerance, %PO intake of meals , and BM.
--- NOTE | 2021-06-14 21:00 | Progress Note ---
Assessment and Plan 55-year-old male with history of hypertension who presented to the emergency department with complaints of tongue swelling. He was emergently intubated to prevent airway compromise. Patient was intubated at time of exam. Unable to provide significant or detailed history. Patient is extubated. Patient transferred to the medical floor.Patient sleepong. On room air. O2 saturation is 98% . No acute respiratory distress. Pulse 100, BP 107/68, Pulse 91, respirations 20. Patient is afebrile.. no leukocytosis. Chest xray done 06/05/21 reported probable mild left basilar atelectasis has developed in the interval. The lungs are otherwise clear. No significant pleural effusion. No pneumothorax. Chest xray done 06/06/21 reported interval development of probable atelectasis left lower lobe. Chest xray done 06/12/21 reported No acute findings. Patient is currently on Fondaparinux and famotidine. Recommend albuteral aerosol treatments and incentive spirometry. - Patient Problems (1) Angioedema Current Visit: Yes Status: Acute Plan to address problem: Improved. Patient extubated. Presently on room air. No complaint of shortness of breath at this time. (2) Compromised airway Current Visit: Yes Status: Acute Plan to address problem: Patient intubated and subsequently extubated. Presently on room air. Subjective Date of service: 06/14/21 Principal diagnosis: Acute respiratory failure ; HTN; Angioedema; H/O CVA; Hypokalemia Interval history: 55-year-old male with history of hypertension who presented to the emergency department with complaints of tongue swelling. He was emergently intubated to prevent airway compromise. Patient was intubated at time of exam. Unable to provide significant or detailed history. Patient is extubated. Patient transferred to the medical floor.Patient sleepong. On room air. O2 saturation is 98% . No acute respiratory distress. Pulse 100, BP 107/68, Pulse 91, respirations 20. Patient is afebrile.. no leukocytosis. Chest xray done 06/05/21 reported probable mild left basilar atelectasis has developed in the interval. The lungs are otherwise clear. No significant pleural effusion. No pneumothorax. Chest xray done 06/06/21 reported interval development of probable atelectasis left lower lobe. Chest xray done 06/12/21 reported No acute findings. Patient is currently on Fondaparinux and famotidine. Recommend albuteral aerosol treatments and incentive spirometry. Objective Vital Signs - 12hr 06/14/21 06/14/21 06/14/21 10:00 11:46 16:39 Temperature 98.9 F 98.6 F Pulse Rate 97 H 97 H Respiratory 16 18 Rate Blood Pressure 108/66 111/72 O2 Sat by Pulse 96 95 96 Oximetry 06/14/21 20:39 Temperature Pulse Rate Respiratory Rate Blood Pressure O2 Sat by Pulse 98 Oximetry Constitutional: no acute distress, alert Eyes: non-icteric ENT: oropharynx moist, other (extubated) Neck: supple, no lymphadenopathy, no JVD Effort: normal Ascultation: Bilateral: diminished breath sounds Percussion: Bilateral: not dull Cardiovascular: regular rate and rhythm Gastrointestinal: normoactive bowel sounds, soft, non-tender, non-distended Integumentary: normal Extremities: no cyanosis, no edema, pulses normal, no ischemia or petechiae Neurologic: non-focal exam (grossly), pupils equal and round, CN II-XII normal, other (delirious) Psychiatric: other (Sleeping.) CBC and BMP: 06/11/21 04:02 06/15/21 04:14 ABG, PT/INR, D-dimer: ABG ABG pH 7.517 pH Units (7.350-7.450) H 06/08/21 12:30 ABG pCO2 36.0 mm Hg 06/08/21 12:30 ABG pO2 135.8 mm Hg (80.0-90.0) H 06/08/21 12:30 ABG O2 Saturation 98.8 % (95.0-99.0) 06/08/21 12:30 PT/INR, D-dimer PT 14.6 Sec. (12.2-14.9) 06/04/21 05:16 INR 1.03 (0.87-1.13) 06/04/21 05:16 Abnormal lab findings: Abnormal Labs 06/04/21 06/04/21 06/04/21 04:53 04:53 06:30 RBC MCV 82 L MCH 26 L MCHC RDW Plt Count Lymph % (Auto) [place] % (Auto) 7.6 H Lymph # (Auto) 1.1 L Seg Neutrophils % 76.6 H ABG pH ABG pO2 118.3 H ABG HCO3 ABG Base Excess -2.9 L ABG Hemoglobin 12.7 L Sodium Potassium 3.5 L Chloride Carbon Dioxide BUN 6 L Creatinine 0.5 L Glucose 124 H POC Glucose Calcium Magnesium Alkaline Phosphatase Albumin 06/04/21 06/05/21 06/05/21 23:31 04:14 04:14 RBC MCV 81 L MCH 25 L MCHC 31 L RDW 13.0 L Plt Count 126 L Lymph % (Auto) 8.5 L [place] % (Auto) Lymph # (Auto) 0.4 L Seg Neutrophils % 87.0 H ABG pH ABG pO2 ABG HCO3 ABG Base Excess ABG Hemoglobin Sodium Potassium Chloride Carbon Dioxide BUN Creatinine 0.5 L Glucose 152 H POC Glucose 157 H Calcium 8.2 L Magnesium Alkaline Phosphatase Albumin 06/05/21 06/05/21 06/05/21 08:45 11:23 16:17 RBC MCV MCH MCHC RDW Plt Count Lymph % (Auto) [place] % (Auto) Lymph # (Auto) Seg Neutrophils % ABG pH ABG pO2 106.3 H ABG HCO3 28.2 H ABG Base Excess 3.6 H ABG Hemoglobin 13.3 L Sodium Potassium Chloride Carbon Dioxide BUN Creatinine Glucose POC Glucose 133 H 135 H Calcium Magnesium Alkaline Phosphatase Albumin 06/05/21 06/06/21 06/06/21 23:31 05:14 07:16 RBC MCV 81 L MCH 25 L MCHC 31 L RDW Plt Count Lymph % (Auto) [place] % (Auto) Lymph # (Auto) Seg Neutrophils % ABG pH ABG pO2 ABG HCO3 ABG Base Excess ABG Hemoglobin Sodium Potassium Chloride Carbon Dioxide BUN Creatinine Glucose POC Glucose 126 H 141 H Calcium Magnesium Alkaline Phosphatase Albumin 06/06/21 06/06/21 06/06/21 07:16 09:08 11:15 RBC MCV MCH MCHC RDW Plt Count Lymph % (Auto) [place] % (Auto) Lymph # (Auto) Seg Neutrophils % ABG pH ABG pO2 91.3 H ABG HCO3 27.5 H ABG Base Excess ABG Hemoglobin 13.6 L Sodium Potassium Chloride Carbon Dioxide BUN 24 H Creatinine Glucose 130 H POC Glucose 148 H Calcium 8.2 L Magnesium Alkaline Phosphatase Albumin 06/06/21 06/06/21 06/07/21 14:15 16:33 00:01 RBC MCV MCH MCHC RDW Plt Count Lymph % (Auto) [place] % (Auto) Lymph # (Auto) Seg Neutrophils % ABG pH ABG pO2 91.6 H ABG HCO3 27.9 H ABG Base Excess ABG Hemoglobin 12.7 L Sodium Potassium Chloride Carbon Dioxide BUN Creatinine Glucose POC Glucose 158 H 148 H Calcium Magnesium Alkaline Phosphatase Albumin 06/07/21 06/07/21 06/07/21 04:14 05:03 07:15 RBC MCV 80 L MCH 25 L MCHC RDW Plt Count 99 L Lymph % (Auto) [place] % (Auto) Lymph # (Auto) Seg Neutrophils % ABG pH ABG pO2 ABG HCO3 ABG Base Excess ABG Hemoglobin Sodium Potassium Chloride Carbon Dioxide BUN 21 H Creatinine 0.6 L Glucose 162 H POC Glucose 135 H Calcium 8.2 L Magnesium Alkaline Phosphatase Albumin 06/07/21 06/07/21 06/07/21 12:12 15:00 17:33 RBC MCV MCH MCHC RDW Plt Count Lymph % (Auto) [place] % (Auto) Lymph # (Auto) Seg Neutrophils % ABG pH ABG pO2 112.8 H ABG HCO3 28.4 H ABG Base Excess 3.6 H ABG Hemoglobin 13.1 L Sodium Potassium Chloride Carbon Dioxide BUN Creatinine Glucose POC Glucose 162 H 150 H Calcium Magnesium Alkaline Phosphatase Albumin 06/07/21 06/08/21 06/08/21 23:55 04:25 04:25 RBC 5.08 H MCV 82 L MCH 25 L MCHC 31 L RDW Plt Count 91 L Lymph % (Auto) [place] % (Auto) Lymph # (Auto) Seg Neutrophils % ABG pH ABG pO2 ABG HCO3 ABG Base Excess ABG Hemoglobin Sodium Potassium Chloride Carbon Dioxide BUN Creatinine 0.6 L Glucose 166 H POC Glucose 155 H Calcium Magnesium Alkaline Phosphatase Albumin 06/08/21 06/08/21 06/08/21 06:11 08:54 11:38 RBC MCV MCH MCHC RDW Plt Count Lymph % (Auto) [place] % (Auto) Lymph # (Auto) Seg Neutrophils % ABG pH ABG pO2 ABG HCO3 ABG Base Excess ABG Hemoglobin Sodium Potassium Chloride Carbon Dioxide BUN Creatinine Glucose POC Glucose 188 H 142 H 126 H Calcium Magnesium Alkaline Phosphatase Albumin 06/08/21 06/08/21 06/09/21 12:30 16:41 00:44 RBC MCV MCH MCHC RDW Plt Count Lymph % (Auto) [place] % (Auto) Lymph # (Auto) Seg Neutrophils % ABG pH 7.517 H ABG pO2 135.8 H ABG HCO3 28.5 H ABG Base Excess 5.6 H ABG Hemoglobin 13.6 L Sodium Potassium Chloride Carbon Dioxide BUN Creatinine Glucose POC Glucose 119 H 135 H Calcium Magnesium Alkaline Phosphatase Albumin 06/09/21 06/09/21 06/09/21 04:22 04:22 05:06 RBC MCV 83 L MCH 25 L MCHC 31 L RDW Plt Count 83 L Lymph % (Auto) [place] % (Auto) Lymph # (Auto) Seg Neutrophils % ABG pH ABG pO2 ABG HCO3 ABG Base Excess ABG Hemoglobin Sodium Potassium 3.3 L D Chloride Carbon Dioxide BUN Creatinine 0.6 L Glucose 113 H POC Glucose 120 H Calcium 8.3 L Magnesium Alkaline Phosphatase Albumin 06/09/21 06/09/21 06/10/21 12:44 17:42 00:54 RBC MCV MCH MCHC RDW Plt Count Lymph % (Auto) [place] % (Auto) Lymph # (Auto) Seg Neutrophils % ABG pH ABG pO2 ABG HCO3 ABG Base Excess ABG Hemoglobin Sodium Potassium Chloride Carbon Dioxide BUN Creatinine Glucose POC Glucose 141 H 108 H 114 H Calcium Magnesium Alkaline Phosphatase Albumin 06/10/21 06/10/21 06/10/21 04:04 04:24 13:29 RBC MCV MCH MCHC RDW Plt Count Lymph % (Auto) [place] % (Auto) Lymph # (Auto) Seg Neutrophils % ABG pH ABG pO2 ABG HCO3 ABG Base Excess ABG Hemoglobin Sodium 136 L Potassium 3.2 L Chloride Carbon Dioxide BUN Creatinine 0.5 L Glucose 116 H POC Glucose 128 H 152 H Calcium 7.9 L Magnesium 1.20 L Alkaline Phosphatase Albumin 06/11/21 06/11/21 06/11/21 04:02 04:02 10:37 RBC 5.20 H MCV 81 L MCH 25 L MCHC 31 L RDW 13.0 L Plt Count 111 L Lymph % (Auto) [place] % (Auto) Lymph # (Auto) Seg Neutrophils % ABG pH ABG pO2 ABG HCO3 ABG Base Excess ABG Hemoglobin Sodium 136 L Potassium Chloride Carbon Dioxide BUN Creatinine 0.6 L Glucose POC Glucose 119 H Calcium Magnesium 1.50 L Alkaline Phosphatase Albumin 06/12/21 06/13/21 06/14/21 19:37 16:10 10:41 RBC MCV MCH MCHC RDW Plt Count Lymph % (Auto) [place] % (Auto) Lymph # (Auto) Seg Neutrophils % ABG pH ABG pO2 ABG HCO3 ABG Base Excess ABG Hemoglobin Sodium 132 L Potassium Chloride 93.4 L Carbon Dioxide 18 L BUN Creatinine 0.5 L Glucose POC Glucose 145 H 156 H Calcium Magnesium 1.30 L Alkaline Phosphatase 33 L Albumin 3.5 L 06/14/21 15:45 RBC MCV MCH MCHC RDW Plt Count Lymph % (Auto) [place] % (Auto) Lymph # (Auto) Seg Neutrophils % ABG pH ABG pO2 ABG HCO3 ABG Base Excess ABG Hemoglobin Sodium Potassium Chloride Carbon Dioxide BUN Creatinine Glucose POC Glucose 130 H Calcium Magnesium Alkaline Phosphatase Albumin Chest x-ray: report reviewed, image reviewed Additional Studies: CHEST 1 VIEW 06/12/21 INDICATION: Chest congestion/shortness of breath. COMPARISON: 05/17/2021 FINDINGS: Support devices: None. Heart: Within normal limits. Lungs/Pleura: No acute air space or interstitial disease. Additional findings: None. IMPRESSION: No acute findings. Allied health notes reviewed: nursing
[2021-06-15] MEDS: INSULIN LISPRO 100 UNIT/ML SUB-Q SCH ×5 (00:23→23:14)
[2021-06-15 05:21] LABS: Blood Urea Nitrogen 14 mg/dL (9-20); Calcium 8.2 mg/dL (8.4-10.2); Hemolysis Index 4
[2021-06-15 05:39] LABS: BUN/Creatinine Ratio 23
[2021-06-15] MEDS: FAMOTIDINE 20 MG TAB PO SCH (09:09)
[2021-06-15] MEDS: SENNOSIDES/DOCUSATE SODIUM 8.6/50 MG TAB FEEDTUBE SCH ×2 (09:09→22:20)
[2021-06-15] MEDS: amLODIPine 10 MG TAB PO SCH (09:09)
[2021-06-15] MEDS: FONDAPARINUX 2.5 MG/0.5 ML INJ SUB-Q SCH (09:09)
--- NOTE | 2021-06-15 20:44 | Progress Note ---
Assessment and Plan 55-year-old male with history of hypertension who presented to the emergency department with complaints of tongue swelling. He was emergently intubated to prevent airway compromise. Patient was intubated at time of exam. Unable to provide significant or detailed history. Patient is extubated. Patient transferred to the medical floor.Patient sleepong. On room air. O2 saturation is 98% . No acute respiratory distress. Pulse 100, BP 115/71, Pulse 84, respirations 16. Patient is afebrile.. no leukocytosis. Chest xray done 06/05/21 reported probable mild left basilar atelectasis has developed in the interval. The lungs are otherwise clear. No significant pleural effusion. No pneumothorax. Chest xray done 06/06/21 reported interval development of probable atelectasis left lower lobe. Chest xray done 06/12/21 reported No acute findings. Patient is currently on Fondaparinux and famotidine. Recommend albuteral aerosol treatments and incentive spirometry. - Patient Problems (1) Angioedema Current Visit: Yes Status: Acute Plan to address problem: Improved. Patient extubated. Presently on room air. No complaint of shortness of breath at this time. (2) Compromised airway Current Visit: Yes Status: Acute Plan to address problem: Patient intubated and subsequently extubated. Presently on room air. Subjective Date of service: 06/15/21 Principal diagnosis: Acute respiratory failure ; HTN; Angioedema; H/O CVA; Hypokalemia Interval history: 55-year-old male with history of hypertension who presented to the emergency department with complaints of tongue swelling. He was emergently intubated to prevent airway compromise. Patient was intubated at time of exam. Unable to provide significant or detailed history. Patient is extubated. Patient transferred to the medical floor.Patient sleepong. On room air. O2 saturation is 98% . No acute respiratory distress. Pulse 100, BP 115/71, Pulse 84, respirations 16. Patient is afebrile.. no leukocytosis. Chest xray done 06/05/21 reported probable mild left basilar atelectasis has developed in the interval. The lungs are otherwise clear. No significant pleural effusion. No pneumothorax. Chest xray done 06/06/21 reported interval development of probable atelectasis left lower lobe. Chest xray done 06/12/21 reported No acute findings. Patient is currently on Fondaparinux and famotidine. Recommend albuteral aerosol treatments and incentive spirometry. Objective Vital Signs - 12hr 06/15/21 06/15/21 06/15/21 10:00 11:37 16:48 Temperature 98.4 F 98.8 F Pulse Rate 90 84 Respiratory 16 16 Rate Blood Pressure 132/78 115/71 O2 Sat by Pulse 98 99 98 Oximetry Constitutional: no acute distress, asleep Eyes: non-icteric ENT: oropharynx moist, other (extubated) Neck: supple, no lymphadenopathy, no JVD Effort: normal Ascultation: Bilateral: diminished breath sounds Percussion: Bilateral: not dull Cardiovascular: regular rate and rhythm Gastrointestinal: normoactive bowel sounds, soft, non-tender, non-distended Integumentary: normal Extremities: no cyanosis, no edema, pulses normal, no ischemia or petechiae Neurologic: non-focal exam (grossly), pupils equal and round, CN II-XII normal, other (delirious) Psychiatric: other (Sleeping.) CBC and BMP: 06/11/21 04:02 06/16/21 08:06 ABG, PT/INR, D-dimer: ABG ABG pH 7.517 pH Units (7.350-7.450) H 06/08/21 12:30 ABG pCO2 36.0 mm Hg 06/08/21 12:30 ABG pO2 135.8 mm Hg (80.0-90.0) H 06/08/21 12:30 ABG O2 Saturation 98.8 % (95.0-99.0) 06/08/21 12:30 PT/INR, D-dimer PT 14.6 Sec. (12.2-14.9) 06/04/21 05:16 INR 1.03 (0.87-1.13) 06/04/21 05:16 Abnormal lab findings: Abnormal Labs 06/04/21 06/04/21 06/04/21 04:53 04:53 06:30 RBC MCV 82 L MCH 26 L MCHC RDW Plt Count Lymph % (Auto) [place] % (Auto) 7.6 H Lymph # (Auto) 1.1 L Seg Neutrophils % 76.6 H ABG pH ABG pO2 118.3 H ABG HCO3 ABG Base Excess -2.9 L ABG Hemoglobin 12.7 L Sodium Potassium 3.5 L Chloride Carbon Dioxide BUN 6 L Creatinine 0.5 L Glucose 124 H POC Glucose Calcium Magnesium Alkaline Phosphatase Albumin 06/04/21 06/05/21 06/05/21 23:31 04:14 04:14 RBC MCV 81 L MCH 25 L MCHC 31 L RDW 13.0 L Plt Count 126 L Lymph % (Auto) 8.5 L [place] % (Auto) Lymph # (Auto) 0.4 L Seg Neutrophils % 87.0 H ABG pH ABG pO2 ABG HCO3 ABG Base Excess ABG Hemoglobin Sodium Potassium Chloride Carbon Dioxide BUN Creatinine 0.5 L Glucose 152 H POC Glucose 157 H Calcium 8.2 L Magnesium Alkaline Phosphatase Albumin 06/05/21 06/05/21 06/05/21 08:45 11:23 16:17 RBC MCV MCH MCHC RDW Plt Count Lymph % (Auto) [place] % (Auto) Lymph # (Auto) Seg Neutrophils % ABG pH ABG pO2 106.3 H ABG HCO3 28.2 H ABG Base Excess 3.6 H ABG Hemoglobin 13.3 L Sodium Potassium Chloride Carbon Dioxide BUN Creatinine Glucose POC Glucose 133 H 135 H Calcium Magnesium Alkaline Phosphatase Albumin 06/05/21 06/06/21 06/06/21 23:31 05:14 07:16 RBC MCV 81 L MCH 25 L MCHC 31 L RDW Plt Count Lymph % (Auto) [place] % (Auto) Lymph # (Auto) Seg Neutrophils % ABG pH ABG pO2 ABG HCO3 ABG Base Excess ABG Hemoglobin Sodium Potassium Chloride Carbon Dioxide BUN Creatinine Glucose POC Glucose 126 H 141 H Calcium Magnesium Alkaline Phosphatase Albumin 06/06/21 06/06/21 06/06/21 07:16 09:08 11:15 RBC MCV MCH MCHC RDW Plt Count Lymph % (Auto) [place] % (Auto) Lymph # (Auto) Seg Neutrophils % ABG pH ABG pO2 91.3 H ABG HCO3 27.5 H ABG Base Excess ABG Hemoglobin 13.6 L Sodium Potassium Chloride Carbon Dioxide BUN 24 H Creatinine Glucose 130 H POC Glucose 148 H Calcium 8.2 L Magnesium Alkaline Phosphatase Albumin 06/06/21 06/06/21 06/07/21 14:15 16:33 00:01 RBC MCV MCH MCHC RDW Plt Count Lymph % (Auto) [place] % (Auto) Lymph # (Auto) Seg Neutrophils % ABG pH ABG pO2 91.6 H ABG HCO3 27.9 H ABG Base Excess ABG Hemoglobin 12.7 L Sodium Potassium Chloride Carbon Dioxide BUN Creatinine Glucose POC Glucose 158 H 148 H Calcium Magnesium Alkaline Phosphatase Albumin 06/07/21 06/07/21 06/07/21 04:14 05:03 07:15 RBC MCV 80 L MCH 25 L MCHC RDW Plt Count 99 L Lymph % (Auto) [place] % (Auto) Lymph # (Auto) Seg Neutrophils % ABG pH ABG pO2 ABG HCO3 ABG Base Excess ABG Hemoglobin Sodium Potassium Chloride Carbon Dioxide BUN 21 H Creatinine 0.6 L Glucose 162 H POC Glucose 135 H Calcium 8.2 L Magnesium Alkaline Phosphatase Albumin 06/07/21 06/07/21 06/07/21 12:12 15:00 17:33 RBC MCV MCH MCHC RDW Plt Count Lymph % (Auto) [place] % (Auto) Lymph # (Auto) Seg Neutrophils % ABG pH ABG pO2 112.8 H ABG HCO3 28.4 H ABG Base Excess 3.6 H ABG Hemoglobin 13.1 L Sodium Potassium Chloride Carbon Dioxide BUN Creatinine Glucose POC Glucose 162 H 150 H Calcium Magnesium Alkaline Phosphatase Albumin 06/07/21 06/08/21 06/08/21 23:55 04:25 04:25 RBC 5.08 H MCV 82 L MCH 25 L MCHC 31 L RDW Plt Count 91 L Lymph % (Auto) [place] % (Auto) Lymph # (Auto) Seg Neutrophils % ABG pH ABG pO2 ABG HCO3 ABG Base Excess ABG Hemoglobin Sodium Potassium Chloride Carbon Dioxide BUN Creatinine 0.6 L Glucose 166 H POC Glucose 155 H Calcium Magnesium Alkaline Phosphatase Albumin 06/08/21 06/08/21 06/08/21 06:11 08:54 11:38 RBC MCV MCH MCHC RDW Plt Count Lymph % (Auto) [place] % (Auto) Lymph # (Auto) Seg Neutrophils % ABG pH ABG pO2 ABG HCO3 ABG Base Excess ABG Hemoglobin Sodium Potassium Chloride Carbon Dioxide BUN Creatinine Glucose POC Glucose 188 H 142 H 126 H Calcium Magnesium Alkaline Phosphatase Albumin 06/08/21 06/08/21 06/09/21 12:30 16:41 00:44 RBC MCV MCH MCHC RDW Plt Count Lymph % (Auto) [place] % (Auto) Lymph # (Auto) Seg Neutrophils % ABG pH 7.517 H ABG pO2 135.8 H ABG HCO3 28.5 H ABG Base Excess 5.6 H ABG Hemoglobin 13.6 L Sodium Potassium Chloride Carbon Dioxide BUN Creatinine Glucose POC Glucose 119 H 135 H Calcium Magnesium Alkaline Phosphatase Albumin 06/09/21 06/09/21 06/09/21 04:22 04:22 05:06 RBC MCV 83 L MCH 25 L MCHC 31 L RDW Plt Count 83 L Lymph % (Auto) [place] % (Auto) Lymph # (Auto) Seg Neutrophils % ABG pH ABG pO2 ABG HCO3 ABG Base Excess ABG Hemoglobin Sodium Potassium 3.3 L D Chloride Carbon Dioxide BUN Creatinine 0.6 L Glucose 113 H POC Glucose 120 H Calcium 8.3 L Magnesium Alkaline Phosphatase Albumin 06/09/21 06/09/21 06/10/21 12:44 17:42 00:54 RBC MCV MCH MCHC RDW Plt Count Lymph % (Auto) [place] % (Auto) Lymph # (Auto) Seg Neutrophils % ABG pH ABG pO2 ABG HCO3 ABG Base Excess ABG Hemoglobin Sodium Potassium Chloride Carbon Dioxide BUN Creatinine Glucose POC Glucose 141 H 108 H 114 H Calcium Magnesium Alkaline Phosphatase Albumin 06/10/21 06/10/21 06/10/21 04:04 04:24 13:29 RBC MCV MCH MCHC RDW Plt Count Lymph % (Auto) [place] % (Auto) Lymph # (Auto) Seg Neutrophils % ABG pH ABG pO2 ABG HCO3 ABG Base Excess ABG Hemoglobin Sodium 136 L Potassium 3.2 L Chloride Carbon Dioxide BUN Creatinine 0.5 L Glucose 116 H POC Glucose 128 H 152 H Calcium 7.9 L Magnesium 1.20 L Alkaline Phosphatase Albumin 06/11/21 06/11/21 06/11/21 04:02 04:02 10:37 RBC 5.20 H MCV 81 L MCH 25 L MCHC 31 L RDW 13.0 L Plt Count 111 L Lymph % (Auto) [place] % (Auto) Lymph # (Auto) Seg Neutrophils % ABG pH ABG pO2 ABG HCO3 ABG Base Excess ABG Hemoglobin Sodium 136 L Potassium Chloride Carbon Dioxide BUN Creatinine 0.6 L Glucose POC Glucose 119 H Calcium Magnesium 1.50 L Alkaline Phosphatase Albumin 06/12/21 06/13/21 06/14/21 19:37 16:10 10:41 RBC MCV MCH MCHC RDW Plt Count Lymph % (Auto) [place] % (Auto) Lymph # (Auto) Seg Neutrophils % ABG pH ABG pO2 ABG HCO3 ABG Base Excess ABG Hemoglobin Sodium 132 L Potassium Chloride 93.4 L Carbon Dioxide 18 L BUN Creatinine 0.5 L Glucose POC Glucose 145 H 156 H Calcium Magnesium 1.30 L Alkaline Phosphatase 33 L Albumin 3.5 L 06/14/21 06/14/21 06/15/21 15:45 23:38 04:14 RBC MCV MCH MCHC RDW Plt Count Lymph % (Auto) [place] % (Auto) Lymph # (Auto) Seg Neutrophils % ABG pH ABG pO2 ABG HCO3 ABG Base Excess ABG Hemoglobin Sodium 135 L Potassium Chloride Carbon Dioxide BUN Creatinine 0.6 L Glucose 119 H POC Glucose 130 H 126 H Calcium 8.2 L Magnesium 1.30 L Alkaline Phosphatase Albumin 06/15/21 06/15/21 06/15/21 07:24 10:32 15:42 RBC MCV MCH MCHC RDW Plt Count Lymph % (Auto) [place] % (Auto) Lymph # (Auto) Seg Neutrophils % ABG pH ABG pO2 ABG HCO3 ABG Base Excess ABG Hemoglobin Sodium Potassium Chloride Carbon Dioxide BUN Creatinine Glucose POC Glucose 114 H 116 H 115 H Calcium Magnesium Alkaline Phosphatase Albumin Allied health notes reviewed: nursing
[2021-06-16] MEDS: LORazepam 2 MG/ML VIAL IV PRN ×4 (06:07→20:32)
[2021-06-16] MEDS: FAMOTIDINE 20 MG TAB PO SCH (09:25)
[2021-06-16] MEDS: FONDAPARINUX 2.5 MG/0.5 ML INJ SUB-Q SCH (09:25)
[2021-06-16] MEDS: amLODIPine 10 MG TAB PO SCH (09:25)
[2021-06-16] MEDS: SENNOSIDES/DOCUSATE SODIUM 8.6/50 MG TAB FEEDTUBE SCH ×2 (09:26→23:28)
[2021-06-16] MEDS ORDERED: HALOPERIDOL LACTATE 5 MG/1 ML INJ IM ONE (10:30)
[2021-06-16] MEDS: cloNIDine TTS 0.1 MG/24 HR PATCH TD SCH (14:45)
[2021-06-16] MEDS ORDERED: MAGNESIUM SULFATE 4 GM/100 ML BAG IV ONE (18:36)
--- NOTE | 2021-06-16 18:50 | Progress Note ---
Assessment and Plan Assessment and plan: Patient is more alert and awake today, confused at times On CIWA protocol, PT OT evaluation noted Tolerated breakfast and lunch, no tremulousness agitation Restraints for safety --Hypomagnesemia; mag 1.3 Replenished with 4 g of mag sulfate Monitor electrolytes --Toxic metabolic encephalopathy /significantly improved Multifactorial , general anxiety, alcohol withdrawal Continue CIWA protocol Thiamine folic acid Physical therapy occupational therapy Strongly advised to quit alcohol use --Alcohol withdrawal symptoms : CIWA protocol Thiamine folic acid, IV fluids, multivitamin Recommend alcohol rehabilitation upon discharge Advised to quit alcohol use --Hypertensive urgency, well controlled -Presented with BP 203/112 Continue current antihypertensives, as needed hydralazine --Acute hypoxic respiratory failure /angioedema /requiring intubation Status post extubation 06/08, currently on room air Home O2 evaluation prior to discharge -CT neck showed edematous changes particularly involving the left neck including subcutaneous soft tissue with no well-defined fluid collection -- Dysphagia -Failed bedside swallow evaluation -Speech therapy eval completed 06/09 Reevaluated today, patient had modified barium swallow On mechanical soft diet tolerating well --Hypomagnesemia, hypokalemia -Replenish per protocol, monitor electrolytes -Thrombocytopenia -Likely due to EtOH abuse Closely monitor, on Arixtra --DVT prophylaxis Subcu Arixtra Monitor closely and adjust management as needed Brief history and daily hospital course Interval history: This is a 55-year-old male with HTN, EtOH abuse who presented to the emergency department on 06/04 via EMS with complaints of swollen tongue and was intubated in the emergency department to prevent airway compromise. In the emergency department she was given epinephrine, Benadryl, Solu-Medrol, FFP and Pepcid with no improvement. Work-up in the emergency department revealed hypertensive urgency with systolic blood pressure of 203/112. Patient was admitted to the hospitalist service with angioedema and hypertensive urgency with consults to [facility]. 06/06: Patient remains on the vent and sedated. Patient now with s/s of alcohol withdrawal on CIWA protocol, unable to wean off sedation. SAT and SBT trial attempted, patient is too agitated for safe extubation. Plan to wean off propofol gtt, continue CIWA protocol and Seroquel added BID. 06/07: Patient remains on the vent and on low dose Fentanyl gtt. Tachycardia with low BP yesterday, resolved s/p 1L NS bolus. Patient remains on CIWA protocol for alcohol withdrawal. Thrombocytopenia noted from this am lab, not more than 50% from admit level, will continue to monitor for now. Plan for SAT and SBt again today. 06/08: Patient is s/p extubation, fully AAO, now on 2L NC SPO2 at 100%. Patient failed bedside swallow eval, order placed for speech swallow eval. D5w ordered for now. Continue CIWA protocol for alcohol withdrawal 06/09: NG tube was replaced today, patient failed bedside swallow eval. ST will reevaluate in 24 hours. Patient will be transferred to the floor with remote telemetry. 06/10: Started on precedex gtt overnight for agitation. Precedex weaned off and started on librium taper. Ativan 2mg q4 prn. Transferred to floor 06/11; patient is slightly agitated, on CIWA protocol, sinus tachycardia, continue current management 06/12; patient has some chest congestion and shortness of breath, give 1 dose of IV Lasix , elevate the head end of the bed Speech therapy evaluation, chest x-ray to rule out any aspiration 06/15/21; patient is alert and awake oriented, no tremulousness, did not need any Ativan Ambulate as tolerated possible discharge home tomorrow if stable, 06/16/2021; advised not to give any sedation unless absolutely necessary Possible discharge tomorrow with family Plan of care reviewed with the patient and his nurse I also discussed with case management History Interval history: I seen and examined the patient at bedside Patient's chart and medications reviewed Patient is more alert and awake however sometimes he is getting confused Restraint for safety nurse Vital signs noted Hospitalist Physical - Constitutional Vitals: Temp Pulse Resp BP Pulse Ox 98.3 F 75 18 117/81 97 06/16/21 11:50 06/16/21 11:50 06/16/21 11:50 06/16/21 11:50 06/16/21 11:50 General appearance: Present: no acute distress, well-nourished - EENT Eyes: Present: PERRL, EOM intact - Neck Neck: Present: supple, normal ROM - Respiratory Respiratory effort: normal Respiratory: bilateral: diminished, negative: rales, rhonchi, wheezing - Cardiovascular Rhythm: regular Heart Sounds: Present: S1 & S2 - Extremities Extremities: no ischemia, No edema - Abdominal General gastrointestinal: soft, non-tender, non-distended, normal bowel sounds - Integumentary Integumentary: Present: clear, warm - Psychiatric Psychiatric: appropriate mood/affect, cooperative - Neurologic Neurologic: CNII-XII intact, moves all extremities Results - Labs CBC & Chem 7: 06/11/21 04:02 06/16/21 08:06 Labs: Laboratory Last Values WBC 6.0 K/mm3 (4.5-11.0) 06/11/21 04:02 RBC 5.20 M/mm3 (3.65-5.03) H 06/11/21 04:02 Hgb 12.8 gm/dl (11.8-15.2) 06/11/21 04:02 Hct 42.0 % (35.5-45.6) 06/11/21 04:02 MCV 81 fl (84-94) L 06/11/21 04:02 MCH 25 pg (28-32) L 06/11/21 04:02 MCHC 31 % (32-34) L 06/11/21 04:02 RDW 13.0 % (13.2-15.2) L 06/11/21 04:02 Plt Count 111 K/mm3 (140-440) L 06/11/21 04:02 Lymph % (Auto) 8.5 % (13.4-35.0) L 06/05/21 04:14 [place] % (Auto) 4.3 % (0.0-7.3) 06/05/21 04:14 Eos % (Auto) 0.0 % (0.0-4.3) 06/05/21 04:14 Baso % (Auto) 0.2 % (0.0-1.8) 06/05/21 04:14 Lymph # (Auto) 0.4 K/mm3 (1.2-5.4) L 06/05/21 04:14 [place] # (Auto) 0.2 K/mm3 (0.0-0.8) 06/05/21 04:14 Eos # (Auto) 0.0 K/mm3 (0.0-0.4) 06/05/21 04:14 Baso # (Auto) 0.0 K/mm3 (0.0-0.1) 06/05/21 04:14 Seg Neutrophils % 87.0 % (40.0-70.0) H 06/05/21 04:14 Seg Neutrophils # 4.4 K/mm3 (1.8-7.7) 06/05/21 04:14 ESR 29 mm/Hr (0-20) 06/04/21 04:53 PT 14.6 Sec. (12.2-14.9) 06/04/21 05:16 INR 1.03 (0.87-1.13) 06/04/21 05:16 APTT 28.1 Sec. (24.2-36.6) 06/04/21 05:16 ABG pH 7.517 pH Units (7.350-7.450) H 06/08/21 12:30 ABG pCO2 36.0 mm Hg 06/08/21 12:30 ABG pO2 135.8 mm Hg (80.0-90.0) H 06/08/21 12:30 ABG HCO3 28.5 mmol/L (20.0-26.0) H 06/08/21 12:30 ABG O2 Saturation 98.8 % (95.0-99.0) 06/08/21 12:30 ABG O2 Content 18.8 (0.0-44) 06/08/21 12:30 ABG Base Excess 5.6 mmol/L (-2.0-3.0) H 06/08/21 12:30 ABG Hemoglobin 13.6 gm/dl (14.0-18.0) L 06/08/21 12:30 ABG Carboxyhemoglobin 1.3 % (0.0-5.0) 06/08/21 12:30 ABG Methemoglobin 0.6 % (0.0-1.5) 06/08/21 12:30 Oxyhemoglobin 97.0 % (95.0-99.0) 06/08/21 12:30 FiO2 25 % 06/08/21 12:30 Sodium 135 mmol/L (137-145) L 06/15/21 04:14 Potassium 3.6 mmol/L (3.6-5.0) 06/16/21 08:06 Chloride 99.5 mmol/L (98-107) 06/15/21 04:14 Carbon Dioxide 24 mmol/L (22-30) 06/15/21 04:14 Anion Gap 15 mmol/L 06/15/21 04:14 BUN 14 mg/dL (9-20) 06/15/21 04:14 Creatinine 0.6 mg/dL (0.8-1.3) L 06/15/21 04:14 Estimated GFR > 60 ml/min 06/15/21 04:14 BUN/Creatinine Ratio 23 % 06/15/21 04:14 Glucose 119 mg/dL (75-100) H 06/15/21 04:14 POC Glucose 83 mg/dL (70-105) 06/16/21 16:17 Calcium 8.2 mg/dL (8.4-10.2) L 06/15/21 04:14 Phosphorus 3.50 mg/dL (2.5-4.5) 06/15/21 04:14 Magnesium 1.30 mg/dL (1.7-2.3) L 06/16/21 08:06 Total Bilirubin 0.80 mg/dL (0.1-1.2) 06/12/21 19:37 AST 23 units/L (5-40) 06/12/21 19:37 ALT 24 units/L (7-56) 06/12/21 19:37 Alkaline Phosphatase 33 units/L (35-129) L 06/12/21 19:37 C-Reactive Protein 0.60 mg/dL (0.00-1.30) 06/04/21 04:53 Total Protein 7.8 g/dL (6.3-8.2) 06/12/21 19:37 Albumin 3.5 g/dL (3.9-5) L 06/12/21 19:37 Albumin/Globulin Ratio 0.8 % 06/12/21 19:37 Triglycerides 88 mg/dL (2-149) 06/06/21 07:16 Coronavirus (PCR) Negative (Negative) 06/04/21 07:00 Blood Type O POSITIVE 06/04/21 05:16 Antibody Screen Negative 06/04/21 05:16 Griffith/IV: Voiding Method Toilet Active Medications - Current Medications Current Medications: Generic Name Dose Route Start Last Admin Trade Name Freq PRN Reason Stop Dose Admin Acetaminophen 650 mg 06/04/21 08:00 06/08/21 17:03 Acetaminophen 325 Mg/10.15 Ml Oral Liqd Unit Dose FEEDTUBE 650 mg Q6H PRN Administration Pain MILD(1-3)/Fever >100.5/MEDRANO Amlodipine Besylate 10 mg 06/10/21 10:00 06/16/21 09:25 Amlodipine 10 Mg Tab PO 10 mg QDAY AIDAN Administration Bisacodyl 10 mg 06/04/21 08:00 Bisacodyl 10 Mg Rect Supp TX QDAY PRN constipation Clonidine HCl 0.1 mg 06/09/21 14:00 06/16/21 14:45 Clonidine Tts 0.1 Mg/24 Hr Patch TD 0.1 mg Mo AIDAN Administration Dextrose 0 ml 06/05/21 20:28 Dextrose 50% In Water (25gm) 50 Ml Syringe IV Q30MIN PRN Hypoglycemia Protocol Famotidine 20 mg 06/11/21 10:00 06/16/21 09:25 Famotidine 20 Mg Tab PO 20 mg QDAY AIDAN Administration Fondaparinux 2.5 mg 06/10/21 10:00 06/16/21 09:25 Fondaparinux 2.5 Mg/0.5 Ml Inj SUB-Q 2.5 mg DAILY AIDAN Administration Guaifenesin 200 mg 06/12/21 14:00 06/13/21 16:33 Guaifenesin 100 Mg/5 Ml Oral Liqd PO 200 mg Q4HR PRN Administration Cough Hydralazine HCl 10 mg 06/04/21 18:00 06/09/21 16:45 Hydralazine 20 Mg/1 Ml Inj IV 10 mg Q4HR PRN Administration Hypertension Hydrophilic Ointment 1 applic 06/04/21 05:57 Lip Therapy Vaseline TP Q2HR PRN Dry Lips Magnesium Sulfate 4 gm in 100 mls @ 25 mls/hr 06/16/21 18:36 Magnesium Sulfate 4gm/100ml IV 06/16/21 22:35 ONCE ONE Insulin Human Lispro 0 unit 06/10/21 16:30 06/15/21 23:14 Insulin Lispro 100 Unit/Ml SUB-Q Not Given ACHS [facility] Protocol Labetalol HCl 10 mg 06/08/21 15:00 06/09/21 15:27 Labetalol 20 Mg/4 Ml Inj IV 10 mg Q4HR PRN Administration Hypertension Lorazepam 2 mg 06/11/21 12:25 06/16/21 13:42 Lorazepam 2 Mg/Ml Vial IV 2 mg Q4H PRN Administration Agitation Metoprolol Tartrate 5 mg 06/07/21 13:30 Metoprolol Tartrate 5 Mg/5 Ml Inj IV Q6HR PRN Tachyarrhythmias Multi-Ingred Cream/Lotion/Oil/Oint 1 applic 06/04/21 05:57 Mineral Oil/Petrolatum, White Ophth Oint 3.5 Gm OU Q4HR PRN Dry Eye(s) Naloxone HCl 0.1 mg 06/04/21 08:00 Naloxone 0.4 Mg/1 Ml Inj IV Q2MIN PRN Res Rate </= 8 or 02 SAT < 92% Ondansetron HCl 4 mg 06/04/21 08:00 Ondansetron 4 Mg/2 Ml Inj IV Q8H PRN Nausea And Vomiting Senna/Docusate Sodium 1 tab 06/04/21 10:00 06/16/21 09:26 Sennosides/Docusate Sodium 8.6/50 Mg Tab FEEDTUBE Not Given BID AIDAN Sodium Chloride 10 ml 06/04/21 10:00 06/16/21 09:26 Sodium Chloride 0.9% 10 Ml Flush Syringe IV 10 ml BID AIDAN Administration Sodium Chloride 10 ml 06/04/21 08:00 Sodium Chloride 0.9% 10 Ml Flush Syringe IV PRN PRN LINE FLUSH Nutrition/Malnutrition Assess - Dietary Evaluation Nutrition/Malnutrition Findings: Nutrition Notes Start: 06/05/21 10:40 Freq: Status: Active Protocol: Document 06/12/21 16:39 JOAO (Rec: 06/12/21 16:52 JOAO [id number]) Nutrition Notes Initial or Follow up Brief Note Current Diet Mechanical Soft Diet (sinceD 06/10). Height 6 ft 2 in Weight 82.554 kg [place] Body Weight (kg) 86.36 BMI 23.3 Weight change and time frame No body weight change reported . Subjective/Other Information RD consult for routine F/U on TF tolerance. TF dicontinued, instead PO Mechanical Soft diet ordered. No report available on %PO intake of meals at the time, and unable co contact RN by phone. Percent of energy/protein needs met: Prescribed Mechanical Soft Diet provides for energy/ protein needs (2,048 Kcal/97 g ) during LOS. Nutrition Intervention Change Diet Order: Continue Mechanical Soft Diet as per MD. Follow-Up By: 06/19/21 Additional Comments Continue monitoring food tolerance, %PO intake of meals , and BM.
--- NOTE | 2021-06-16 19:34 | Progress Note ---
Assessment and Plan 55-year-old male with history of hypertension who presented to the emergency department with complaints of tongue swelling. He was emergently intubated to prevent airway compromise. Patient was intubated at time of exam. Unable to provide significant or detailed history. Patient is extubated. Patient transferred to the medical floor.Patient sleepong. On room air. O2 saturation is 98% . No acute respiratory distress. Pulse 100, BP 115/71, Pulse 84, respirations 16. Patient is afebrile.. no leukocytosis. Chest xray done 06/05/21 reported probable mild left basilar atelectasis has developed in the interval. The lungs are otherwise clear. No significant pleural effusion. No pneumothorax. Chest xray done 06/06/21 reported interval development of probable atelectasis left lower lobe. Chest xray done 06/12/21 reported No acute findings. Patient is currently on Fondaparinux and famotidine. Recommend albuteral aerosol treatments and incentive spirometry. - Patient Problems (1) Angioedema Current Visit: Yes Status: Acute Plan to address problem: Improved. Patient extubated. Presently on room air. No complaint of shortness of breath at this time. (2) Compromised airway Current Visit: Yes Status: Acute Plan to address problem: Patient intubated and subsequently extubated. Presently on room air. Subjective Date of service: 06/16/21 Principal diagnosis: Acute respiratory failure ; HTN; Angioedema; H/O CVA; Hypokalemia Interval history: 55-year-old male with history of hypertension who presented to the emergency department with complaints of tongue swelling. He was emergently intubated to prevent airway compromise. Patient was intubated at time of exam. Unable to provide significant or detailed history. Patient is extubated. Patient transferred to the medical floor.Patient sleepong. On room air. O2 saturation is 98% . No acute respiratory distress. Pulse 100, BP 115/71, Pulse 84, respirations 16. Patient is afebrile.. no leukocytosis. Chest xray done 06/05/21 reported probable mild left basilar atelectasis has developed in the interval. The lungs are otherwise clear. No significant pleural effusion. No pneumothorax. Chest xray done 06/06/21 reported interval development of probable atelectasis left lower lobe. Chest xray done 06/12/21 reported No acute findings. Patient is currently on Fondaparinux and famotidine. Recommend albuteral aerosol treatments and incentive spirometry. Objective Vital Signs - 12hr 06/16/21 06/16/21 06/16/21 09:25 10:18 11:50 Temperature 98.0 F 98.3 F Pulse Rate 84 84 75 Respiratory 17 18 Rate Blood Pressure 122/74 117/81 O2 Sat by Pulse 98 97 Oximetry Constitutional: no acute distress, asleep Eyes: non-icteric ENT: oropharynx moist, other (extubated) Neck: supple, no lymphadenopathy, no JVD Effort: normal Ascultation: Bilateral: diminished breath sounds Percussion: Bilateral: not dull Cardiovascular: regular rate and rhythm Gastrointestinal: normoactive bowel sounds, soft, non-tender, non-distended Integumentary: normal Extremities: no cyanosis, no edema, pulses normal, no ischemia or petechiae Neurologic: non-focal exam (grossly), pupils equal and round, CN II-XII normal, other (delirious) Psychiatric: other (Sleeping.) CBC and BMP: 06/11/21 04:02 06/16/21 08:06 ABG, PT/INR, D-dimer: ABG ABG pH 7.517 pH Units (7.350-7.450) H 06/08/21 12:30 ABG pCO2 36.0 mm Hg 06/08/21 12:30 ABG pO2 135.8 mm Hg (80.0-90.0) H 06/08/21 12:30 ABG O2 Saturation 98.8 % (95.0-99.0) 06/08/21 12:30 PT/INR, D-dimer PT 14.6 Sec. (12.2-14.9) 06/04/21 05:16 INR 1.03 (0.87-1.13) 06/04/21 05:16 Abnormal lab findings: Abnormal Labs 06/04/21 06/04/21 06/04/21 04:53 04:53 06:30 RBC MCV 82 L MCH 26 L MCHC RDW Plt Count Lymph % (Auto) [place] % (Auto) 7.6 H Lymph # (Auto) 1.1 L Seg Neutrophils % 76.6 H ABG pH ABG pO2 118.3 H ABG HCO3 ABG Base Excess -2.9 L ABG Hemoglobin 12.7 L Sodium Potassium 3.5 L Chloride Carbon Dioxide BUN 6 L Creatinine 0.5 L Glucose 124 H POC Glucose Calcium Magnesium Alkaline Phosphatase Albumin 06/04/21 06/05/21 06/05/21 23:31 04:14 04:14 RBC MCV 81 L MCH 25 L MCHC 31 L RDW 13.0 L Plt Count 126 L Lymph % (Auto) 8.5 L [place] % (Auto) Lymph # (Auto) 0.4 L Seg Neutrophils % 87.0 H ABG pH ABG pO2 ABG HCO3 ABG Base Excess ABG Hemoglobin Sodium Potassium Chloride Carbon Dioxide BUN Creatinine 0.5 L Glucose 152 H POC Glucose 157 H Calcium 8.2 L Magnesium Alkaline Phosphatase Albumin 06/05/21 06/05/21 06/05/21 08:45 11:23 16:17 RBC MCV MCH MCHC RDW Plt Count Lymph % (Auto) [place] % (Auto) Lymph # (Auto) Seg Neutrophils % ABG pH ABG pO2 106.3 H ABG HCO3 28.2 H ABG Base Excess 3.6 H ABG Hemoglobin 13.3 L Sodium Potassium Chloride Carbon Dioxide BUN Creatinine Glucose POC Glucose 133 H 135 H Calcium Magnesium Alkaline Phosphatase Albumin 06/05/21 06/06/21 06/06/21 23:31 05:14 07:16 RBC MCV 81 L MCH 25 L MCHC 31 L RDW Plt Count Lymph % (Auto) [place] % (Auto) Lymph # (Auto) Seg Neutrophils % ABG pH ABG pO2 ABG HCO3 ABG Base Excess ABG Hemoglobin Sodium Potassium Chloride Carbon Dioxide BUN Creatinine Glucose POC Glucose 126 H 141 H Calcium Magnesium Alkaline Phosphatase Albumin 06/06/21 06/06/21 06/06/21 07:16 09:08 11:15 RBC MCV MCH MCHC RDW Plt Count Lymph % (Auto) [place] % (Auto) Lymph # (Auto) Seg Neutrophils % ABG pH ABG pO2 91.3 H ABG HCO3 27.5 H ABG Base Excess ABG Hemoglobin 13.6 L Sodium Potassium Chloride Carbon Dioxide BUN 24 H Creatinine Glucose 130 H POC Glucose 148 H Calcium 8.2 L Magnesium Alkaline Phosphatase Albumin 06/06/21 06/06/21 06/07/21 14:15 16:33 00:01 RBC MCV MCH MCHC RDW Plt Count Lymph % (Auto) [place] % (Auto) Lymph # (Auto) Seg Neutrophils % ABG pH ABG pO2 91.6 H ABG HCO3 27.9 H ABG Base Excess ABG Hemoglobin 12.7 L Sodium Potassium Chloride Carbon Dioxide BUN Creatinine Glucose POC Glucose 158 H 148 H Calcium Magnesium Alkaline Phosphatase Albumin 06/07/21 06/07/21 06/07/21 04:14 05:03 07:15 RBC MCV 80 L MCH 25 L MCHC RDW Plt Count 99 L Lymph % (Auto) [place] % (Auto) Lymph # (Auto) Seg Neutrophils % ABG pH ABG pO2 ABG HCO3 ABG Base Excess ABG Hemoglobin Sodium Potassium Chloride Carbon Dioxide BUN 21 H Creatinine 0.6 L Glucose 162 H POC Glucose 135 H Calcium 8.2 L Magnesium Alkaline Phosphatase Albumin 06/07/21 06/07/21 06/07/21 12:12 15:00 17:33 RBC MCV MCH MCHC RDW Plt Count Lymph % (Auto) [place] % (Auto) Lymph # (Auto) Seg Neutrophils % ABG pH ABG pO2 112.8 H ABG HCO3 28.4 H ABG Base Excess 3.6 H ABG Hemoglobin 13.1 L Sodium Potassium Chloride Carbon Dioxide BUN Creatinine Glucose POC Glucose 162 H 150 H Calcium Magnesium Alkaline Phosphatase Albumin 06/07/21 06/08/21 06/08/21 23:55 04:25 04:25 RBC 5.08 H MCV 82 L MCH 25 L MCHC 31 L RDW Plt Count 91 L Lymph % (Auto) [place] % (Auto) Lymph # (Auto) Seg Neutrophils % ABG pH ABG pO2 ABG HCO3 ABG Base Excess ABG Hemoglobin Sodium Potassium Chloride Carbon Dioxide BUN Creatinine 0.6 L Glucose 166 H POC Glucose 155 H Calcium Magnesium Alkaline Phosphatase Albumin 06/08/21 06/08/21 06/08/21 06:11 08:54 11:38 RBC MCV MCH MCHC RDW Plt Count Lymph % (Auto) [place] % (Auto) Lymph # (Auto) Seg Neutrophils % ABG pH ABG pO2 ABG HCO3 ABG Base Excess ABG Hemoglobin Sodium Potassium Chloride Carbon Dioxide BUN Creatinine Glucose POC Glucose 188 H 142 H 126 H Calcium Magnesium Alkaline Phosphatase Albumin 06/08/21 06/08/21 06/09/21 12:30 16:41 00:44 RBC MCV MCH MCHC RDW Plt Count Lymph % (Auto) [place] % (Auto) Lymph # (Auto) Seg Neutrophils % ABG pH 7.517 H ABG pO2 135.8 H ABG HCO3 28.5 H ABG Base Excess 5.6 H ABG Hemoglobin 13.6 L Sodium Potassium Chloride Carbon Dioxide BUN Creatinine Glucose POC Glucose 119 H 135 H Calcium Magnesium Alkaline Phosphatase Albumin 06/09/21 06/09/21 06/09/21 04:22 04:22 05:06 RBC MCV 83 L MCH 25 L MCHC 31 L RDW Plt Count 83 L Lymph % (Auto) [place] % (Auto) Lymph # (Auto) Seg Neutrophils % ABG pH ABG pO2 ABG HCO3 ABG Base Excess ABG Hemoglobin Sodium Potassium 3.3 L D Chloride Carbon Dioxide BUN Creatinine 0.6 L Glucose 113 H POC Glucose 120 H Calcium 8.3 L Magnesium Alkaline Phosphatase Albumin 06/09/21 06/09/21 06/10/21 12:44 17:42 00:54 RBC MCV MCH MCHC RDW Plt Count Lymph % (Auto) [place] % (Auto) Lymph # (Auto) Seg Neutrophils % ABG pH ABG pO2 ABG HCO3 ABG Base Excess ABG Hemoglobin Sodium Potassium Chloride Carbon Dioxide BUN Creatinine Glucose POC Glucose 141 H 108 H 114 H Calcium Magnesium Alkaline Phosphatase Albumin 06/10/21 06/10/21 06/10/21 04:04 04:24 13:29 RBC MCV MCH MCHC RDW Plt Count Lymph % (Auto) [place] % (Auto) Lymph # (Auto) Seg Neutrophils % ABG pH ABG pO2 ABG HCO3 ABG Base Excess ABG Hemoglobin Sodium 136 L Potassium 3.2 L Chloride Carbon Dioxide BUN Creatinine 0.5 L Glucose 116 H POC Glucose 128 H 152 H Calcium 7.9 L Magnesium 1.20 L Alkaline Phosphatase Albumin 06/11/21 06/11/21 06/11/21 04:02 04:02 10:37 RBC 5.20 H MCV 81 L MCH 25 L MCHC 31 L RDW 13.0 L Plt Count 111 L Lymph % (Auto) [place] % (Auto) Lymph # (Auto) Seg Neutrophils % ABG pH ABG pO2 ABG HCO3 ABG Base Excess ABG Hemoglobin Sodium 136 L Potassium Chloride Carbon Dioxide BUN Creatinine 0.6 L Glucose POC Glucose 119 H Calcium Magnesium 1.50 L Alkaline Phosphatase Albumin 06/12/21 06/13/21 06/14/21 19:37 16:10 10:41 RBC MCV MCH MCHC RDW Plt Count Lymph % (Auto) [place] % (Auto) Lymph # (Auto) Seg Neutrophils % ABG pH ABG pO2 ABG HCO3 ABG Base Excess ABG Hemoglobin Sodium 132 L Potassium Chloride 93.4 L Carbon Dioxide 18 L BUN Creatinine 0.5 L Glucose POC Glucose 145 H 156 H Calcium Magnesium 1.30 L Alkaline Phosphatase 33 L Albumin 3.5 L 06/14/21 06/14/21 06/15/21 15:45 23:38 04:14 RBC MCV MCH MCHC RDW Plt Count Lymph % (Auto) [place] % (Auto) Lymph # (Auto) Seg Neutrophils % ABG pH ABG pO2 ABG HCO3 ABG Base Excess ABG Hemoglobin Sodium 135 L Potassium Chloride Carbon Dioxide BUN Creatinine 0.6 L Glucose 119 H POC Glucose 130 H 126 H Calcium 8.2 L Magnesium 1.30 L Alkaline Phosphatase Albumin 06/15/21 06/15/21 06/15/21 07:24 10:32 15:42 RBC MCV MCH MCHC RDW Plt Count Lymph % (Auto) [place] % (Auto) Lymph # (Auto) Seg Neutrophils % ABG pH ABG pO2 ABG HCO3 ABG Base Excess ABG Hemoglobin Sodium Potassium Chloride Carbon Dioxide BUN Creatinine Glucose POC Glucose 114 H 116 H 115 H Calcium Magnesium Alkaline Phosphatase Albumin 06/15/21 06/16/21 06/16/21 23:46 08:06 08:09 RBC MCV MCH MCHC RDW Plt Count Lymph % (Auto) [place] % (Auto) Lymph # (Auto) Seg Neutrophils % ABG pH ABG pO2 ABG HCO3 ABG Base Excess ABG Hemoglobin Sodium Potassium Chloride Carbon Dioxide BUN Creatinine Glucose POC Glucose 116 H 117 H Calcium Magnesium 1.30 L Alkaline Phosphatase Albumin Allied health notes reviewed: nursing
--- NOTE | 2021-06-16 23:46 | Progress Note ---
Hospitalist Physical - Constitutional Vitals: Temp Pulse Resp BP Pulse Ox 98.5 F 75 20 139/90 97 06/16/21 22:57 06/16/21 11:50 06/16/21 22:57 06/16/21 22:57 06/16/21 11:50 General appearance: Present: no acute distress, well-nourished Results - Labs CBC & Chem 7: 06/11/21 04:02 06/16/21 08:06 Labs: Laboratory Last Values WBC 6.0 K/mm3 (4.5-11.0) 06/11/21 04:02 RBC 5.20 M/mm3 (3.65-5.03) H 06/11/21 04:02 Hgb 12.8 gm/dl (11.8-15.2) 06/11/21 04:02 Hct 42.0 % (35.5-45.6) 06/11/21 04:02 MCV 81 fl (84-94) L 06/11/21 04:02 MCH 25 pg (28-32) L 06/11/21 04:02 MCHC 31 % (32-34) L 06/11/21 04:02 RDW 13.0 % (13.2-15.2) L 06/11/21 04:02 Plt Count 111 K/mm3 (140-440) L 06/11/21 04:02 Lymph % (Auto) 8.5 % (13.4-35.0) L 06/05/21 04:14 [place] % (Auto) 4.3 % (0.0-7.3) 06/05/21 04:14 Eos % (Auto) 0.0 % (0.0-4.3) 06/05/21 04:14 Baso % (Auto) 0.2 % (0.0-1.8) 06/05/21 04:14 Lymph # (Auto) 0.4 K/mm3 (1.2-5.4) L 06/05/21 04:14 [place] # (Auto) 0.2 K/mm3 (0.0-0.8) 06/05/21 04:14 Eos # (Auto) 0.0 K/mm3 (0.0-0.4) 06/05/21 04:14 Baso # (Auto) 0.0 K/mm3 (0.0-0.1) 06/05/21 04:14 Seg Neutrophils % 87.0 % (40.0-70.0) H 06/05/21 04:14 Seg Neutrophils # 4.4 K/mm3 (1.8-7.7) 06/05/21 04:14 ESR 29 mm/Hr (0-20) 06/04/21 04:53 PT 14.6 Sec. (12.2-14.9) 06/04/21 05:16 INR 1.03 (0.87-1.13) 06/04/21 05:16 APTT 28.1 Sec. (24.2-36.6) 06/04/21 05:16 ABG pH 7.517 pH Units (7.350-7.450) H 06/08/21 12:30 ABG pCO2 36.0 mm Hg 06/08/21 12:30 ABG pO2 135.8 mm Hg (80.0-90.0) H 06/08/21 12:30 ABG HCO3 28.5 mmol/L (20.0-26.0) H 06/08/21 12:30 ABG O2 Saturation 98.8 % (95.0-99.0) 06/08/21 12:30 ABG O2 Content 18.8 (0.0-44) 06/08/21 12:30 ABG Base Excess 5.6 mmol/L (-2.0-3.0) H 06/08/21 12:30 ABG Hemoglobin 13.6 gm/dl (14.0-18.0) L 06/08/21 12:30 ABG Carboxyhemoglobin 1.3 % (0.0-5.0) 06/08/21 12:30 ABG Methemoglobin 0.6 % (0.0-1.5) 06/08/21 12:30 Oxyhemoglobin 97.0 % (95.0-99.0) 06/08/21 12:30 FiO2 25 % 06/08/21 12:30 Sodium 135 mmol/L (137-145) L 06/15/21 04:14 Potassium 3.6 mmol/L (3.6-5.0) 06/16/21 08:06 Chloride 99.5 mmol/L (98-107) 06/15/21 04:14 Carbon Dioxide 24 mmol/L (22-30) 06/15/21 04:14 Anion Gap 15 mmol/L 06/15/21 04:14 BUN 14 mg/dL (9-20) 06/15/21 04:14 Creatinine 0.6 mg/dL (0.8-1.3) L 06/15/21 04:14 Estimated GFR > 60 ml/min 06/15/21 04:14 BUN/Creatinine Ratio 23 % 06/15/21 04:14 Glucose 119 mg/dL (75-100) H 06/15/21 04:14 POC Glucose 99 mg/dL (70-105) 06/16/21 21:29 Calcium 8.2 mg/dL (8.4-10.2) L 06/15/21 04:14 Phosphorus 3.50 mg/dL (2.5-4.5) 06/15/21 04:14 Magnesium 1.30 mg/dL (1.7-2.3) L 06/16/21 08:06 Total Bilirubin 0.80 mg/dL (0.1-1.2) 06/12/21 19:37 AST 23 units/L (5-40) 06/12/21 19:37 ALT 24 units/L (7-56) 06/12/21 19:37 Alkaline Phosphatase 33 units/L (35-129) L 06/12/21 19:37 C-Reactive Protein 0.60 mg/dL (0.00-1.30) 06/04/21 04:53 Total Protein 7.8 g/dL (6.3-8.2) 06/12/21 19:37 Albumin 3.5 g/dL (3.9-5) L 06/12/21 19:37 Albumin/Globulin Ratio 0.8 % 06/12/21 19:37 Triglycerides 88 mg/dL (2-149) 06/06/21 07:16 Coronavirus (PCR) Negative (Negative) 06/04/21 07:00 Blood Type O POSITIVE 06/04/21 05:16 Antibody Screen Negative 06/04/21 05:16 Griffith/IV: Voiding Method Toilet Active Medications - Current Medications Current Medications: Generic Name Dose Route Start Last Admin Trade Name Freq PRN Reason Stop Dose Admin Acetaminophen 650 mg 06/04/21 08:00 06/08/21 17:03 Acetaminophen 325 Mg/10.15 Ml Oral Liqd Unit Dose FEEDTUBE 650 mg Q6H PRN Administration Pain MILD(1-3)/Fever >100.5/MEDRANO Amlodipine Besylate 10 mg 06/10/21 10:00 06/16/21 09:25 Amlodipine 10 Mg Tab PO 10 mg QDAY AIDAN Administration Bisacodyl 10 mg 06/04/21 08:00 Bisacodyl 10 Mg Rect Supp IA QDAY PRN constipation Clonidine HCl 0.1 mg 06/09/21 14:00 06/16/21 14:45 Clonidine Tts 0.1 Mg/24 Hr Patch TD 0.1 mg Mo AIDAN Administration Famotidine 20 mg 06/11/21 10:00 06/16/21 09:25 Famotidine 20 Mg Tab PO 20 mg QDAY AIDAN Administration Fondaparinux 2.5 mg 06/10/21 10:00 06/16/21 09:25 Fondaparinux 2.5 Mg/0.5 Ml Inj SUB-Q 2.5 mg DAILY AIDAN Administration Guaifenesin 200 mg 06/12/21 14:00 06/13/21 16:33 Guaifenesin 100 Mg/5 Ml Oral Liqd PO 200 mg Q4HR PRN Administration Cough Hydralazine HCl 10 mg 06/04/21 18:00 06/09/21 16:45 Hydralazine 20 Mg/1 Ml Inj IV 10 mg Q4HR PRN Administration Hypertension Hydrophilic Ointment 1 applic 06/04/21 05:57 Lip Therapy Vaseline TP Q2HR PRN Dry Lips Labetalol HCl 10 mg 06/08/21 15:00 06/09/21 15:27 Labetalol 20 Mg/4 Ml Inj IV 10 mg Q4HR PRN Administration Hypertension Lorazepam 2 mg 06/11/21 12:25 06/16/21 20:32 Lorazepam 2 Mg/Ml Vial IV 2 mg Q4H PRN Administration Agitation Metoprolol Tartrate 5 mg 06/07/21 13:30 Metoprolol Tartrate 5 Mg/5 Ml Inj IV Q6HR PRN Tachyarrhythmias Multi-Ingred Cream/Lotion/Oil/Oint 1 applic 06/04/21 05:57 Mineral Oil/Petrolatum, White Ophth Oint 3.5 Gm OU Q4HR PRN Dry Eye(s) Naloxone HCl 0.1 mg 06/04/21 08:00 Naloxone 0.4 Mg/1 Ml Inj IV Q2MIN PRN Res Rate </= 8 or 02 SAT < 92% Ondansetron HCl 4 mg 06/04/21 08:00 Ondansetron 4 Mg/2 Ml Inj IV Q8H PRN Nausea And Vomiting Senna/Docusate Sodium 1 tab 06/04/21 10:00 06/16/21 23:28 Sennosides/Docusate Sodium 8.6/50 Mg Tab FEEDTUBE Not Given BID AIDAN Sodium Chloride 10 ml 06/04/21 10:00 06/16/21 23:29 Sodium Chloride 0.9% 10 Ml Flush Syringe IV 10 ml BID AIDAN Administration Sodium Chloride 10 ml 06/04/21 08:00 Sodium Chloride 0.9% 10 Ml Flush Syringe IV PRN PRN LINE FLUSH Nutrition/Malnutrition Assess - Dietary Evaluation Nutrition/Malnutrition Findings: Nutrition Notes Start: 06/05/21 10:40 Freq: Status: Active Protocol: Document 06/12/21 16:39 JOAO (Rec: 06/12/21 16:52 JOAO [id number]) Nutrition Notes Initial or Follow up Brief Note Current Diet Mechanical Soft Diet (sinceD 06/10). Height 6 ft 2 in Weight 82.554 kg [place] Body Weight (kg) 86.36 BMI 23.3 Weight change and time frame No body weight change reported . Subjective/Other Information RD consult for routine F/U on TF tolerance. TF dicontinued, instead PO Mechanical Soft diet ordered. No report available on %PO intake of meals at the time, and unable co contact RN by phone. Percent of energy/protein needs met: Prescribed Mechanical Soft Diet provides for energy/ protein needs (2,048 Kcal/97 g ) during LOS. Nutrition Intervention Change Diet Order: Continue Mechanical Soft Diet as per MD. Follow-Up By: 06/19/21 Additional Comments Continue monitoring food tolerance, %PO intake of meals , and BM.
[2021-06-17] MEDS: SENNOSIDES/DOCUSATE SODIUM 8.6/50 MG TAB FEEDTUBE SCH (10:43)
[2021-06-17] MEDS: FAMOTIDINE 20 MG TAB PO SCH (10:44)
[2021-06-17] MEDS: amLODIPine 10 MG TAB PO SCH (10:50)
[2021-06-17] MEDS: FONDAPARINUX 2.5 MG/0.5 ML INJ SUB-Q SCH (11:01)
--- NOTE | 2021-06-17 11:39 | Discharge Summary ---
Providers - Providers Date of Admission: 06/04/21 06:03 Date of discharge: 06/17/21 Attending physician: OSMANY MILAN 06/04/21 05:57 Consult to Dietitian/Nutrition [CONS] Routine Physician Instructions: Reason For Exam: Reason for Consult: Evaluate nutritional intake 06/04/21 07:24 Consult to Physician [CONS] Routine Comment: Consulting Provider: OCTAVIO BECKMAN Physician Instructions: Reason For Exam: Intubation 2/2 angioedema 06/05/21 13:22 Consult to Dietitian/Nutrition [CONS] Routine Physician Instructions: Assess nutrtn needs, initiate, modify, manage TF Reason For Exam: Reason for Consult: Write/Manage Tube Feeding Reason for Consult: Write/Manage Tube Feeding 06/08/21 17:10 Speech Therapy Evaluation and Treat [CONS] Routine Reason For Exam: Failed Bedside Swallow 06/09/21 15:32 Physical Therapy Evaluation and Treat [CONS] Urgent Comment: Reason For Exam: To assess mobility status - DC planning 06/09/21 15:33 Occupational Therapy Evaluate and Treat [CONS] Urgent Comment: Reason For Exam: To assess ADL status-DC planning Primary care physician: CORRUGATOR HELPER Hospitalization Condition: Stable Disposition: 06 HOME HEALTH CARE SERVICE Core Measure Documentation - Palliative Care Palliative Care/ Comfort Measures: Not Applicable - Core Measures Any of the following diagnoses?: none Exam - Constitutional Vitals: Temp Pulse Resp BP Pulse Ox 98.2 F 85 18 106/71 99 06/17/21 04:54 06/17/21 10:50 06/17/21 04:54 06/17/21 10:50 06/17/21 04:54 Plan Activity: advance as tolerated, fall precautions Diet: regular Durable Medical Equipment Needed Upon Discharge: Walker-Rolling Additional Instructions: Fall precautions. Strongly advised to quit alcohol intake. Advised to seek alcohol rehabilitation upon discharge. If you have worsening symptoms contact MD or go to the nearest emergency room as needed, patient was advised to use cane or rolling walker if he has unsteady gait. Prescription for rolling walker was given at discharge Follow up with: OMI AGUIRRE MD [Primary Care Provider] - 7 Days NORMA KING MD [Staff Physician] - 7 Days Prescriptions: amLODIPine 10 mg PO QDAY #30 tablet cloNIDine-TTS PATCH [Catapres-Tts 0.1MG Patch] 0.1 mg TD Mo #4 patch Folic Acid [Folvite] 1 mg PO QDAY #30 tablet Famotidine [Pepcid] 20 mg PO QDAY #20 tablet Thiamine [Vitamin B-1] 100 mg PO QDAY #30 tablet Other Discharge Orders: Walker-Rolling (Amb) Location: None Selected
[2021-06-17 12:49] VITALS: BP 120/78
== END 2021-06-17 16:55 | disposition home or self-care (01) | DRG 207 ==
LOC: ED 04:22 → CC1 06:03 → 3A 06-10 10:44
PROVIDERS: ADMIT Internal Medicine Geriatric Medicine; ATTEND Internal Medicine
PROC: 30233K1 Transfusion of Nonautologous Frozen Plasma into Peripheral Vein, Percutaneous Approach (ICD-10-PCS; principal; 2021-06-04)
PROC: 5A1955Z Respiratory Ventilation, Greater than 96 Consecutive Hours (ICD-10-PCS; 2021-06-04)
PROC: 0BH17EZ Insertion of Endotracheal Airway into Trachea, Via Natural or Artificial Opening (ICD-10-PCS; 2021-06-04)
PROC: 4A033R1 Measurement of Arterial Saturation, Peripheral, Percutaneous Approach (ICD-10-PCS; 2021-06-07)
DX: J96.01 Acute respiratory failure with hypoxia (principal); G92.8 Other toxic encephalopathy; F10.239 Alcohol dependence with withdrawal, unspecified; T78.3XXA Angioneurotic edema, initial encounter; I16.0 Hypertensive urgency; I10 Essential (primary) hypertension; E87.6 Hypokalemia; Y90.9 Presence of alcohol in blood, level not specified; F41.9 Anxiety disorder, unspecified; R13.10 Dysphagia, unspecified; E83.42 Hypomagnesemia
CPT/HCPCS: 36415; 36600; 70491; 71045; 74018; 74230; 80048; 80053; 82803; 82962; 83735; 84100; 84132; 84478; 85025; 85027; 85610; 85652; 85730; 86140; 86850; 86900; 86901; 87070; 87205; 93005; 94002; 94003; 94760; 99291; G0378; J3490; J7121; Q9967; J0171; J0360; J1200; J1630; J1644; J1652; J1815; J1940; J2060; J2250; J2270; J2704; J2920; J2930; J3010; J3475; J3480; J7040; J7070; P9017; U0003

== ENCOUNTER 2021-09-04 20:01 | Emergency (ER) | payer SELFPAY ==
--- NOTE | 2021-09-04 22:25 | XRay Report ---
Left wrist, 3 views HISTORY: Injury COMPARISON: None FINDINGS: Transversely oriented minimally impacted fracture of the distal radius. There is associated callus fo rmation about the fracture, suggesting this is subacute in age. No additional fracture. Carpal alignm ent is preserved. Mild positive ulnar variance. Diffuse soft tissue swelling of the wrist. IMPRESSION: Recent healing minimally displaced fracture of the distal radius. Signer Name: Bryon Harden MD Signed: 09/04/2021 10:20 PM Workstation Name: [id number]
--- NOTE | 2021-09-05 03:27 | Emergency Department Report ---
Upper Extremity - HPI Chief Complaint: Extremity Injury, Upper Stated Complaint: LEFT ARM MAY BE BROKEN Time Seen by Provider: 09/05/21 03:19 Upper Extremity: Left Wrist (pain and swelling ) Occurred When: 3 Days Mechanism: Fall Symptoms: Yes Pain with Movement, Yes Deformity (mild ), Yes Limited Range of Movement, No Numbness, No Weakness, No Swelling, No Bruising/Ecchymosis, No Laceration or Abrasion ED Review of Systems ROS: Stated complaint: LEFT ARM MAY BE BROKEN Other details as noted in HPI Constitutional: denies: chills, fever Eyes: denies: eye pain, eye discharge, vision change ENT: denies: ear pain, throat pain Respiratory: denies: cough, shortness of breath, wheezing Cardiovascular: denies: chest pain, palpitations Endocrine: no symptoms reported Gastrointestinal: denies: abdominal pain, nausea, diarrhea Genitourinary: denies: urgency, dysuria Musculoskeletal: denies: back pain, joint swelling, arthralgia Skin: denies: rash, lesions Neurological: denies: headache, weakness, paresthesias Psychiatric: denies: anxiety, depression Hematological/Lymphatic: denies: easy bleeding, easy bruising ED Past Medical Hx - Past Medical History Hx Hypertension: Yes Hx CVA: Yes Hx Congestive Heart Failure: No Hx Diabetes: No Hx Asthma: Yes Hx COPD: No Hx HIV: No - Social History Smoking Status: Unknown if ever smoked - Medications Home Medications: Home Medications Medication Instructions Recorded Confirmed Last Taken Type Famotidine [Pepcid] 20 mg PO QDAY #20 tablet 06/17/21 Unknown Rx Folic Acid [Folvite] 1 mg PO QDAY #30 tablet 06/17/21 Unknown Rx Thiamine [Vitamin B-1] 100 mg PO QDAY #30 tablet 06/17/21 Unknown Rx amLODIPine 10 mg PO QDAY #30 tablet 06/17/21 Unknown Rx cloNIDine-TTS PATCH [Catapres-Tts 0.1 mg TD Mo #4 patch 06/17/21 Unknown Rx 0.1MG Patch] Acetaminophen/Codeine [Tylenol 1 tab PO Q6H PRN #12 tab 09/05/21 Unknown Rx /Codeine # 3 tab] Upper Extremity Exam - Exam General: Vital signs noted. No distress. Alert and acting appropriately. Head and Torso: No HEENT Abnormality, No Neck Tenderness, No Chest/Lungs Abnormality, No Abdominal Tenderness, No Back Tenderness Shoulder Exam: Yes Normal Range of Motion in Shoulder, No Shoulder Tenderness, No Clavicle Tenderness, No Shoulder Deformity, No AC Joint Tenderness Arm Exam: No Arm/Humerus Tenderness, No Arm Deformity Elbow: No Elbow Tenderness, No Normal Range of Motion in Elbow, No Elbow Deformity Forearm: No Forearm Tenderness, No Forearm Deformity, No Pain with Pronation, No Pain with Supination Wrist: Yes Wrist Tenderness, Yes Normal ROM in Wrist, No Wrist Deformity Hand: Yes Normal ROM in Digit(s), No Hand Tenderness, No Hand Deformity, No Digit Tenderness, No Digit(s) Deformity, No Tendon Dysfunction CMS Exam: No Broken Skin, No Normal Distal Pulses, No Normal Capillary Refill, No Normal Distal Sensation ED Course Vital Signs 09/04/21 21:31 Temperature 98.2 F Pulse Rate 86 Respiratory 18 Rate Blood Pressure 192/115 O2 Sat by Pulse 98 Oximetry ED Medical Decision Making - Radiology Data Radiology results: report reviewed, image reviewed Left wrist, 3 views HISTORY: Injury COMPARISON: None FINDINGS: Transversely oriented minimally impacted fracture of the distal radius. There is associated callus formation about the fracture, suggesting this is subacute in age. No additional fracture. Carpal alignment is preserved. Mild positive ulnar variance. Diffuse soft tissue swelling of the wrist. IMPRESSION: Recent healing minimally displaced fracture of the distal radius. Signer Name: Marielena Felix MD Signed: 09/04/2021 10:20 PM Workstation Name: [id number] Transcribed By: SHELLEY Dictated By: MARIELENA FELIX MD Electronically Authenticated By: MARIELENA FELIX MD Signed Date/Time: 09/04/212219 DD/ 17 TD/TT: Print Cancel - Medical Decision Making X-ray which appears to be subacute left radial distal fracture with concurrent ulnar fracture this is likely an older injury, swelling is minimal distal pulses intact none pain is exacerbated by movement. ASSISTANT LABORATORY DIRECTOR less than 3 seconds bilateral patient with Velcro wrist splint at this time. We will follow-up with orthopedic surgery in 2 to 3 days. Patient verbalized agreement understanding discharge plan patient DC'd home in stable condition at this time. Splint check will be completed prior to discharge. There is no scaphoid tenderness. There is no abrasion or laceration. Critical care attestation.: If time is entered above; I have spent that time in minutes in the direct care of this critically ill patient, excluding procedure time. ED Disposition Clinical Impression: Closed fracture of wrist Qualifiers: Encounter type: initial encounter Laterality: left Qualified Code(s): S62.102A - Fracture of unspecified carpal bone, left wrist, initial encounter for closed fracture Disposition: 01 HOME / SELF CARE / HOMELESS Is pt being admited?: No Does the pt Need Aspirin: No Condition: Stable Instructions: Wrist Fracture Treated With Immobilization, [id number], Wrist Fracture Rehab-SportsMed Additional Instructions: Take medications as prescribed, follow-up with orthopedic surgery in 2 to 3 days. Return to emergency department should symptoms worsen. Prescriptions: Acetaminophen/Codeine [Tylenol /Codeine # 3 tab] 1 tab PO Q6H PRN #12 tab PRN Reason: pain Referrals: HERSON WINTERS MD [Staff Physician] - 3-5 Days Forms: Work/School Release Form(ED) Time of Disposition: 03:45
[2021-09-05] MEDS ORDERED: HYDROcodone/ACETAMINOPHEN 5-325 MG TAB PO ONE (03:41)
[2021-09-05 04:06] VITALS: BP 156/90
== END 2021-09-05 04:03 | disposition home or self-care (01) ==
LOC: ED 20:01
DX: S52.592A Other fractures of lower end of left radius, initial encounter for closed fracture (principal); I10 Essential (primary) hypertension; Z79.899 Other long term (current) drug therapy; W18.39XA Other fall on same level, initial encounter; Y93.89 Activity, other specified; Y92.89 Other specified places as the place of occurrence of the external cause; Y99.8 Other external cause status
CPT/HCPCS: 99283